=== PATIENT | female | born 1940 | race Caucasian/White ===

== ENCOUNTER 2017-06-22 12:56 | Inpatient (IN) | payer MEDICARE, OTHER, SELFPAY ==
[2017-06-22] VITALS (13 sets, daily range): BP systolic 111–202; BP diastolic 65–101; PULSE 86–106; RESP 11–24; TEMP 36.5–36.6; O2SAT 95–100; BMI 27.5; BMI 32.1
--- NOTE | 2017-06-22 13:19 | RAD_ITS ---
STUDY: X-RAY CHEST REASON FOR EXAM: Female, 77 years old. Dyspnea TECHNIQUE: Single AP portable view of the chest. COMPARISON: March 31, 2017 chest x-ray FINDINGS: Since prior study the right middle lobe pulmonary nodule has enlarged. It now measures 2.3 x 2.1 cm when it measured 1.6 x 1.2 cm on prior study, March 31, 2017 chest x-ray. There is a pattern of emphysematous change. There is no demonstrated pleural abnormality. There is borderline cardiomegaly. Normal mediastinum and soto. Normal visualized pulmonary arteries. Normal visualized aortic arch and descending thoracic aorta. There are diffuse degenerative changes of the visualized thoracic spine. Normal visualized ribs, clavicles, and shoulders. There is no demonstrated abnormality of the visualized soft tissue structures of the upper abdomen. RAD/Chest 1 View (Portable) IMPRESSION: Enlarging mass in the right middle lobe suspicious for cancer until proven otherwise. Chronic obstructive pulmonary disease N.B. : The above information has been verbally conveyed by Kaylyn Bauer MD to Dr Mckinney, Referring Physician, on 06/22/2017 14:05:38 (ET). Electronically Signed: Kaylyn Bauer MD at 13:47 EST Tel , Service support , N.B. : The above information has been verbally conveyed by Kaylyn Bauer MD to Dr Mckinney, Referring Physician, on 06/22/2017 14:05:38 (ET).
--- NOTE | 2017-06-22 13:19 | EKG12_ITS ---
Test Reason : SOB Blood Pressure : / mmHG Vent. Rate : 101 BPM Atrial Rate : 101 BPM P-R Int : 150 ms QRS Dur : 088 ms QT Int : 310 ms P-R-T Axes : 066 -61 072 degrees QTc Int : 401 ms Sinus tachycardia Left anterior fascicular block Nonspecific T wave abnormality Abnormal ECG Confirmed by MABLE MCGARRY, SUMAN ([id number]), videotape editor ROCK GARZA ([id number]) on 06/24/2017 10:41:41 AM Referred By: [email or web address] Confirmed By:SUMAN AKINS MD
[2017-06-22] MEDS: Ipratropium/Albuterol Sulfate 3 ML AMPUL.NEB INHALATION ×3 (13:29→22:30)
--- NOTE | 2017-06-22 13:46 | ED.VISSUMM ---
- ER Visit Summary Date of Service: 06/22/17 Chief Complaint: [] Worsening shortness of breath recent negative pulmonary workup History of Present Illness: The patient is a 77 F [] she has a history of CHF COPD, lung cancer, non-Hodgkin's lymphoma, she has had progressively worsening shortness of breath. She has had extensive recent evaluation by her software applications engineer including special breathing tests, special oxygen tests, CAT scans workup for cancer pulmonary embolisms etc. he also indicates she had a biopsy she believes of a right lung lesion that showed no cancer, she reports all of her pulmonary test were negative and she was told her shortness of breath is not related to her lung condition and that she should see her funeral director/embalmer. She indicates she had progressively more shortness of breath today where she cannot lay flat and she cannot walk across her small apartment without getting quite winded and she was instructed to come to the emergency department. She has no history of PE she has history of cardiac disease with stents, no fever chronic cough no weight gain no leg edema. She simply states she is constantly short of breath her cough is dry nonproductive Physical Examination: [] Pulse ox is 95 on room air she speaking full sentences her nose is clear her throat is clear her neck is supple her lungs are diminished heart tones are unremarkable the abdomen soft nontender upper lower extremities without signs clubbing or edema neurologically she is awake moving all 4 Test Results: [] Emergency Department Course and Treatment: [] And her complaints a competence evaluations pursued EKG shows a sinus rhythm nothing acute The patient's labs are generally unremarkable see those reports, the chest x-ray shows a suspicious lesion in the right middle lobe suspicious for cancer and enlarging, CTA was done and shows lesion right middle lobe consists concerning for cancer per radiology All the above to the patient given all of that I have asked the hospital see her further management admission Treatment Plan: [] Disposition: [] Admit stable Impression: [] Dyspnea, right middle lobe lung mass, history of COPD and CHF, history of lung cancer, non-Hodgkin's lymphoma This note was generated with [employer] dictation software. It may contain incorrect words, spelling, and punctuation that were not noted in review of the chart prior to signing ED Disposition - Plan for ED Patient: Chief Complaint: Shortness of Breath Referrals: Ashley Stephens MD [Primary Care Provider] -
[2017-06-22 13:48] LABS: Absolute Lymphocyte Count 2.56 X10^3/ul (0.83-4.51); Absolute Neutrophil Count 4.7 X10^3/uL (2.0-7.7); Basophil# 0.04 X10^3/uL; Basophil% 0.5 % (0-1); Eosinophil# 0.18 X10^3/uL; Eosinophils% 2.1 % (0-5); Hematocrit 40.5 % (37-47); Hemoglobin 13.4 g/dl (12.0-15.0); Lymphocyte # 2.56 X10^3/ul (4.0); Lymphocyte % 29.9 % (19-41); Mean Corp Hgb Conc 33.1 g/gl (32-36); Mean Corpuscular Hgb 30.7 pg (27.0-32.0); Mean Corpuscular Volume 92.9 fL (81-99); Mean Platelet Vol. 11.1 fl (6.2-12.0); Monocyte# 1.11 X10^3/uL; Neutrophil # 4.66 X10^3/uL (2.7-7.7); Neutrophil % 54.4 % (47-70); POSITIVE COUNT NO; POSITIVE DIFFERENTIAL NO; POSITIVE MORPHOLOGY NO; Platelet Count 252 K/mm3 (150-450); RBC Distribution Width CV 15.7 % (11.6-14.6); RBC Distribution Width SD 51.7 fl (35.1-43.9); Red Blood Count 4.36 M/mm3 (4.2-5.4); White Blood Count 8.6 K/mm3 (4.4-11.0)
--- NOTE | 2017-06-22 14:03 | CT_ITS ---
STUDY: CTA CHEST REASON FOR EXAM: Female, 77 years old. COPD, dyspnea RADIATION DOSAGE (If Supplied By Facility): CTDIvol = ( 12.77 ) mGy, DLP = ( 555.40 ) mGycm TECHNIQUE: The examination was performed with the intravenous administration of 100 ml of Isovue 370 contrast material. Post-processing of the angiographic images was performed, with multiplanar reformation and 3D reconstruction. Individualized dose optimization techniques were used for this CT. COMPARISON: CT chest February 28, 2017, October 18, 2016 chest x-ray, June 22, 2017 chest x-ray FINDINGS: Normal enhancement of the main pulmonary artery and right and left pulmonary arteries. Normal enhancement of the bilateral peripheral pulmonary arteries. There is no demonstrated pulmonary embolism. There is atherosclerotic calcification of the aortic arch with tortuosity. There is no demonstrated aortic dissection. There are coronary calcifications. There is mild cardiac enlargement. There is a stable focal low attenuating mass within the mediastinum suggesting a low attenuating lymph node stable since prior study or small focus of fluid. There is a small subcarinal lymph node measuring 7.7 mm similar to prior study. Normal hilar regions. Normal visualized trachea and bronchi. The lungs are well expanded. Within the right lung base is a stable focus of groundglass opacity or fibrotic change. Overall the lungs are hyperinflated and show central small emphysematous blebs. There is an overall hyperinflated appearance of both lungs. Within the right middle lobe there is a solid lobulated mass with peripheral spiculations and now an adjacent spiculated nodular component. There is interval greater pleural tagging. On today's study image #95 axial views this mass measures 2.4 x 1.6 cm with a peripheral nodular component measures 6.1 x 6.1 mm. At approximately the same level on the prior study this mass measured 1.6 x 1.5 cm with a peripheral nodular component measuring 4 x 4 mm. From craniocaudal this mass measures 2.0 x 1.4 cm on the coronal view image #106. On prior study at approximately the same level the mass measures 1.1 x 1.3 cm. Normal pleura. Normal chest wall structures. The bones are osteopenic. There is mild degenerative change in the thoracolumbar spine. There is hepatic steatosis. There is nonspecific focal calcification posterior to the lesser curvature of the stomach. There is a hiatal hernia. This measures 2.[address]/CTA Chest W/WO Contrast IMPRESSION: 2.0 x 2.4 x 1.6 cm enlarging mass in the right middle lobe highly suspicious for primary lung cancer. Findings seen on chest x-ray were called to the emergency room on a stat basis. Chronic obstructive pulmonary disease Stable focus of fibrotic change in the right lung base. Coronary artery calcification. Hepatic steatosis Hiatal hernia. Focus of calcification measuring 1.3 x 1.3 cm posterior to the greater curvature of the stomach stable since prior study which may represent prior granulomatous disease. Electronically Signed: Kaylyn Bauer MD at 15:40 EST Tel , Service support ,
[2017-06-22 14:06] LABS: Anion Gap 9 (5-15); BUN 10 mg/dL (7-18); BUN/Creat Ratio 14.9 RATIO (10-20); Calcium,Total 8.4 mg/dL (8.5-10.1); Chloride 108 mmol/L (98-107); Creatinine, Serum 0.67 mg/dL (0.55-1.02); EST Glomerular Filtration Rate 90 mL/min (>60); Est Glom Filt Rate - Afr Amer 109 mL/min (>60); Estimated Creatinine Clearance 46.77 ml/min; Glucose 102 mg/dL (70-110); Potassium 4.1 mmol/L (3.5-5.1); Sodium Level 141 mmol/L (136-145)
[2017-06-22 14:18] LABS: BNP,B-Type NATRIURETIC PEPTIDE 425.7 pg/mL (0-100)
--- NOTE | 2017-06-22 16:56 | PCM.HP.STD ---
Problem List (1) Acute exacerbation of CHF (congestive heart failure) Status: Acute Qualifiers: Congestive heart failure type: systolic Qualified Code(s): I50.23 - Acute on chronic systolic (congestive) heart failure (2) PVD (peripheral vascular disease) Status: Chronic (3) Hyperlipemia Status: Acute Qualifiers: Hyperlipidemia type: unspecified Qualified Code(s): E78.5 - Hyperlipidemia, unspecified (4) Non-Hodgkin lymphoma Status: Acute Qualifiers: Follicular lymphoma grade: unspecified grade Lymphoma site: unspecified region (5) COPD (chronic obstructive pulmonary disease) Status: Chronic Qualifiers: Emphysema type: unspecified History of Present Illness Date of Admission: 06/22/17 Chief Complaint: Dyspnea, cough ongoing for months The patient is a 77 year old F with medical history of non-Hodgkin's lymphoma,? COPD, history of lung nodules, follows up with oncology, pulmonology, and cardiology in [place]. She comes in with complaints of shortness of breath ongoing for months but worse over the last 3 days. No associated fever but occasionally has sputum production. Denies any chest pain or dizziness or palpitations. Vitals in the ED showed temperature of 90 7.7F, heart rate is 102, respiratory rate is 21, blood pressure is 111/65, she was saturating at 95% on room air. Admitting labs show WBC count of 8.6, Hgb 13.4, platelets of 252, sodium 141 potassium 4.1, chloride 108 bicarbonate 24 BUN was 10 creatinine was 0.67 BNP was 425.7 Chest x-ray shows an enlarging mass in the right middle lobes, suspicious for cancer. CTA of the chest showed a 2.0?2.4?1.6 cm enlarging mass in the right middle lobe suspicious for primary lung cancer Past Medical History Past Medical History (Chronic Problems): Chronic Problems (Last Reviewed 06/11/17 @ 16:23 by ANOOP Cervantes) Asthma (Chronic) Tobacco abuse (Chronic) Stage 1 mild COPD by GOLD classification (Chronic) Dysphagia (Chronic) PVD (peripheral vascular disease) (Chronic) Occlusion and stenosis of right carotid artery (Chronic) Cardiomyopathy (Chronic) History of non-Hodgkin's lymphoma (Chronic) Lung nodule seen on imaging study (Chronic) COPD (chronic obstructive pulmonary disease) (Chronic) Allergies alendronate sodium [From Fosamax] Allergy (Severe, Verified 06/22/17 13:01) Other generalized discomfort reflux choking / aspiration budesonide Allergy (Severe, Verified 06/22/17 13:01) Other asthma attack fluticasone [From Advair Diskus] Allergy (Severe, Verified 06/22/17 13:01) Other CAN'T BREATHE Penicillins [PCN] Allergy (Severe, Verified 06/22/17 13:01) Shortness of breath salmeterol [From Advair Diskus] Allergy (Severe, Verified 06/22/17 13:01) Other CAN'T BREATHE tiotropium [From Spiriva with HandiHaler] Allergy (Severe, Verified 06/22/17 13:01) Other CANT BREATHE umeclidinium [From Anoro Ellipta] Allergy (Severe, Verified 06/22/17 13:01) Other THROAT SWELLING vilanterol [From Anoro Ellipta] Allergy (Severe, Verified 06/22/17 13:01) Other THROAT SWELLING doxycycline Allergy (Verified 06/22/17 13:01) Shortness of breath Home Medications: Ambulatory Orders Medication Instructions Recorded Albuterol Inhaler [Ventolin Hfa] 1 - 2 puff INHALATION Q6H PRN PRN 09/20/14 Ipratropium/Albuterol Respimat 1 puff INHALATION 4X/DAY PRN 09/20/14 [Combivent Respimat Inhal Mikado] Cetirizine HCl [Zyrtec] 10 mg PO DAILY 08/19/16 Mv-Mn/FA/Vit K1/Lycop/Lut/Zeax 1 ea PO DAILY 08/19/16 [Ocuvite Eye + Multi Tablet] Calcium Carbonate [Calcium] 500 mg PO DAILY 10/03/16 Ergocalciferol [Vitamin D] 50,000 unit PO Q7D 10/03/16 Ipratropium/Albuterol Sulfate 3 ml INHALATION Q4H.RT 10/03/16 [Duoneb] albuterol sulfate 1.25 mg/3 mL 1.25 mg CONTINUOUS NEBULIZATION 05/12/17 solution for nebulization Q4H #90 ml MDD WHEEZING pantoprazole 20 mg tablet,delayed 20 mg PO BID tab 06/03/17 release montelukast 10 mg tablet 10 mg PO QHS 06/04/17 Surgical History: coronary bypass surgery, hysterectomy, - - vocal cord surgery, Psychiatric History: No pertinent psych hx EXTRACT OPERATOR History: No pertinent EXTRACT OPERATOR history Lives: Alone Smoking Status: Former smoker Tobacco Use: Non-smoker Alcohol: None Drugs: None - *Family History Maternal Family History: Family History (Last Reviewed 06/11/17 @ 16:23 by ANOOP Cervantes) Sister Cancer History Items: Heart Disease Paternal Family History: Family History (Last Reviewed 06/11/17 @ 16:23 by ANOOP Cervantes) Sister Cancer History Items: Stroke Offspring Family History: Family History (Last Reviewed 06/11/17 @ 16:23 by ANOOP Cervantes) Sister Cancer History Items: - - Thyroid cancer, ovarian cancer Review of Systems Constitutional: Reports: Anorexia, Weakness. Denies: Chills, Fever, Weight Change Eyes: Denies: Blurred vision, Cataracts, Conjunctivae Inflammation, Pain, Redness HEENT: Denies: Head Aches, Hearing Changes, Nasal bleeding, Sinus Congestion, Sinus Drainage, Sore Throat, Visual Changes Cardiovascular: Reports: Orthopnea, Paroxysmal Noc. Dyspnea. Denies: Chest Pain, Claudication, Edema, Heaviness, Light Headedness, Palpitations Respiratory: Reports: Shortness of Breath, Shortness of breath at rest, Shortness of breath upon exertion. Denies: Cough, Sputum production Gastrointestinal: Denies: Abdominal Pain, Hematemesis, Hematochezia, Nausea, Vomiting Genitourinary: Denies: Dysuria Musculoskeletal: Denies: Joint Pain, Joint stiffness, Joint swelling, Joint Tenderness Skin: Denies: Rash, Wounds Neurological: Denies: Difficulty swallowing, Focal weakness, Numbness, Tingling Psychiatric: Denies: Anxiety, Depression, Homicidal Ideations, Suicidal Ideations Hematologic/ Lymphatic: Denies: Easy Bruising, Easy Bleeding VTE Information - Inpt Only VTE Present on Admission: No VTE Pharm Prophylaxis ordered?: Yes Patient Problems: Active and Suspected Problems (Last Reviewed 06/11/17 @ 16:23 by ANOOP Cervantes) Acute exacerbation of CHF (congestive heart failure) (Acute) - Physical Exam General: Alert, Oriented x3, Cooperative, No apparent distress HEENT: Atraumatic, PERRLA, EOMI, Normocephalic Oral: Moist Mucosa Neck: Supple, No JVD Lungs: Normal air movement, Diminished Cardiovascular: Regular rate, Regular Rhythm, Normal S1, Normal S2, No murmurs Abdomen: Bowel Sounds Present, Soft, Non Tender, Non-Distended, No Hepato-splenomegaly Extremities: No edema Skin: No rashes, No breakdown Musculoskeletal: No Tenderness to Palpation of Joints or Extremities Lymphatic: No Cervical, Supraclavicular, or Inguinal Adenopathy Neurological: Cranial nerves II-XII grossly intact Psych/Mental Status: Normal Affect, Appropriate Vital Signs Temp Pulse Resp BP Pulse Ox 97.7 F L 95 20 H 130/67 H 98 06/22/17 12:57 06/22/17 14:44 06/22/17 14:44 06/22/17 14:44 06/22/17 14:44 Oxygen Delivery Method Room Air Weight: 82.01 kg Body Mass Index (BMI) 27.5 Laboratory Tests Past 24 Hrs 06/22/17 06/22/17 06/22/17 13:40 13:40 13:40 WBC 8.6 RBC 4.36 Hgb 13.4 Hct 40.5 MCV 92.9 MCH 30.7 MCHC 33.1 RDW 15.7 H RDW Differential 51.7 H Plt Count 252 MPV 11.1 Immature Gran % (Auto) 0.100 Neut % (Auto) 54.4 Lymph % (Auto) 29.9 Catron % (Auto) 13.0 H Eos % (Auto) 2.1 Baso % (Auto) 0.5 Absolute Neuts (auto) 4.7 Absolute Lymphs (auto) 2.56 Total Counted Not Reportable Sodium 141 Potassium 4.1 Chloride 108 H Carbon Dioxide 24.0 Anion Gap 9 BUN 10 Creatinine 0.67 Estim Creat Clear Calc 46.77 Est GFR (MDRD) Af Amer 109 Est GFR (MDRD) Non-Af 90 BUN/Creatinine Ratio 14.9 Glucose 102 Calcium 8.4 L Troponin I < 0.02 B-Natriuretic Peptide 425.7 H Assessment/Plan Active and Suspected Problems (Last Reviewed 06/11/17 @ 16:23 by Nichole Holt, ORTHOTIC/PROSTHETIC CLINICIAN-C) Acute exacerbation of CHF (congestive heart failure) (Acute) 77 year old F with medical history of non-Hodgkin's lymphoma,? COPD, history of lung nodules, follows up with oncology, pulmonology, and cardiology in [place]. She comes in with complaints of shortness of breath ongoing for months but worse over the last 3 days. 1. Dyspnea secondary to Acute systolic CHF exacerbation, newly diagnosed lung mass Plan: Admit to [facility] floor, monitor on telemetry, breathing treatments, will need home ambulatory pulse oximetry before discharge, pulmonology consult 2. Acute on chronic systolic CHF exacerbation, BNPep was 425.7, last 2D echo in the system was 50-55% in 2014, will repeat 2D-echo, IV Lasix, and I's and O's, fluid restriction to less than 1.5 L a day, daily weights 3. Newly diagnosed lung mass, patient is a primary lung cancer, status post lung biopsy September 2016 that was nondiagnostic, follows with pulmonology in the outpatient, will consult pulmonology 4. Non-Hodgkin's lymphoma, follows with oncology, will consult oncology to follow with us in the hospital 5. DVT PPx - Lovenox SC Code Visit Inpatient E&M: 35179 Init Hosp L3
--- NOTE | 2017-06-22 17:08 | HP.PCM_ITS ---
Problem List (1) Acute exacerbation of CHF (congestive heart failure) Status: Acute Qualifiers: Congestive heart failure type: systolic Qualified Code(s): I50.23 - Acute on chronic systolic (congestive) heart failure (2) PVD (peripheral vascular disease) Status: Chronic (3) Hyperlipemia Status: Acute Qualifiers: Hyperlipidemia type: unspecified Qualified Code(s): E78.5 - Hyperlipidemia , unspecified (4) Non-Hodgkin lymphoma Status: Acute Qualifiers: Follicular lymphoma grade: unspecified grade Lymphoma site: unspecified region (5) COPD (chronic obstructive pulmonary disease) Status: Chronic Qualifiers: Emphysema type: unspecified History of Present Illness Date of Admission: 06/22/17 Chief Complaint: Dyspnea, cough ongoing for months The patient is a 77 year old F with medical history of non-Hodgkin's lymphoma,? COPD, history of lung nodules, follows up with oncology, pulmonology, and cardiology in [place]. She comes in with complaints of shortness of breath ongoing for months but worse over the last 3 days. No associated fever but occasionally has sputum production. Denies any chest pain or dizziness or palpitations. Vitals in the ED showed temperature of 90 7.7F, heart rate is 102, respiratory rate is 21, blood pressure is 111/65, she was saturating at 95% on room air. Admitting labs show WBC count of 8.6, Hgb 13.4, platelets of 252, sodium 141 potassium 4.1, chloride 108 bicarbonate 24 BUN was 10 creatinine was 0.67 BNP was 425.7 Chest x-ray shows an enlarging mass in the right middle lobes, suspicious for cancer. CTA of the chest showed a 2.0?2.4?1.6 cm enlarging mass in the right middle lobe suspicious for primary lung cancer Past Medical History Past Medical History (Chronic Problems): Chronic Problems (Last Reviewed 06/11/17 @ 16:23 by ANOOP Cervantes) Asthma (Chronic) Tobacco abuse (Chronic) Stage 1 mild COPD by GOLD classification (Chronic) Dysphagia (Chronic) PVD (peripheral vascular disease) (Chronic) Occlusion and stenosis of right carotid artery (Chronic) Cardiomyopathy (Chronic) History of non-Hodgkin's lymphoma (Chronic) Lung nodule seen on imaging study (Chronic) COPD (chronic obstructive pulmonary disease) (Chronic) Allergies alendronate sodium [From Fosamax] Allergy (Severe, Verified 06/22/17 13:01) Other generalized discomfort reflux choking / aspiration budesonide Allergy (Severe, Verified 06/22/17 13:01) Other asthma attack fluticasone [From Advair Diskus] Allergy (Severe, Verified 06/22/17 13:01) Other CAN'T BREATHE Penicillins [PCN] Allergy (Severe, Verified 06/22/17 13:01) Shortness of breath salmeterol [From Advair Diskus] Allergy (Severe, Verified 06/22/17 13:01) Other CAN'T BREATHE tiotropium [From Spiriva with HandiHaler] Allergy (Severe, Verified 06/22/17 13: 01) Other CANT BREATHE umeclidinium [From Anoro Ellipta] Allergy (Severe, Verified 06/22/17 13:01) Other THROAT SWELLING vilanterol [From Anoro Ellipta] Allergy (Severe, Verified 06/22/17 13:01) Other THROAT SWELLING doxycycline Allergy (Verified 06/22/17 13:01) Shortness of breath Home Medications: Ambulatory Orders Medication Instructions Recorded Albuterol Inhaler [Ventolin Hfa] 1 - 2 puff INHALATION Q6H PRN PRN 09/20/14 Ipratropium/Albuterol Respimat 1 puff INHALATION 4X/DAY PRN 09/20/14 [Combivent Respimat Inhal [place]] Cetirizine HCl [Zyrtec] 10 mg PO DAILY 08/19/16 Mv-Mn/FA/Vit K1/Lycop/Lut/Zeax 1 ea PO DAILY 08/19/16 [Ocuvite Eye + Multi Tablet] Calcium Carbonate [Calcium] 500 mg PO DAILY 10/03/16 Ergocalciferol [Vitamin D] 50,000 unit PO Q7D 10/03/16 Ipratropium/Albuterol Sulfate 3 ml INHALATION Q4H.RT 10/03/16 [Duoneb] albuterol sulfate 1.25 mg/3 mL 1.25 mg CONTINUOUS NEBULIZATION 05/12/17 solution for nebulization Q4H #90 ml MDD WHEEZING pantoprazole 20 mg tablet,delayed 20 mg PO BID tab 06/03/17 release montelukast 10 mg tablet 10 mg PO QHS 06/04/17 Surgical History: coronary bypass surgery, hysterectomy, - - vocal cord surgery, Psychiatric History: No pertinent psych hx 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 Denies: Chills, Fever, Weight Change Eyes: Denies: Blurred vision, Cataracts, Conjunctivae Inflammation, Pain, Redness HEENT: Denies: Head Aches, Hearing Changes, Nasal bleeding, Sinus Congestion, Sinus Drainage, Sore Throat, Visual Changes Cardiovascular: Reports: Orthopnea, Paroxysmal Noc. Dyspnea. Denies: Chest Pain , Claudication, Edema, Heaviness, Light Headedness, Palpitations Respiratory: Reports: Shortness of Breath, Shortness of breath at rest, Shortness of breath upon exertion. Denies: Cough, Sputum production Gastrointestinal: Denies: Abdominal Pain, Hematemesis, Hematochezia, Nausea, Vomiting Genitourinary: Denies: Dysuria Musculoskeletal: Denies: Joint Pain, Joint stiffness, Joint swelling, Joint Tenderness Skin: Denies: Rash, Wounds Neurological: Denies: Difficulty swallowing, Focal weakness, Numbness, Tingling Psychiatric: Denies: Anxiety, Depression, Homicidal Ideations, Suicidal Ideations Hematologic/ Lymphatic: Denies: Easy Bruising, Easy Bleeding VTE Information - Inpt Only VTE Present on Admission: No VTE Pharm Prophylaxis ordered?: Yes Patient Problems: Active and Suspected Problems (Last Reviewed 06/11/17 @ 16:23 by ANOOP Cervantes) Acute exacerbation of CHF (congestive heart failure) (Acute) - Physical Exam General: Alert, Oriented x3, Cooperative, No apparent distress HEENT: Atraumatic, PERRLA, EOMI, Normocephalic Oral: Moist Mucosa Neck: Supple, No JVD Lungs: Normal air movement, Diminished Cardiovascular: Regular rate, Regular Rhythm, Normal S1, Normal S2, No murmurs Abdomen: Bowel Sounds Present, Soft, Non Tender, Non-Distended, No Hepato- splenomegaly Extremities: No edema Skin: No rashes, No breakdown Musculoskeletal: No Tenderness to Palpation of Joints or Extremities Lymphatic: No Cervical, Supraclavicular, or Inguinal Adenopathy Neurological: Cranial nerves II-XII grossly intact Psych/Mental Status: Normal Affect, Appropriate Vital Signs Temp Pulse Resp BP Pulse Ox 97.7 F L 95 20 H 130/67 H 98 06/22/17 12:57 06/22/17 14:44 06/22/17 14:44 06/22/17 14:44 06/22/17 14:44 Oxygen Delivery Method Room Air Weight: 82.01 kg Body Mass Index (BMI) 27.5 Laboratory Tests Past 24 Hrs 06/22/17 06/22/17 06/22/17 13:40 13:40 13:40 WBC 8.6 RBC 4.36 Hgb 13.4 Hct 40.5 MCV 92.9 MCH 30.7 MCHC 33.1 RDW 15.7 H RDW Differential 51.7 H Plt Count 252 MPV 11.1 Immature Gran % (Auto) 0.100 Neut % (Auto) 54.4 Lymph % (Auto) 29.9 [place] % (Auto) 13.0 H Eos % (Auto) 2.1 Baso % (Auto) 0.5 Absolute Neuts (auto) 4.7 Absolute Lymphs (auto) 2.56 Total Counted Not Reportable Sodium 141 Potassium 4.1 Chloride 108 H Carbon Dioxide 24.0 Anion Gap 9 BUN 10 Creatinine 0.67 Estim Creat Clear Calc 46.77 Est GFR (MDRD) Af Amer 109 Est GFR (MDRD) Non-Af 90 BUN/Creatinine Ratio 14.9 Glucose 102 Calcium 8.4 L Troponin I < 0.02 B-Natriuretic Peptide 425.7 H Assessment/Plan Active and Suspected Problems (Last Reviewed 06/11/17 @ 16:23 by Nichole Holt, MEDICAL SUPPORT SPECIALIST-C) Acute exacerbation of CHF (congestive heart failure) (Acute) 77 year old F with medical history of non-Hodgkin's lymphoma,? COPD, history of lung nodules, follows up with oncology, pulmonology, and cardiology in [place]. She comes in with complaints of shortness of breath ongoing for months but worse over the last 3 days. 1. Dyspnea secondary to Acute systolic CHF exacerbation, newly diagnosed lung mass Plan: Admit to [facility] floor, monitor on telemetry, breathing treatments, will need home ambulatory pulse oximetry before discharge, pulmonology consult 2. Acute on chronic systolic CHF exacerbation, BNPep was 425.7, last 2D echo in the system was 50-55% in 2014, will repeat 2D-echo, IV Lasix, and I's and O's , fluid restriction to less than 1.5 L a day, daily weights 3. Newly diagnosed lung mass, patient is a primary lung cancer, status post lung biopsy September 2016 that was nondiagnostic, follows with pulmonology in the outpatient, will consult pulmonology 4. Non-Hodgkin's lymphoma, follows with oncology, will consult oncology to follow with us in the hospital 5. DVT PPx - Lovenox SC Code Visit Inpatient E&M: 96206 Init Hosp L3
--- NOTE | 2017-06-22 18:18 | ECHOD_ITS ---
Reason For Study: dyspnea/SOB Procedure This was a 2D Doppler, Color Flow transthoracic echocardiogram. The study was technically difficult. T had difficulty lying still and lying in left lateral decubitus position. Exam performed portable in patient room. Left Ventricle Normal LV size. Moderate segmental systolic dysfunction (see wall motion). The estimated ejection fraction is 37 %. There is moderate global hypokinesis of the left ventricle. Infero-Basal: Normal. Posterior-Basal: Normal. Mid-inferoseptal : Normal. Rest of the warner hypokinetic. Right Ventricle Normal RV size. Normal systolic function. Atria Normal left atrium. Normal right atrium. Mitral Valve Normal mitral valve. Mild (1+) eccentric mitral valve insufficiency. Tricuspid Valve Normal tricuspid valve. Unable to estimate RV systolic pressure/pulmonary artery pressure due to technically difficult study. Aortic Valve Trisinus/trileaflet aortic valve. Pulmonic Valve Normal pulmonic valve. Great Vessels Normal aortic root. The pulmonary artery is normal size. Normal inferior vena cava. Pericardium/Pleural No pericardial effusion. MMode/2D Measurements & Calculations LVIDd: 4.7 cm IVSd: 1.0 cm Ao root diam: 3.0 cm LVIDs: 3.5 cm LVPWd: 1.0 cm LA dimension: 3.1 cm RVDd: 2.4 cm FS: 25.9 % LAV(MOD-bp): 41.7 ml LA A4 area: 12.7 cm2 RA A4 area: 10.4 cm2 LAV(MOD-bp) Indexed: 21.3 ml/m2 LAV(MOD-sp2): 54.2 ml LAV(MOD-sp4): 29.5 ml Doppler Measurements & Calculations MV E max eitan: 46.2 cm/sec Lat Peak E' Eitan: 5.5 cm/sec Med Peak E' Eitan: 4.4 cm/sec MV A max eitan: 90.8 cm/sec E/E' lat: 8.4 E/E' med: 10.5 MV E/A: 0.51 Ao V2 max: 120.0 cm/sec LV V1 max: 92.8 cm/sec PA V2 max: 86.1 cm/sec Ao max P.8 mmHg LV V1 max P.4 mmHg Interpretation Summary Normal LV size. Moderate segmental systolic dysfunction (see wall motion). The estimated ejection fraction is 37 %. Normal mitral valve. Mild (1+) eccentric mitral valve insufficiency. Ordering Physician: Britta Desai Referring Physician: Ashley Stephens Performed By: Lisa Lowery RDCS, RVT
[2017-06-22] MEDS: Montelukast 10 MG Tablet PO (21:19)
[2017-06-22] MEDS: 0.9% NaCl Peripheral Flush Adult/Peds IV (21:19)
[2017-06-22] MEDS: Pantoprazole Sodium 20 MG Tablet PO (21:19)
[2017-06-22] MEDS: Furosemide 40 MG/4 ML Vial IV (21:19)
[2017-06-23] VITALS (16 sets, daily range): BP systolic 96–131; BP diastolic 50–79; PULSE 89–101; RESP 18–20; TEMP 35.8–36.7; O2SAT 93–98
[2017-06-23] MEDS: Enoxaparin 40 MG/0.4 ML Syringe SC (05:46)
[2017-06-23] MEDS: Ondansetron 4 MG/2 ML Vial IV (06:11)
[2017-06-23] MEDS: 0.9% NaCl Peripheral Flush Adult/Peds IV ×3 (06:11→17:10)
[2017-06-23] MEDS: Ipratropium/Albuterol Sulfate 3 ML AMPUL.NEB INHALATION ×5 (06:46→22:31)
--- NOTE | 2017-06-23 06:53 | PCM.PROGNOTE ---
Patient Problems: Active and Suspected Problems (Last Updated 06/23/17 @ 09:36 by Sharri Sood, GERMÁN-C) Acute exacerbation of CHF (congestive heart failure) (Acute) Subjective: The patient is a 77 YO Female with a PMH of non-Hodgkin's Lymphoma, COPD, hx of lung nodules, PVD, HLD, nicotine dependence, asthma, dysphagia Carotid artery disease and CM? (EF in 2015 was 50-55% with mild global left ventricular systolic dysfunction) who presented to the ED at [facility] on 06/22/2017 with a complaint of shortness of breath that has been ongoing for months. She stated the shortness of breath had worsened over the preceding 3 days. Vital signs at presentation to the emergency department were temp 97.7, heart rate 102, respiratory rate 21, blood pressure 111/65 and she was 95% saturated on room air. Chest x-ray showed an enlarging mass in the right middle lobe suspicious for cancer and evidence of COPD. There were no pleural effusions and no infiltrates. Labs showed an elevated BNP at 425, troponin of less than 0.02. BUN was 10 and creatinine was 0.67. BC was normal. She was admitted to a monitored bed and started on furosemide 40 mg IV twice daily. She is on Lovenox for DVT prophylaxis and [id number] aerosol treatments. She tells me she feels much better today but is still somewhat short of breath when ambulating to the bathroom. She did not have oxygen on when I entered the room. She has been afebrile since admission. Vital signs are stable. She is 93-94% saturated on room air at rest. Fluid balance since admission is -1760. Recently she has an increase in chronic cough and it is more productive. The sputum is yellow and thick Denies fever, chills, nausea, sore throat. He does have some pain in the right rib area with coughing. She has not had hemoptysis. He has had loose stools recently and she denies any recent antibiotic usage. This by herself. - Physical Exam General: Alert, Oriented x3, Cooperative, No apparent distress, Well developed, Well nourished HEENT: Atraumatic, PERRLA, EOMI, Normocephalic Neck: Supple, Negative Carotid Bruits, JVD, Bilateral Lungs: Diminished, Wheezes - rare, - - No conversational dyspnea at rest and no accessory muscle use. She is able to speak in full sentences. Cardiovascular: Regular rate, Regular Rhythm, Normal S1, Normal S2, No murmurs, No rub noted, No Gallop, - - Heart sounds are distant, likely secondary to body habitus and COPD Abdomen: Bowel Sounds Present, Soft, Non Tender, Non-Distended, - - No guarding with palpation. Extremities: No clubbing, No cyanosis, No edema, No Calf Tenderness, Peripheral Pulses Normal Skin: No rashes, No breakdown Musculoskeletal: No Muscle Wasting Neurological: Cranial nerves II-XII grossly intact, Neuro grossly intact, Motor Exam 5/5 strength throughout Psych/Mental Status: Normal Affect, Appropriate Vital Signs Temp Pulse Resp BP Pulse Ox 98.1 F 97 20 H 96/50 L 96 06/23/17 03:26 06/23/17 05:59 06/23/17 03:26 06/23/17 03:26 06/23/17 03:26 Oxygen Flow Rate 2 Oxygen Delivery Method Room Air Weight: 180 lb 1.883 oz Body Mass Index (BMI) 32.1 Intake and Output for Last 24 Hours 06/21/17 06/22/17 06/23/17 23:59 23:59 23:59 Intake Total 700 / 700 Output Total 2100 / 2100 Balance -1400 / -1400 Assessment/Plan Active and Suspected Problems (Last Updated 06/23/17 @ 09:36 by Sharri Sood, DATABASE ENGINEER-C) Acute exacerbation of CHF (congestive heart failure) (Acute) Impressions 1. Congestive heart failure-suspect diastolic 2. enlarging right lung mass 3. History of non-Hodgkin's lymphoma 4. COPD 5. Peripheral vascular disease (see has had aortofemoral bypass by Dr. Bhavin Munoz) 6. Hyperlipidemia 7. Former smoker 8. Dysphagia 9. Carotid artery disease, 10. Mild global left ventricular systolic dysfunction in 2015 with a 50-55% ejection fraction. 11. Chronic cough Continue furosemide IV 40 mg every 12 hours. Hold Lovenox in the a.m. in preparation for lung biopsy Consult Dr. Varghese for CT-guided biopsy of right lung mass Consult Dr. Cottrell regarding enlarging lung mass Repeat lab in the a.m. Check a liver panel, magnesium and phosphorus now. Discussed with Dr. Allen and appreciate his input. Repeat echocardiogram since she has not had an echo since 2014 Continue aerosolized bronchodilators Code Visit Inpatient E&M: 91704 Subs Hosp L3
--- NOTE | 2017-06-23 07:00 | PN_ITS ---
Patient Problems: Active and Suspected Problems (Last Updated 06/23/17 @ 09:36 by Sharri Sood , GERMÁN-C) Acute exacerbation of CHF (congestive heart failure) (Acute) Subjective: The patient is a 77 YO Female with a PMH of non-Hodgkin's Lymphoma, COPD, hx of lung nodules, PVD, HLD, nicotine dependence, asthma, dysphagia Carotid artery disease and CM? (EF in 2015 was 50-55% with mild global left ventricular systolic dysfunction) who presented to the ED at [facility] on 06/22/2017 with a complaint of shortness of breath that has been ongoing for months. She stated the shortness of breath had worsened over the preceding 3 days. Vital signs at presentation to the emergency department were temp 97.7, heart rate 102, respiratory rate 21, blood pressure 111/65 and she was 95% saturated on room air. Chest x-ray showed an enlarging mass in the right middle lobe suspicious for cancer and evidence of COPD. There were no pleural effusions and no infiltrates. Labs showed an elevated BNP at 425, troponin of less than 0.02. BUN was 10 and creatinine was 0.67. BC was normal. She was admitted to a monitored bed and started on furosemide 40 mg IV twice daily. She is on Lovenox for DVT prophylaxis and tcaotv-[id number] aerosol treatments. She tells me she feels much better today but is still somewhat short of breath when ambulating to the bathroom. She did not have oxygen on when I entered the room. She has been afebrile since admission. Vital signs are stable. She is 93-94% saturated on room air at rest. Fluid balance since admission is -1760. Recently she has an increase in chronic cough and it is more productive. The sputum is yellow and thick Denies fever, chills, nausea, sore throat. He does have some pain in the right rib area with coughing. She has not had hemoptysis. He has had loose stools recently and she denies any recent antibiotic usage. This by herself. - Physical Exam General: Alert, Oriented x3, Cooperative, No apparent distress, Well developed, Well nourished HEENT: Atraumatic, PERRLA, EOMI, Normocephalic Neck: Supple, Negative Carotid Bruits, JVD, Bilateral Lungs: Diminished, Wheezes - rare, - - No conversational dyspnea at rest and no accessory muscle use. She is able to speak in full sentences. Cardiovascular: Regular rate, Regular Rhythm, Normal S1, Normal S2, No murmurs, No rub noted, No Gallop, - - Heart sounds are distant, likely secondary to body habitus and COPD Abdomen: Bowel Sounds Present, Soft, Non Tender, Non-Distended, - - No guarding with palpation. Extremities: No clubbing, No cyanosis, No edema, No Calf Tenderness, Peripheral Pulses Normal Skin: No rashes, No breakdown Musculoskeletal: No Muscle Wasting Neurological: Cranial nerves II-XII grossly intact, Neuro grossly intact, Motor Exam 5/5 strength throughout Psych/Mental Status: Normal Affect, Appropriate Vital Signs Temp Pulse Resp BP Pulse Ox 98.1 F 97 20 H 96/50 L 96 06/23/17 03:26 06/23/17 05:59 06/23/17 03:26 06/23/17 03:26 06/23/17 03:26 Oxygen Flow Rate 2 Oxygen Delivery Method Room Air Weight: 180 lb 1.883 oz Body Mass Index (BMI) 32.1 Intake and Output for Last 24 Hours 06/21/17 06/22/17 06/23/17 23:59 23:59 23:59 Intake Total 700 / 700 Output Total 2100 / 2100 Balance -1400 / -1400 Assessment/Plan Active and Suspected Problems (Last Updated 06/23/17 @ 09:36 by Sharri Sood , ROLLOUT MANAGER-C) Acute exacerbation of CHF (congestive heart failure) (Acute) Impressions 1. Congestive heart failure-suspect diastolic 2. enlarging right lung mass 3. History of non-Hodgkin's lymphoma 4. COPD 5. Peripheral vascular disease (see has had aortofemoral bypass by Dr. Bhavin Munoz) 6. Hyperlipidemia 7. Former smoker 8. Dysphagia 9. Carotid artery disease, 10. Mild global left ventricular systolic dysfunction in 2015 with a 50-55% ejection fraction. 11. Chronic cough Continue furosemide IV 40 mg every 12 hours. Hold Lovenox in the a.m. in preparation for lung biopsy Consult Dr. Varghese for CT-guided biopsy of right lung mass Consult Dr. Cottrell regarding enlarging lung mass Repeat lab in the a.m. Check a liver panel, magnesium and phosphorus now. Discussed with Dr. Allen and appreciate his input. Repeat echocardiogram since she has not had an echo since 2014 Continue aerosolized bronchodilators Code Visit Inpatient E&M: 35380 Subs Hosp L3
[2017-06-23] MEDS: Calcium (Elemental) 500 MG Tablet PO (07:44)
[2017-06-23] MEDS: Pantoprazole Sodium 20 MG Tablet PO ×2 (07:44→21:25)
[2017-06-23] MEDS: Loratadine 10 MG Tablet PO (07:44)
[2017-06-23] MEDS: Furosemide 40 MG/4 ML Vial IV ×2 (07:45→17:10)
--- NOTE | 2017-06-23 08:16 | PCM.CONS.GEN ---
Problem List (1) Abnormal chest CT Status: Acute (2) Asthma Status: Chronic Qualifiers: Asthma severity: mild Asthma persistence: intermittent Asthma complication type: uncomplicated Qualified Code(s): J45.20 - Mild intermittent asthma, uncomplicated (3) Tobacco abuse Status: Chronic Comment: in remission (4) Dysphagia Status: Chronic Qualifiers: Dysphagia type: unspecified Qualified Code(s): R13.10 - Dysphagia, unspecified (5) PVD (peripheral vascular disease) Status: Chronic (6) Occlusion and stenosis of right carotid artery Status: Chronic (7) Hyperlipemia Status: Acute Qualifiers: Hyperlipidemia type: unspecified Qualified Code(s): E78.5 - Hyperlipidemia, unspecified (8) Cardiomyopathy Status: Chronic (9) History of non-Hodgkin's lymphoma Status: Chronic (10) Lung nodule seen on imaging study Status: Chronic (11) COPD (chronic obstructive pulmonary disease) Status: Chronic Qualifiers: Emphysema type: unspecified Reason for Consult Date of Consultation: 06/23/17 Reason for Consultation: dyspnea, lung mass History of Present Illness: The patient is a 77 year old F with a past medical history as below, seen in the pulmonary clinic on 06/11/17 for dyspnea on exertion and placed on 20 mg of Lasix daily, presented to the ER on 06/22/17 with complaints of increased dyspnea on exertion with severe activity intolerance over the last 3 days. Patient reports she has been unable to perform her ADLs. She denies any increase in sputum production, however her sputum is very thick and typically yellow or white. Also complained of tightness in her hands and feet with some edema. Denied any chest pain, palpitations, nausea/vomiting/diarrhea. She denies any fever or chills. No hemoptysis. Initial lab work showed normal white count and hemoglobin, chemistry remarkable for chloride of 108 and elevated BNP of 425. Chest x-ray demonstrated an enlarging mass of the right middle lobe, COPD. CTA of the chest was then performed which showed a 2.0 x 2.4 x 1.6 cm enlarged lung mass to the right middle lobe suspicious for primary lung cancer, stable focus of fibrotic changes in the right lung base, hepatic steatosis, hiatal hernia, and focus of calcification measuring 1.3 x 1.3 cm posterior to the greater curvature the stomach stable since prior study, which may represent prior granulomatous disease. The patient has been following with as an outpatient with pulmonary for chronic complaints of shortness of breath. She also underwent cardiac evaluation including echocardiogram and diagnostic cardiac cath which was angiographically normal. She was then admitted September [address]-guided biopsy of her suspicious lung nodule which was nondiagnostic. She then developed a small apical and small right basilar pneumothorax from the procedure. The patient has been using DuoNeb aerosols and her as needed albuterol MDI. Reports using her albuterol inhaler approximately every 2 hours for the last several days, which helps briefly. She also complains of nocturia and typically has to use her inhaler to get back to bed. She denies any recent antibiotic or steroid use. She has been intolerant to other inhalers in the past, they have made her dizzy with vision changes. Mucinex makes her chest tight. She has not smoked in over a year. She has an extensive smoking history with [id number] history. He denies any recent weight loss, if anything she has gained weight. No recent swallowing difficulties. Past Medical History Past Medical History (Chronic Problems): Chronic Problems (Last Updated 06/23/17 @ 09:36 by Sharri Sood, GERMÁN-C) Asthma (Chronic) Tobacco abuse (Chronic) in remission Stage 1 mild COPD by GOLD classification (Chronic) Dysphagia (Chronic) PVD (peripheral vascular disease) (Chronic) Occlusion and stenosis of right carotid artery (Chronic) Cardiomyopathy (Chronic) History of non-Hodgkin's lymphoma (Chronic) Lung nodule seen on imaging study (Chronic) Lung nodule (Chronic) COPD (chronic obstructive pulmonary disease) (Chronic) Allergies alendronate sodium [From Fosamax] Allergy (Severe, Verified 06/22/17 13:01) Other generalized discomfort reflux choking / aspiration budesonide Allergy (Severe, Verified 06/22/17 13:01) Other asthma attack fluticasone [From Advair Diskus] Allergy (Severe, Verified 06/22/17 13:01) Other CAN'T BREATHE Penicillins [PCN] Allergy (Severe, Verified 06/22/17 13:01) Shortness of breath salmeterol [From Advair Diskus] Allergy (Severe, Verified 06/22/17 13:01) Other CAN'T BREATHE tiotropium [From Spiriva with HandiHaler] Allergy (Severe, Verified 06/22/17 13:01) Other CANT BREATHE umeclidinium [From Anoro Ellipta] Allergy (Severe, Verified 06/22/17 13:01) Other THROAT SWELLING vilanterol [From Anoro Ellipta] Allergy (Severe, Verified 06/22/17 13:01) Other THROAT SWELLING doxycycline Allergy (Verified 06/22/17 13:01) Shortness of breath Home Medications: Ambulatory Orders Medication Instructions Recorded Albuterol Inhaler [Ventolin Hfa] 1 - 2 puff INHALATION Q6H PRN PRN 09/20/14 Ipratropium/Albuterol Respimat 1 puff INHALATION 4X/DAY PRN 09/20/14 [Combivent Respimat Inhal [place]] Cetirizine HCl [Zyrtec] 10 mg PO DAILY 08/19/16 Mv-Mn/FA/Vit K1/Lycop/Lut/Zeax 1 ea PO DAILY 08/19/16 [Ocuvite Eye + Multi Tablet] Calcium Carbonate [Calcium] 500 mg PO DAILY 10/03/16 Ergocalciferol [Vitamin D] 50,000 unit PO Q7D 10/03/16 Ipratropium/Albuterol Sulfate 3 ml INHALATION Q4H.RT 10/03/16 [Duoneb] albuterol sulfate 1.25 mg/3 mL 1.25 mg CONTINUOUS NEBULIZATION 05/12/17 solution for nebulization Q4H #90 ml MDD WHEEZING pantoprazole 20 mg tablet,delayed 20 mg PO BID tab 06/03/17 release montelukast 10 mg tablet 10 mg PO QHS 06/04/17 Surgical History: coronary bypass surgery, hysterectomy, - - vocal cord surgery, Psychiatric History: No pertinent psych hx [employer] C[employer] History: No pertinent [employer] history Lives: Alone Smoking Status: Former smoker Tobacco Use: Non-smoker Alcohol: None Drugs: None - *Family History Maternal Family History: Family History (Last Reviewed 06/11/17 @ 16:23 by ANOOP Cervantes) Sister Cancer History Items: Heart Disease Paternal Family History: Family History (Last Reviewed 06/11/17 @ 16:23 by ANOOP Cervantes) Sister Cancer History Items: Stroke Offspring Family History: Family History (Last Reviewed 06/11/17 @ 16:23 by ANOOP Cervantes) Sister Cancer History Items: - - Thyroid cancer, ovarian cancer Review of Systems Constitutional: Reports: Weakness, Weight Change - gained unknown amount, Fatigue. Denies: Anorexia, Chills, Fever, Night Sweats, Malaise Eyes: Denies: Blurred vision, Double vision, Vision Change HEENT: Reports: Hard of Hearing, Nasal Congestion. Denies: Head Aches, Nasal bleeding, Post Nasal Drip, Sinus Congestion, Sinus Drainage, Sore Throat Cardiovascular: Reports: Chest Tightness - with wheezing or coughing, Edema, Orthopnea. Denies: Chest Pain, Light Headedness, Palpitations, Paroxysmal Noc. Dyspnea, Syncope Respiratory: Reports: Cough, Shortness of breath upon exertion, Sputum production - white to yellow, no increase from baseline, Wheezing. Denies: Hemoptysis Gastrointestinal: Denies: Abdominal Pain, Constipation, Diarrhea, Dyspepsia, Hematemesis, Hematochezia, Nausea, Melena, Vomiting Genitourinary: Reports: Frequency - with lasix, Nocturia. Denies: Dysuria, Hematuria, Retention Gynecological: Denies: Breast symptoms Musculoskeletal: Denies: Back Pain, Muscle pain, Neck Pain Skin: Denies: Rash, Wounds Neurological: Denies: Balance problems, Change in Speech, Confusion, Focal weakness, Numbness, Tingling, Tremor, Seizures Psychiatric: Reports: Depression. Denies: Anxiety, Suicidal Ideations Endocrine: Denies: Change in Body Habitus, Polydipsia, Polyuria Hematologic/ Lymphatic: Reports: Easy Bruising. Denies: Adenopathy, Anemia, Easy Bleeding, Hx of blood clot Patient Problems: Active and Suspected Problems (Last Updated 06/23/17 @ 09:36 by Sharri Sood NP-C) Acute exacerbation of CHF (congestive heart failure) (Acute) Subjective: Patient was seen and examined, she is ambulating in room in no acute distress. She is containing saturations on room air. She denies any significant dyspnea on exertion at this time, reports significant subjective improvement. Denies any chest pain, palpitations, nausea or vomiting. She does have a cough, mostly nonproductive but with occasional white to yellow sputum production. No she has coughing fits becomes short of breath with those. Objective: Clinical Impression(s) from Imaging Studies Chest X-Ray 06/22/17 13:19 IMPRESSION: Enlarging mass in the right middle lobe suspicious for cancer until proven otherwise. Chronic obstructive pulmonary disease N.B. : The above information has been verbally conveyed by Kaylyn Bauer MD to Dr Mckinney, Referring Physician, on 06/22/2017 14:05:38 (ET). Electronically Signed: Kaylyn Bauer MD at 13:47 EST Tel , Service support , N.B. : The above information has been verbally conveyed by Kaylyn Bauer MD to Dr Mckinney, Referring Physician, on 06/22/2017 14:05:38 (ET). Chest CTA 06/22/17 14:03 IMPRESSION: 2.0 x 2.4 x 1.6 cm enlarging mass in the right middle lobe highly suspicious for primary lung cancer. Findings seen on chest x-ray were called to the emergency room on a stat basis. Chronic obstructive pulmonary disease Stable focus of fibrotic change in the right lung base. Coronary artery calcification. Hepatic steatosis Hiatal hernia. Focus of calcification measuring 1.3 x 1.3 cm posterior to the greater curvature of the stomach stable since prior study which may represent prior granulomatous disease. Electronically Signed: Kaylyn Bauer MD at 15:40 EST Tel , Service support , - Physical Exam General: Alert, Oriented x3, Cooperative, No apparent distress, Well developed, Well nourished, - - No conversational dyspnea HEENT: Atraumatic, Normocephalic Oral: Moist Mucosa, No Gingival or Mucosal Lesions/ Ulcerations, - - Dentures Neck: Supple, No JVD, No Nodes, Trachea Midline Lungs: - - Diminished throughout, bibasilar rales posteriorly. Expiratory wheeze throughout. No accessory muscle use, symmetric expansion Cardiovascular: Regular rate, Regular Rhythm, Normal S1, Normal S2, No murmurs, No rub noted, No Gallop Abdomen: Bowel Sounds Present, Soft, Non Tender, Non-Distended, Obese Extremities: No clubbing, No cyanosis, No Calf Tenderness, Edema - LLE 2+, RLE trace, - - Left lower extremity larger than right lower extremity, no increased warmth or erythema Skin: No rashes, No breakdown Musculoskeletal: No Tenderness to Palpation of Joints or Extremities Lymphatic: No Cervical, Supraclavicular, or Inguinal Adenopathy Neurological: Cranial nerves II-XII grossly intact, Neuro grossly intact, Motor Exam 5/5 strength throughout Psych/Mental Status: Alert and oriented to time, place, person, mood and affect Vital Signs Temp Pulse Resp BP Pulse Ox 96.7 F L 100 18 123/68 H 93 06/23/17 07:41 06/23/17 07:41 06/23/17 07:41 06/23/17 07:41 06/23/17 07:41 Oxygen Flow Rate 2 Oxygen Delivery Method Room Air Weight: 180 lb 1.883 oz Body Mass Index (BMI) 32.1 Intake and Output for Last 24 Hours 06/21/17 06/22/17 06/23/17 23:59 23:59 23:59 Intake Total 700 / 700 Output Total 2100 / 2100 Balance -1400 / -1400 Assessment/Plan Active and Suspected Problems (Last Updated 06/23/17 @ 09:36 by Sharri Sood, CONFIGURATION MANAGEMENT MANAGER-C) Acute exacerbation of CHF (congestive heart failure) (Acute) RECOMMENDATIONS 1. Wean oxygen supplementation to keep saturations 88-92%. 2. Encourage incentive spirometer 3. Increase activity as tolerated 4. Continue aerosols as ordered 5. Plan to hold Lovenox dose tomorrow morning in anticipation of biopsy 6. Agree with echocardiogram 7. No indication for antibiotics or steroids at this time 8. Ambulatory pulse ox prior to discharge 9. Follow-up in the pulmonary clinic in 2 weeks from discharge IMPRESSIONS 1. Lung mass Repeat CTA of the chest on admission, showed right middle lobe lung mass that is highly suspicious for primary lung cancer. Increasing in size, previously had nondiagnostic lung biopsy in September 2016 and was recommended to have serial CT imaging. Patient denies any hemoptysis. She has been getting progressively short of breath and has a persistent cough. She denies any fevers. She does not wear any home oxygen. Discussed with Dr. Allen, plans for CT-guided lung biopsy in the next 1-2 days. Lovenox will need to be held on the day of procedure. 2. Dyspnea on exertion secondary to lung mass/COPD versus CHF exacerbation Patient did have an increase in lower extremity edema and was unable to complete any of her ADLs at home. She notes improvement with diuresis. She is currently maintaining her saturations on room air. No recent antibiotics or steroids. Currently on DuoNeb aerosols, uses Combivent when out of the house. Recent increase in albuterol as needed use, about every 2 hours. BNP on admission was elevated at 425. An echocardiogram has been ordered. Continue with IV diuresis for now. Her last echocardiogram 08/2016 showed normal LV size, mild to moderate global left ventricular systolic dysfunction, estimated EF of 45%, and structurally normal valves. She remains afebrile and hemodynamically stable. Patient will require an ambulatory pulse oximetry prior to discharge. She can follow-up in the pulmonary clinic in 2 weeks. 3. Non-Hodgkin's lymphoma Follows with Dr. Cottrell, he has been consulted. 4. History of asthma/hyperlipidemia/PVD/right carotid artery stenosis/dysphagia Complicates care, management, recovery, and prognosis. Thank you for the opportunity to participate in this patient's care, please do not hesitate contact us with any further questions or concerns. This note was generated with [employer]Touch[employer] dictation software. It may contain incorrect words, spelling, and punctuation that were not noted in checking the note before signing.
[2017-06-23 09:47] LABS: International Normalized Ratio 1.1; Prothrombin Time (Protime)PT. 13.3 SECONDS (11.7-14.9)
[2017-06-23 09:48] LABS: Partial Thromboplast Time 31.5 Seconds (24.1-36.2)
--- NOTE | 2017-06-23 10:26 | NURSING ---
Dr. Anderson states she will be speaking with Dr. Varghese regarding possible lung biopsy.
[2017-06-23 11:49] LABS: AST(SGOT) 19 U/L (15-37); Alanine Aminotransfer ALT/SGPT 21 U/L (13-56); Albumin, Serum 3.8 g/dL (3.2-5.0); Alkaline Phosphatase 61 U/L (45-117); Anion Gap 9 (5-15); BUN 11 mg/dL (7-18); BUN/Creat Ratio 13.3 RATIO (10-20); Calcium,Total 8.4 mg/dL (8.5-10.1); Chloride 102 mmol/L (98-107); Creatinine, Serum 0.83 mg/dL (0.55-1.02); EST Glomerular Filtration Rate 71 mL/min (>60); Est Glom Filt Rate - Afr Amer 86 mL/min (>60); Estimated Creatinine Clearance 46.21 ml/min; Globulin 3.4 g/dL (2.2-4.2); Glucose 134 mg/dL (70-110); Phosphorus 2.7 mg/dL (2.5-4.9); Potassium 4.2 mmol/L (3.5-5.1); Protein, Total 7.2 g/dL (6.4-8.2); Sodium Level 138 mmol/L (136-145)
--- NOTE | 2017-06-23 15:14 | ONC.CON.INP2 ---
(1) Lung nodule seen on imaging study Status: Acute Consult Referring Physician: Hospitalist service Consult Results: Right middle lobe lung mass Subjective Date of Service:: 06/23/17 Chief Complaint: Dyspnea History of Present Illness: Patient is a 77-year-old female admitted with increasing dyspnea with a working diagnosis of cardiac failure and improving with diuretics. Her past medical history is notable for non-Hodgkin's lymphoma in 2004 status post R CHOP and Rituxan maintenance. She is a cigarette smoker who quit in 2016 when a right mid lung nodule was seen on his CT. A biopsy in September 2016 was nondiagnostic and patient was followed up. A CT of the chest done at this admission shows that the right midlung zone nodule have increased in size. Power of Neurourologist: Yes Living Will: Yes Health History: Cancer History: [] Past Medical History: [] Past Surgical History: [] Family History: [] Social History: [] Allergies/Adverse Reactions: Allergy/AdvReac Type Severity Reaction Status Date / Time alendronate sodium Allergy Severe Other Verified 06/22/17 13:01 [From Fosamax] budesonide Allergy Severe Other Verified 06/22/17 13:01 fluticasone Allergy Severe Other Verified 06/22/17 13:01 [From Advair Diskus] Penicillins [PCN] Allergy Severe Shortness Verified 06/22/17 13:01 of breath salmeterol Allergy Severe Other Verified 06/22/17 13:01 [From Advair Diskus] tiotropium Allergy Severe Other Verified 06/22/17 13:01 [From Spiriva with HandiHaler] umeclidinium Allergy Severe Other Verified 06/22/17 13:01 [From Anoro Ellipta] vilanterol Allergy Severe Other Verified 06/22/17 13:01 [From Anoro Ellipta] doxycycline Allergy Shortness Verified 06/22/17 13:01 of breath Home Medications Medication Instructions Recorded Albuterol Inhaler [Ventolin Hfa] 1 - 2 puff INHALATION Q6H PRN PRN 09/20/14 Ipratropium/Albuterol Respimat 1 puff INHALATION 4X/DAY PRN 09/20/14 [Combivent Respimat Inhal [place]] Cetirizine HCl [Zyrtec] 10 mg PO DAILY 08/19/16 Mv-Mn/FA/Vit K1/Lycop/Lut/Zeax 1 ea PO DAILY 08/19/16 [Ocuvite Eye + Multi Tablet] Calcium Carbonate [Calcium] 500 mg PO DAILY 10/03/16 Ergocalciferol [Vitamin D] 50,000 unit PO Q7D 10/03/16 Ipratropium/Albuterol Sulfate 3 ml INHALATION Q4H.RT 10/03/16 [Duoneb] albuterol sulfate 1.25 mg/3 mL 1.25 mg CONTINUOUS NEBULIZATION 05/12/17 solution for nebulization Q4H #90 ml MDD WHEEZING pantoprazole 20 mg tablet,delayed 20 mg PO BID tab 06/03/17 release montelukast 10 mg tablet 10 mg PO QHS 06/04/17 Review of Systems Constitutional:: Reports: Fatigue. Denies: Fever, Sweats, Weight loss, Appetite change, Chills Cardiovascular:: Reports: Ankle swelling, Dyspnea on exertion, Orthopnea, Peripheral edema, Shortness of breath. Denies: Chest pain, Palpitations, PND Respiratory: Reports: Shortness of Breath, Shortness of breath at rest, Shortness of breath upon exertion, - - Breath is improving with current treatment with diuretics. Denies: Cough, Hemoptysis, Wheezing Gastrointestinal:: Denies: Abdominal pain, Nausea, Vomiting, Diarrhea, Constipation, Hematochezia Genitourinary: Denies: Dysuria, Hematuria, 15, Flank pain Musculoskeletal:: Denies: Back pain, Myalgia, Arthralgia Skin: Denies: Rash, Skin Changes, Wounds Neurological:: Denies: Headache, Dizziness, Visual changes, Tinnitus, Hearing loss Psychiatric: Denies: Anxiety, Depression, Homicidal Ideations, Suicidal Ideations Vital Signs Height 5 ft 3 in Weight: 81.7 kg Weight in Pounds 180.1 lbs Pulse Ox 96 Temperature 96.4 F Pulse Rate 96 Respiratory Rate 18 Blood Pressure 131/73 Blood Pressure Position Semi-Fowlers - Physical Exam General: Alert, Oriented x3, No apparent distress, - - Overweight ECOG 2 Hard of hearing HEENT: Atraumatic, PERRLA, EOMI, Normocephalic Oropharynx:: Dry mucosa Neck:: Supple, Trachea midline. Negative for: JVD, bilateral Cardiac:: Regular rate, Regular rhythm, Normal S1, Normal S2. Negative for: Murmur Lungs: Clear to auscultation, Diminished, Excusion symmetrical. Negative for: Rhonchi, Wheezes Abdomen:: Soft, Non-tender, Non-distended. Negative for: Hepatosplenomegaly Extremities:: Negative for: Cyanosis, Edema Neurological: Neuro grossly intact Skin:: Negative for: Lesions, Rash, Petechiae, Ecchymosis Psychiatric:: Appropriate affect, Euthymic Lymphatics:: Negative for: Cervical lymphadenopathy, Supraclavicular lymphadenopathy, Axillary lymphadenopathy Laboratory Data: Laboratory Tests 06/23/17 06/23/17 Range/Units 09:24 09:24 PT 13.3 (11.7-14.9) SECONDS INR 1.1 APTT 31.5 (24.1-36.2) Seconds Sodium 138 (136-145) mmol/L Potassium 4.2 (3.5-5.1) mmol/L Chloride 102 (98-107) mmol/L Carbon Dioxide 27.0 (21.0-32.0) mmol/L Anion Gap 9 (5-15) BUN 11 (7-18) mg/dL Creatinine 0.83 (0.55-1.02) mg/dL Estim Creat Clear Calc 46.21 ml/min Est GFR (MDRD) Af Amer 86 (>60) mL/min Est GFR (MDRD) Non-Af 71 (>60) mL/min BUN/Creatinine Ratio 13.3 (10-20) RATIO Glucose 134 H (70-110) mg/dL Calcium 8.4 L (8.5-10.1) mg/dL Phosphorus 2.7 (2.5-4.9) mg/dL Magnesium 2.0 (1.6-2.6) mg/dL Total Bilirubin 0.50 (0.20-1.00) mg/dL Direct Bilirubin 0.10 (0.00-0.30) mg/dL AST 19 (15-37) U/L ALT 21 (13-56) U/L Alkaline Phosphatase 61 (45-117) U/L Total Protein 7.2 (6.4-8.2) g/dL Albumin 3.8 (3.2-5.0) g/dL Globulin 3.4 (2.2-4.2) g/dL Diagnostic Data: Diagnostic Data Chest X-Ray 06/22/17 13:19 IMPRESSION: Enlarging mass in the right middle lobe suspicious for cancer until proven otherwise. Chronic obstructive pulmonary disease N.B. : The above information has been verbally conveyed by Kaylyn Bauer MD to Dr Mckinney, Referring Physician, on 06/22/2017 14:05:38 (ET). Electronically Signed: Kaylyn Bauer MD at 13:47 EST Tel , Service support , N.B. : The above information has been verbally conveyed by Kaylyn Bauer MD to Dr Mckinney, Referring Physician, on 06/22/2017 14:05:38 (ET). Chest CTA 06/22/17 14:03 IMPRESSION: 2.0 x 2.4 x 1.6 cm enlarging mass in the right middle lobe highly suspicious for primary lung cancer. Findings seen on chest x-ray were called to the emergency room on a stat basis. Chronic obstructive pulmonary disease Stable focus of fibrotic change in the right lung base. Coronary artery calcification. Hepatic steatosis Hiatal hernia. Focus of calcification measuring 1.3 x 1.3 cm posterior to the greater curvature of the stomach stable since prior study which may represent prior granulomatous disease. Electronically Signed: Kaylyn Bauer MD at 15:40 EST Tel , Service support , I personally reviewed patient's CT images of June 22 and concur with the reported findings Assessment and Plan 77-year-old female ex-smoker who quit in 2016 with an enlarging right mid lung mass concerning for a malignancy. Admitted with increasing dyspnea improving on treatment for cardiac failure with diuretics. Past medical history notable for non-Hodgkin's lymphoma status post chemotherapy and Rituxan maintenance 2003 through 2005 and in remission. Recommendation: CT-guided biopsy of the lung mass and follow-up with Dr. Cottrell 1 week outpatient Medications: Medications Added to Medication List This Visit Category Date Time Status Albuterol Aerosols [Ventolin Aerosols] Med 06/23/17 09:30 Active 2.5 mg INHALATION Q2H PRN PRN Primary Care Provider: Ashley Stephens Referring Provider:
--- NOTE | 2017-06-23 15:22 | CON.PCM_ITS ---
(1) Lung nodule seen on imaging study Status: Acute Consult Referring Physician: Hospitalist service Consult Results: Right middle lobe lung mass Subjective Date of Service:: 06/23/17 Chief Complaint: Dyspnea History of Present Illness: Patient is a 77-year-old female admitted with increasing dyspnea with a working diagnosis of cardiac failure and improving with diuretics. Her past medical history is notable for non-Hodgkin's lymphoma in 2004 status post R CHOP and Rituxan maintenance. She is a cigarette smoker who quit in 2016 when a right mid lung nodule was seen on his CT. A biopsy in September 2016 was nondiagnostic and patient was followed up. A CT of the chest done at this admission shows that the right midlung zone nodule have increased in size. Power of Advisor Consultant: Yes Living Will: Yes Health History: Cancer History: [] Past Medical History: [] Past Surgical History: [] Family History: [] Social History: [] Allergies/Adverse Reactions: Allergy/AdvReac Type Severity Reaction Status Date / Time alendronate sodium Allergy Severe Other Verified 06/22/17 13:01 [From Fosamax] budesonide Allergy Severe Other Verified 06/22/17 13:01 fluticasone Allergy Severe Other Verified 06/22/17 13:01 [From Advair Diskus] Penicillins [PCN] Allergy Severe Shortness Verified 06/22/17 13:01 of breath salmeterol Allergy Severe Other Verified 06/22/17 13:01 [From Advair Diskus] tiotropium Allergy Severe Other Verified 06/22/17 13:01 [From Spiriva with HandiHaler] umeclidinium Allergy Severe Other Verified 06/22/17 13:01 [From Anoro Ellipta] vilanterol Allergy Severe Other Verified 06/22/17 13:01 [From Anoro Ellipta] doxycycline Allergy Shortness Verified 06/22/17 13:01 of breath Home Medications Medication Instructions Recorded Albuterol Inhaler [Ventolin Hfa] 1 - 2 puff INHALATION Q6H PRN PRN 09/20/14 Ipratropium/Albuterol Respimat 1 puff INHALATION 4X/DAY PRN 09/20/14 [Combivent Respimat Inhal [place]] Cetirizine HCl [Zyrtec] 10 mg PO DAILY 08/19/16 Mv-Mn/FA/Vit K1/Lycop/Lut/Zeax 1 ea PO DAILY 08/19/16 [Ocuvite Eye + Multi Tablet] Calcium Carbonate [Calcium] 500 mg PO DAILY 10/03/16 Ergocalciferol [Vitamin D] 50,000 unit PO Q7D 10/03/16 Ipratropium/Albuterol Sulfate 3 ml INHALATION Q4H.RT 10/03/16 [Duoneb] albuterol sulfate 1.25 mg/3 mL 1.25 mg CONTINUOUS NEBULIZATION 05/12/17 solution for nebulization Q4H #90 ml MDD WHEEZING pantoprazole 20 mg tablet,delayed 20 mg PO BID tab 06/03/17 release montelukast 10 mg tablet 10 mg PO QHS 06/04/17 Review of Systems Constitutional:: Reports: Fatigue. Denies: Fever, Sweats, Weight loss, Appetite change, Chills Cardiovascular:: Reports: Ankle swelling, Dyspnea on exertion, Orthopnea, Peripheral edema, Shortness of breath. Denies: Chest pain, Palpitations, PND Respiratory: Reports: Shortness of Breath, Shortness of breath at rest, Shortness of breath upon exertion, - - Breath is improving with current treatment with diuretics. Denies: Cough, Hemoptysis, Wheezing Gastrointestinal:: Denies: Abdominal pain, Nausea, Vomiting, Diarrhea, Constipation, Hematochezia Genitourinary: Denies: Dysuria, Hematuria, 15, Flank pain Musculoskeletal:: Denies: Back pain, Myalgia, Arthralgia Skin: Denies: Rash, Skin Changes, Wounds Neurological:: Denies: Headache, Dizziness, Visual changes, Tinnitus, Hearing loss Psychiatric: Denies: Anxiety, Depression, Homicidal Ideations, Suicidal Ideations Vital Signs Height 5 ft 3 in Weight: 81.7 kg Weight in Pounds 180.1 lbs Pulse Ox 96 Temperature 96.4 F Pulse Rate 96 Respiratory Rate 18 Blood Pressure 131/73 Blood Pressure Position Semi-Fowlers - Physical Exam General: Alert, Oriented x3, No apparent distress, - - Overweight ECOG 2 Hard of hearing HEENT: Atraumatic, PERRLA, EOMI, Normocephalic Oropharynx:: Dry mucosa Neck:: Supple, Trachea midline. Negative for: JVD, bilateral Cardiac:: Regular rate, Regular rhythm, Normal S1, Normal S2. Negative for: Murmur Lungs: Clear to auscultation, Diminished, Excusion symmetrical. Negative for: Rhonchi, Wheezes Abdomen:: Soft, Non-tender, Non-distended. Negative for: Hepatosplenomegaly Extremities:: Negative for: Cyanosis, Edema Neurological: Neuro grossly intact Skin:: Negative for: Lesions, Rash, Petechiae, Ecchymosis Psychiatric:: Appropriate affect, Euthymic Lymphatics:: Negative for: Cervical lymphadenopathy, Supraclavicular lymphadenopathy, Axillary lymphadenopathy Laboratory Data: Laboratory Tests 3 06/23/17 06/23/17 Range/Units 09:24 09:24 PT 13.3 (11.7-14.9) SECONDS INR 1.1 APTT 31.5 (24.1-36.2) Seconds Sodium 138 (136-145) mmol/L Potassium 4.2 (3.5-5.1) mmol/L Chloride 102 (98-107) mmol/L Carbon Dioxide 27.0 (21.0-32.0) mmol/L Anion Gap 9 (5-15) BUN 11 (7-18) mg/dL Creatinine 0.83 (0.55-1.02) mg/dL Estim Creat Clear Calc 46.21 ml/min Est GFR (MDRD) Af Amer 86 (>60) mL/min Est GFR (MDRD) Non-Af 71 (>60) mL/min BUN/Creatinine Ratio 13.3 (10-20) RATIO Glucose 134 H (70-110) mg/dL Calcium 8.4 L (8.5-10.1) mg/dL Phosphorus 2.7 (2.5-4.9) mg/dL Magnesium 2.0 (1.6-2.6) mg/dL Total Bilirubin 0.50 (0.20-1.00) mg/dL Direct Bilirubin 0.10 (0.00-0.30) mg/dL AST 19 (15-37) U/L ALT 21 (13-56) U/L Alkaline Phosphatase 61 (45-117) U/L Total Protein 7.2 (6.4-8.2) g/dL Albumin 3.8 (3.2-5.0) g/dL Globulin 3.4 (2.2-4.2) g/dL Diagnostic Data: Diagnostic Data Chest X-Ray 06/22/17 13:19 IMPRESSION: Enlarging mass in the right middle lobe suspicious for cancer until proven otherwise. Chronic obstructive pulmonary disease N.B. : The above information has been verbally conveyed by Kaylyn Bauer MD to Dr Mckinney, Referring Physician, on 06/22/2017 14:05:38 (ET). Electronically Signed: Kaylyn Bauer MD at 13:47 EST Tel , Service support , N.B. : The above information has been verbally conveyed by Kaylyn Bauer MD to Dr Mckinney, Referring Physician, on 06/22/2017 14:05:38 (ET). Chest CTA 06/22/17 14:03 IMPRESSION: 2.0 x 2.4 x 1.6 cm enlarging mass in the right middle lobe highly suspicious for primary lung cancer. Findings seen on chest x-ray were called to the emergency room on a stat basis. Chronic obstructive pulmonary disease Stable focus of fibrotic change in the right lung base. Coronary artery calcification. Hepatic steatosis Hiatal hernia. Focus of calcification measuring 1.3 x 1.3 cm posterior to the greater curvature of the stomach stable since prior study which may represent prior granulomatous disease. Electronically Signed: Kaylyn Bauer MD at 15:40 EST Tel , Service support , I personally reviewed patient's CT images of June 22 and concur with the reported findings Assessment and Plan 77-year-old female ex-smoker who quit in 2017 with an enlarging right mid lung mass concerning for a malignancy. Admitted with increasing dyspnea improving on treatment for cardiac failure with diuretics. Past medical history notable for non-Hodgkin's lymphoma status post chemotherapy and Rituxan maintenance 2003 through 2005 and in remission. Recommendation: CT-guided biopsy of the lung mass and follow-up with Dr. Cottrell 1 week outpatient Medications: Medications Added to Medication List This Visit Category Date Time Status Albuterol Aerosols [Ventolin Aerosols] Med 06/23/17 09:30 Active 2.5 mg INHALATION Q2H PRN PRN Primary Care Provider: Ashley Stephens Referring Provider:
--- NOTE | 2017-06-23 16:32 | ONC.CON.INP2 ---
(1) Lung nodule seen on imaging study Status: Acute Consult Referring Physician: Hospitalist service Consult Results: Right middle lobe lung mass Subjective Date of Service:: 06/23/17 Chief Complaint: Dyspnea History of Present Illness: Patient is a 77-year-old female admitted with increasing dyspnea with a working diagnosis of cardiac failure and improving with diuretics. Her past medical history is notable for non-Hodgkin's lymphoma in 2004 status post R CHOP and Rituxan maintenance. She is a cigarette smoker who quit in 2016 when a right mid lung nodule was seen on his CT. A biopsy in September 2016 was nondiagnostic and patient was followed up. A CT of the chest done at this admission shows that the right midlung zone nodule have increased in size. Power of Agricultural Research Technologist: Yes Living Will: Yes Past Medical History: Chronic Problems (Last Updated 06/23/17 @ 09:36 by Sharri Sood NP-Raghu) Asthma (Chronic) Tobacco abuse (Chronic) in remission Stage 1 mild COPD by GOLD classification (Chronic) Dysphagia (Chronic) PVD (peripheral vascular disease) (Chronic) Occlusion and stenosis of right carotid artery (Chronic) Cardiomyopathy (Chronic) History of non-Hodgkin's lymphoma (Chronic) Lung nodule (Chronic) COPD (chronic obstructive pulmonary disease) (Chronic) Past Medical/Surgical History: Cancer History: [] Past Medical History: [] Past Surgical History: [] Family History: [] Social History: [] Lives: Alone Smoking Status: Former smoker Tobacco Use: Non-smoker Alcohol: None Drugs: None Maternal Family History: Family History (Last Reviewed 06/11/17 @ 16:23 by ANOOP Cervantes) Sister Cancer Family History: Heart Disease Paternal Family History: Family History (Last Reviewed 06/11/17 @ 16:23 by ANOOP Cervantes) Sister Cancer Family History: Stroke Offspring Family History: Family History (Last Reviewed 06/11/17 @ 16:23 by ANOOP Cervantes) Sister Cancer Family History: - - Thyroid cancer, ovarian cancer Allergies/Adverse Reactions: Allergy/AdvReac Type Severity Reaction Status Date / Time alendronate sodium Allergy Severe Other Verified 06/22/17 13:01 [From Fosamax] budesonide Allergy Severe Other Verified 06/22/17 13:01 fluticasone Allergy Severe Other Verified 06/22/17 13:01 [From Advair Diskus] Penicillins [PCN] Allergy Severe Shortness Verified 06/22/17 13:01 of breath salmeterol Allergy Severe Other Verified 06/22/17 13:01 [From Advair Diskus] tiotropium Allergy Severe Other Verified 06/22/17 13:01 [From Spiriva with HandiHaler] umeclidinium Allergy Severe Other Verified 06/22/17 13:01 [From Anoro Ellipta] vilanterol Allergy Severe Other Verified 06/22/17 13:01 [From Anoro Ellipta] doxycycline Allergy Shortness Verified 06/22/17 13:01 of breath Home Medications Medication Instructions Recorded Albuterol Inhaler [Ventolin Hfa] 1 - 2 puff INHALATION Q6H PRN PRN 09/20/14 Ipratropium/Albuterol Respimat 1 puff INHALATION 4X/DAY PRN 09/20/14 [Combivent Respimat Inhal [place]] Cetirizine HCl [Zyrtec] 10 mg PO DAILY 08/19/16 Mv-Mn/FA/Vit K1/Lycop/Lut/Zeax 1 ea PO DAILY 08/19/16 [Ocuvite Eye + Multi Tablet] Calcium Carbonate [Calcium] 500 mg PO DAILY 10/03/16 Ergocalciferol [Vitamin D] 50,000 unit PO Q7D 10/03/16 Ipratropium/Albuterol Sulfate 3 ml INHALATION Q4H.RT 10/03/16 [Duoneb] albuterol sulfate 1.25 mg/3 mL 1.25 mg CONTINUOUS NEBULIZATION 05/12/17 solution for nebulization Q4H #90 ml MDD WHEEZING pantoprazole 20 mg tablet,delayed 20 mg PO BID tab 06/03/17 release montelukast 10 mg tablet 10 mg PO QHS 06/04/17 Review of Systems Constitutional:: Reports: Fatigue. Denies: Fever, Sweats, Weight loss, Appetite change, Chills Cardiovascular:: Reports: Ankle swelling, Dyspnea on exertion, Orthopnea, Peripheral edema, Shortness of breath. Denies: Chest pain, Palpitations, PND Respiratory: Reports: Shortness of Breath, Shortness of breath at rest, Shortness of breath upon exertion, - - Breathing is improving with treatment with diuretics. Denies: Cough, Hemoptysis, Wheezing Gastrointestinal:: Denies: Abdominal pain, Nausea, Vomiting, Diarrhea, Constipation, Hematochezia Genitourinary: Denies: Dysuria, Hematuria, 15, Flank pain Musculoskeletal:: Denies: Back pain, Myalgia, Arthralgia Skin: Denies: Rash, Skin Changes, Wounds Neurological:: Denies: Headache, Dizziness, Visual changes, Tinnitus, Hearing loss Psychiatric: Denies: Anxiety, Depression, Homicidal Ideations, Suicidal Ideations Vital Signs Height 5 ft 3 in Weight: 79.832 kg Weight in Pounds 176.0 lbs Pulse Ox 93 Temperature 97.8 F Pulse Rate 102 Respiratory Rate 18 Blood Pressure [2nd BP] 110/77 Blood Pressure [BP] 127/77 Blood Pressure 136/76 Blood Pressure Position [2nd Semi-Fowlers BP] Blood Pressure Position [BP] Semi-Fowlers Blood Pressure Position Supine - Physical Exam General: Alert, Oriented x3, No apparent distress, - - Overweight ECOG 2 Hard of hearing HEENT: Atraumatic, PERRLA, EOMI, Normocephalic Oropharynx:: Dry mucosa Neck:: Supple, Trachea midline. Negative for: JVD, bilateral Cardiac:: Regular rate, Regular rhythm, Normal S1, Normal S2. Negative for: Murmur Lungs: Clear to auscultation, Diminished, Excusion symmetrical. Negative for: Rhonchi, Wheezes Abdomen:: Bowel sounds x 4, Soft, Non-tender, Non-distended. Negative for: Hepatosplenomegaly Extremities:: Negative for: Cyanosis, Edema Neurological: Neuro grossly intact Skin:: Negative for: Lesions, Rash, Petechiae, Ecchymosis Psychiatric:: Appropriate affect, Euthymic Lymphatics:: Negative for: Cervical lymphadenopathy, Supraclavicular lymphadenopathy, Axillary lymphadenopathy Laboratory Data: Reviewed in EMR Diagnostic Data: Diagnostic Data Chest CTA 06/22/17 14:03 IMPRESSION: 2.0 x 2.4 x 1.6 cm enlarging mass in the right middle lobe highly suspicious for primary lung cancer. Findings seen on chest x-ray were called to the emergency room on a stat basis. Chronic obstructive pulmonary disease Stable focus of fibrotic change in the right lung base. Coronary artery calcification. Hepatic steatosis Hiatal hernia. Focus of calcification measuring 1.3 x 1.3 cm posterior to the greater curvature of the stomach stable since prior study which may represent prior granulomatous disease. Electronically Signed: Kaylyn Bauer MD at 15:40 EST Tel , Service support , Assessment and Plan 77-year-old female ex-smoker who quit in 2017 with an enlarging right mid lung mass concerning for a malignancy. Admitted with increasing dyspnea improving on treatment for cardiac failure with diuretics. Past medical history notable for non-Hodgkin's lymphoma status post chemotherapy and Rituxan maintenance 2003 through 2005 and in remission. Recommendation: CT-guided biopsy of the lung mass and follow-up with Dr. Cottrell 1 week outpatient Medications: Primary Care Provider: Ashley Stephens Referring Provider:
[2017-06-23] MEDS: Montelukast 10 MG Tablet PO (21:25)
[2017-06-24] VITALS (17 sets, daily range): BP systolic 102–132; BP diastolic 61–74; PULSE 84–127; RESP 17–20; TEMP 35.9–36.8; O2SAT 91–98
--- NOTE | 2017-06-24 | IMM_PTH ---
PATIENT: JAIME GARY LOC: MS2 U#:[id number] AGE/SX: 77/F ROOM: [facility] [place] RE06/22/[address]: Dr. Ama Anderson DO : 1940 BED: 1 DIS: 06/27/2017 SPEC #: [id number] RECD: 06/25/17 12:45 STATUS: ELO REQ #: [id number] LISA: 06/24/17 00:[address]: Ama Anderson DEPT: IMMUNOHISTOCHEMISTRY RECD BY: Liya Aguilar ENTERED: 06/25/17 12:46 SP TYPE: IMMUNO OTHR DR: MD Dr. Ashley Camarillo MD Dr. Derek Brown, DO Dr. Daniel Newton, MD Dr. Gabriele Pedicelli, MD Dr. Joseph Prah, MD Tissues: Lung, NOS Procedures: NAPSIN A (add) CK14 (add) CK20 (add) CK5-6 (add) CK8 (add) MAMM (add) TTF1 (add) Vimentin (add) 34BE12 (add) GATA3 (add) CK7 (initial) PHYSICIAN & [place] [id number] SPECIMEN INFORMATION: Tissue Source: Right lung biopsy Clinical Info: Right mid lung mass Specimen Number: [id number] CPT code: 64458, 54139 x10 METHODOLOGY: Deparaffinized sections of prefer/formalin-fixed tissue or PAP/DQ stained slides are incubated with monoclonal/polyclonal antibodies/oligonucleotide probes. Localization is made via biotin free immunoperoxidase method. Appropriate controls are performed and reacted as expected. Results on target cell population are indicated in the following table: RESULTS: ANTIBODY / CLONE RESULT CK7 (OV-TL12/30) positive CK20 (KS20.8) negative TTF-1 (8G7G3/1) positive Napsin A (Rabbit Polyclonal) positive GATA3 (L50-823) negative Mammaglobin (31A5) negative 34BE12 (34BE12) positive CK8 (54rlsyE89) positive Vimentin (V9) negative CK5-6 (D5 & 1684) negative CK14 (LL002) negative These tests were developed and their performance characteristics determined by [facility]. They may not have been cleared or approved by the U.S. Food and Drug Administration. The FDA has determined that such clearance or approval is not necessary. INTERPRETATION: Right lung, CT-guided biopsy: Non-small cell carcinoma. AM:beto 06/27/17 Comment: A lung primary is favored. Squamoid features are not identified.
[2017-06-24] MEDS: Ipratropium/Albuterol Sulfate 3 ML AMPUL.NEB INHALATION ×6 (02:56→23:15)
[2017-06-24 06:28] LABS: Prothrombin Time (Protime)PT. 12.9 SECONDS (11.7-14.9)
[2017-06-24 06:29] LABS: Partial Thromboplast Time 27.7 Seconds (24.1-36.2)
[2017-06-24 06:41] LABS: Platelet Count 260 K/mm3 (150-450)
[2017-06-24 06:47] LABS: Anion Gap 8 (5-15); BUN 20 mg/dL (7-18); BUN/Creat Ratio 27.6 RATIO (10-20); Chloride 99 mmol/L (98-107); Creatinine, Serum 0.72 mg/dL (0.55-1.02); EST Glomerular Filtration Rate 83 mL/min (>60); Est Glom Filt Rate - Afr Amer 100 mL/min (>60); Estimated Creatinine Clearance 38.35 ml/min; Glucose 104 mg/dL (70-110); Magnesium 2.1 mg/dL (1.6-2.6); Sodium Level 135 mmol/L (136-145)
--- NOTE | 2017-06-24 08:18 | PN_ITS ---
Patient Problems: Active and Suspected Problems (Last Updated 06/23/17 @ 09:36 by Sharri Sood , TRAWL NET MAKER-C) Acute exacerbation of CHF (congestive heart failure) (Acute) Subjective: Patient seen and examined, no acute events overnight. Patient remains afebrile and hemodynamically stable. Her Lovenox was held this morning in anticipation of her CT-guided lung biopsy. Reports her breathing is better than it has been in months. She is tolerating lying flat in bed and resting. She does have some expiratory wheezing that is a little worse than yesterday. She has a coarse, mostly nonproductive cough. LEMA improved. Patient maintaining saturations on room air. - Physical Exam General: Alert, Oriented x3, Cooperative, No apparent distress, Well developed, Well nourished HEENT: Atraumatic, Normocephalic Oral: Moist Mucosa, No Gingival or Mucosal Lesions/ Ulcerations Neck: Supple, No Nodes, Trachea Midline Lungs: Diminished, - - exp wheezing t/o, slightly worse today. audible wheezing as well Cardiovascular: Regular rate, Regular Rhythm, Normal S1, Normal S2 Abdomen: Bowel Sounds Present, Soft, Non Tender, Obese Extremities: No cyanosis, No edema Skin: No rashes, No breakdown Musculoskeletal: No Tenderness to Palpation of Joints or Extremities Lymphatic: No Cervical, Supraclavicular, or Inguinal Adenopathy Neurological: Neuro grossly intact Psych/Mental Status: Alert and oriented to time, place, person, mood and affect Vital Signs Temp Pulse Resp BP Pulse Ox 96.7 F L 95 18 120/62 92 06/24/17 08:01 06/24/17 08:01 06/24/17 08:01 06/24/17 08:01 06/24/17 08:01 Oxygen Flow Rate 2 Oxygen Delivery Method Room Air Weight: 180 lb 15.992 oz Body Mass Index (BMI) 32.1 Intake and Output for Last 24 Hours 06/22/17 06/23/17 06/24/17 23:59 23:59 23:59 Intake Total 940 / 940 320 / 320 Output Total 2800 / 2800 350 / 350 Balance -1860 / -1860 -30 / -30 Laboratory Tests Past 24 Hrs 06/23/17 06/23/17 06/24/17 09:24 09:24 05:48 Plt Count PT 13.3 INR 1.1 APTT 31.5 Sodium 138 135 L Potassium 4.2 4.0 Chloride 102 99 Carbon Dioxide 27.0 28.0 Anion Gap 9 8 BUN 11 20 H Creatinine 0.83 0.72 Estim Creat Clear Calc 46.21 38.35 Est GFR (MDRD) Af Amer 86 100 Est GFR (MDRD) Non-Af 71 83 BUN/Creatinine Ratio 13.3 27.6 H Glucose 134 H 104 Calcium 8.4 L 9.0 Phosphorus 2.7 Magnesium 2.0 2.1 Total Bilirubin 0.50 Direct Bilirubin 0.10 AST 19 ALT 21 Alkaline Phosphatase 61 Total Protein 7.2 Albumin 3.8 Globulin 3.4 06/24/17 06/24/17 05:48 05:48 Plt Count 260 PT 12.9 INR 1.0 APTT 27.7 Sodium Potassium Chloride Carbon Dioxide Anion Gap BUN Creatinine Estim Creat Clear Calc Est GFR (MDRD) Af Amer Est GFR (MDRD) Non-Af BUN/Creatinine Ratio Glucose Calcium Phosphorus Magnesium Total Bilirubin Direct Bilirubin AST ALT Alkaline Phosphatase Total Protein Albumin Globulin Assessment/Plan Active and Suspected Problems (Last Updated 06/23/17 @ 09:36 by Sharri Sood , TRAWL NET MAKER-C) Acute exacerbation of CHF (congestive heart failure) (Acute) RECOMMENDATIONS 1. Wean oxygen supplementation to keep saturations 88-92%. 2. Encourage incentive spirometer 3. Increase activity as tolerated 4. Continue aerosols as ordered 5. Hold Lovenox this morning in anticipation of biopsy at 1000 6. No indication for antibiotics or steroids at this time 7. Ambulatory pulse ox prior to discharge 8. Follow-up in the pulmonary clinic in 2 weeks from discharge IMPRESSIONS 1. Lung mass, enlarging Repeat CTA of the chest 06/22 with right middle lobe lung mass that is highly suspicious for primary lung cancer. Increasing in size, previously had nondiagnostic lung biopsy in September 2016 and was recommended to have serial CT imaging. Patient denies any hemoptysis. She has been getting progressively short of breath and has a persistent cough. She denies any fevers. She does not wear any home oxygen. Discussed with Dr. Allen, plans for CT-guided lung biopsy today around 1000. Lovenox was held. 2. Acute hypoxic respiratory insufficiency likely secondary to CHF exacerbation Patient did have increased lower extremity edema and difficulty with ADLs secondary to LEMA. She notes improvement with diuresis. She is currently maintaining her saturations on room air. Home medications include DuoNeb aerosols, uses Combivent when out of the house. Recent increase in albuterol as needed use, about every 2 hours. BNP on admission was elevated at 425. An echocardiogram 06/23 showed moderate segmental systolic dysfunction and an estimated EF of 37%. Her last echocardiogram 08/2016 showed normal LV size, mild to moderate global left ventricular systolic dysfunction, estimated EF of 45%, and structurally normal valves. She remains afebrile and hemodynamically stable. Plan: Continue aerosols and increase activity as tolerated. Encourage incentive spirometer. No antibiotics or steroids. Likely ok to deescalate diuretics. Patient will require an ambulatory pulse oximetry prior to discharge. She can follow-up in the pulmonary clinic in 2 weeks. 3. Non-Hodgkin's lymphoma Follows with Dr. Cottrell, he has been consulted. Appreciate input. 4. Suspected sleep apnea Patient with excessive daytime sleepiness, snoring. Other risk factors, including hypertension, obesity, age. Patient would likely benefit from outpatient polysomnogram. This can be ordered at her follow-up visit in the pulmonary clinic. 5. History of asthma/hyperlipidemia/PVD/right carotid artery stenosis/dysphagia Complicates care, management, recovery, and prognosis. No signs of swallowing difficulties at this time. Management per hospitalist. This note was generated with Robert Applebaum MD dictation software. It may contain incorrect words, spelling, and punctuation that were not noted in checking the note before signing.
[2017-06-24] MEDS: guaiFENesin 10 ML UDC (200MG/10ML) PO (09:35)
--- NOTE | 2017-06-24 10:30 | CT_ITS ---
PROCEDURE: CT GUIDED CORE NEEDLE BIOPSY OF A right middle lobe LUNG LESION INDICATION: Female, 77 years old. History of Hodgkin's lymphoma. PHYSICIAN: CONSENT: Written informed consent was obtained having explained the risks, benefits and alternatives in detail with the patient who accepted the risks and agreed to proceed. Laboratory review and clinical assessment was performed. CONSCIOUS SEDATION PROTOCOL: The Drugs used were: 1 mg Versed, IV., and 25 mcg Fentanyl, IV. The sedation time was: 17 minutes. Conscious sedation was started at 10:50 AM and terminated at 11:07 AM. The conscious sedation protocol was independently monitored. RADIATION DOSAGE (If Supplied By Facility): CTDIvol = ( 17 ) mGy, DLP = ( 809.67 ) mGycm Individualized dose optimization techniques were used for this CT. TECHNIQUE: The patient was placed in the left lateral decubitus position. A noncontrast CT was performed to localize the lesion in the . The skin surface was prepped and draped in a sterile fashion. 1% lidocaine was used for local anesthesia. Using CT guidance, a 19-gauge coaxial biopsy device was advanced to the periphery of the lesion. A total of 4 core specimens were obtained. The specimens were placed in a formalin solution. A post procedure CT demonstrated a small pneumothorax. The patient is asymptomatic. The patient tolerated the procedure well without adverse event. A negative biopsy does not exclude malignancy. Further imaging or clinical followup based on patient condition and degree of clinical suspicion for malignancy. Suggest rebiopsy, if biopsy results do not match with clinical scenario. CT/Biopsy/Inj or Needle Placement IMPRESSION: 1. CT directed core needle biopsy of the right middle lobe lung nodule using CT image guidance with image documentation as described. Pathology results are pending. 2. Conscious Sedation protocol utilized with independent monitoring. Electronically Signed: Naresh Varghese MD at 11:32 EST Tel [phone], Service support ,
--- NOTE | 2017-06-24 11:05 | ASPIGT_PTH ---
PATIENT: JAIME GARY LOC: MS2 U#:[id number] AGE/SX: 77/F ROOM: [facility] [place] RE06/22/[address]: Dr. Ama Anderson DO : 1940 BED: 1 DIS: 06/27/2017 SPEC #: [id number] RECD: 06/24/17 13:17 STATUS: ELO RETigre #: [id number] LISA: 06/24/17 11:[address]: Ama Anderson DEPT: SURGICAL PATHOLOGY RECD BY: Abdulkadir Canas ENTERED: 06/24/17 13:23 SP TYPE: ASP RAD OTHR DR: MD Dr. Ashley Camarillo MD Dr. Derek Brown, DO Dr. Gabriele Pedicelli, MD Dr. Joseph Prah, MD Tissues: Right lung, NOS Procedures: FNA Specimen Adequacy Surgery Specimen Level IV Diff Quik Stain (control) Imprint (control) HEADER OPERATION: CT-guided right lung biopsy PRE-OP DIAGNOSIS: Right mid lung mass TISSUE SUBMITTED: 20g core, right lung biopsy MICROSCOPIC DIAGNOSIS Right mid lung mass, CT-guided needle core biopsy: Non-small cell carcinoma. AM:beto 06/25/17 COMMENT The specimen is evaluated at the time of right lung biopsy by Dr. Pope. Immediate Evaluation = Malignant cells present, favor non-small cell carcinoma. Immunohistochemistry ([id number]) supports the above diagnosis and favors a lung primary. Squamoid features are not identified. Clinical correlation is suggested. Case has been reviewed in consultation with Dr. Pope who concurs with the above diagnosis. IDC:SJ MICROSCOPIC DESCRIPTION Slides are reviewed. GROSS DESCRIPTION Received in fixative is one container labeled with the patient's name and designated right lung biopsy. The specimen consists of multiple irregular fragments of colin soft tissue that in aggregate measure 0.5 x <0.1 x <0.1 cm. The specimen is totally submitted in one cassette. One touch imprint is prepared at the time of core biopsy. A fragment is also saved in RPMI solution for flow cytometry study in case it is needed. / ADDY:beto 06/24/17 Tissue saved for flow cytometry study is submitted in cassette #2. / ADDY:beto 06/25/17 TC:0 CPT: 49024, 78967
--- NOTE | 2017-06-24 11:15 | RAD_ITS ---
STUDY: X-RAY CHEST REASON FOR EXAM: Female, 77 years old. Post right lung biopsy. TECHNIQUE: Single frontal inspiratory view of the chest. COMPARISON: Comparison is made with prior examination dated June 22, 2017. FINDINGS: On the immediate postright lung biopsy radiograph, there is a small right pneumothorax. The patient is asymptomatic. Stable appearance of the 2 cm x 1.9 cm nodule in the right middle lobe. RAD/Chest PA and Lateral IMPRESSION: Small right apical pneumothorax on the immediate postright lung biopsy. The patient is not symptomatic. Electronically Signed: Naresh Varghese MD at 12:51 EST Tel [phone], Service support ,
[2017-06-24] MEDS: Calcium (Elemental) 500 MG Tablet PO (11:59)
[2017-06-24] MEDS: Loratadine 10 MG Tablet PO (11:59)
[2017-06-24] MEDS: Pantoprazole Sodium 20 MG Tablet PO ×2 (11:59→21:41)
[2017-06-24] MEDS: Furosemide 40 MG/4 ML Vial IV ×2 (12:00→17:26)
[2017-06-24] MEDS: Albuterol 2.5 MG/3 ML VIAL.NEB. INHALATION (13:29)
--- NOTE | 2017-06-24 13:49 | CASEMGMT ---
See RN CM Assessment Link. DC Plan: Home on discharge. Will check for home oxygen needs. Lindy MALDONADO RN ACM
--- NOTE | 2017-06-24 13:55 | RAD_ITS ---
STUDY: X-RAY CHEST REASON FOR EXAM: Female, 77 years old. 2 hour following right lung biopsy. TECHNIQUE: Single AP expiratory portable view of the chest. COMPARISON: Comparison is made with prior examination done earlier today. FINDINGS: Small right apical pneumothorax. This has improved as compared to prior study. RAD/Chest PA and Lateral IMPRESSION: Slight decrease in size of the right apical pneumothorax. Electronically Signed: Naresh Varghese MD at 15:06 EST Tel [phone], Service support ,
--- NOTE | 2017-06-24 17:42 | PCM.PROGNOTE ---
Patient Problems: Active and Suspected Problems (Last Updated 06/23/17 @ 09:36 by Sharri Sood, PHARMACY INFORMATICIST-C) Acute exacerbation of CHF (congestive heart failure) (Acute) Subjective: Pt is S/P CT guided lung Bx of an enlarging mass in the RLL. She has a small apical pneumothorax on the post biopsy films. She denies CP. States she is better able to lie down almost flat without becoming severely SOB. Tele with NSR and ST with PVC's and couplets. She is lying on her side at 15? with no conversational dyspnea and no tachypnea - Physical Exam General: Alert, Oriented x3, Cooperative, No apparent distress Oral: Moist Mucosa Neck: Supple Lungs: Clear to auscultation, No wheeze, No rales, Diminished Cardiovascular: Regular rate, Regular Rhythm, Normal S1, Normal S2, No Gallop Abdomen: Bowel Sounds Present, Soft, Non Tender, Non-Distended Extremities: Edema - mild where the top of the sock is constricting Skin: No rashes, No breakdown Neurological: Cranial nerves II-XII grossly intact, Neuro grossly intact Psych/Mental Status: Normal Affect, Appropriate Vital Signs Temp Pulse Resp BP Pulse Ox 98.3 F 104 H 20 H 119/74 95 06/24/17 14:40 06/24/17 15:44 06/24/17 14:40 06/24/17 14:40 06/24/17 14:40 Oxygen Flow Rate 4 Oxygen Delivery Method Nasal Cannula Weight: 180 lb 15.992 oz Body Mass Index (BMI) 32.1 Intake and Output for Last 24 Hours 06/22/17 06/23/17 06/24/17 23:59 23:59 23:59 Intake Total 940 / 940 920 / 920 Output Total 2800 / 2800 1750 / 1750 Balance -1860 / -1860 -830 / -830 Laboratory Tests Past 24 Hrs 06/24/17 06/24/17 06/24/17 05:48 05:48 05:48 Plt Count 260 PT 12.9 INR 1.0 APTT 27.7 Sodium 135 L Potassium 4.0 Chloride 99 Carbon Dioxide 28.0 Anion Gap 8 BUN 20 H Creatinine 0.72 Estim Creat Clear Calc 38.35 Est GFR (MDRD) Af Amer 100 Est GFR (MDRD) Non-Af 83 BUN/Creatinine Ratio 27.6 H Glucose 104 Calcium 9.0 Magnesium 2.1 Assessment/Plan Active and Suspected Problems (Last Updated 06/23/17 @ 09:36 by Sharri Sood, GERMÁN-C) Acute exacerbation of CHF (congestive heart failure) (Acute) Impressions 1. Systolic Congestive heart failure - EF is 37% with wall motion abnormalities 2. enlarging right lung mass - CT guided biopsy on 06/24/17 3. History of non-Hodgkin's lymphoma 4. COPD - follows with Dr. Garcia 5. Peripheral vascular disease (see has had aortofemoral bypass by Dr. Bhavin Munoz) 6. Hyperlipidemia 7. Former smoker 8. Dysphagia 9. Carotid artery disease, 10. Mild global left ventricular systolic dysfunction in 2015 with a 50-55% ejection fraction....37% now 11. Chronic cough 12. Apical pneumothorax post CT-guided biopsy of right lung mass Repeat the CXR in the AM ambulatory pulse ox prior to DC Continue the Lasix BID pt is resistant to starting an ARB or Coreg because a telephone mechanic put her on 2 meds 3 years ago and the next day she could not get off the couch. Will revisit this in the AM Code Visit Inpatient E&M: 08249 Subs Hosp L3
[2017-06-24] MEDS: Montelukast 10 MG Tablet PO (21:41)
[2017-06-25] VITALS (18 sets, daily range): BP systolic 110–136; BP diastolic 59–77; PULSE 90–116; RESP 16–22; TEMP 36.1–36.7; O2SAT 93–98
[2017-06-25] MEDS: Ipratropium/Albuterol Sulfate 3 ML AMPUL.NEB INHALATION ×6 (02:25→23:28)
--- NOTE | 2017-06-25 05:55 | RAD_ITS ---
STUDY: X-RAY CHEST REASON FOR EXAM: Female, 77 years old. Pneumothorax follow-up. TECHNIQUE: Single AP portable view of the chest. COMPARISON: Jun 24 2017 2:01pm FINDINGS: Small right apical pneumothorax. This has improved as compared to prior study. There is a right middle lobe nodule measures 2.3 cm. There is no demonstrated pleural abnormality. Normal size heart. Normal mediastinum and soto. Normal visualized pulmonary arteries. Normal visualized aortic arch and descending thoracic aorta. Normal visualized thoracic spine. There is degenerative osteoarthritis of the bilateral shoulders. There is no demonstrated abnormality of the visualized soft tissue structures of the upper abdomen. RAD/Chest 1 View (Portable) IMPRESSION: Small right apical pneumothorax. This has improved as compared to prior study. Electronically Signed: Evan Encinas MD at 3:09 EST Tel , Service support ,
[2017-06-25] MEDS: Calcium (Elemental) 500 MG Tablet PO (07:31)
--- NOTE | 2017-06-25 08:17 | PN_ITS ---
Patient Problems: Active and Suspected Problems (Last Updated 06/23/17 @ 09:36 by Sharri Sood , SATURATION EQUIPMENT OPERATOR-C) Acute exacerbation of CHF (congestive heart failure) (Acute) Subjective: The patient was seen and examined. She is sitting up in chair in no acute distress. She did well overnight and her shortness of breath has improved. She still has dyspnea on exertion. Patient maintaining saturations on 2 L of oxygen. Her right-sided chest discomfort has resolved. She still has a coarse cough with occasional sputum production. Overall feels better and would like to go home. Objective: Repeat chest x-ray this morning shows improvement of small R apical pneumothorax. - Physical Exam General: Alert, Oriented x3, Cooperative, No apparent distress, Well developed, Well nourished, - - No conversational dyspnea HEENT: Atraumatic, Normocephalic Oral: Moist Mucosa, No Gingival or Mucosal Lesions/ Ulcerations Neck: Supple, No Nodes, Trachea Midline Lungs: No rales, Diminished, - - Expiratory wheeze improved Cardiovascular: Regular rate, Regular Rhythm, Normal S1, Normal S2, No murmurs Abdomen: Bowel Sounds Present, Soft, Non Tender Extremities: No edema Skin: No rashes, No breakdown, - - bandaid intact R post chest Musculoskeletal: No Tenderness to Palpation of Joints or Extremities Lymphatic: No Cervical, Supraclavicular, or Inguinal Adenopathy Neurological: Neuro grossly intact Psych/Mental Status: Alert and oriented to time, place, person, mood and affect Vital Signs Temp Pulse Resp BP Pulse Ox 97.4 F L 96 20 H 123/72 H 98 06/25/17 07:30 06/25/17 07:40 06/25/17 07:30 06/25/17 07:30 06/25/17 07:30 Oxygen Flow Rate 4 Oxygen Delivery Method Nasal Cannula Weight: 176 lb Body Mass Index (BMI) 32.1 Intake and Output for Last 24 Hours 06/23/17 06/24/17 06/25/17 23:59 23:59 23:59 Intake Total 940 / 940 920 / 920 480 / 480 Output Total 2800 / 2800 1750 / 1750 500 / 500 Balance -1860 / -1860 -830 / -830 -20 / -20 Assessment/Plan Active and Suspected Problems (Last Updated 06/23/17 @ 09:36 by Sharri Sood GERMÁN-C) Acute exacerbation of CHF (congestive heart failure) (Acute) RECOMMENDATIONS 1. Wean oxygen supplementation to keep saturations 88-92%. 2. Encourage incentive spirometer 3. Increase activity as tolerated 4. Continue aerosols as ordered 5. No indication for antibiotics or steroids at this time 6. Ambulatory pulse ox prior to discharge 7. Follow-up in the pulmonary clinic within 2 weeks of discharge 8. Okay to discharge from pulmonary standpoint IMPRESSIONS 1. Lung mass, enlarging Repeat CTA of the chest 06/22 with right middle lobe lung mass that is highly suspicious for primary lung cancer. Increasing in size, previously had nondiagnostic lung biopsy in September 2016 and was recommended to have serial CT imaging. Patient denies any hemoptysis. She has been getting progressively short of breath and has a persistent cough. She denies any fevers. She does not wear any home oxygen. Discussed with Dr. Allen, plans for CT-guided lung biopsy today around 1000. Lovenox was held. 2. Acute hypoxic respiratory insufficiency likely secondary to CHF exacerbation Patient did have increased lower extremity edema and difficulty with ADLs secondary to LEMA. She notes improvement with diuresis. She is currently maintaining her saturations on room air. Home medications include DuoNeb aerosols, uses Combivent when out of the house. Recent increase in albuterol as needed use, about every 2 hours. BNP on admission was elevated at 425. An echocardiogram 06/23 showed moderate segmental systolic dysfunction and an estimated EF of 37%. Her last echocardiogram 08/2016 showed normal LV size, mild to moderate global left ventricular systolic dysfunction, estimated EF of 45%, and structurally normal valves. Cumulative fluid balance -2710. Breathing improved from diuresis. She remains afebrile and hemodynamically stable. Ambulatory pulse ox indicates no need for supplemental oxygen with exertion. Plan: Continue aerosols and increase activity as tolerated. Encourage incentive spirometer. No antibiotics or steroids. No home oxygen requirement per walking oximetry. However, the patient does get short of breath.. She can follow-up in the pulmonary clinic in 2 weeks. 3. Non-Hodgkin's lymphoma Follows with Dr. Cottrell, he has been consulted. Appreciate input. 4. Suspected sleep apnea Patient with excessive daytime sleepiness, snoring. Other risk factors, including hypertension, obesity, age. Patient would likely benefit from outpatient polysomnogram. This can be ordered at her follow-up visit in the pulmonary clinic. 5. History of asthma/hyperlipidemia/PVD/right carotid artery stenosis/dysphagia Complicates care, management, recovery, and prognosis. No signs of swallowing difficulties at this time. Management per hospitalist. This note was generated with Simplifyation software. It may contain incorrect words, spelling, and punctuation that were not noted in checking the note before signing.
[2017-06-25] MEDS: Loratadine 10 MG Tablet PO (09:10)
[2017-06-25] MEDS: Pantoprazole Sodium 20 MG Tablet PO ×2 (09:10→20:57)
[2017-06-25] MEDS: Furosemide 40 MG/4 ML Vial IV ×2 (09:10→13:42)
--- NOTE | 2017-06-25 10:54 | PN_ITS ---
Patient Problems: Active and Suspected Problems (Last Updated 06/23/17 @ 09:36 by Sharri Sood , F[employer]ER [employer]-C) Acute exacerbation of CHF (congestive heart failure) (Acute) Subjective: Afebrile with stable vital signs there is a mild difference in the BP between the R and L arms. Blood pressure was checked simultaneously in both arms of the blood pressure on the left was 110/77 and the blood pressure in the right upper extremity was 127/77. She does have a history of peripheral vascular disease and had a stent placed in the left lower extremity by Dr. Munoz in the past. She is 93% on room air at rest and 93% on room air with ambulation. She did complain of shortness of breath with ambulation and she gets very tachypneic with just walking out of the BR. No CP. Also still getting SOB when lying down although it has improved. She denies any chest discomfort. Fluid balance since admission is -2710. Chest x-ray today shows the apical pneumothorax on the right is smaller Echocardiogram shows an ejection fraction of 37% with moderate segmental wall motion abnormalities of the LV. This is new since 2014 when the EF was normal and she had no wall motion abnormalities. She also had a cardiac cath in 2015 and was told she had no CAD. - Physical Exam General: Alert, Oriented x3, Cooperative, - - very tachypneic with conversational dyspnea when she walked ot the chair from the BR. Having dry cough. Wheezing after ambulation. Oral: Moist Mucosa Neck: Supple, Trachea Midline Lungs: No rhonchi, No rales, Diminished, Tachypneic, Wheezes, - - conversational dyspnea after ambulating a short distance Cardiovascular: Regular rate, Regular Rhythm, Normal S1, Normal S2, No murmurs, - - telemetry with NSR/ST and PVC's and couplets Abdomen: Bowel Sounds Present, Soft, Non Tender Extremities: Edema - very mild Skin: No rashes, No breakdown Neurological: Cranial nerves II-XII grossly intact, Neuro grossly intact Psych/Mental Status: Appropriate Vital Signs Temp Pulse Resp BP Pulse Ox 97.4 F L 96 20 H 127/77 H 93 06/25/17 07:30 06/25/17 07:40 06/25/17 07:30 06/25/17 10:10 06/25/17 08:55 Oxygen Flow Rate 4 Oxygen Delivery Method Nasal Cannula Weight: 176 lb Body Mass Index (BMI) 32.1 Intake and Output for Last 24 Hours 06/23/17 06/24/17 06/25/17 23:59 23:59 23:59 Intake Total 940 / 940 920 / 920 480 / 480 Output Total 2800 / 2800 1750 / 1750 500 / 500 Balance -1860 / -1860 -830 / -830 -20 / -20 Assessment/Plan Active and Suspected Problems (Last Updated 06/23/17 @ 09:36 by Sharri Sood , F[employer]-C) Acute exacerbation of CHF (congestive heart failure) (Acute) Impressions 1. Systolic Congestive heart failure 2. enlarging right lung mass - CT guided biopsy on 06/24/17 3. History of non-Hodgkin's lymphoma 4. COPD 5. Peripheral vascular disease (see has had aortofemoral bypass by Dr. Bhavin Munoz) 6. Hyperlipidemia 7. Former smoker 8. Dysphagia 9. Carotid artery disease, 10. Mild global left ventricular systolic dysfunction in 2014 with a 50-55% ejection fraction. 11. Chronic cough 12. Apical pneumothorax post CT-guided biopsy of right lung mass Increase the Furosemide to TID Consult Dr. Vizcaino. She apparently had a cath in August [address] Vizcaino....no results in the computer and at that time the EF was 40%. Since she had no significant CAD at that time she will likely be medical management only Start ASA daily, cozaar 25mg Q HS, Coreg 3.125 mg BID and a statin......LDL 115 at last check Recheck the lab in the AM SOB is likely multifactorial...CHF + pneumothorax + COPD + age and deconditioning Start DVT prophylaxis with Lovenox since we are now 24H after the lung bx. Orthostatics in the AM Code Visit Inpatient E&M: 85944 Subs Hosp L3
--- NOTE | 2017-06-25 11:23 | NURSING ---
Pt. calls out to request breathing treatment. RT notified at 3120.
[2017-06-25] MEDS: Carvedilol 3.125 MG TABLET PO ×2 (11:49→20:58)
[2017-06-25] MEDS: Enoxaparin 40 MG/0.4 ML Syringe SC (11:49)
[2017-06-25] MEDS: Aspirin 325 MG Tablet PO (11:49)
--- NOTE | 2017-06-25 13:15 | EKG12_ITS ---
Test Reason : RHYTHM Blood Pressure : / mmHG Vent. Rate : 103 BPM Atrial Rate : 103 BPM P-R Int : 146 ms QRS Dur : 088 ms QT Int : 334 ms P-R-T Axes : 074 -55 071 degrees QTc Int : 437 ms Sinus tachycardia Left anterior fascicular block Nonspecific T wave abnormality Abnormal ECG Confirmed by MABLE MCGARRY, SUMAN ([id number]), newspaper editor ROCK GARZA ([id number] on 07/07/2017 2:15:45 PM Referred By: KIRIT Confirmed By:SUMAN AKINS MD
[2017-06-25] MEDS: 0.9% NaCl Peripheral Flush Adult/Peds IV (13:43)
--- NOTE | 2017-06-25 13:54 | CON.PCM_ITS ---
Problem List (1) Acute exacerbation of CHF (congestive heart failure) Status: Acute Qualifiers: Congestive heart failure type: systolic Qualified Code(s): I50.23 - Acute on chronic systolic (congestive) heart failure (2) Asthma Status: Chronic Qualifiers: Asthma severity: mild Asthma persistence: intermittent Asthma complication type: uncomplicated Qualified Code(s): J45.20 - Mild intermittent asthma, uncomplicated (3) Abnormal chest CT Status: Acute (4) Stage 1 mild COPD by GOLD classification Status: Chronic (5) History of non-Hodgkin's lymphoma Status: Chronic Reason for Consult Date of Consultation: 06/25/17 Reason for Consultation: Shortness of breath, CHF, right lung nodule, COPD, history of non-Hodgkin's lymphoma History of Present Illness: The patient is a 77 year old F, patient of Dr. David's last seen in the office on 09/11/16. Patient has a long history of smoking, and recently quit in July 2016. Previous to that she had seen Dr. David for congestive heart failure and LV dysfunction with EF approximately 45%. She underwent a left heart catheterization with Dr. 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 In addition she has a history of non-Hodgkin' s lymphoma, diagnosed in 2003 and treated with CHOP therapy. Given the patient's worsening shortness of breath and LV dysfunction she underwent diagnostic coronary angiogram with Dr. David in 2013 which showed essentially normal coronary arteries and mild to moderate global LV dysfunction. In addition she has a known right lower lobe spherical mass which apparently was biopsied in September 2016 and was found to be nondiagnostic. 's over the last several weeks to months, the patient has had progressively worsening dyspnea on exertion, shortness of breath, lower extremity edema. She reports that she is not on any antihypertensive medications, no diuretics, and has had no change to her medications. She denies any chest pain or anginal symptoms. Interestingly in addition, the patient appears to have left subclavian stenosis with a differential blood pressure between the left and right of approximately 25 mmHg. The right arm is higher. Patient was felt to be in congestive heart failure was treated with IV diuretic therapy. A repeat echocardiogram demonstrated an EF around 37% although cytocide comparison from her previous echocardiogram identified her function to be about the same which is about 40%. She was treated with IV Lasix and her symptoms have improved markedly. She apparently has significant COPD/chronic bronchitis and is on a number of inhalers. She is unclear whether she is ever been on beta-james therapy, and whether she had a reaction to the beta- james. Recent CT scan was negative for pulmonary embolism but noted her right lower lobe spherical mass had been enlarging since her last test. She underwent elective CT-guided biopsy on 06/24/17 with results pending. Oncology has been consulted. [] Past Medical History Allergies/Adverse Reactions: Allergies alendronate sodium [From Fosamax] Allergy (Severe, Verified 06/22/17 13:01) Other generalized discomfort reflux choking / aspiration budesonide Allergy (Severe, Verified 06/22/17 13:01) Other asthma attack fluticasone [From Advair Diskus] Allergy (Severe, Verified 06/22/17 13:01) Other CAN'T BREATHE Penicillins [PCN] Allergy (Severe, Verified 06/22/17 13:01) Shortness of breath salmeterol [From Advair Diskus] Allergy (Severe, Verified 06/22/17 13:01) Other CAN'T BREATHE tiotropium [From Spiriva with HandiHaler] Allergy (Severe, Verified 06/22/17 13: 01) Other CANT BREATHE umeclidinium [From Anoro Ellipta] Allergy (Severe, Verified 06/22/17 13:01) Other THROAT SWELLING vilanterol [From Anoro Ellipta] Allergy (Severe, Verified 06/22/17 13:01) Other THROAT SWELLING doxycycline Allergy (Verified 06/22/17 13:01) Shortness of breath Home Medications: Ambulatory Orders Medication Instructions Recorded Albuterol Inhaler [Ventolin Hfa] 1 - 2 puff INHALATION Q6H PRN PRN 09/20/14 Ipratropium/Albuterol Respimat 1 puff INHALATION 4X/DAY PRN 09/20/14 [Combivent Respimat Inhal Kiester] Cetirizine HCl [Zyrtec] 10 mg PO DAILY 08/19/16 Mv-Mn/FA/Vit K1/Lycop/Lut/Zeax 1 ea PO DAILY 08/19/16 [Ocuvite Eye + Multi Tablet] Calcium Carbonate [Calcium] 500 mg PO DAILY 10/03/16 Ergocalciferol [Vitamin D] 50,000 unit PO Q7D 10/03/16 Ipratropium/Albuterol Sulfate 3 ml INHALATION Q4H.RT 10/03/16 [Duoneb] albuterol sulfate 1.25 mg/3 mL 1.25 mg CONTINUOUS NEBULIZATION 05/12/17 solution for nebulization Q4H #90 ml MDD WHEEZING pantoprazole 20 mg tablet,delayed 20 mg PO BID tab 06/03/17 release montelukast 10 mg tablet 10 mg PO QHS 06/04/17 Past Medical History (Chronic Problems): Chronic Problems (Last Updated 06/23/17 @ 09:36 by Sharri Sood NP-C) Asthma (Chronic) Tobacco abuse (Chronic) in remission Stage 1 mild COPD by GOLD classification (Chronic) Dysphagia (Chronic) PVD (peripheral vascular disease) (Chronic) Occlusion and stenosis of right carotid artery (Chronic) Cardiomyopathy (Chronic) History of non-Hodgkin's lymphoma (Chronic) Lung nodule (Chronic) COPD (chronic obstructive pulmonary disease) (Chronic) Surgical History: coronary bypass surgery, hysterectomy, - - vocal cord surgery, Psychiatric History: No pertinent psych hx 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 - *Family History Maternal Family History: Family History (Last Reviewed 06/11/17 @ 16:23 by ANOOP Cervantes) Sister Cancer History Items: Heart Disease Paternal Family History: Family History (Last Reviewed 06/11/17 @ 16:23 by ANOOP Cervantes) Sister Cancer History Items: Stroke Offspring Family History: Family History (Last Reviewed 06/11/17 @ 16:23 by ANOOP Cervantes) Sister Cancer History Items: - - Thyroid cancer, ovarian cancer Lives: Alone Smoking Status: Former smoker Tobacco Use: Non-smoker Alcohol: None Drugs: None Review of Systems - Review of Systems General: Denies: Fever, Night Sweats, Fatigue Cardiovascular: Reports: Shortness of Breath with Exertion. Denies: Chest Discomfort, Shortness of Breath, Orthopnea, PND, Peripheral Edema, Palpitations , Lightheadedness, Dizziness, Near Syncope, Syncope Respiratory: Denies: Cough, Sputum Production, Hemoptysis Gastrointestinal: Denies: Hematemesis, Hematochezia, Melena Genitourinary: Denies: Dysuria, Hematuria Skin: Denies: Rash Subjectve: Patient sitting up in the side of the bed. No acute distress. Objective: Vital Signs Temp Pulse Resp BP Pulse Ox 97.4 F L 116 H 18 127/77 H 93 06/25/17 07:30 06/25/17 11:26 06/25/17 11:26 06/25/17 10:10 06/25/17 11:26 Oxygen Flow Rate 4 Oxygen Delivery Method Room Air Weight: 175 lb 15.991 oz Body Mass Index (BMI) 32.1 Intake and Output for Last 24 Hours 06/23/17 06/24/17 06/25/17 23:59 23:59 23:59 Intake Total 940 / 940 920 / 920 814 / 814 Output Total 2800 / 2800 1750 / 1750 2049 / 2049 Balance -1860 / -1860 -830 / -830 -1236 / -1236 General: Awake, Alert, Oriented x 3 HEENT: PERRL, EOMI, Sclera Non Icteric Neck: Supple, Good ROM, No Lymph Node Enlargement Lungs: Clear to auscultation Cardiovascular: Regular Rhythm, Normal S1, Normal S2, No Murmurs, No Rubs, No Gallops Vascular: No Carotid Bruits, Normal Femoral Pulses, Normal Radial Pulses, Normal Dorsalis Pedal Pulse, Normal Posterior Tibial Pulses Abdomen: Bowel Sounds Present, Soft, Non Tender, No HSM, No Organomegaly Extremities: No Cyanosis, No Clubbing, No edema Neurological: No Focal Motor or Sensory Deficit Rhythm: EKG: EKG today demonstrates sinus tachycardia left anterior hemiblock, nonspecific ST and T-wave changes, no previous myocardial infarction noted. ECHO: Stress Test: Cardiac Cath: PCI: CT Surgery: Holter monitor: EPS: PPM: CXR: Chest CT Scan: Assessment/Plan 1. LV dysfunction: The patient has had known LV dysfunction for quite some time with an estimated ejection fraction between 40 and 45%. This may have occurred after her CHOP therapy several years ago. Her catheterization in 2014 was reviewed by myself and demonstrated no significant coronary disease and mild global LV dysfunction. It appears the patient has had dietary indiscretion eating fast food, salty foods, and has not been on any diuretic therapy for unknown reasons. She states that antihypertensive medications in the past have caused her to feel quite washed out and tired and beta-blockers may have been attempted and then discontinued given her COPD. Patient appears to be approaching her dry weight with IV diuretic therapy, recommend transitioning her to Lasix 40 mg p.o. daily to start with. In addition I would recommend low-dose Coreg therapy at 3.125 mg p.o. twice daily. The patient has no bronchospasm or reactive airway disease to this low-dose of beta-james, I would continue this going forward. I would hold off on adding SAUL inhibitors or arms at this time and recommend using the alpha blocking component of Coreg to assist with afterload reduction as hypertensive medications appear to cause the patient significant fatigue and tiredness. I do not recommend repeat catheterization, repeat stress testing or any further cardiovascular workup at this time. Her LV dysfunction is most likely a manifestation of his chemotherapy and possibly uncontrolled and unaddressed hypertension. Also recommend a 2000 cc fluid restriction. I Thoroughly explained to the patient and her family regarding the relationship between high salt diet, excessive fluid intake, and congestive heart failure. 2. Right lower lung mass: The patient is currently being worked up for a right lower lung mass with a recent biopsy on 06/24/17 with results pending. If the patient is found to have cancer, would highly recommend avoiding chemotherapy agents which may further reduce her LV function. 3. Tobacco use: The patient reports that she quit tobacco approximately 1 year ago. 4. All questions answered. Thank you very much for the opportunity to put dissipate in the cardiac care of your patient. Consultation time took place between 12:31 PM. Patient will follow-up with Dr. David going forward. Code Visit Inpatient E&M: 75154 Init Hosp L2
[2017-06-25] MEDS: Losartan Potassium 25 MG Tablet PO (20:58)
[2017-06-25] MEDS: Montelukast 10 MG Tablet PO (20:58)
[2017-06-26] VITALS (13 sets, daily range): BP systolic 90–127; BP diastolic 60–71; PULSE 85–101; RESP 16–20; TEMP 36.2–36.8; O2SAT 91–99
[2017-06-26] MEDS: Ipratropium/Albuterol Sulfate 3 ML AMPUL.NEB INHALATION ×6 (03:18→23:30)
[2017-06-26] MEDS: Enoxaparin 40 MG/0.4 ML Syringe SC (05:50)
[2017-06-26 06:14] LABS: Absolute Lymphocyte Count 1.98 X10^3/ul (0.83-4.51); Absolute Neutrophil Count 3.5 X10^3/uL (2.0-7.7); Basophil# 0.03 X10^3/uL; Basophil% 0.5 % (0-1); Eosinophil# 0.21 X10^3/uL; Eosinophils% 3.2 % (0-5); Hematocrit 41.3 % (37-47); Hemoglobin 13.9 g/dl (12.0-15.0); Lymphocyte # 1.98 X10^3/ul (4.0); Lymphocyte % 29.7 % (19-41); Mean Corp Hgb Conc 33.7 g/gl (32-36); Mean Corpuscular Hgb 30.7 pg (27.0-32.0); Mean Corpuscular Volume 91.2 fL (81-99); Mean Platelet Vol. 11.6 fl (6.2-12.0); Monocyte# 0.95 X10^3/uL; Monocyte% 14.3 % (0-10); Neutrophil # 3.48 X10^3/uL (2.7-7.7); Neutrophil % 52.1 % (47-70); Platelet Count 242 K/mm3 (150-450); RBC Distribution Width CV 14.9 % (11.6-14.6); RBC Distribution Width SD 48.7 fl (35.1-43.9); Red Blood Count 4.53 M/mm3 (4.2-5.4); White Blood Count 6.7 K/mm3 (4.4-11.0)
[2017-06-26 06:17] LABS: POSITIVE COUNT NO; POSITIVE DIFFERENTIAL NO; POSITIVE MORPHOLOGY NO
[2017-06-26 06:28] LABS: Anion Gap 10 (5-15); BUN 24 mg/dL (7-18); BUN/Creat Ratio 29.7 RATIO (10-20); Calcium,Total 9.2 mg/dL (8.5-10.1); Chloride 94 mmol/L (98-107); Cholesterol 162 mg/dL (200); Creatinine, Serum 0.81 mg/dL (0.55-1.02); EST Glomerular Filtration Rate 73 mL/min (>60); Est Glom Filt Rate - Afr Amer 88 mL/min (>60); Estimated Creatinine Clearance 47.35 ml/min; Glucose 99 mg/dL (70-110); High Density Lipoprotein 51 mg/dL; Potassium 3.7 mmol/L (3.5-5.1); Sodium Level 134 mmol/L (136-145); Triglycerides 108 mg/dL; Very Low Density Lipoprotein 22 mg/dL (5-40)
--- NOTE | 2017-06-26 06:49 | PCM.PN.CARD ---
Subjectve: The patient seen and evaluated and complains of mild shortness of breath and mild dizziness Objective: Vital Signs Temp Pulse Resp BP Pulse Ox 97.2 F L 85 20 H 116/71 98 06/26/17 04:20 06/26/17 05:54 06/26/17 04:20 06/26/17 05:54 06/26/17 04:20 Oxygen Flow Rate 2 Oxygen Delivery Method Nasal Cannula Weight: 170 lb 4.8 oz Body Mass Index (BMI) 32.1 Orthostatic Vital Signs Start: 06/26/17 05:54 Freq: q24h Status: Active Protocol: Activity Type Activity Date Activity User E-Sign Co-Sign Detail Recorded Client Recorded Date Recorded By Document 06/26/17 05:54 [facility] [id number] 06/26/17 06:01 [facility] 06/26/17 05:54 Orthostatic Vitals Standing -Blood Pressure (90/60-120/80) 114/63 -Extremity Use Right Arm -Pulse Rate (60-100) 101 H Sitting -Blood Pressure (90/60-120/80) 90/67 -Extremity Use Right Arm -Pulse Rate (60-100) 92 Lying -Blood Pressure (90/60-120/80) 116/71 -Extremity Use Right Arm -Pulse Rate (60-100) 85 Intake and Output for Last 24 Hours 06/24/17 06/25/17 06/26/17 23:59 23:59 23:59 Intake Total 920 / 920 1528 / 1528 300 / 300 Output Total 1750 / 1750 2650 / 2650 400 / 400 Balance -830 / -830 -1122 / -1122 -100 / -100 General: Awake, Alert, Oriented x 3 HEENT: PERRL, EOMI, Sclera Non Icteric Neck: Supple, Good ROM, No Lymph Node Enlargement Lungs: Clear to auscultation Cardiovascular: Regular Rhythm, Normal S1, Normal S2, No Murmurs, No Rubs, No Gallops Vascular: No Carotid Bruits, Normal Femoral Pulses, Normal Radial Pulses, Normal Dorsalis Pedal Pulse, Normal Posterior Tibial Pulses Abdomen: Bowel Sounds Present, Soft, Non Tender, No HSM, No Organomegaly Extremities: No Cyanosis, No Clubbing, No edema Neurological: No Focal Motor or Sensory Deficit 06/26/17 05:52: WBC 6.7, RBC 4.53, Hgb 13.9, Hct 41.3, MCV 91.2, MCH 30.7, MCHC 33.7, RDW 14.9 H, RDW Differential 48.7 H, Plt Count 242, MPV 11.6, Immature Gran % (Auto) 0.200, Neut % (Auto) 52.1, Lymph % (Auto) 29.7, [place] % (Auto) 14.3 H, Eos % (Auto) 3.2, Baso % (Auto) 0.5, Absolute Neuts (auto) 3.5, Total Counted Not Reportable 06/26/17 05:52: Sodium 134 L, Potassium 3.7, Chloride 94 L, Carbon Dioxide 30.0, Anion Gap 10, BUN 24 H, Creatinine 0.81, Est GFR (MDRD) Af Amer 88, Est GFR (MDRD) Non-Af 73, BUN/Creatinine Ratio 29.7 H, Glucose 99, Calcium 9.2, Magnesium 2.0, Triglycerides 108, Cholesterol 162, LDL Cholesterol 89, VLDL Cholesterol 22, HDL Cholesterol 51 Rhythm: EKG: Normal sinus rhythm with no acute changes left anterior fascicular block present. Assessment/Plan 1. LV dysfunction: The patient has had known LV dysfunction for quite some time with an estimated ejection fraction between 40 and 45%. This may have occurred after her CHOP therapy several years ago. Her catheterization in 2014 was reviewed by myself and demonstrated no significant coronary disease and mild global LV dysfunction. It appears the patient has had dietary indiscretion eating fast food, salty foods, and has not been on any diuretic therapy. She states that antihypertensive medications in the past have caused her to feel quite washed out and tired and beta-blockers may have been attempted and then discontinued given her COPD. Patient appears to be approaching her dry weight with IV diuretic therapy, recommend transitioning her to Lasix 40 mg p.o. daily to start with. In addition I would recommend low-dose Coreg therapy at 3.125 mg p.o. twice daily. The patient has no bronchospasm or reactive airway disease to this low-dose of beta-james, I would continue this going forward. I would hold off on adding SAUL inhibitors or arms at this time and recommend using the alpha blocking component of Coreg to assist with afterload reduction as hypertensive medications appear to cause the patient significant fatigue and tiredness. We should titrate the above to her blood pressure as well as her symptoms at this particular time. Repeat cardiac catheterization is not warranted at this time. 2. Right lower lung mass: The patient is currently being worked up for a right lower lung mass with a recent biopsy on 06/24/17 with results pending. If the patient is found to have cancer, would highly recommend avoiding chemotherapy agents which may further reduce her LV function. 3. Tobacco use: The patient reports that she quit tobacco approximately 1 year ago.
--- NOTE | 2017-06-26 06:53 | PN.CARD_ITS ---
Subjectve: The patient seen and evaluated and complains of mild shortness of breath and mild dizziness Objective: Vital Signs Temp Pulse Resp BP Pulse Ox 97.2 F L 85 20 H 116/71 98 06/26/17 04:20 06/26/17 05:54 06/26/17 04:20 06/26/17 05:54 06/26/17 04:20 Oxygen Flow Rate 2 Oxygen Delivery Method Nasal Cannula Weight: 170 lb 4.8 oz Body Mass Index (BMI) 32.1 Orthostatic Vital Signs Start: 06/26/17 05:54 Freq: q24h Status: Active Protocol: Activity Type Activity Date Activity User E-Sign Co-Sign Detail Recorded Client Recorded Date Recorded By Document 06/26/17 05:54 [facility] [id number] 06/26/17 06:01 [facility] 06/26/17 05:54 Orthostatic Vitals Standing -Blood Pressure (90/60-120/80) 114/63 -Extremity Use Right Arm -Pulse Rate (60-100) 101 H Sitting -Blood Pressure (90/60-120/80) 90/67 -Extremity Use Right Arm -Pulse Rate (60-100) 92 Lying -Blood Pressure (90/60-120/80) 116/71 -Extremity Use Right Arm -Pulse Rate (60-100) 85 Intake and Output for Last 24 Hours 06/24/17 06/25/17 06/26/17 23:59 23:59 23:59 Intake Total 920 / 920 1528 / 1528 300 / 300 Output Total 1750 / 1750 2650 / 2650 400 / 400 Balance -830 / -830 -1122 / -1122 -100 / -100 General: Awake, Alert, Oriented x 3 HEENT: PERRL, EOMI, Sclera Non Icteric Neck: Supple, Good ROM, No Lymph Node Enlargement Lungs: Clear to auscultation Cardiovascular: Regular Rhythm, Normal S1, Normal S2, No Murmurs, No Rubs, No Gallops Vascular: No Carotid Bruits, Normal Femoral Pulses, Normal Radial Pulses, Normal Dorsalis Pedal Pulse, Normal Posterior Tibial Pulses Abdomen: Bowel Sounds Present, Soft, Non Tender, No HSM, No Organomegaly Extremities: No Cyanosis, No Clubbing, No edema Neurological: No Focal Motor or Sensory Deficit 06/26/17 05:52: WBC 6.7, RBC 4.53, Hgb 13.9, Hct 41.3, MCV 91.2, MCH 30.7, MCHC 33.7, RDW 14.9 H, RDW Differential 48.7 H, Plt Count 242, MPV 11.6, Immature Gran % (Auto) 0.200, Neut % (Auto) 52.1, Lymph % (Auto) 29.7, [place] % (Auto) 14.3 H, Eos % (Auto) 3.2, Baso % (Auto) 0.5, Absolute Neuts (auto) 3.5, Total Counted Not Reportable 06/26/17 05:52: Sodium 134 L, Potassium 3.7, Chloride 94 L, Carbon Dioxide 30.0 , Anion Gap 10, BUN 24 H, Creatinine 0.81, Est GFR (MDRD) Af Amer 88, Est GFR ( MDRD) Non-Af 73, BUN/Creatinine Ratio 29.7 H, Glucose 99, Calcium 9.2, Magnesium 2.0, Triglycerides 108, Cholesterol 162, LDL Cholesterol 89, VLDL Cholesterol 22, HDL Cholesterol 51 Rhythm: EKG: Normal sinus rhythm with no acute changes left anterior fascicular block present. Assessment/Plan 1. LV dysfunction: The patient has had known LV dysfunction for quite some time with an estimated ejection fraction between 40 and 45%. This may have occurred after her CHOP therapy several years ago. Her catheterization in 2014 was reviewed by myself and demonstrated no significant coronary disease and mild global LV dysfunction. It appears the patient has had dietary indiscretion eating fast food, salty foods, and has not been on any diuretic therapy. She states that antihypertensive medications in the past have caused her to feel quite washed out and tired and beta-blockers may have been attempted and then discontinued given her COPD. Patient appears to be approaching her dry weight with IV diuretic therapy, recommend transitioning her to Lasix 40 mg p.o. daily to start with. In addition I would recommend low-dose Coreg therapy at 3.125 mg p.o. twice daily. The patient has no bronchospasm or reactive airway disease to this low-dose of beta-james, I would continue this going forward. I would hold off on adding SAUL inhibitors or arms at this time and recommend using the alpha blocking component of Coreg to assist with afterload reduction as hypertensive medications appear to cause the patient significant fatigue and tiredness. We should titrate the above to her blood pressure as well as her symptoms at this particular time. Repeat cardiac catheterization is not warranted at this time. 2. Right lower lung mass: The patient is currently being worked up for a right lower lung mass with a recent biopsy on 06/24/17 with results pending. If the patient is found to have cancer, would highly recommend avoiding chemotherapy agents which may further reduce her LV function. 3. Tobacco use: The patient reports that she quit tobacco approximately 1 year ago.
--- NOTE | 2017-06-26 09:40 | PN_ITS ---
Patient Problems: Active and Suspected Problems (Last Updated 06/23/17 @ 09:36 by Sharri Sood , GERMÁN-C) Acute exacerbation of CHF (congestive heart failure) (Acute) Subjective: The patient was seen and examined at the bedside this morning. Events from the last 24 hours have been reviewed. The patient is currently afebrile, hemodynamically stable and maintaining appropriate oxygen saturations on 2 L/ min via nasal cannula. No overnight issues were reported. The patient is still endorsing the presence of exertional dyspnea. Objective: The patient's most recent lab work, culture data and imaging studies have all been personally reviewed. Repeat surface echocardiogram completed June 23 revealed moderate segmental systolic dysfunction with an ejection fraction of 37 %. CTA chest obtained at the time of her hospital admission revealed an enlarging mass within the right middle lobe, which have progressed since previous chest imaging was completed. - Physical Exam General: Alert, Cooperative, No apparent distress HEENT: Atraumatic, PERRLA, Normocephalic Oral: Moist Mucosa, No Gingival or Mucosal Lesions/ Ulcerations Neck: Supple, No Nodes, Trachea Midline Lungs: No rhonchi, No wheeze, No rales, Diminished Cardiovascular: Regular rate, Regular Rhythm, Normal S1, Normal S2, No murmurs Abdomen: Bowel Sounds Present, Soft, Non Tender, Obese Extremities: No clubbing, No cyanosis, No edema Skin: No rashes, No breakdown Musculoskeletal: No Tenderness to Palpation of Joints or Extremities, No Muscle Wasting Lymphatic: No Cervical, Supraclavicular, or Inguinal Adenopathy Neurological: Neuro grossly intact Psych/Mental Status: Normal Affect, Appropriate Vital Signs Temp Pulse Resp BP Pulse Ox 97.2 F L 98 16 116/71 91 06/26/17 04:20 06/26/17 07:11 06/26/17 07:11 06/26/17 05:54 06/26/17 07:11 Oxygen Flow Rate 2 Oxygen Delivery Method Nasal Cannula Weight: 170 lb 4.8 oz Body Mass Index (BMI) 32.1 Orthostatic Vital Signs Start: 06/26/17 05:54 Freq: q24h Status: Active Protocol: Activity Type Activity Date Activity User E-Sign Co-Sign Detail Recorded Client Recorded Date Recorded By Document 06/26/17 05:54 [facility] [id number] 06/26/17 06:01 F 06/26/17 05:54 Orthostatic Vitals Standing -Blood Pressure (90/60-120/80) 114/63 -Extremity Use Right Arm -Pulse Rate (60-100) 101 H Sitting -Blood Pressure (90/60-120/80) 90/67 -Extremity Use Right Arm -Pulse Rate (60-100) 92 Lying -Blood Pressure (90/60-120/80) 116/71 -Extremity Use Right Arm -Pulse Rate (60-100) 85 Intake and Output for Last 24 Hours 06/24/17 06/25/17 06/26/17 23:59 23:59 23:59 Intake Total 920 / 920 1528 / 1528 300 / 300 Output Total 1750 / 1750 2650 / 2650 400 / 400 Balance -830 / -830 -1122 / -1122 -100 / -100 Laboratory Tests Past 24 Hrs 06/26/17 06/26/17 05:52 05:52 WBC 6.7 RBC 4.53 Hgb 13.9 Hct 41.3 MCV 91.2 MCH 30.7 MCHC 33.7 RDW 14.9 H RDW Differential 48.7 H Plt Count 242 MPV 11.6 Immature Gran % (Auto) 0.200 Neut % (Auto) 52.1 Lymph % (Auto) 29.7 Collier % (Auto) 14.3 H Eos % (Auto) 3.2 Baso % (Auto) 0.5 Absolute Neuts (auto) 3.5 Absolute Lymphs (auto) 1.98 Total Counted Not Reportable Sodium 134 L Potassium 3.7 Chloride 94 L Carbon Dioxide 30.0 Anion Gap 10 BUN 24 H Creatinine 0.81 Estim Creat Clear Calc 47.35 Est GFR (MDRD) Af Amer 88 Est GFR (MDRD) Non-Af 73 BUN/Creatinine Ratio 29.7 H Glucose 99 Calcium 9.2 Magnesium 2.0 Triglycerides 108 Cholesterol 162 LDL Cholesterol 89 VLDL Cholesterol 22 HDL Cholesterol 51 Clinical Impression(s) from Imaging Studies Chest X-Ray 06/22/17 13:19 IMPRESSION: Enlarging mass in the right middle lobe suspicious for cancer until proven otherwise. Chronic obstructive pulmonary disease N.B. : The above information has been verbally conveyed by Kaylyn Bauer MD to Dr Mckinney, Referring Physician, on 06/22/2017 14:05:38 (ET). Electronically Signed: Kaylyn Bauer MD at 13:47 EST Tel , Service support , N.B. : The above information has been verbally conveyed by Kaylyn Bauer MD to Dr Mckinney, Referring Physician, on 06/22/2017 14:05:38 (ET). Chest CTA 06/22/17 14:03 IMPRESSION: 2.0 x 2.4 x 1.6 cm enlarging mass in the right middle lobe highly suspicious for primary lung cancer. Findings seen on chest x-ray were called to the emergency room on a stat basis. Chronic obstructive pulmonary disease Stable focus of fibrotic change in the right lung base. Coronary artery calcification. Hepatic steatosis Hiatal hernia. Focus of calcification measuring 1.3 x 1.3 cm posterior to the greater curvature of the stomach stable since prior study which may represent prior granulomatous disease. Electronically Signed: Kalyyn Bauer MD at 15:40 EST Tel , Service support , Biopsy CT 06/24/17 10:30 IMPRESSION: 1. CT directed core needle biopsy of the right middle lobe lung nodule using CT image guidance with image documentation as described. Pathology results are pending. 2. Conscious Sedation protocol utilized with independent monitoring. Electronically Signed: Naresh Varghese MD at 11:32 EST Tel [phone], Service support , Chest X-Ray 06/24/17 11:15 IMPRESSION: Small right apical pneumothorax on the immediate postright lung biopsy. The patient is not symptomatic. Electronically Signed: Naresh Varghese MD at 12:51 EST Tel [phone], Service support , Chest X-Ray 06/24/17 13:55 IMPRESSION: Slight decrease in size of the right apical pneumothorax. Electronically Signed: Naresh Varghese MD at 15:06 EST Tel [phone], Service support , Chest X-Ray 06/25/17 05:55 IMPRESSION: Small right apical pneumothorax. This has improved as compared to prior study. Electronically Signed: Evan Encinas MD at 3:09 EST Tel , Service support , Assessment/Plan Active and Suspected Problems (Last Updated 06/23/17 @ 09:36 by Sharri Sood , GERM[facility]N-C) Acute exacerbation of CHF (congestive heart failure) (Acute) RECOMMENDATIONS: 1. Continue aerosol treatments. 2. Wean supplemental oxygen to maintain saturations at or above 90% 3. Perform walking oximetry study today 4. Encourage incentive spirometer use and mobilize patient as tolerated. 5. Please ensure that the patient has follow up scheduled in the pulmonary medicine clinic within 2 weeks of her discharge from the hospital. IMPRESSIONS: 1. Acute hypoxic respiratory insufficiency Suspect likely related to underlying heart failure exacerbation, combined with underlying COPD and recent iatrogenic pneumothorax. The patient is symptomatically improved following volume optimization. Continue current medical management. Encourage incentive spirometer use and mobilize patient as tolerated. 2. Iatrogenic pneumothorax following CT-guided lung biopsy Continue conservative management. There is only a minimal amount of residual apical pneumothorax noted on her last plain film chest x-ray. 3. Enlarging right lung lesion The patient previously underwent a CT-guided lung biopsy in September, which was unfortunately nondiagnostic. There has been interval increase in the size of the lesion in question. Therefore, the patient was referred and underwent repeat CT-guided lung biopsy on June 24. Please ensure that the patient has a follow-up appointment scheduled with our nurse practitioner within 2 weeks to review the results of her lung biopsy. 4. History of non-Hodgkin's lymphoma/hyperlipidemia/obesity Complicates care, management, recovery and prognosis. This note was generated with [employer] software. It may contain incorrect words, spelling, and punctuation that were not noted in checking the note before signing. Code Visit Inpatient E&M: 46490 Subs Hosp L2
[2017-06-26] MEDS: Aspirin 81 MG TAB.CHEW PO (11:13)
[2017-06-26] MEDS: Carvedilol 3.125 MG TABLET PO ×2 (11:13→21:56)
[2017-06-26] MEDS: Pantoprazole Sodium 20 MG Tablet PO ×2 (11:14→21:56)
[2017-06-26] MEDS: Loratadine 10 MG Tablet PO (11:14)
[2017-06-26] MEDS: Calcium (Elemental) 500 MG Tablet PO (11:14)
[2017-06-26] MEDS: guaiFENesin 10 ML UDC (200MG/10ML) PO ×2 (14:30→18:25)
[2017-06-26] MEDS: Albuterol 2.5 MG/3 ML VIAL.NEB. INHALATION (16:28)
[2017-06-26] MEDS: Montelukast 10 MG Tablet PO (21:56)
[2017-06-26] MEDS: ALPRAZolam 0.25 MG Tablet 0.125 MG PO (21:56)
[2017-06-26] MEDS: guaiFENesin Dm 10 ML UDC PO (22:00)
[2017-06-27] VITALS (14 sets, daily range): BP systolic 114–152; BP diastolic 49–87; PULSE 78–93; RESP 18–20; TEMP 36.3–36.9; O2SAT 89–98
[2017-06-27] MEDS: Ipratropium/Albuterol Sulfate 3 ML AMPUL.NEB INHALATION ×5 (03:32→19:05)
[2017-06-27] MEDS: ALPRAZolam 0.25 MG Tablet 0.125 MG PO ×2 (06:14→15:07)
[2017-06-27] MEDS: Enoxaparin 40 MG/0.4 ML Syringe SC (06:15)
[2017-06-27] MEDS: Loratadine 10 MG Tablet PO (08:27)
[2017-06-27] MEDS: Furosemide 40 MG Tablet PO (08:27)
[2017-06-27] MEDS: Aspirin 81 MG TAB.CHEW PO (08:27)
[2017-06-27] MEDS: Calcium (Elemental) 500 MG Tablet PO (08:27)
[2017-06-27] MEDS: Carvedilol 3.125 MG TABLET PO (08:28)
[2017-06-27] MEDS: Pantoprazole Sodium 20 MG Tablet PO (08:28)
--- NOTE | 2017-06-27 10:01 | PCM.PROGNOTE ---
Patient Problems: Active and Suspected Problems (Last Updated 06/23/17 @ 09:36 by Sharri Sood, GERM[facility]N-C) Acute exacerbation of CHF (congestive heart failure) (Acute) Subjective: The patient was seen and examined at the bedside this morning. Events from the last 24 hours have been reviewed. The patient is currently afebrile, hemodynamically stable and maintaining appropriate oxygen saturations on 2 L/min via nasal cannula. The patient does still endorse exertional shortness of breath. However, she was seen ambulating in the hallways earlier. Objective: The patient's most recent lab work, culture data and imaging studies have all been personally reviewed. Repeat surface echocardiogram completed June 23 revealed moderate segmental systolic dysfunction with an ejection fraction of 37%. CTA chest obtained at the time of her hospital admission revealed an enlarging mass within the right middle lobe, which have progressed since previous chest imaging was completed. - Physical Exam General: Alert, Cooperative, No apparent distress HEENT: Atraumatic, PERRLA, Normocephalic Oral: Moist Mucosa, No Gingival or Mucosal Lesions/ Ulcerations Neck: Supple, No Nodes, Trachea Midline Lungs: No rhonchi, No wheeze, No rales, Diminished Cardiovascular: Regular rate, Regular Rhythm, Normal S1, Normal S2, No murmurs Abdomen: Bowel Sounds Present, Soft, Non Tender, Obese Extremities: No clubbing, No cyanosis, No edema Skin: No rashes, No breakdown Musculoskeletal: No Tenderness to Palpation of Joints or Extremities, No Muscle Wasting Lymphatic: No Cervical, Supraclavicular, or Inguinal Adenopathy Neurological: Neuro grossly intact Psych/Mental Status: Alert and oriented to time, place, person, mood and affect Vital Signs Temp Pulse Resp BP Pulse Ox 97.5 F L 79 20 H 118/49 L 89 06/27/17 08:12 06/27/17 08:12 06/27/17 08:12 06/27/17 08:12 06/27/17 08:25 Oxygen Flow Rate 2 Oxygen Delivery Method Nasal Cannula Weight: 173 lb 8.061 oz Body Mass Index (BMI) 32.1 Orthostatic Vital Signs Start: 06/26/17 05:54 Freq: q24h Status: Active Protocol: Activity Type Activity Date Activity User E-Sign Co-Sign Detail Recorded Client Recorded Date Recorded By Document 02/02/18 06:20 AB [id number] 06/27/17 06:23 AB 06/27/17 06:20 Orthostatic Vitals Standing -Blood Pressure (90/60-120/80) 128/66 H -Extremity Use Right Arm -Pulse Rate (60-100) 84 Sitting -Blood Pressure (90/60-120/80) 120/68 -Extremity Use Right Arm -Pulse Rate (60-100) 80 Lying -Blood Pressure (90/60-120/80) 130/72 H -Extremity Use Right Arm -Pulse Rate (60-100) 80 Intake and Output for Last 24 Hours 06/25/17 06/26/17 06/27/17 23:59 23:59 23:59 Intake Total 1528 / 1528 300 / 300 290 / 290 Output Total 2650 / 2650 400 / 400 Balance -1122 / -1122 -100 / -100 290 / 290 Clinical Impression(s) from Imaging Studies Chest X-Ray 06/22/17 13:19 IMPRESSION: Enlarging mass in the right middle lobe suspicious for cancer until proven otherwise. Chronic obstructive pulmonary disease N.B. : The above information has been verbally conveyed by Kaylyn Bauer MD to Dr Mckinney, Referring Physician, on 06/22/2017 14:05:38 (ET). Electronically Signed: Kaylyn Bauer MD at 13:47 EST Tel , Service support , N.B. : The above information has been verbally conveyed by Kaylyn Bauer MD to Dr Mckinney, Referring Physician, on 06/22/2017 14:05:38 (ET). Chest CTA 06/22/17 14:03 IMPRESSION: 2.0 x 2.4 x 1.6 cm enlarging mass in the right middle lobe highly suspicious for primary lung cancer. Findings seen on chest x-ray were called to the emergency room on a stat basis. Chronic obstructive pulmonary disease Stable focus of fibrotic change in the right lung base. Coronary artery calcification. Hepatic steatosis Hiatal hernia. Focus of calcification measuring 1.3 x 1.3 cm posterior to the greater curvature of the stomach stable since prior study which may represent prior granulomatous disease. Electronically Signed: Kaylyn Bauer MD at 15:40 EST Tel , Service support , Biopsy CT 06/24/17 10:30 IMPRESSION: 1. CT directed core needle biopsy of the right middle lobe lung nodule using CT image guidance with image documentation as described. Pathology results are pending. 2. Conscious Sedation protocol utilized with independent monitoring. Electronically Signed: Naresh Varghese MD at 11:32 EST Tel [phone], Service support , Chest X-Ray 06/24/17 11:15 IMPRESSION: Small right apical pneumothorax on the immediate postright lung biopsy. The patient is not symptomatic. Electronically Signed: Naresh Varghese MD at 12:51 EST Tel [phone], Service support , Chest X-Ray 06/24/17 13:55 IMPRESSION: Slight decrease in size of the right apical pneumothorax. Electronically Signed: Naresh Varghese MD at 15:06 EST Tel [phone], Service support , Chest X-Ray 06/25/17 05:55 IMPRESSION: Small right apical pneumothorax. This has improved as compared to prior study. Electronically Signed: Evan Encinas MD at 3:09 EST Tel , Service support , Assessment/Plan Active and Suspected Problems (Last Updated 06/23/17 @ 09:36 by ANOOP Mccoy) Acute exacerbation of CHF (congestive heart failure) (Acute) RECOMMENDATIONS: 1. Continue aerosol treatments. 2. Wean supplemental oxygen to maintain saturations at or above 90% 3. Perform walking oximetry study today 4. Encourage incentive spirometer use and mobilize patient as tolerated. 5. Please ensure that the patient has follow up scheduled in the pulmonary medicine clinic within 2 weeks of her discharge from the hospital. 6. Stable for discharge from my perspective. Will sign off. IMPRESSIONS: 1. Acute hypoxic respiratory insufficiency Suspect likely related to underlying heart failure exacerbation, combined with underlying COPD and recent iatrogenic pneumothorax. The patient is symptomatically improved following volume optimization. Continue current medical management. Encourage incentive spirometer use and mobilize patient as tolerated. 2. Iatrogenic pneumothorax following CT-guided lung biopsy Continue conservative management. There is only a minimal amount of residual apical pneumothorax noted on her last plain film chest x-ray. 3. Enlarging right lung lesion The patient previously underwent a CT-guided lung biopsy in September, which was unfortunately nondiagnostic. There has been interval increase in the size of the lesion in question. Therefore, the patient was referred and underwent repeat CT-guided lung biopsy on June 24. Please ensure that the patient has a follow-up appointment scheduled with our nurse practitioner within 2 weeks to review the results of her lung biopsy. 4. History of non-Hodgkin's lymphoma/hyperlipidemia/obesity Complicates care, management, recovery and prognosis. This note was generated with [employer] dictation software. It may contain incorrect words, spelling, and punctuation that were not noted in checking the note before signing. Code Visit Inpatient E&M: 12977 Subs Hosp L2
[2017-06-27] MEDS: guaiFENesin Dm 10 ML UDC PO (12:45)
--- NOTE | 2017-06-27 13:03 | NURSING ---
Sitting on edge of bed eating lunch. Robitussin DM given. No distress. Oxygen maintained at 2L NC.
[2017-06-27] MEDS: 0.9% NaCl Peripheral Flush Adult/Peds IV (15:14)
--- NOTE | 2017-06-27 18:09 | PCM.DC ---
- Discharge Diagnoses Current Active Problems: Current Active and Chronic Problems (Last Updated 06/23/17 @ 09:36 by ANOOP Mccoy) Acute exacerbation of CHF (congestive heart failure) (Acute) You will use the following diet at home:: Cardiac - low salt and no more than 1500 cc daily, Fluid restricted (specify 2000 mls, 1500 mls) - 1500 or 1.5 liter Your food should be the consistency of: Regular Your liquids should be the consistency of: Regular/Thin Discharge Activity: - - Avoid exposure to any strong smells such as bleach, cleaning products, strong colognes or perfumes, paint fumes and smoke of any kind. Avoid sudden exposure to cold air because this can cause bronchospasm. You may want to cover your mouth when you go outside in the winter. Avoid exposure to anyone who is sick with a cough or sore throat. Call your doctor if you observe: Fever of 101 or Higher, Inability to urinate, Shortness of breath, Dizziness, Fainting spells, Swelling in the ankles, Chest pain, Uncontrolled pain Additional Instructions: I have given you a prescription for an anxiety reliever called Xanax (see also called alprazolam). You can take one half tablet every 6 hours as needed for anxiety. You can discuss with Dr. Stephens at your next visit whether or not she wants you to continue this medication at your next visit. Dr. Cottrell will have the results of the lung biopsy and discuss them with you at your appt this coming week. Dr. Garcia or Nichole will see you in the office in 2 weeks. Allergies/Adverse Reactions: Allergies alendronate sodium [From Fosamax] Allergy (Severe, Verified 06/22/17 13:01) Other generalized discomfort reflux choking / aspiration budesonide Allergy (Severe, Verified 06/22/17 13:01) Other asthma attack fluticasone [From Advair Diskus] Allergy (Severe, Verified 06/22/17 13:01) Other CAN'T BREATHE Penicillins [PCN] Allergy (Severe, Verified 06/22/17 13:01) Shortness of breath salmeterol [From Advair Diskus] Allergy (Severe, Verified 06/22/17 13:01) Other CAN'T BREATHE tiotropium [From Spiriva with HandiHaler] Allergy (Severe, Verified 06/22/17 13:01) Other CANT BREATHE umeclidinium [From Anoro Ellipta] Allergy (Severe, Verified 06/22/17 13:01) Other THROAT SWELLING vilanterol [From Anoro Ellipta] Allergy (Severe, Verified 06/22/17 13:01) Other THROAT SWELLING doxycycline Allergy (Verified 06/22/17 13:01) Shortness of breath Medications to take at Discharge Albuterol Inhaler [Ventolin Hfa] 1 - 2 puff INHALATION Q6H PRN PRN 09/20/14 Ipratropium/Albuterol Respimat [Combivent Respimat Inhal [place]] 1 puff INHALATION 4X/DAY PRN 09/20/14 Cetirizine HCl [Zyrtec] 10 mg PO DAILY 08/19/16 Mv-Mn/FA/Vit K1/Lycop/Lut/Zeax [Ocuvite Eye + Multi Tablet] 1 ea PO DAILY 08/19/16 Calcium Carbonate [Calcium] 500 mg PO DAILY 10/03/16 Ergocalciferol [Vitamin D] 50,000 unit PO Q7D 10/03/16 Ipratropium/Albuterol Sulfate [Duoneb] 3 ml INHALATION Q4H.RT 10/03/16 albuterol sulfate 1.25 mg/3 mL solution for nebulization 1.25 mg CONTINUOUS NEBULIZATION Q4H #90 ml MDD WHEEZING 05/12/17 pantoprazole 20 mg tablet,delayed release 20 mg PO BID tab 06/03/17 montelukast 10 mg tablet 10 mg PO QHS 06/04/17 ALPRAZolam [Xanax] 0.125 mg PO TID #10 tab 06/27/17 Aspirin [Aspirin, Baby] 81 mg PO DAILY@0800 tab.chew 06/27/17 Carvedilol [Coreg (Beta Florencio)] 3.125 mg PO BID #60 tab 06/27/17 Furosemide [Lasix] 40 mg PO DAILY #30 tab 06/27/17 The following prescriptions were given: Furosemide [Lasix] 40 mg PO DAILY #30 tab Carvedilol [Coreg (Beta Florencio)] 3.125 mg PO BID #60 tab ALPRAZolam [Xanax] 0.125 mg PO TID #10 tab Primary Care Physician: Ashley Stephens MD [Primary Care Provider] - Please follow up with your Primary Care Physician in: 10 days Please Follow Up With: Torin Cottrell MD When: next week. Call the office Friday to get an appt. Please Follow Up With: Edy Garcia MD When: 2 weeks Proposed Discharge Date: 06/27/17
--- NOTE | 2017-06-27 18:26 | PCM.DC.SUM ---
Discharge Date and Diagnosis Date of Admission: 06/22/17 Date of Discharge: 06/27/17 - Primary Discharge Diagnosis Active and Suspected Problems (Last Updated 06/23/17 @ 09:36 by ANOOP Mccoy) Acute exacerbation of CHF (congestive heart failure) (Acute) - systolic Acute exacerbation COPD S/P CT guided R lung bx with post procedure pneumothorax in the apex - did not require intervention - Secondary Discharge Diagnosis Chronic Problems (Last Updated 06/23/17 @ 09:36 by JESSE MccoyC) Former cigarette smoker (Chronic) Mass of right lung (Chronic) H/O total hysterectomy (Chronic) Asthma (Chronic) Stage 1 mild COPD by GOLD classification (Chronic) Dysphagia (Chronic) PVD (peripheral vascular disease) (Chronic) Occlusion and stenosis of right carotid artery (Chronic) Hyperlipemia (Chronic) Cardiomyopathy (Chronic) History of non-Hodgkin's lymphoma (Chronic) COPD (chronic obstructive pulmonary disease) (Chronic) Suspected L subclavian stenosis Hospital Course and Treatment Imaging Results: Clinical Impression(s) from Imaging Studies Chest X-Ray 06/22/17 13:19 IMPRESSION: Enlarging mass in the right middle lobe suspicious for cancer until proven otherwise. Chronic obstructive pulmonary disease N.B. : The above information has been verbally conveyed by Kaylyn Buaer MD to Dr Mckinney, Referring Physician, on 06/22/2017 14:05:38 (ET). Electronically Signed: Kaylyn Bauer MD at 13:47 EST Tel , Service support , N.B. : The above information has been verbally conveyed by Kaylyn Bauer MD to Dr Mckinney, Referring Physician, on 06/22/2017 14:05:38 (ET). Chest CTA 06/22/17 14:03 IMPRESSION: 2.0 x 2.4 x 1.6 cm enlarging mass in the right middle lobe highly suspicious for primary lung cancer. Findings seen on chest x-ray were called to the emergency room on a stat basis. Chronic obstructive pulmonary disease Stable focus of fibrotic change in the right lung base. Coronary artery calcification. Hepatic steatosis Hiatal hernia. Focus of calcification measuring 1.3 x 1.3 cm posterior to the greater curvature of the stomach stable since prior study which may represent prior granulomatous disease. Electronically Signed: Kaylyn Bauer MD at 15:40 EST Tel , Service support , Biopsy CT 06/24/17 10:30 IMPRESSION: 1. CT directed core needle biopsy of the right middle lobe lung nodule using CT image guidance with image documentation as described. Pathology results are pending. 2. Conscious Sedation protocol utilized with independent monitoring. Electronically Signed: Naresh Varghese MD at 11:32 EST Tel [phone], Service support , Chest X-Ray 06/24/17 11:15 IMPRESSION: Small right apical pneumothorax on the immediate postright lung biopsy. The patient is not symptomatic. Electronically Signed: Naresh Varghese MD at 12:51 EST Tel [phone], Service support , Chest X-Ray 06/24/17 13:55 IMPRESSION: Slight decrease in size of the right apical pneumothorax. Electronically Signed: Naresh Varghese MD at 15:06 EST Tel [phone], Service support , Chest X-Ray 06/25/17 05:55 IMPRESSION: Small right apical pneumothorax. This has improved as compared to prior study. Electronically Signed: Evan Encinas MD at 3:09 EST Tel , Service support , Dr. Eric Allen-pulmonary medicine Dr. Matt Vizcaino-[facility] Dr. Santiago-oncology Operations: None Procedures: - - CT guided bx of R lung mass Summary of Care Provided: The patient is a 77 YO Female with a PMH of non-Hodgkin's Lymphoma, COPD, hx of lung nodules, PVD, HLD, nicotine dependence, asthma, dysphagia Carotid artery disease and CM? (EF in 2015 was 50-55% with mild global left ventricular systolic dysfunction) who presented to the ED at [facility] on 06/22/2017 with a complaint of shortness of breath that has been ongoing for months. She stated the shortness of breath had worsened over the preceding 3 days. Vital signs at presentation to the emergency department were temp 97.7, heart rate 102, respiratory rate 21, blood pressure 111/65 and she was 95% saturated on room air. Chest x-ray showed an enlarging mass in the right middle lobe suspicious for cancer and evidence of COPD. There were no pleural effusions and no infiltrates. Labs showed an elevated BNP at 425, troponin of less than 0.02. BUN was 10 and creatinine was 0.67. BC was normal. She was admitted to a monitored bed and started on furosemide 40 mg IV twice daily. She diuresed well and her breathing improved. She was better able to lie flat following diuresis and on 06/24/[address]-guided biopsy of the enlarging mass in the right lower lobe. Postprocedure she had a small apical pneumothorax. She did not require a chest tube and the pneumothorax was decreasing in size at the time of discharge. 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 she was discharged from the hospital on06/27 in stable condition. She was started on a small dose of Klonopin every 12 hours prior to discharge for dyspnea with exertion associated with severe anxiety. Prior to discharge she was ambulating in the halls on room air with no complaints of shortness of breath. She will follow up with Dr. Cottrell in the office this week to discuss the results of the lung biopsy. Neither Dr. Allen nor I discussed the results of the biopsy with her. She was discharged from the hospital with a prescription for furosemide 40 mg daily, carvedilol 3.125 mg twice daily and Xanax 0.125 mg p.o. 3 times daily for anxiety. I suspect she should continue on this medication going forward. She will discuss this with her primary care physician Dr. Stephens who she will follow-up within 10 days. She will follow-up with Dr. Edy Garcia in 2 weeks. At the time of discharge her lungs were diminished with rare expiratory wheeze and she had no dyspnea on exertion. This note was generated with [employer]col[employer]ation software. It may contain incorrect words, spelling, and punctuation that were not noted in checking the note before signing. Discharge Activity: - - Avoid exposure to any strong smells such as bleach, cleaning products, strong colognes or perfumes, paint fumes and smoke of any kind. Avoid sudden exposure to cold air because this can cause bronchospasm. You may want to cover your mouth when you go outside in the winter. Avoid exposure to anyone who is sick with a cough or sore throat. Call your doctor if you observe: Fever of 101 or Higher, Inability to urinate, Shortness of breath, Dizziness, Fainting spells, Swelling in the ankles, Chest pain, Uncontrolled pain Home Medications: Medications to take at Discharge Albuterol Inhaler [Ventolin Hfa] 1 - 2 puff INHALATION Q6H PRN PRN 09/20/14 Ipratropium/Albuterol Respimat [Combivent Respimat Inhal [place]] 1 puff INHALATION 4X/DAY PRN 09/20/14 Cetirizine HCl [Zyrtec] 10 mg PO DAILY 08/19/16 Mv-Mn/FA/Vit K1/Lycop/Lut/Zeax [Ocuvite Eye + Multi Tablet] 1 ea PO DAILY 08/19/16 Calcium Carbonate [Calcium] 500 mg PO DAILY 10/03/16 Ergocalciferol [Vitamin D] 50,000 unit PO Q7D 10/03/16 Ipratropium/Albuterol Sulfate [Duoneb] 3 ml INHALATION Q4H.RT 10/03/16 albuterol sulfate 1.25 mg/3 mL solution for nebulization 1.25 mg CONTINUOUS NEBULIZATION Q4H #90 ml MDD WHEEZING 05/12/17 pantoprazole 20 mg tablet,delayed release 20 mg PO BID tab 06/03/17 montelukast 10 mg tablet 10 mg PO QHS 06/04/17 ALPRAZolam [Xanax] 0.125 mg PO TID #10 tab 06/27/17 Aspirin [Aspirin, Baby] 81 mg PO DAILY@0800 tab.chew 06/27/17 Carvedilol [Coreg (Beta Florencio)] 3.125 mg PO BID #60 tab 06/27/17 Furosemide [Lasix] 40 mg PO DAILY #30 tab 06/27/17 Following Prescrptions Were Given to Patient: Furosemide [Lasix] 40 mg PO DAILY #30 tab Carvedilol [Coreg (Beta Florencio)] 3.125 mg PO BID #60 tab ALPRAZolam [Xanax] 0.125 mg PO TID #10 tab Primary Care Physician: Ashley Stephens MD [Primary Care Provider] - Please follow up with your Primary Care Physician in: 10 days Please Follow Up With: Torin Cottrell MD When: next week. Call the office Friday to get an appt. Please Follow Up With: Edy Garcia MD When: 2 weeks Disposition: Home Minutes spent on discharge:: 35 Meaningful Use Info Meaningful Use Diagnoses (Choose all that apply): None applicable Code Visit Inpatient E&M: 04661 Disch Hosp
--- NOTE | 2017-06-27 18:30 | DS.PCM_ITS ---
Discharge Date and Diagnosis Date of Admission: 06/22/17 Date of Discharge: 06/27/17 - Primary Discharge Diagnosis Active and Suspected Problems (Last Updated 06/23/17 @ 09:36 by ANOOP Mccoy) Acute exacerbation of CHF (congestive heart failure) (Acute) - systolic Acute exacerbation COPD S/P CT guided R lung bx with post procedure pneumothorax in the apex - did not require intervention - Secondary Discharge Diagnosis Chronic Problems (Last Updated 06/23/17 @ 09:36 by JESSE MccoyC) Former cigarette smoker (Chronic) Mass of right lung (Chronic) H/O total hysterectomy (Chronic) Asthma (Chronic) Stage 1 mild COPD by GOLD classification (Chronic) Dysphagia (Chronic) PVD (peripheral vascular disease) (Chronic) Occlusion and stenosis of right carotid artery (Chronic) Hyperlipemia (Chronic) Cardiomyopathy (Chronic) History of non-Hodgkin's lymphoma (Chronic) COPD (chronic obstructive pulmonary disease) (Chronic) Suspected L subclavian stenosis Hospital Course and Treatment Imaging Results: Clinical Impression(s) from Imaging Studies Chest X-Ray 06/22/17 13:19 IMPRESSION: Enlarging mass in the right middle lobe suspicious for cancer until proven otherwise. Chronic obstructive pulmonary disease N.B. : The above information has been verbally conveyed by Kaylyn Bauer MD to Dr Mckinney, Referring Physician, on 06/22/2017 14:05:38 (ET). Electronically Signed: Kaylyn Bauer MD at 13:47 EST Tel , Service support , N.B. : The above information has been verbally conveyed by Kaylyn Bauer MD to Dr Mckinney, Referring Physician, on 06/22/2017 14:05:38 (ET). Chest CTA 06/22/17 14:03 IMPRESSION: 2.0 x 2.4 x 1.6 cm enlarging mass in the right middle lobe highly suspicious for primary lung cancer. Findings seen on chest x-ray were called to the emergency room on a stat basis. Chronic obstructive pulmonary disease Stable focus of fibrotic change in the right lung base. Coronary artery calcification. Hepatic steatosis Hiatal hernia. Focus of calcification measuring 1.3 x 1.3 cm posterior to the greater curvature of the stomach stable since prior study which may represent prior granulomatous disease. Electronically Signed: Kaylyn Bauer MD at 15:40 EST Tel , Service support , Biopsy CT 06/24/17 10:30 IMPRESSION: 1. CT directed core needle biopsy of the right middle lobe lung nodule using CT image guidance with image documentation as described. Pathology results are pending. 2. Conscious Sedation protocol utilized with independent monitoring. Electronically Signed: Naresh Varghese MD at 11:32 EST Tel [phone], Service support , Chest X-Ray 06/24/17 11:15 IMPRESSION: Small right apical pneumothorax on the immediate postright lung biopsy. The patient is not symptomatic. Electronically Signed: Naresh Varghese MD at 12:51 EST Tel [phone], Service support , Chest X-Ray 06/24/17 13:55 IMPRESSION: Slight decrease in size of the right apical pneumothorax. Electronically Signed: Naresh Varghese MD at 15:06 EST Tel [phone], Service support , Chest X-Ray 06/25/17 05:55 IMPRESSION: Small right apical pneumothorax. This has improved as compared to prior study. Electronically Signed: Evan Encinas MD at 3:09 EST Tel , Service support , Dr. Eric Allen-pulmonary medicine Dr. Matt Vizcaino-[facility] Dr. Santiago-oncology Operations: None Procedures: - - CT guided bx of R lung mass Summary of Care Provided: The patient is a 77 YO Female with a PMH of non-Hodgkin's Lymphoma, COPD, hx of lung nodules, PVD, HLD, nicotine dependence, asthma, dysphagia Carotid artery disease and CM? (EF in 2015 was 50-55% with mild global left ventricular systolic dysfunction) who presented to the ED at [facility] on 06/22/2017 with a complaint of shortness of breath that has been ongoing for months. She stated the shortness of breath had worsened over the preceding 3 days. Vital signs at presentation to the emergency department were temp 97.7, heart rate 102, respiratory rate 21, blood pressure 111/65 and she was 95% saturated on room air. Chest x-ray showed an enlarging mass in the right middle lobe suspicious for cancer and evidence of COPD. There were no pleural effusions and no infiltrates. Labs showed an elevated BNP at 425, troponin of less than 0.02. BUN was 10 and creatinine was 0.67. BC was normal. She was admitted to a monitored bed and started on furosemide 40 mg IV twice daily. She diuresed well and her breathing improved. She was better able to lie flat following diuresis and on 06/24/[address]-guided biopsy of the enlarging mass in the right lower lobe. Postprocedure she had a small apical pneumothorax. She did not require a chest tube and the pneumothorax was decreasing in size at the time of discharge. 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 she was discharged from the hospital on06/27 in stable condition. She was started on a small dose of Klonopin every 12 hours prior to discharge for dyspnea with exertion associated with severe anxiety. Prior to discharge she was ambulating in the halls on room air with no complaints of shortness of breath. She will follow up with Dr. Cottrell in the office this week to discuss the results of the lung biopsy. Neither Dr. Allen nor I discussed the results of the biopsy with her. She was discharged from the hospital with a prescription for furosemide 40 mg daily, carvedilol 3.125 mg twice daily and Xanax 0.125 mg p.o. 3 times daily for anxiety. I suspect she should continue on this medication going forward. She will discuss this with her primary care physician Dr. Stephens who she will follow-up within 10 days. She will follow-up with Dr. Edy Garcia in 2 weeks. At the time of discharge her lungs were diminished with rare expiratory wheeze and she had no dyspnea on exertion. This note was generated with [employer] software. It may contain incorrect words, spelling, and punctuation that were not noted in checking the note before signing. Discharge Activity: - - Avoid exposure to any strong smells such as bleach, cleaning products, strong colognes or perfumes, paint fumes and smoke of any kind. Avoid sudden exposure to cold air because this can cause bronchospasm. You may want to cover your mouth when you go outside in the winter. Avoid exposure to anyone who is sick with a cough or sore throat. Call your doctor if you observe: Fever of 101 or Higher, Inability to urinate, Shortness of breath, Dizziness, Fainting spells, Swelling in the ankles, Chest pain, Uncontrolled pain Home Medications: Medications to take at Discharge Albuterol Inhaler [Ventolin Hfa] 1 - 2 puff INHALATION Q6H PRN PRN 09/20/14 Ipratropium/Albuterol Respimat [Combivent Respimat Inhal [place]] 1 puff INHALATION 4X/DAY PRN 09/20/14 Cetirizine HCl [Zyrtec] 10 mg PO DAILY 08/19/16 Mv-Mn/FA/Vit K1/Lycop/Lut/Zeax [Ocuvite Eye + Multi Tablet] 1 ea PO DAILY Calcium Carbonate [Calcium] 500 mg PO DAILY 10/03/16 Ergocalciferol [Vitamin D] 50,000 unit PO Q7D 10/03/16 Ipratropium/Albuterol Sulfate [Duoneb] 3 ml INHALATION Q4H.RT 10/03/16 albuterol sulfate 1.25 mg/3 mL solution for nebulization 1.25 mg CONTINUOUS NEBULIZATION Q4H #90 ml MDD WHEEZING 05/12/17 pantoprazole 20 mg tablet,delayed release 20 mg PO BID tab 06/03/17 montelukast 10 mg tablet 10 mg PO QHS 06/04/17 ALPRAZolam [Xanax] 0.125 mg PO TID #10 tab 06/27/17 Aspirin [Aspirin, Baby] 81 mg PO DAILY@0800 tab.chew 06/27/17 Carvedilol [Coreg (Beta Florencio)] 3.125 mg PO BID #60 tab 06/27/17 Furosemide [Lasix] 40 mg PO DAILY #30 tab 06/27/17 Following Prescrptions Were Given to Patient: Furosemide [Lasix] 40 mg PO DAILY #30 tab Carvedilol [Coreg (Beta Florencio)] 3.125 mg PO BID #60 tab ALPRAZolam [Xanax] 0.125 mg PO TID #10 tab Primary Care Physician: Ashley Stephens MD [Primary Care Provider] - Please follow up with your Primary Care Physician in: 10 days Please Follow Up With: Torin Cottrell MD When: next week. Call the office Friday to get an appt. Please Follow Up With: Edy Garcia MD When: 2 weeks Disposition: Home Minutes spent on discharge:: 35 Meaningful Use Info Meaningful Use Diagnoses (Choose all that apply): None applicable Code Visit Inpatient E&M: 97387 Disch Hosp
== END 2017-06-27 19:55 | disposition home or self-care (01) | DRG 292 ==
LOC: ED 17:09 → MS2 17:39
PROVIDERS: Nurse Practitioner Family; Admitting Provider Internal Medicine; Emergency Provider Emergency Medicine; Family Provider Internal Medicine; PCP Internal Medicine; Visit Provider Internal Medicine
DX: I11.0 Hypertensive heart disease with heart failure (principal); J44.1 Chronic obstructive pulmonary disease with (acute) exacerbation; C85.90 Non-Hodgkin lymphoma, unspecified, unspecified site; R06.89 Other abnormalities of breathing; I42.9 Cardiomyopathy, unspecified; I73.9 Peripheral vascular disease, unspecified; C34.2 Malignant neoplasm of middle lobe, bronchus or lung; J95.811 Postprocedural pneumothorax; I50.23 Acute on chronic systolic (congestive) heart failure; E78.5 Hyperlipidemia, unspecified; Z87.891 Personal history of nicotine dependence; R09.02 Hypoxemia
CPT/HCPCS: 36415; 71045; 71046; 71275; 77012; 80048; 80061; 80076; 83735; 83880; 84100; 84484; 85025; 85049; 85610; 85730; 88172; 88305; 88307; 88341; 88342; 93005; 93306; 94640; 99156; 99157; 99283; J7040; J7050; Q9967; A4216; J1940; J2405

== ENCOUNTER → 2017-07-03 12:49 | Outpatient (CLI) | payer MEDICARE, OTHER, SELFPAY ==
[2017-06-25 10:10] VITALS: BP 110/77; BP 127/77
[2017-06-27 06:20] VITALS: BP 120/68; BP 128/66; BP 130/72
[2017-07-02 10:14] VITALS: BP 144/84; BMI 31.1
[2017-07-03 13:41] LABS: Allen Test POS; Base Excess 7 mmol/L (-2 to +2); Bicarbonate 30.7 mmol/L (22-26); Blood Gas Specimen Type ART; O2 Delivery Device Room Air; PO2 71 mmHG (75-100); SITE R Radial; SO2 95 % (95-99); Time Given 1335; Total Carbon Dioxide 32 mmol/L; pCO2 41.8 mmHg (35-45); pH 7.47 (7.35-7.45)
--- NOTE | 2017-07-04 10:39 | PFTCOMP ---
COMPLETE PULMONARY FUNCTION TEST INTERPRETATION Brief HPI: Patient is a 77 year old female, currently under the care of myself, who presents to [facility] for complete pulmonary function tests secondary to diagnosis of COPD. Respiratory therapist reports good effort and reproducible results. Interpretation: Forced expiration spirometry shows a moderately-severe large airways obstructive ventilatory defect with an FEV1 of 63 % predicted. There is a significant bronchodilator response in both FVC and FEV1 by ATS criteria. Spirograms are of good quality and plateau slowly, indicating slowly emptying areas of the lungs. The respiratory flow volume loop shows decreased expiratory flow rates at all lung volumes consistent with airway obstruction. Lung volumes by body plethysmography show an elevated total lung capacity at 5.76 L, 127 % predicted. FRC and RV are elevated out of proportion. Lung volume measurements are consistent with hyperinflation and air-trapping. Diffusion capacity by carbon monoxide is decreased at 45 % predicted. The airway resistance is elevated. Compared to previous pulmonary function tests from to 2017, there has been a significant change in FVC, FEV1 and DLCO. Impression: Partially reversible moderately severe large airways obstructive ventilatory defect with a symmetric reduction diffusing capacity resulting in air trapping with hyperinflation. There has been worsening compared to previous testing.
== END ==
PROVIDERS: Family Provider Internal Medicine; PCP Internal Medicine; Visit Provider Internal Medicine Critical Care Medicine
DX: J44.9 Chronic obstructive pulmonary disease, unspecified (principal); R91.1 Solitary pulmonary nodule; J93.83 Other pneumothorax
CPT/HCPCS: 36600; 82803; 94060; 94726; 94729

== ENCOUNTER → 2017-07-07 08:05 | Outpatient (CLI) | payer MEDICARE, OTHER, SELFPAY ==
[2017-06-25 10:10] VITALS: BP 110/77; BP 127/77
[2017-06-27 06:20] VITALS: BP 120/68; BP 128/66; BP 130/72
[2017-07-02 10:14] VITALS: BP 144/84; BMI 31.1
--- NOTE | 2017-07-07 07:00 | PET_ITS ---
EXAMINATION: FDG PET CT INDICATIONS: A 77-year-old female with reported history of carcinoma of the lung presenting for initial staging examination and prior history of lymphoma. COMPARISON EXAMINATION: CT of the chest report dated 06/22/17. INDEX LESION SIZE SUV INTERPRETATION Right lower anterolateral hemithorax, right middle lobe 25.3 mm (frame 158) 7.1 Fulfills quantitative criteria for viable neoplasm TECHNIQUE: Following the intravenous administration of 16.65 mCi of F-18 deoxyglucose via the right hand, multiplanar image acquisitions of the neck, chest, abdomen and pelvis to level of mid thigh, obtained at one hour post radiopharmaceutical administration contemporaneously interpreted with the current CT of the neck, chest, abdomen and pelvis to level of mid thigh, dated 07/07/[address] of the chest report dated 06/22/17 reveal: SERUM GLUCOSE LEVEL: 97 mg/dl. HEIGHT: 63 inches. WEIGHT: 175 lbs. FINDINGS: 1. Focal increased glucose concentration is observed in the right lower anterolateral hemithorax pulmonary parenchyma, lateral segment of the right middle lobe generating a calculated maximum standard uptake value of 7.1. The maximal axial diameter of the corresponding parenchymal density on review of CT of the thorax dated 07/07/17 is 25.3 mm (AP). 2. Normal physiologic distribution of the radiopharmaceutical is apparent in the hepatic (3.6) and splenic parenchyma, both renal units, bladder and visualized intestinal tract. There is uniform distribution of the radiopharmaceutical concentration compared on the cerebellar hemispheres and cerebral cortex. Symmetric glucose concentration is observed in the distribution of the submandibular glands. Prominent glucose concentration is observed in the descending thoracic, as well as abdominal aorta. Pertinent CT findings are as follows. CHEST: Emphysematous changes are noted in the bilateral upper lung zones. Atherosclerotic calcification is defined in the thoracic aorta without evidence of dilatation, aneurysm formation. Coronary arterial calcification is observed. Right-left subcentimeter axillary soft tissue densities are non-glucose avid. Atelectatic change is defined in the left lower anterolateral lung zone. Apparent small hiatal hernia is defined. ABDOMEN AND PELVIS: There is calcification of the pancreatic head without evidence of quantitatively significant increased glucose metabolism. Atherosclerotic calcification is defined in the abdominal aorta without evidence of dilatation, aneurysm formation. Pelvic arterial calcification is observed. Right-left inguinal soft tissue densities are ametabolic. The gallbladder is surgically absent. Calcification is defined in the left kidney. The uterus is not clearly visualized. SKELETAL: Degenerative changes defined in the cervical, thoracic and lumbar spine demonstrate no evidence for glucose hypermetabolism. PET/PET/CT Tumor Base -Thigh Init IMPRESSION: 1. ABNORMAL EXAMINATION INDICATIVE OF MALIGNANT VIABLE NEOPLASM. 2. Increased glucose concentration noted in the right lower anterolateral lung zone, right middle lobe fulfills quantitative criteria for viable neoplasm. (Dumont et al, Annals of Internal Medicine, 138:724, 2003). 3. Facilitated glucose concentration observed in the descending thoracic, as well as abdominal aorta is commensurate with activated leukocytes associated with atherosclerotic plaque formation. (Jody et al, Clinical Nuclear Medicine 29:93, 2004). 4. No other definitive quantitatively significant hypermetabolic abnormalities are defined. There is no typical scintigraphic evidence of distant metastatic disease. Electronic Signature Efren Zepeda D.O. Electronically Signed: Erfen Zepeda DO at 22:52 EST Tel , Service support ,
== END ==
PROVIDERS: Family Provider Internal Medicine; PCP Internal Medicine; Visit Provider Internal Medicine Medical Oncology
DX: C34.2 Malignant neoplasm of middle lobe, bronchus or lung (principal)
CPT/HCPCS: 78815; 99211; A9552; A4216; G0463

== ENCOUNTER → 2017-08-15 11:00 | Outpatient (CLI) | payer MEDICARE, OTHER, SELFPAY ==
[2017-07-15 14:36] VITALS: BMI 31.1
[2017-08-15 11:23] LABS: Anion Gap 6 (5-15); BUN 18 mg/dL (7-18); BUN/Creat Ratio 24.7 RATIO (10-20); Calcium,Total 8.5 mg/dL (8.5-10.1); Chloride 101 mmol/L (98-107); Creatinine, Serum 0.73 mg/dL (0.55-1.02); EST Glomerular Filtration Rate 82 mL/min (>60); Est Glom Filt Rate - Afr Amer 99 mL/min (>60); Glucose 87 mg/dL (74-106); Potassium 4.2 mmol/L (3.5-5.1); Sodium Level 137 mmol/L (136-145)
== END ==
PROVIDERS: Family Provider Internal Medicine; PCP Internal Medicine; Visit Provider Internal Medicine Cardiovascular Disease
DX: I50.23 Acute on chronic systolic (congestive) heart failure (principal); I42.8 Other cardiomyopathies; R42 Dizziness and giddiness
CPT/HCPCS: 36415; 80048

== ENCOUNTER → 2017-09-01 10:07 | Outpatient (CLI) | payer MEDICARE, OTHER, SELFPAY ==
[2017-07-15 14:36] VITALS: BMI 31.1
--- NOTE | 2017-09-01 10:11 | RAD_ITS ---
STUDY: X-RAY CHEST REASON FOR EXAM: Female, 77 years old. Right chest pain with cough. History of lung cancer. TECHNIQUE: PA and lateral views of the chest. COMPARISON: Portable AP upright chest x-ray June 25, 2017. FINDINGS: Stable right lung mass. There is a linear band extending anteriorly from the lesion to the anterior pleural surface, which could reflect focal atelectasis. Local tumor extension is not excluded. There is no demonstrated pleural abnormality. Normal size heart. Normal mediastinum and soto. Normal visualized pulmonary arteries. There is stable mild atherosclerotic calcification of the aortic arch and descending thoracic aorta. There is demineralization of the osseous structures. There are stable degenerative changes of the visualized thoracic spine. Normal visualized ribs, clavicles, and shoulders. There is no demonstrated abnormality of the visualized soft tissue structures of the upper abdomen. RAD/Chest PA and Lateral IMPRESSION: Biapical pneumothorax has resolved since June 25, 2017. The right lung mass is unchanged. No new infiltrate or CHF. Electronically Signed: Dwight Flannery MD at 17:03 EDT , Service support ,
== END ==
LOC: RAD.FUTURE 10:08 → RAD 10:11
PROVIDERS: Family Provider Internal Medicine; PCP Internal Medicine; Visit Provider Student in an Organized Health Care Education/Training Program
DX: C34.91 Malignant neoplasm of unspecified part of right bronchus or lung (principal)
CPT/HCPCS: 71046

== ENCOUNTER → 2017-10-30 13:13 | Outpatient (CLI) | payer MEDICARE, OTHER, SELFPAY ==
[2017-07-15 14:36] VITALS: BMI 31.1
--- NOTE | 2017-10-30 13:13 | DT_ITS ---
This patient was seen during an EMR downtime October 27, 2017 - November 03, 2017. This patient may have a combination of paper and electronic documentation or all paper documentation. All documentation is viewable within the e-chart portion of [facility] for each patient visit.
--- NOTE | 2017-10-30 13:18 | ECHOD_ITS ---
Reason For Study: SOB Procedure This was a 2D Doppler, Color Flow transthoracic echocardiogram. Exam performed in department. Left Ventricle Normal LV size. Left ventricular systolic function is normal. The estimated ejection fraction is 55 %. Transmitral and pulmonary venous doppler flow suggestive of impaired relaxation of left ventricle. Transmitral diastolic flow velocities suggest mild (stage 1) diastolic dysfunction (reversed pattern). No regional wall motion abnormalities noted. Right Ventricle Normal RV size. Normal systolic function. Atria Normal left atrium. Normal right atrium. Mitral Valve Normal mitral valve. Tricuspid Valve Normal tricuspid valve. Aortic Valve Normal aortic valve. Pulmonic Valve Normal pulmonic valve. Great Vessels Normal aortic root. The pulmonary artery is normal size. Normal inferior vena cava. Pericardium/Pleural No pericardial effusion. MMode/2D Measurements & Calculations LVIDd: 4.5 cm IVSd: 0.73 cm Ao root diam: 3.1 cm LVIDs: 3.4 cm LVPWd: 1.1 cm LA dimension: 3.0 cm RVDd: 3.1 cm FS: 25.3 % LAV(MOD-bp): 37.4 ml LA A4 area: 13.8 cm2 RA A4 area: 11.0 cm2 LAV(MOD-bp) Indexed: 20.6 ml/m2 LAV(MOD-sp2): 39.8 ml LAV(MOD-sp4): 34.8 ml Doppler Measurements & Calculations MV E max eitan: 76.1 cm/sec Lat Peak E' Eitan: 6.5 cm/sec Med Peak E' Eitan: 6.0 cm/sec MV A max eitan: 89.6 cm/sec E/E' lat: 11.8 E/E' med: 12.7 MV E/A: 0.85 Ao V2 max: 126.6 cm/sec LV V1 max: 95.7 cm/sec PA V2 max: 73.1 cm/sec Ao max P.4 mmHg LV V1 max P.7 mmHg Interpretation Summary Normal LV size. Left ventricular systolic function is normal. The estimated ejection fraction is 55 %. Transmitral and pulmonary venous doppler flow suggestive of impaired relaxation of left ventricle Transmitral diastolic flow velocities suggest mild (stage 1) diastolic dysfunction (reversed pattern). Global longitidal score of 15 Ordering Physician: Michael David Referring Physician: Ashley Stephens Performed By: Karen West, YEU
== END ==
PROVIDERS: Family Provider Internal Medicine; PCP Internal Medicine; Visit Provider Internal Medicine Cardiovascular Disease
DX: R06.00 Dyspnea, unspecified (principal)
CPT/HCPCS: 93306

== ENCOUNTER → 2017-11-03 12:33 | Outpatient (CLI) | payer MEDICARE, OTHER, SELFPAY ==
[2017-07-15 14:36] VITALS: BMI 31.1
--- NOTE | 2017-11-03 12:33 | DT_ITS ---
This patient was seen during an EMR downtime October 27, 2017 - November 03, 2017. This patient may have a combination of paper and electronic documentation or all paper documentation. All documentation is viewable within the e-chart portion of [facility] for each patient visit.
--- NOTE | 2017-11-03 12:35 | CT_ITS ---
STUDY: CT CHEST WITH CONTRAST REASON FOR EXAM: Female, 77 years old. Lung cancer. Post radiation follow-up. RADIATION DOSAGE (If Supplied By Facility): CTDIvol = ( 11.08 ) mGy, DLP = ( 437.81 ) mGycm TECHNIQUE: Transaxial imaging was performed following intravenous administration of 100 ml of Isovue 300 contrast material. PICC line Individualized dose optimization techniques were used for this CT. COMPARISON: Chest, September 01, 2017. PET CT, July 07, 2017. CT of the chest, February 28, 2017. FINDINGS: The lungs are hyperexpanded. Again seen is a spiculated mass in the right middle lobe which now measures 1.6 x 1 x 1.3 cm in size. This formerly measured 1.9 x 1.6 x 1.9 cm in size. This formerly measured 1 There is evidence of spiculation extending outward to the anterolateral pleural surface. No other mass or infiltrate is noted. There is no demonstrated pleural abnormality. Normal heart and pericardium. There are calcifications of the coronary arteries. Normal mediastinum. Normal hilar regions. Normal enhanced pulmonary arteries. There is mild atherosclerotic tortuosity of the thoracic aorta without aneurysm or dissection. Minimal degenerative changes of the thoracic spine. There is no demonstrated abnormality of the visualized upper abdomen. CT/Chest WITH Contrast IMPRESSION: Interval decrease in size of the right middle lobe nodule when compared to the prior PET/CT scan. There is no evidence of metastatic disease or local extension. No other abnormality is noted. Electronically Signed: Juan Antonio Mariscal DO at 14:31 EDT Tel [phone], Service support ,
[2017-11-03 13:01] LABS: CREATININE FINGERSTICK 0.6 mg/dL (0.55-1.02); EGFR FINGERSTICK > 60.0000 mL/min (>60)
== END ==
PROVIDERS: Family Provider Internal Medicine; PCP Internal Medicine; Visit Provider Internal Medicine Medical Oncology
DX: C34.91 Malignant neoplasm of unspecified part of right bronchus or lung (principal)
CPT/HCPCS: 71260; Q9967

== ENCOUNTER → 2018-01-30 12:10 | Outpatient (CLI) | payer MEDICARE, OTHER, SELFPAY ==
[2017-07-15 14:36] VITALS: BMI 31.1
[2018-01-30 13:13] LABS: Absolute Lymphocyte Count 2.67 X10^3/ul (0.83-4.51); Absolute Neutrophil Count 3.1 X10^3/uL (2.0-7.7); Basophil# 0.02 X10^3/uL; Basophil% 0.3 % (0-1); Eosinophil# 0.07 X10^3/uL; Eosinophils% 1.1 % (0-5); Hematocrit 42.8 % (37-47); Hemoglobin 13.6 g/dl (12.0-15.0); Lymphocyte # 2.67 X10^3/ul (4.0); Lymphocyte % 40.5 % (19-41); Mean Corp Hgb Conc 31.8 g/gl (32-36); Mean Corpuscular Hgb 30.2 pg (27.0-32.0); Mean Corpuscular Volume 95.1 fL (81-99); Mean Platelet Vol. 11.1 fl (6.2-12.0); Monocyte# 0.74 X10^3/uL; Monocyte% 11.2 % (0-10); Neutrophil # 3.09 X10^3/uL (2.7-7.7); Neutrophil % 46.7 % (47-70); Platelet Count 286 K/mm3 (150-450); RBC Distribution Width SD 55.7 fl (35.1-43.9); White Blood Count 6.6 K/mm3 (4.4-11.0)
[2018-01-30 13:14] LABS: Differential Indicated SCAN CRITERIA MET; POSITIVE COUNT NO; POSITIVE DIFFERENTIAL NO; POSITIVE MORPHOLOGY YES
[2018-01-30 13:22] LABS: Anion Gap 6 (5-15); BUN 9 mg/dL (7-18); BUN/Creat Ratio 14.3 RATIO (10-20); Calcium,Total 8.6 mg/dL (8.5-10.1); Chloride 103 mmol/L (98-107); Creatinine, Serum 0.63 mg/dL (0.55-1.02); EST Glomerular Filtration Rate 97 mL/min (>60); Est Glom Filt Rate - Afr Amer 117 mL/min (>60); Glucose 84 mg/dL (74-106); Potassium 4.4 mmol/L (3.5-5.1); Sodium Level 137 mmol/L (136-145)
[2018-01-30 13:30] LABS: BNP,B-Type NATRIURETIC PEPTIDE 19.6 pg/mL (0-100)
[2018-01-30 13:39] LABS: Reactive Lymphocyte 1+
== END ==
PROVIDERS: Family Provider Internal Medicine; PCP Internal Medicine; Visit Provider Physician Assistant Medical
DX: R06.00 Dyspnea, unspecified (principal); I42.8 Other cardiomyopathies; C34.90 Malignant neoplasm of unspecified part of unspecified bronchus or lung
CPT/HCPCS: 36415; 80048; 83880; 85025

== ENCOUNTER → 2018-02-06 10:14 | Outpatient (CLI) | payer MEDICARE, OTHER, SELFPAY ==
[2017-07-15 14:36] VITALS: BMI 31.1
--- NOTE | 2018-02-06 10:31 | RAD_ITS ---
STUDY: X-RAY CHEST REASON FOR EXAM: Female, 77 years old. Shortness of breath, dyspnea. TECHNIQUE: PA and lateral chest COMPARISON: 09/01/2017 chest x-ray. CT chest 11/03/2017. FINDINGS: And indistinct oval opacity is present in the right lower lung in the position of a previously identified pulmonary nodule, much less conspicuous on today's imaging, measuring approximately 8 mm, whereas on prior x-ray this opacity measured about 1.6 cm. There is evidence of COPD, with mild centrilobular emphysema, lucency at the apices. Lungs are otherwise clear. Normal cardiomediastinal silhouette, soto and pleural margins. No acute osseous or upper abdominal process. RAD/Chest PA and Lateral IMPRESSION: A right lower lung pulmonary nodule seen on prior imaging of August and October 2017 has diminished in size and conspicuity. COPD/emphysema. Electronically Signed: Efren Gómez, at 12:32 EDT Tel , Service support ,
[2018-02-10 12:56] LABS: Immunoglobulin E 49 IU/mL (0-100)
== END ==
PROVIDERS: Family Provider Internal Medicine; PCP Internal Medicine; Visit Provider Nurse Practitioner Acute Care
DX: R06.00 Dyspnea, unspecified (principal)
CPT/HCPCS: 36415; 71046; 82785

== ENCOUNTER → 2018-02-24 12:32 | Outpatient (CLI) | payer MEDICARE, OTHER, SELFPAY ==
[2017-07-15 14:36] VITALS: BMI 31.1
--- NOTE | 2018-02-24 12:36 | CT_ITS ---
STUDY: CT CHEST/THORAX WITHOUT CONTRAST REASON FOR EXAM: Female, 77 years old. 3 month checkup, lung cancer. RADIATION DOSAGE (If Supplied By Facility): CTDIvol = ( 11.34 ) mGy, DLP = ( 399.67 ) mGycm TECHNIQUE: Transaxial imaging was performed without the administration of intravenous contrast material. Multiplanar coronal and sagittal images were reformatted. Individualized dose optimization techniques were used for this CT. COMPARISON: CT chest with IV contrast November 03, 2017; PA and lateral chest x-ray February 06, 2018. FINDINGS: Irregular shaped, spiculated 1.45 x 1.95 x 0.75 cm right middle lobe mass consistent with malignancy is unchanged. Linear subsegmental atelectasis or scarring in the anterolateral right middle lobe peripheral to the mass as well as curvilinear scarring or atelectasis in the inferior lingula of left upper lobe are also unchanged. There is stable, vaguely defined, rounded 1.35 cm groundglass density in the posterolateral periphery of the right lung base. There is no demonstrated pleural abnormality. Normal heart and pericardium. There are calcifications of the coronary arteries. Obliquely oriented lentiform low density in the precarinal soft tissues may be a pericardial reflection. No mediastinal adenopathy. Normal hilar regions. Normal unenhanced pulmonary arteries. There is atherosclerotic calcification of the aortic arch, proximal brachiocephalic arteries, and descending thoracic aorta. There are stable multi-level degenerative changes of the thoracic spine. Mild depression of the central T3-T6 as well as inferior T10 vertebral endplates unchanged. There is a stable small hiatal hernia. Stable coarsely calcified 2.0 x 1.3 x 1.6 cm structure interposed between the stomach and left lobe of the liver just above the body of the pancreas, possibly calcified lymph node CT/Chest without Contrast IMPRESSION: Stable unenhanced CT Chest examination since November 03, 2017. Electronically Signed: Dwight Flannery MD at 16:55 EDT , Service support ,
== END ==
PROVIDERS: Family Provider Internal Medicine; PCP Internal Medicine; Referring Provider Student in an Organized Health Care Education/Training Program; Visit Provider Student in an Organized Health Care Education/Training Program
DX: C34.90 Malignant neoplasm of unspecified part of unspecified bronchus or lung (principal)
CPT/HCPCS: 71250

== ENCOUNTER → 2018-03-03 12:37 | Outpatient (CLI) | payer MEDICARE, OTHER, SELFPAY ==
[2017-07-15 14:36] VITALS: BMI 31.1
--- NOTE | 2018-03-04 14:21 | PFT ---
INTRODUCTION: The patient is a 77-year-old female that presents for pulmonary function testing secondary to a diagnosis of lung cancer. Respiratory therapy reports good patient effort. Bronchodilators were used during testing. INTERPRETATION: Forced expiration spirometry demonstrates the presence of a severe large airways obstructive ventilatory defect. There was a significant response to aerosolized bronchodilators noted. Spirograms and flow volume loop are both consistent with underlying obstructive lung disease. Body plethysmography was performed and reveals an elevated TLC and RV, indicative of underlying hyperinflation and air-trapping. Diffusing capacity by single breath CO is moderately reduced at 52% of predicted. IMPRESSION: These pulmonary function studies demonstrate the presence of a partially reversible severe large airways obstructive ventilatory defect, with associated hyperinflation, air trapping and reduction in diffusing capacity.
--- NOTE | 2018-03-04 14:24 | PFT_ITS ---
INTRODUCTION: The patient is a 77-year-old female that presents for pulmonary function testing secondary to a diagnosis of lung cancer. Respiratory therapy reports good patient effort. Bronchodilators were used during testing. INTERPRETATION: Forced expiration spirometry demonstrates the presence of a severe large airways obstructive ventilatory defect. There was a significant response to aerosolized bronchodilators noted. Spirograms and flow volume loop are both consistent with underlying obstructive lung disease. Body plethysmography was performed and reveals an elevated TLC and RV, indicative of underlying hyperinflation and air- trapping. Diffusing capacity by single breath CO is moderately reduced at 52% of predicted. IMPRESSION: These pulmonary function studies demonstrate the presence of a partially reversible severe large airways obstructive ventilatory defect, with associated hyperinflation, air trapping and reduction in diffusing capacity.
== END ==
PROVIDERS: Family Provider Internal Medicine; PCP Internal Medicine; Referring Provider Internal Medicine Critical Care Medicine; Visit Provider Internal Medicine Critical Care Medicine
DX: C34.91 Malignant neoplasm of unspecified part of right bronchus or lung (principal); J44.9 Chronic obstructive pulmonary disease, unspecified; J93.9 Pneumothorax, unspecified
CPT/HCPCS: 94060; 94726; 94729

== ENCOUNTER → 2018-03-05 12:13 | Outpatient (CLI) | payer MEDICARE, OTHER, SELFPAY ==
[2017-07-15 14:36] VITALS: BMI 31.1
[2018-03-05 12:30] VITALS: PULSE 101; PULSE 103; PULSE 104; PULSE 106; PULSE 98; O2SAT 93; O2SAT 94; O2SAT 95; O2SAT 96
--- NOTE | 2018-03-06 10:56 | PCM.PSN.6M ---
PSN 6 Minute Walk Test - 6 Minute Walk Test 6 Minute Walk Test: 6 Minute Walk Test PSN:6-Minute Walk Test Start: 03/05/18 12:39 Freq: Status: Active Protocol: RESP.6MINW Document 03/05/18 12:30 HG (Rec: 03/05/18 12:41 HG [id number]) 6 Minute Walk Test Date Performed 03/05/18 Time Performed 12:30 Height 5 ft 3 in Weight: 180 lb Weight in Pounds 180.[address]: Edy Garcia Assistive device used: None Pre-test Oxygen Delivery Method Room Air Pulse Ox (%) 95 Pulse Rate (60-100 beats/min) 103 H Dyspnea Wanda Scale (0-10) 1 Exertion Wanda Scale (6-20) 8 1st minute Oxygen Delivery Method Room Air Pulse Ox (%) 95 Pulse Rate (60-100 beats/min) 98 2nd minute Oxygen Delivery Method Room Air Pulse Ox (%) 93 Pulse Rate (60-100 beats/min) 101 H 3rd minute Oxygen Delivery Method Room Air Pulse Ox (%) 94 Pulse Rate (60-100 beats/min) 104 H Number of Rests Taken 1 Reported Symptoms Increased Work of Breathing 4th minute Oxygen Delivery Method Room Air Pulse Ox (%) 96 Pulse Rate (60-100 beats/min) 106 H 5th minute Oxygen Delivery Method Room Air Pulse Ox (%) 94 Pulse Rate (60-100 beats/min) 103 H Number of Rests Taken 1 Reported Symptoms Increased Work of Breathing 6th minute Oxygen Delivery Method Room Air Pulse Ox (%) 93 Pulse Rate (60-100 beats/min) 104 H Post-test Oxygen Delivery Method Room Air Pulse Ox (%) 95 Pulse Rate (60-100 beats/min) 101 H Dyspnea Wanda Scale (0-10) 4 Exertion Wanda Scale (6-20) 14 Full Laps Walked 14 Partial Lap, Number of Tiles Walked 0 Total Distance Walked (ft) 826 - Interpretation Interpretation: The patient ambulated 826 feet over the course of 6 minutes beginning on room air without assistive devices or breaks. Pretesting oxygen saturation was noted to be 95% on room air. With ambulation, the maris oxygen saturation was 93%. There was no significant exertional oxygen desaturation. - Recommendations Recommendations: There is no indication for the use of supplemental oxygen at this time.
== END ==
PROVIDERS: Family Provider Internal Medicine; PCP Internal Medicine; Referring Provider Internal Medicine Critical Care Medicine; Visit Provider Internal Medicine Critical Care Medicine
DX: C34.90 Malignant neoplasm of unspecified part of unspecified bronchus or lung (principal)
CPT/HCPCS: 94618

== ENCOUNTER 2018-04-04 15:24 | Observation (INO) | payer MEDICARE, OTHER, SELFPAY ==
[2017-07-15 14:36] VITALS: BMI 31.1
[2018-04-04] VITALS (7 sets, daily range): BP systolic 140–144; BP diastolic 63–88; PULSE 74–86; RESP 18–22; TEMP 36.4–36.6; O2SAT 96–97; BMI 32.2
--- NOTE | 2018-04-04 15:38 | EKG12_ITS ---
Test Reason : CHEST PAIN Blood Pressure : / mmHG Vent. Rate : 066 BPM Atrial Rate : 066 BPM P-R Int : 170 ms QRS Dur : 080 ms QT Int : 430 ms P-R-T Axes : 066 -44 042 degrees QTc Int : 450 ms Normal sinus rhythm Left axis deviation Abnormal ECG When compared with ECG of 25-JUN-2017 13:15, Vent. rate has decreased BY 37 BPM T wave inversion no longer evident in Anterior leads Confirmed by WALI MCGARRY, JOSE ([id number]), editor index ROCK GARZA ([id number]) on 04/08/2018 11:32:51 AM Referred By: KENNETH Confirmed By:JOSE KEYES MD
--- NOTE | 2018-04-04 15:43 | PCM.HP.STD ---
Problem List (1) Chest pain Status: Acute Qualifiers: Chest pain type: unspecified Qualified Code(s): R07.9 - Chest pain, unspecified (2) Systolic CHF Status: Chronic Qualifiers: Heart failure chronicity: chronic Qualified Code(s): I50.22 - Chronic systolic (congestive) heart failure (3) Asthma-COPD overlap syndrome Status: Chronic (4) Primary lung cancer Status: Chronic Qualifiers: Laterality: right Qualified Code(s): C34.91 - Malignant neoplasm of unspecified part of right bronchus or lung (5) Radiation pneumonitis Status: Chronic (6) Non-small cell cancer of right lung Status: Chronic (7) Non-ischemic cardiomyopathy Status: Chronic (8) PVD (peripheral vascular disease) Status: Chronic (9) Hyperlipemia Status: Chronic Qualifiers: Hyperlipidemia type: unspecified Qualified Code(s): E78.5 - Hyperlipidemia, unspecified (10) History of non-Hodgkin's lymphoma Status: Chronic History of Present Illness Date of Admission: 04/04/18 Chief Complaint: Chest pain The patient is a 77 y/o F w/ PMHx: Chronic Systolic CHF (EF 37%-->recent 05/2017 55%)/Nonischemic Cardiomyopathy, HTN, HLD, Chronic COPD/Asthma, History of Non-Hodgkins Lymphoma treated with chemotherapy only, Former Tobacco use quitin 07/2016, Non-small Cell Lung CA RML completing her radiation treatments, CAD s/p cardiac catheterization 2014 s/p PCI severe and completely occluded left common iliac w/ repeat 09/12/2016 Cardiac catheterization w/ normal appearing coronaries at that time w/ decision for continued medical management at that time who presents to the [facility] on 04/04/18 as direct admission from [facility] ED w/ history of onset prior to presentation to their facility mid-lower sternal/upper epigastric region chest discomfort difficult to describe (not pressure, not tightness, not stabbing, not throbbing) with radiation up to the mid-center of her throat midline and also into her upper back between her shoulders with only 1 episode with no associated nausea, emesis or diaphoresis initially rated 8/10 prompting immediate evaluation. In the ED at OSH ED work-up included VS: T 36.6, BP 150/90, HR 80, RR 18. 99% on2L NC, CBC: WBC 6.10, Hgb 13.5, Plts 269 without shift, BMP: K 4.2, BUN/Cr 12/0.86, pro-BNP: 225 (considered normal, normal range 0-450), Trop: 0.020 (considered normal, normal range 0-0.040), EKG: SR without acute ischemia, CXR: unremarkable. In the OSH ED patient administered only 324 mg ASA x 1 orally w/ prior to departure complete resolution of her chest discomfort (010). Upon review of recent visits noted w/ pulmonary 03/16/18 Pulmonary visit w/ ongoing dyspnea complaint treated w/ prednisone taper at that time for mild exacerbation. Past Medical History Past Medical History (Chronic Problems): Chronic Problems (Last Reviewed 03/16/18 @ 13:04 by Nichole Holt NP-Raghu) Systolic CHF (Chronic) Asthma-COPD overlap syndrome (Chronic) Primary lung cancer (Chronic) Radiation pneumonitis (Chronic) Non-small cell cancer of right lung (Chronic) Non-ischemic cardiomyopathy (Chronic) Acute on chronic systolic (congestive) heart failure (Chronic) Stage 1 mild COPD by GOLD classification (Chronic) Dysphagia (Chronic) PVD (peripheral vascular disease) (Chronic) Occlusion and stenosis of right carotid artery (Chronic) Hyperlipemia (Chronic) History of non-Hodgkin's lymphoma (Chronic) Hypogammaglobulinemia (Chronic) COPD (chronic obstructive pulmonary disease) (Chronic) Medical History: Medical History (Last Reviewed 03/16/18 @ 13:04 by Nichole Holt NP-C) Primary lung cancer (Chronic) C34.90 Non-small cell cancer of right lung (Chronic) C34.91 Non-ischemic cardiomyopathy (Chronic) I42.8 Acute on chronic systolic (congestive) heart failure (Chronic) I50.23 Stage 1 mild COPD by GOLD classification (Chronic) J44.9 Dysphagia (Chronic) R13.10 PVD (peripheral vascular disease) (Chronic) I73.9 Occlusion and stenosis of right carotid artery (Chronic) I65.21 Hyperlipemia (Chronic) E78.5 History of non-Hodgkin's lymphoma (Chronic) Z85.72 Hypogammaglobulinemia (Chronic) D80.1 COPD (chronic obstructive pulmonary disease) (Chronic) J44.9 Iatrogenic pneumothorax (Resolved) J95.811 Right sided pneumothorax (Resolved) CHF (congestive heart failure) I50.9 History of hysterectomy Z98.890, Z90.710 Hypotension (Resolved) I95.9 Oral thrush (Resolved) B37.0 Pharyngitis (Resolved) J02.9 Pneumothorax (Resolved) J93.9 Asthma (Inactive) J45.909 Lung nodule seen on imaging study (Inactive) R91.1 Allergies alendronate sodium [From Fosamax] Allergy (Severe, Verified 03/16/18 12:36) Other generalized discomfort reflux choking / aspiration budesonide Allergy (Severe, Verified 03/16/18 12:36) Other asthma attack fluticasone [From Advair Diskus] Allergy (Severe, Verified 03/16/18 12:36) Other CAN'T BREATHE Penicillins [PCN] Allergy (Severe, Verified 03/16/18 12:36) Shortness of breath salmeterol [From Advair Diskus] Allergy (Severe, Verified 03/16/18 12:36) Other CAN'T BREATHE tiotropium [From Spiriva with HandiHaler] Allergy (Severe, Verified 03/16/18 12:36) Other CANT BREATHE umeclidinium [From Anoro Ellipta] Allergy (Severe, Verified 03/16/18 12:36) Other THROAT SWELLING vilanterol [From Anoro Ellipta] Allergy (Severe, Verified 03/16/18 12:36) Other THROAT SWELLING doxycycline Allergy (Verified 03/16/18 12:36) Shortness of breath dexamethasone Adverse Reaction (Verified 03/16/18 12:36) Other Home Medications: Ambulatory Orders Medication Instructions Recorded Albuterol Inhaler [Ventolin Hfa] 1 - 2 puff INHALATION Q6H PRN PRN 09/20/14 Ipratropium/Albuterol Respimat 1 puff INHALATION 4X/DAY PRN 09/20/14 [Combivent Respimat Inhal [place]] Mv-Min/FA/Vit K/Lycop/Lut/Zeax 1 ea PO DAILY 08/19/16 [Ocuvite Eye Plus Multi Tablet] Calcium Carbonate [Calcium] 500 mg PO DAILY 10/03/16 Ergocalciferol [Vitamin D] 50,000 unit PO Q7D 10/03/16 albuterol sulfate 1.25 mg/3 mL 1.25 mg CONTINUOUS NEBULIZATION 05/12/17 solution for nebulization Q4H #90 ml MDD WHEEZING pantoprazole 20 mg tablet,delayed 40 mg PO BID tab 06/03/17 release montelukast 10 mg tablet 10 mg PO QHS 06/04/17 Disability Placard #1 ea 03/16/18 ipratropium-albuterol 0.5 mg-3 3 ml INHALATION Q6H ml 03/16/18 mg(2.5 mg base)/3 mL nebulization soln Aspirin [Aspirin, Baby] 81 mg PO DAILY@0800 04/04/18 Carvedilol [Coreg (Beta Florencio)] 3.125 mg PO BID 04/04/18 Furosemide [Lasix] 20 mg PO DAILY 04/04/18 Prednisone 5 mg PO QDAY 04/04/18 Surgical History: Surgical History (Last Reviewed 03/16/18 @ 13:04 by ANOOP Cervantes) H/O right breast biopsy Z98.890 neck mass biopsy History of lung biopsy Z98.890 Jun 2017 [facility] Surgical History: coronary bypass surgery, hysterectomy, - - Vocal cord surgery, R lung Bx x 2, Hysterectomy, CABG, Neck mass Bx, R breast Bx. 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 Tobacco Use: Non-smoker Alcohol: None Drugs: None - *Family History Maternal Family History: Family History (Last Reviewed 03/16/18 @ 13:04 by ANOOP Cervantes) Sister No problems noted. Daughter Thyroid cancer Cancer Kidney malignancy Brother COLON CANCER Daughter Cancer, Onset Age: 40 Son Cancer Other Colon cancer History Items: Heart Disease Paternal Family History: Family History (Last Reviewed 03/16/18 @ 13:04 by ANOOP Cervantes) Sister No problems noted. Daughter Thyroid cancer Cancer Kidney malignancy Brother COLON CANCER Daughter Cancer, Onset Age: 40 Son Cancer Other Colon cancer History Items: Stroke Offspring Family History: Family History (Last Reviewed 03/16/18 @ 13:04 by ANOOP Cervantes) Sister No problems noted. Daughter Thyroid cancer Cancer Kidney malignancy Brother COLON CANCER Daughter Cancer, Onset Age: 40 Son Cancer Other Colon cancer History Items: - - Thyroid cancer, ovarian cancer Review of Systems Constitutional: Reports: Weakness, Fatigue. Denies: Chills, Fever, Weight Change HEENT: Denies: Head Aches, Sinus Congestion, Sinus Drainage Cardiovascular: Reports: Chest Pain. Denies: Palpitations Respiratory: Reports: Shortness of Breath, Shortness of breath at rest, Shortness of breath upon exertion. Denies: Cough, Sputum production Gastrointestinal: Denies: Abdominal Pain, Nausea, Vomiting Genitourinary: Denies: Dysuria Musculoskeletal: Denies: Joint Pain, Joint Tenderness Skin: Denies: Rash, Wounds Neurological: Denies: Numbness, Tingling, Focal weakness Psychiatric: Reports: Depression. Denies: Anxiety, Homicidal Ideations, Suicidal Ideations Hematologic/ Lymphatic: Reports: Anemia. Denies: Easy Bruising, Easy Bleeding VTE Information - Inpt Only VTE Present on Admission: No VTE Mechan Device Prophylaxis: SCD's VTE Pharm Prophylaxis ordered?: Yes Patient Problems: Active and Suspected Problems (Last Reviewed 03/16/18 @ 13:04 by Nichole Holt NP-C) Chest pain (Acute) Subjective: Seated upright in the bed, NAD, no recurrent chest discomfort. Objective: Physical Examination: General: awake, alert, oriented x 3 and cooperative, seated upright in the PCU bed in no apparent distress. Skin: normal color, turgor, no icterus, cyanosis. HEENT: AT/NC, EOMI, PERRLA, MMM, no carotid bruits or JVD noted. Lungs: Diminished BS BL, > bases, moderate effort, no rales, ronchi or wheezing. Heart: Regular rate and rhythm; no gallop, rub audible. Abdomen: soft, obese, NTTP including epigastric region, ND, normal BS, no HSM. Extremities: no cyanosis, clubbing, or edema. Neurological: patient awake, alert, oriented x 3; cognitive function intact; pupils equally reactive to light and accomodation; cranial nerves II-XII grossly normal, moving all 4 extremities, no focal deficits, strength moderately globally decreased. Psychiatric: affect appears normal, no acute evidence of depressive or anxiety feelings but notes she had been depressed prior w/ worsened dyspnea, but recently improved on daily low dose prednisone. - Physical Exam Weight: 182 lb Body Mass Index (BMI) 32.2 Assessment/Plan All Active Problems (Last Reviewed 03/16/18 @ 13:04 by Nichole Holt NP-C) Chest pain (Acute) S/P radiotherapy (Acute) Dyspnea (Acute) Iatrogenic pneumothorax (Resolved) Right sided pneumothorax (Resolved) Hypotension (Resolved) Oral thrush (Resolved) Pharyngitis (Resolved) Pneumothorax (Resolved) The patient is a 77 y/o F w/ PMHx: Chronic Systolic CHF (EF 37%-->recent 05/2017 55%)/Nonischemic Cardiomyopathy, HTN, HLD, Chronic COPD/Asthma, History of Non-Hodgkins Lymphoma treated with chemotherapy only, Former Tobacco use quitin 07/2016, Non-small Cell Lung CA RML completing her radiation treatments, CAD s/p cardiac catheterization 2014 s/p PCI severe and completely occluded left common iliac w/ repeat 09/12/2016 Cardiac catheterization w/ normal appearing coronaries at that time w/ decision for continued medical management at that time who presents to the [facility] on 04/04/18 as direct admission from [facility] ED w/ history of onset prior to presentation to their facility mid-lower sternal/upper epigastric region chest discomfort with radiation up to the mid-center of her throat midline and also into her upper back between her shoulders with only 1 episode with no associated nausea, emesis or diaphoresis initially rated 8/10 prompting immediate evaluation. (1) Chest Pain: ED at OSH ED work-up included VS: T 36.6, BP 150/90, HR 80, RR 18. 99% on2L NC, CBC: WBC 6.10, Hgb 13.5, Plts 269 without shift, BMP: K 4.2, BUN/Cr 12/0.86, pro-BNP: 225 (considered normal, normal range 0-450), Trop: 0.020 (considered normal, normal range 0-0.040), EKG: SR without acute ischemia, CXR: unremarkable. Patient w/ recent 09/12/2016 Cardiac catheterization w/ normal appearing coronaries at that time w/ decision for continued medical management at that time, continue asa, coreg, not on statin. Will admit to PCU, place on a monitored bed to assure no acute myocardial infarction with serial cardiac enzymes and EKGs. Given atypical will obtain lipase level additionally. Continue PPI. ASA, NG, morphine. FLP in AM. Mag pending. Discussed status at length and patient notes interested in palliative/hospice given her ongoing dyspnea chronically; however, she has been improved w/ recent low dose PCP directed steroid daily regimen. Will defer aggressive interventions per discussion with patient with family present including stress testing. (2) Chronic Systolic CHF, Nonischemic Cardiomyopathy: We will continue home regimen aspirin, Lasix, Coreg, not on statin or ACEI. 11/05/17 ECHO w/ normal LV systolic function, EF 55%, transmitral and pulmonary venous Doppler flow suggestive of impaired relaxation of left ventricle, mild stage I diastolic dysfunction. (3) Non-small Cell Lung CA RML: Patient completed her radiation treatments 07/2017, following w/ [facility] CA Team, 11/03/17 CT Chest w/ interval decrease in size of the right middle lobe nodule when compared to prior PET/CT scan with no evidence of metastatic disease or local extension. (4) Chronic COPD: PFT 03/03/18 w/ partially reversible severe large airway obstructive ventilatory defect w/ associated hyperinflation, air trapping and reduction diffusing capacity w/ FVC 94% of predicted, FEV1 60% of predicted, FEV1/FVC 47% of predicted, TLC 127% of predicted, RV 200% of predicted and DLCO 52% predicted. Walking oximetry 03/05/18 w/ no desaturations or O2 needs at that time. ATC duonebs, PRN albuterol, HOB, IS parameters, home singulair. (5) CAD: s/p cardiac catheterization 2014 s/p PCI severe and completely occluded left common iliac w/ repeat 09/12/2016 Cardiac catheterization w/ normal appearing coronaries at that time w/ decision for continued medical management at that time, continue asa, coreg, not on statin, FLP in AM. (6) Hypertension: Continue home regimen including Coreg, Lasix, PRN hydralazine. (7) Hyperlipidemia: Not on regimen, FLP in AM. (8) Former Tobacco use: Patient noted to have quit in 07/2016, encouraged continued cessation. (9) History of Non-Hodgkins Lymphoma: Remission, patient treated with chemotherapy only. (10) GERD: PPI. (11) DVT Prophylaxis: SCDs, lovenox. (12) CODE status: Discussed CODE status at length including difference between FULL code, DNR-CCA and DNR-CC status. Following discussions about the differences in these status, requested DNR-CCA, no intubation status. Daughter is HCPOA and patient has living will she notes. She notes interest in Hospice/Palliative care information given notably history, recent Lung CA w/ severe ongoing dyspnea, recently improved w/ daily steroid regimen per PCP. Advanced Care Planning Face to Face Time: 17 minutes. Code Visit OBSV E&M: 84847 Initial observation care L3 Procedures: 13553 Advncd Care Plan 30 Min
[2018-04-04] MEDS: Ipratropium/Albuterol Sulfate 3 ML AMPUL.NEB INHALATION (16:36)
[2018-04-04 17:16] LABS: Lipase 62 U/L (73-393); Magnesium 2.2 mg/dL (1.6-2.6)
[2018-04-04] MEDS: Albuterol 2.5 MG/3 ML VIAL.NEB. INHALATION (20:34)
[2018-04-04] MEDS: Montelukast 10 MG Tablet PO (22:01)
[2018-04-04] MEDS: Carvedilol 3.125 MG TABLET PO (22:01)
[2018-04-04] MEDS: Pantoprazole Sodium 20 MG Tablet PO (22:05)
[2018-04-05] VITALS (7 sets, daily range): BP systolic 130–139; BP diastolic 66–67; PULSE 70–100; RESP 18–22; TEMP 36.4–36.5; O2SAT 94–96
[2018-04-05 03:15] LABS: Hematocrit 38.2 % (37-47); Hemoglobin 12.4 g/dl (12.0-15.0); Mean Corp Hgb Conc 32.5 g/gl (32-36); Mean Corpuscular Hgb 31.2 pg (27.0-32.0); Mean Platelet Vol. 10.3 fl (6.2-12.0); Platelet Count 246 K/mm3 (150-450); RBC Distribution Width CV 15.6 % (11.6-14.6); RBC Distribution Width SD 54.8 fl (35.1-43.9); Red Blood Count 3.98 M/mm3 (4.2-5.4)
[2018-04-05 03:26] LABS: Scan Indicated on CBC? Y/N NO
[2018-04-05 03:29] LABS: ALB/GLOB Ratio 1.1 RATIO (0.9-2.4); AST(SGOT) 12 U/L (15-37); Alanine Aminotransfer ALT/SGPT 19 U/L (13-56); Albumin, Serum 3.1 g/dL (3.2-5.0); Alkaline Phosphatase 47 U/L (45-117); Anion Gap 10 (5-15); BUN 13 mg/dL (7-18); BUN/Creat Ratio 22.2 RATIO (10-20); Calcium,Total 7.9 mg/dL (8.5-10.1); Chloride 105 mmol/L (98-107); Cholesterol 155 mg/dL (200); Creatinine, Serum 0.58 mg/dL (0.55-1.02); EST Glomerular Filtration Rate 106 mL/min (>60); Est Glom Filt Rate - Afr Amer 128 mL/min (>60); Estimated Creatinine Clearance 38.35 ml/min; Globulin 2.7 g/dL (2.2-4.2); Glucose 79 mg/dL (74-106); High Density Lipoprotein 54 mg/dL; Potassium 3.8 mmol/L (3.5-5.1); Protein, Total 5.8 g/dL (6.4-8.2); Sodium Level 141 mmol/L (136-145); Triglycerides 115 mg/dL; Very Low Density Lipoprotein 23 mg/dL (5-40)
[2018-04-05] MEDS: Albuterol 2.5 MG/3 ML VIAL.NEB. INHALATION (05:02)
--- NOTE | 2018-04-05 05:55 | EKG12_ITS ---
Test Reason : MORNING EKG Blood Pressure : / mmHG Vent. Rate : 083 BPM Atrial Rate : 083 BPM P-R Int : 184 ms QRS Dur : 082 ms QT Int : 398 ms P-R-T Axes : 063 -61 048 degrees QTc Int : 467 ms Normal sinus rhythm with sinus arrhythmia Left anterior fascicular block Cannot rule out Inferior infarct (masked by fascicular block?) , age undetermined Abnormal ECG When compared with ECG of 04-APR-2018 16:27, MANUAL COMPARISON REQUIRED, DATA IS UNCONFIRMED Confirmed by WALI MCGARRY, JOSE ([id number]), photo editor ROCK GARZA ([id number]) on 04/08/2018 11:33:16 AM Referred By: KENNETH Confirmed By:JOSE KEYES MD
[2018-04-05] MEDS: Ipratropium/Albuterol Sulfate 3 ML AMPUL.NEB INHALATION (07:18)
[2018-04-05] MEDS: Carvedilol 3.125 MG TABLET PO (09:00)
[2018-04-05] MEDS: Aspirin 81 MG TAB.CHEW PO (09:00)
[2018-04-05] MEDS: Pantoprazole Sodium 40 MG Tablet PO (09:00)
[2018-04-05] MEDS: Furosemide 20 MG Tablet PO (09:00)
[2018-04-05] MEDS: predniSONE 5 MG Tablet PO (09:00)
[2018-04-05] MEDS: Enoxaparin 40 MG/0.4 ML Syringe SC (09:01)
--- NOTE | 2018-04-05 10:43 | DCINST_ITS ---
- Discharge Diagnoses Current Active Problems: Current Active and Chronic Problems (Last Reviewed 03/16/18 @ 13:04 by ANOOP Cervantes) Chest pain (Acute) Systolic CHF (Chronic) You will use the following diet at home:: No restrictions Discharge Activity: Return to Normal Activity Allergies/Adverse Reactions: Allergies alendronate sodium [From Fosamax] Allergy (Severe, Verified 03/16/18 12:36) Other generalized discomfort reflux choking / aspiration budesonide Allergy (Severe, Verified 03/16/18 12:36) Other asthma attack fluticasone [From Advair Diskus] Allergy (Severe, Verified 03/16/18 12:36) Other CAN'T BREATHE Penicillins [PCN] Allergy (Severe, Verified 03/16/18 12:36) Shortness of breath salmeterol [From Advair Diskus] Allergy (Severe, Verified 03/16/18 12:36) Other CAN'T BREATHE tiotropium [From Spiriva with HandiHaler] Allergy (Severe, Verified 03/16/18 12:36) Other CANT BREATHE umeclidinium [From Anoro Ellipta] Allergy (Severe, Verified 03/16/18 12:36) Other THROAT SWELLING vilanterol [From Anoro Ellipta] Allergy (Severe, Verified 03/16/18 12:36) Other THROAT SWELLING doxycycline Allergy (Verified 03/16/18 12:36) Shortness of breath dexamethasone Adverse Reaction (Verified 03/16/18 12:36) Other Medications to take at Discharge Albuterol Inhaler [Ventolin Hfa] 1 - 2 puff INHALATION Q6H PRN PRN 09/20/14 Ipratropium/Albuterol Respimat [Combivent Respimat Inhal [place]] 1 puff INHA LATION 4X/DAY PRN 09/20/14 Mv-Min/FA/Vit K/Lycop/Lut/Zeax [Ocuvite Eye Plus Multi Tablet] 1 ea PO DAILY 08/19/16 Calcium Carbonate [Calcium] 500 mg PO DAILY 10/03/16 Ergocalciferol [Vitamin D] 50,000 unit PO Q7D 10/03/16 albuterol sulfate 1.25 mg/3 mL solution for nebulization 1.25 mg CONTINUOUS NEBULIZATION Q4H #90 ml MDD WHEEZING 05/12/17 pantoprazole 20 mg tablet,delayed release 40 mg PO BID tab 06/03/17 montelukast 10 mg tablet 10 mg PO QHS 06/04/17 Disability Placard #1 ea 03/16/18 ipratropium-albuterol 0.5 mg-3 mg(2.5 mg base)/3 mL nebulization soln 3 ml INHALATION Q6H ml 03/16/18 Aspirin [Aspirin, Baby] 81 mg PO DAILY@0800 04/04/18 Carvedilol [Coreg (Beta Florencio)] 3.125 mg PO BID 04/04/18 Furosemide [Lasix] 20 mg PO DAILY 04/04/18 Prednisone 5 mg PO QDAY 04/04/18 Primary Care Physician: Ashley Stephens MD [Primary Care Provider] - Please follow up with your Primary Care Physician in: 1 Week Test Results: Test results from this visit will be discussed in further detail at your follow- up appointment, if applicable. Please Follow Up With: Kan Kaiser DO - Palliative Care When: As scheduled Proposed Discharge Date: 04/05/18
--- NOTE | 2018-04-05 10:48 | DS.PCM_ITS ---
<Linda Stallworth - Last Filed: 04/05/18 10:54> Discharge Date and Diagnosis Date of Admission: 04/04/18 Date of Discharge: 04/05/18 - Primary Discharge Diagnosis Active and Suspected Problems (Last Reviewed 03/16/18 @ 13:04 by Nichole Holt NP-Raghu) 1. Chest pain, resolved. Patient declined further cardiac workup. 2. Palliative referral - Secondary Discharge Diagnosis Chronic Problems (Last Reviewed 03/16/18 @ 13:04 by Nichole Holt NP-C) Systolic CHF (Chronic) Asthma-COPD overlap syndrome (Chronic) Primary lung cancer (Chronic) Radiation pneumonitis (Chronic) Non-small cell cancer of right lung (Chronic) Non-ischemic cardiomyopathy (Chronic) Acute on chronic systolic (congestive) heart failure (Chronic) Stage 1 mild COPD by GOLD classification (Chronic) Dysphagia (Chronic) PVD (peripheral vascular disease) (Chronic) Occlusion and stenosis of right carotid artery (Chronic) Hyperlipemia (Chronic) History of non-Hodgkin's lymphoma (Chronic) Hypogammaglobulinemia (Chronic) COPD (chronic obstructive pulmonary disease) (Chronic) Hospital Course and Treatment Dr. Kaiser- Palliative/Hospice Operations: None Procedures: None Summary of Care Provided: The patient is a 77 year old F admitted 04/04/2018 due to chest pain. She has a past medical history of chronic systolic CHF, nonischemic cardiomyopathy, hypertension, hyperlipidemia, chronic COPD, asthma, history of non-Hodgkin's lymphoma, former tobacco use, non-small cell lung cancer, CAD status post PCI. EKG without ST-T changes. Chest x-ray unremarkable. Troponin negative. Recent cath August 2016 with normal coronary arteries. Patient declined further cardiac workup and wished for palliative referral. Palliative medicine assessed patient in the hospital and will continue to follow on an outpatient basis. Patient will resume prior medication regimen including aspirin, carvedilol, Lasix. She was recently placed on low-dose prednisone 5 mg daily for chronic dyspnea by PCP. Patient notes significant improvement in her breathing on this regimen. Recommend continuing this going forward. Patient will be discharged home with palliative services. She will resume routine follow-up with primary care physician, Dr. Cottrell, Dr. Garcia, Dr. Dvaid as scheduled. Patient seen exam prior to discharge. Awake, alert, oriented. No acute distress. Lungs clear, diminished. Heart rate regular in rate and rhythm. Abdomen soft, nontender, nondistended. Extremities without clubbing or edema. Neuro grossly intact. Normal affect. Vital signs stable. Patient seen exam prior to discharge. Physical assessment as noted above. Patient is stable for discharge home with palliative services. This patient was seen by ANOOP Palafox under the supervision of Dr. Alejandra. - Physical Exam Vital Signs Temp Pulse Resp BP Pulse Ox 97.6 F L 100 18 139/66 H 94 04/05/18 09:00 04/05/18 09:00 04/05/18 09:00 04/05/18 09:00 04/05/18 09:00 Oxygen Delivery Method Room Air Weight: 182 lb Body Mass Index (BMI) 32.2 Intake and Output for Last 24 Hours 04/03/18 04/04/18 04/05/18 23:59 23:59 23:59 Intake Total 480 / 480 Balance 480 / 480 Laboratory Tests Past 24 Hrs 04/04/18 04/04/18 04/04/18 16:50 21:15 23:30 WBC RBC Hgb Hct MCV MCH MCHC RDW RDW Differential Plt Count MPV Sodium Potassium Chloride Carbon Dioxide Anion Gap BUN Creatinine Estim Creat Clear Calc Est GFR (MDRD) Af Amer Est GFR (MDRD) Non-Af BUN/Creatinine Ratio Glucose Calcium Magnesium 2.2 Total Bilirubin AST ALT Alkaline Phosphatase Troponin I < 0.015 < 0.015 < 0.015 Total Protein Albumin Globulin Albumin/Globulin Ratio Triglycerides Cholesterol LDL Cholesterol VLDL Cholesterol HDL Cholesterol Lipase 62 L 04/05/18 04/05/18 04/05/18 02:55 02:55 02:55 WBC 6.0 RBC 3.98 L Hgb 12.4 Hct 38.2 MCV 96.0 MCH 31.2 MCHC 32.5 RDW 15.6 H RDW Differential 54.8 H Plt Count 246 MPV 10.3 Sodium 141 Potassium 3.8 Chloride 105 Carbon Dioxide 26.0 Anion Gap 10 BUN 13 Creatinine 0.58 Estim Creat Clear Calc 38.35 Est GFR (MDRD) Af Amer 128 Est GFR (MDRD) Non-Af 106 BUN/Creatinine Ratio 22.2 H Glucose 79 Calcium 7.9 L Magnesium Total Bilirubin 0.40 AST 12 L ALT 19 Alkaline Phosphatase 47 Troponin I < 0.015 Total Protein 5.8 L Albumin 3.1 L Globulin 2.7 Albumin/Globulin Ratio 1.1 Triglycerides 115 Cholesterol 155 LDL Cholesterol 78 VLDL Cholesterol 23 HDL Cholesterol 54 Lipase Discharge Diet: No Restrictions Discharge Activity: Return to Normal Activity Home Medications: Medications to take at Discharge Albuterol Inhaler [Ventolin Hfa] 1 - 2 puff INHALATION Q6H PRN PRN 09/20/14 Ipratropium/Albuterol Respimat [Combivent Respimat Inhal [place]] 1 puff INHALATION 4X/DAY PRN 09/20/14 Mv-Min/FA/Vit K/Lycop/Lut/Zeax [Ocuvite Eye Plus Multi Tablet] 1 ea PO DAILY 08/19/16 Calcium Carbonate [Calcium] 500 mg PO DAILY 10/03/16 Ergocalciferol [Vitamin D] 50,000 unit PO Q7D 10/03/16 albuterol sulfate 1.25 mg/3 mL solution for nebulization 1.25 mg CONTINUOUS NEBULIZATION Q4H #90 ml MDD WHEEZING 05/12/17 pantoprazole 20 mg tablet,delayed release 40 mg PO BID tab 06/03/17 montelukast 10 mg tablet 10 mg PO QHS 06/04/17 Disability Placard #1 ea 03/16/18 ipratropium-albuterol 0.5 mg-3 mg(2.5 mg base)/3 mL nebulization soln 3 ml INHALATION Q6H ml 03/16/18 Aspirin [Aspirin, Baby] 81 mg PO DAILY@0800 04/04/18 Carvedilol [Coreg (Beta Florencio)] 3.125 mg PO BID 04/04/18 Furosemide [Lasix] 20 mg PO DAILY 04/04/18 Prednisone 5 mg PO QDAY 04/04/18 Primary Care Physician: Ashley Stephens MD [Primary Care Provider] - Please follow up with your Primary Care Physician in: 1 Week Please Follow Up With: Kan Kaiser DO - Palliative Care When: As scheduled Disposition: Home with palliative services Minutes spent on discharge:: 35 Patient Condition:: Stable Medical Necessity - Tobacco Use Smoking Status: Former smoker Tobacco Use: Non-smoker Meaningful Use Info Meaningful Use Diagnoses (Choose all that apply): None applicable <Kan Alejandra - Last Filed: 04/05/18 11:56> Discharge Date and Diagnosis - Secondary Discharge Diagnosis Chronic Problems (Last Reviewed 03/16/18 @ 13:04 by ANOOP Cervantes) Systolic CHF (Chronic) Asthma-COPD overlap syndrome (Chronic) Primary lung cancer (Chronic) Radiation pneumonitis (Chronic) Non-small cell cancer of right lung (Chronic) Non-ischemic cardiomyopathy (Chronic) Acute on chronic systolic (congestive) heart failure (Chronic) Stage 1 mild COPD by GOLD classification (Chronic) Dysphagia (Chronic) PVD (peripheral vascular disease) (Chronic) Occlusion and stenosis of right carotid artery (Chronic) Hyperlipemia (Chronic) History of non-Hodgkin's lymphoma (Chronic) Hypogammaglobulinemia (Chronic) COPD (chronic obstructive pulmonary disease) (Chronic) Hospital Course and Treatment Summary of Care Provided: This patient was seen in conjunction with ANOOP Palafox . I have independently interviewed and examined the patient and reviewed pertinent historical, laboratory, and other data. Please refer to ANOOP Palafox note for details of this patient's presentation, findings, and recommendations. I have reviewed ANOOP Palafox note and concur with documented findings. In brief, patient is a 77-year-old lady with multiple comorbidities including chronic systolic heart failure, Hodgkin's lymphoma non-small cell lung CA who presented with chest pain. Patient was placed on a monitored bed [place] was ruled out with serial cardiac enzymes. Patient subsequently requested for no further aggressive treatment and nuclear stress test was therefore not performed patient discharged home with consultation placed to palliative care. Hospital course: As elicited above by Linda Stallworth [employer]NE[employer] OPERATOR - Physical Exam Vital Signs Temp Pulse Resp BP Pulse Ox 97.6 F L 93 18 139/66 H 94 04/05/18 09:00 04/05/18 10:59 04/05/18 09:00 04/05/18 09:00 04/05/18 09:00 Oxygen Delivery Method Room Air Weight: 82.554 kg Body Mass Index (BMI) 32.2 Intake and Output for Last 24 Hours 04/03/18 04/04/18 04/05/18 23:59 23:59 23:59 Intake Total 480 / 480 Balance 480 / 480 Laboratory Tests Past 24 Hrs 04/04/18 04/04/18 04/04/18 16:50 21:15 23:30 WBC RBC Hgb Hct MCV MCH MCHC RDW RDW Differential Plt Count MPV Sodium Potassium Chloride Carbon Dioxide Anion Gap BUN Creatinine Estim Creat Clear Calc Est GFR (MDRD) Af Amer Est GFR (MDRD) Non-Af BUN/Creatinine Ratio Glucose Calcium Magnesium 2.2 Total Bilirubin AST ALT Alkaline Phosphatase Troponin I < 0.015 < 0.015 < 0.015 Total Protein Albumin Globulin Albumin/Globulin Ratio Triglycerides Cholesterol LDL Cholesterol VLDL Cholesterol HDL Cholesterol Lipase 62 L 04/05/18 04/05/18 04/05/18 02:55 02:55 02:55 WBC 6.0 RBC 3.98 L Hgb 12.4 Hct 38.2 MCV 96.0 MCH 31.2 MCHC 32.5 RDW 15.6 H RDW Differential 54.8 H Plt Count 246 MPV 10.3 Sodium 141 Potassium 3.8 Chloride 105 Carbon Dioxide 26.0 Anion Gap 10 BUN 13 Creatinine 0.58 Estim Creat Clear Calc 38.35 Est GFR (MDRD) Af Amer 128 Est GFR (MDRD) Non-Af 106 BUN/Creatinine Ratio 22.2 H Glucose 79 Calcium 7.9 L Magnesium Total Bilirubin 0.40 AST 12 L ALT 19 Alkaline Phosphatase 47 Troponin I < 0.015 Total Protein 5.8 L Albumin 3.1 L Globulin 2.7 Albumin/Globulin Ratio 1.1 Triglycerides 115 Cholesterol 155 LDL Cholesterol 78 VLDL Cholesterol 23 HDL Cholesterol 54 Lipase Code Visit OBSV E&M: [id number] Observation care discharge
== END 2018-04-05 10:42 | disposition home or self-care (01) ==
PROVIDERS: Family Medicine; Admitting Provider Student in an Organized Health Care Education/Training Program; Family Provider Internal Medicine; PCP Internal Medicine; Visit Provider Internal Medicine
DX: R07.89 Other chest pain (principal); I11.0 Hypertensive heart disease with heart failure; I50.22 Chronic systolic (congestive) heart failure; J44.9 Chronic obstructive pulmonary disease, unspecified; C34.91 Malignant neoplasm of unspecified part of right bronchus or lung; Z79.899 Other long term (current) drug therapy; Z79.82 Long term (current) use of aspirin; I42.9 Cardiomyopathy, unspecified; E78.5 Hyperlipidemia, unspecified; Z85.72 Personal history of non-Hodgkin lymphomas; Z87.891 Personal history of nicotine dependence; I25.10 Atherosclerotic heart disease of native coronary artery without angina pectoris; K21.9 Gastro-esophageal reflux disease without esophagitis
CPT/HCPCS: 36415; 80053; 80061; 83690; 83735; 84484; 85027; 93005; 94640; 96372; 97802; 99218; 99406; G0378; G0379

== ENCOUNTER → 2018-05-28 12:52 | Outpatient (CLI) | payer MEDICARE, OTHER, SELFPAY ==
[2017-07-15 14:36] VITALS: BMI 31.1
[2018-04-04 15:28] VITALS: BMI 32.2
--- NOTE | 2018-05-28 12:57 | CT_ITS ---
STUDY: CT CHEST WITHOUT CONTRAST REASON FOR EXAM: Female, 78 years old. Lung cancer RADIATION DOSAGE (If Supplied By Facility): CTDIvol = ( 11.63 ) mGy, DLP = ( 417.91 ) mGycm TECHNIQUE: Transaxial imaging was performed without the administration of intravenous contrast material. Individualized dose optimization techniques were used for this CT. COMPARISON: 02/24/2018 FINDINGS: Irregular shaped, spiculated 1.45 x 1.95 x 0.75 cm right middle lobe mass consistent with malignancy is unchanged. Linear subsegmental atelectasis or scarring in the anterolateral right middle lobe peripheral to the mass as well as curvilinear scarring or atelectasis in the inferior lingula of left upper lobe are also unchanged. There is stable, vaguely defined, rounded 1.35 cm groundglass density in the posterolateral periphery of the right lung base. There is no demonstrated pleural abnormality. Normal heart and pericardium. There are calcifications of the coronary arteries. Obliquely oriented lentiform low density in the precarinal soft tissues may be a pericardial reflection. No mediastinal adenopathy. Normal hilar regions. Normal unenhanced pulmonary arteries. There is atherosclerotic calcification of the aortic arch, proximal brachiocephalic arteries, and descending thoracic aorta. There are stable multi-level degenerative changes of the thoracic spine. Mild depression of the central T3-T6 as well as inferior T10 vertebral endplates unchanged. There is a stable small hiatal hernia. Stable coarsely calcified 2.0 x 1.3 x 1.6 cm structure interposed between the stomach and left lobe of the liver just above the body of the pancreas, possibly calcified lymph node CT/Chest without Contrast IMPRESSION: Stable unenhanced CT Chest examination since 02/24/2018 Electronically Signed: Dwight Rodas MD at 14:58 EST , Service support ,
== END ==
PROVIDERS: Family Provider Internal Medicine; PCP Internal Medicine; Referring Provider Internal Medicine Medical Oncology; Visit Provider Internal Medicine Medical Oncology
DX: C34.91 Malignant neoplasm of unspecified part of right bronchus or lung (principal)
CPT/HCPCS: 71250

== ENCOUNTER → 2018-08-26 13:35 | Outpatient (CLI) | payer MEDICARE, OTHER, SELFPAY ==
[2017-07-15 14:36] VITALS: BMI 31.1
[2018-08-13 09:00] VITALS: BMI 33.6
--- NOTE | 2018-08-26 13:37 | ECHODONC_ITS ---
Reason For Study: DYSPNIA Procedure This was a 2D Doppler, Color Flow transthoracic echocardiogram. Myocardial strain analysis was performed in this exam to aid in the assessment of cardiac function. Exam performed in department. Left Ventricle Normal LV size. The estimated ejection fraction is 27 %. Stage 1 diastolic dysfunction. Moderately severe segmental systolic dysfunction (see wall motion). The global longitudinal strain is severely abnormal. The global longitudinal strain = -10.6% (abnormal). [place] : Akinetic. Mid-anteroseptal : Hypokinetic. Mid-Anterior : Hypokinetic. Anterio-Basal: Normal. Lateral-Basal: Normal. Posterior- Basal: Normal. Infero-Basal: Normal. Right Ventricle Normal RV size. Normal systolic function. Atria Normal left atrium. Normal right atrium. Mitral Valve Bileaflet diffuse mitral valve thickening. Mild (1+) eccentric mitral valve insufficiency. Tricuspid Valve Normal tricuspid valve. Mild (1+) tricuspid valve insufficiency. Pulmonary artery systolic pressure is 24 mmHg. Aortic Valve Trisinus/trileaflet aortic valve. Pulmonic Valve Normal pulmonic valve. Great Vessels Normal aortic root. The pulmonary artery is normal size. Normal inferior vena cava. Pericardium/Pleural No pericardial effusion. MMode/2D Measurements & Calculations LVIDd: 4.4 cm IVSd: 1.1 cm Ao root diam: 3.2 cm LVIDs: 3.3 cm LVPWd: 1.1 cm RVDd: 2.7 cm FS: 24.7 % LAV(MOD-bp): 36.3 ml LA A4 area: 14.5 cm2 LA dimension(2D): 3.1 cm LAV(MOD-bp) Indexed: 19.2 ml/m2 LAV(MOD-sp2): 30.2 ml LAV(MOD-sp4): 38.4 ml RA A4 area: 8.7 cm2 Time Measurements MV dec time: 0.21 sec Doppler Measurements & Calculations MV E max osmin: 76.4 cm/sec Ao V2 max: 118.0 cm/sec LV V1 max: 91.5 cm/sec MV A max osmin: 102.8 cm/sec Ao max P.6 mmHg LV V1 max P.4 mmHg MV E/A: 0.74 PA V2 max: 66.3 cm/sec TR max osmin: 217.5 cm/sec TR max P.9 mmHg Interpretation Summary Normal LV size. The estimated ejection fraction is 27 %. Stage 1 diastolic dysfunction. Moderately severe segmental systolic dysfunction (see wall motion). The global longitudinal strain = -10.6% (abnormal). The global longitudinal strain has worsened. Ordering Physician: Michael David Referring Physician: ROEL YOUNGER Performed By: Susannah Choi, YUE, RVT
== END ==
PROVIDERS: Family Provider Internal Medicine; PCP Internal Medicine; Referring Provider Internal Medicine Cardiovascular Disease; Visit Provider Internal Medicine Cardiovascular Disease
DX: I42.8 Other cardiomyopathies (principal)
CPT/HCPCS: 0399T; 93306

== ENCOUNTER → 2018-08-28 10:23 | Outpatient (CLI) | payer MEDICARE, OTHER, SELFPAY ==
[2017-07-15 14:36] VITALS: BMI 31.1
[2018-08-13 09:00] VITALS: BMI 33.6
[2018-08-28 11:09] LABS: Absolute Lymphocyte Count 1.74 X10^3/ul (0.83-4.51); Basophil# 0.02 X10^3/uL; Basophil% 0.2 % (0-1); Eosinophil# 0.01 X10^3/uL; Eosinophils% 0.1 % (0-5); Hematocrit 40.9 % (37-47); Hemoglobin 13.1 g/dl (12.0-15.0); Lymphocyte # 1.74 X10^3/ul (4.0); Lymphocyte % 20.9 % (19-41); Mean Corpuscular Hgb 30.8 pg (27.0-32.0); Mean Corpuscular Volume 96.2 fL (81-99); Mean Platelet Vol. 11.1 fl (6.2-12.0); Monocyte# 0.58 X10^3/uL; Neutrophil # 5.95 X10^3/uL (2.7-7.7); Neutrophil % 71.4 % (47-70); Platelet Count 243 K/mm3 (150-450); RBC Distribution Width CV 16.2 % (11.6-14.6); RBC Distribution Width SD 57.1 fl (35.1-43.9); Red Blood Count 4.25 M/mm3 (4.2-5.4); White Blood Count 8.3 K/mm3 (4.4-11.0)
[2018-08-28 11:13] LABS: POSITIVE COUNT NO; POSITIVE DIFFERENTIAL NO; POSITIVE MORPHOLOGY NO
[2018-08-28 11:30] LABS: Anion Gap 5 (5-15); BUN 12 mg/dL (7-18); Calcium,Total 8.3 mg/dL (8.5-10.1); Chloride 105 mmol/L (98-107); Creatinine, Serum 0.67 mg/dL (0.55-1.02); EST Glomerular Filtration Rate 91 mL/min (>60); Est Glom Filt Rate - Afr Amer 110 mL/min (>60); Glucose 102 mg/dL (74-106); Potassium 4.1 mmol/L (3.5-5.1); Sodium Level 137 mmol/L (136-145)
== END ==
PROVIDERS: Family Provider Internal Medicine; PCP Internal Medicine; Referring Provider Internal Medicine Cardiovascular Disease; Visit Provider Internal Medicine Cardiovascular Disease
DX: I42.8 Other cardiomyopathies (principal); R06.00 Dyspnea, unspecified; R07.9 Chest pain, unspecified
CPT/HCPCS: 36415; 80048; 85025

== ENCOUNTER 2018-09-08 06:25 | Day surgery (SDC) | payer MEDICARE, OTHER, SELFPAY ==
[2017-07-15 14:36] VITALS: BMI 31.1
[2018-08-13 09:00] VITALS: BMI 33.6
[2018-09-07 07:19] VITALS: BMI 33.6
--- NOTE | 2018-09-08 08:09 | CL.D_ITS ---
Patient Name: JAIME GARY Study Date: 09/08/2018 Performing: Michael David MD Ht: 62.99 inches 160 cm : 1940 Wt: 189.6 lbs 86 kg Age: 78 Gender: female BSA: 1.89 PROCEDURE(S) PERFORMED EB48-SVA/COR/LV CLINICAL PROFILE AND INDICATIONS Indications: Cardiomyopathy Heart Failure: None Stress/Imaging Stress/Image Study Performed: No CAD Presentations: Symptom unlikely to be ischemic. CONCLUSIONS Normal coronary arteries Apical hypertrophic cardiomyopathy RECOMMENDATIONS Resume full activity Medical therapy DESCRIPTION OF PROCEDURE The patient arrived to the procedure lab. The risks and benefits of the procedure as well as a full d escription of our services here and current unavailability of surgical backup were fully explained to the patient and/or their significant other prior to the catheterization. The Timeout was completed, verifying the correct patient and procedure. The patient's procedural site was prepped and draped in the usual fashion. Local anesthetic was given subcutaneously to right radial region with Lidocaine 2% . Using a modified Seldinger technique, arterial access was obtained via the right radial artery, a 6 Fr sheath was inserted. Left Coronary Artery selective angiography was performed in multiple views u sing a 5 Fr. 4.0 [place] catheter. Right Coronary Artery selective angiography was then performed in mu ltiple views using a 5 Fr. 4.0 [place] catheter. Left Ventriculography was performed in GALLARDO projection using a 5 Fr. [place] catheter. LV to AO pullback pressures were then recorded.The arterial sheath was pulled and a TR Band was applied for hemostasis w/ 14ml air CORONARY ANGIOGRAPHY DOMINANCE: Left Dominant LEFT HEART ASSESSMENT Left Ventricular Ejection Fraction: by LV Gram 35 % Cardiomyopathy: Hypertrophic LEFT MAIN: No significant disease noted COMPLICATIONS No Complications PROCEDURE MEDICATIONS Versed 1 mg IV Fentanyl 50 mcg IV Oxygen: 2 L/min via nasal cannula SUMMARY OF HEMODYNAMIC DATA Time AIR REST ECG 07:02:58 AO 93/57 (70) SA 07:37:24 LV 115/11, 12 07:43:48 LV 113/9, 12 07:43:56 LV 114/11, 15 07:45:25 LVp 111/11, 15 07:45:31 AOp 109/61 (81) 07:45:36 Signed By Michael David MD On 09/08/2018 08:08:19 Michael David MD
== END 2018-09-08 10:55 | disposition home or self-care (01) ==
LOC: CLSP 06:26
PROVIDERS: Family Provider Internal Medicine; PCP Internal Medicine; Referring Provider Internal Medicine Cardiovascular Disease; Visit Provider Internal Medicine Cardiovascular Disease
DX: I42.2 Other hypertrophic cardiomyopathy (principal); I50.23 Acute on chronic systolic (congestive) heart failure; C34.91 Malignant neoplasm of unspecified part of right bronchus or lung; I65.21 Occlusion and stenosis of right carotid artery; I73.9 Peripheral vascular disease, unspecified; J44.9 Chronic obstructive pulmonary disease, unspecified; E78.5 Hyperlipidemia, unspecified; D80.1 Nonfamilial hypogammaglobulinemia; Z85.72 Personal history of non-Hodgkin lymphomas; Z79.899 Other long term (current) drug therapy; Z87.891 Personal history of nicotine dependence
CPT/HCPCS: 93458; 99152; 99153; J7040; C1769; C1894; Q9967

== ENCOUNTER → 2018-09-28 | Outpatient (CLI) | payer MEDICARE, OTHER, SELFPAY ==
[2017-07-15 14:36] VITALS: BMI 31.1
[2018-06-01 14:00] VITALS: BMI 31.1
[2018-09-07 07:19] VITALS: BMI 33.6
--- NOTE | 2018-09-28 12:33 | CT_ITS ---
STUDY: CT CHEST WITHOUT CONTRAST REASON FOR EXAM: Female, 78 years old. Lung Cancer follow-up RADIATION DOSAGE (If Supplied By Facility): CTDIvol = ( 12.96 ) mGy, DLP = ( 424.21 ) mGycm TECHNIQUE: Transaxial imaging was performed without the administration of intravenous contrast material. Individualized dose optimization techniques were used for this CT. COMPARISON: CT chest 05/28/2018 and 02/24/2018. FINDINGS: There are scattered, small calcifications in the bilateral breast tissue. There is a stable right middle lobe irregular nodular opacity measuring approximately 2.2 x 1.3 cm, unchanged when measured in a similar manner. There is stable mild adjacent scarring or subsegmental atelectasis and mild linear scarring in the lingula. Mild centrilobular emphysema. There is a posterior right lower lobe groundglass nodule measuring 1.3 x 0.9 cm, also unchanged, on series 2 image 81. There is no new or enlarging pulmonary nodule. No focal pulmonary consolidation. There is no demonstrated pleural abnormality. Normal heart and pericardium. There is mild aortic and moderate coronary artery calcifications. Normal mediastinum. Normal hilar regions. Normal unenhanced pulmonary arteries. Normal aorta arch and descending thoracic aorta. There is multilevel degenerative disc disease. The bones are osteopenic. There is a small hiatal hernia. There are coarse calcifications in the gastrohepatic ligament, unchanged. CT/Chest without Contrast IMPRESSION: Stable, irregular right middle lobe nodule and right lower lobe groundglass nodule. No new or enlarging pulmonary nodule. Electronically Signed: Radha Kahn, at 17:03 EDT Tel , Service support ,
== END | disposition home or self-care (01) ==
LOC: CT 12:31
PROVIDERS: Family Provider Internal Medicine; PCP Internal Medicine; Referring Provider Student in an Organized Health Care Education/Training Program; Visit Provider Student in an Organized Health Care Education/Training Program
DX: C34.91 Malignant neoplasm of unspecified part of right bronchus or lung (principal)
CPT/HCPCS: 71250

== ENCOUNTER → 2018-11-12 | Outpatient (CLI) | payer MEDICARE, OTHER, SELFPAY ==
[2017-07-15 14:36] VITALS: BMI 31.1
[2018-09-07 07:19] VITALS: BMI 33.6
[2018-11-12 10:33] LABS: Anion Gap 8 (5-15); BUN 10 mg/dL (7-18); BUN/Creat Ratio 16.9 RATIO (10-20); Calcium,Total 8.5 mg/dL (8.5-10.1); Chloride 103 mmol/L (98-107); Creatinine, Serum 0.59 mg/dL (0.55-1.02); EST Glomerular Filtration Rate 104 mL/min (>60); Est Glom Filt Rate - Afr Amer 126 mL/min (>60); Glucose 94 mg/dL (74-106); Potassium 4.2 mmol/L (3.5-5.1); Sodium Level 140 mmol/L (136-145)
== END | disposition home or self-care (01) ==
PROVIDERS: Family Provider Internal Medicine; PCP Internal Medicine; Referring Provider Internal Medicine Cardiovascular Disease; Visit Provider Internal Medicine Cardiovascular Disease
DX: I50.23 Acute on chronic systolic (congestive) heart failure (principal); R60.9 Edema, unspecified
CPT/HCPCS: 36415; 80048

== ENCOUNTER → 2018-11-24 | Outpatient (CLI) | payer MEDICARE, OTHER, SELFPAY ==
[2017-07-15 14:36] VITALS: BMI 31.1
[2018-06-22 12:46] VITALS: BMI 32.4
[2018-09-07 07:19] VITALS: BMI 33.6
--- NOTE | 2018-11-24 13:00 | PFT ---
INTRODUCTION: The patient is a 78-year-old female that presents for pulmonary function studies secondary to a diagnosis of COPD. Respiratory therapy reports good patient effort. Bronchodilators were used during testing. INTERPRETATION: Forced expiration spirometry demonstrates the presence of a severe large airways obstructive ventilatory defect. There was a significant response to aerosolized bronchodilators noted. Spirograms are of fair quality and do not plateau indicating slow emptying of the lungs. Body plus tomography was performed and reveals an elevated TLC and RV, indicative of underlying hyperinflation and air trapping. Diffusing capacity by single breath CO is reduced at 44% of predicted. When compared to previous pulmonary function studies from February 2018, there has been a 13% reduction in DLCO. IMPRESSION: Partially reversible severe large airways obstructive ventilatory defect with associated hyperinflation, air trapping and symmetric reduction in diffusing capacity.
== END | disposition home or self-care (01) ==
LOC: PSN 10:23
PROVIDERS: Family Provider Internal Medicine; PCP Internal Medicine; Referring Provider Internal Medicine Critical Care Medicine; Visit Provider Internal Medicine Critical Care Medicine
DX: J44.9 Chronic obstructive pulmonary disease, unspecified (principal)
CPT/HCPCS: 94060; 94726; 94729

== ENCOUNTER → 2018-11-25 | Outpatient (CLI) | payer MEDICARE, OTHER, SELFPAY ==
[2017-07-15 14:36] VITALS: BMI 31.1
[2018-06-22 12:46] VITALS: BMI 32.4
[2018-09-07 07:19] VITALS: BMI 33.6
[2018-11-25 11:07] VITALS: PULSE 100; PULSE 103; PULSE 106; PULSE 87; PULSE 88; PULSE 94; PULSE 96; PULSE 98; O2SAT 93; O2SAT 95; O2SAT 97; O2SAT 98
--- NOTE | 2018-11-25 12:53 | PCM.PSN.6M ---
PSN 6 Minute Walk Test - 6 Minute Walk Test 6 Minute Walk Test: 6 Minute Walk Test PSN:6-Minute Walk Test Start: 11/25/18 11:06 Freq: Status: Active Protocol: [id number].6MINW Document 11/25/18 11:07 [facility] (Rec: 11/25/18 11:12 [facility] [id number]) 6 Minute Walk Test Date Performed 11/25/18 Time Performed 10:55 Height 5 ft 3 in Weight: 193 lb Weight in Pounds 193.[address]: Edy Garcia Assistive device used: None Pre-test Oxygen Delivery Method Room Air Pulse Ox (%) 98 Pulse Rate (60-100 beats/min) 87 Dyspnea Wanda Scale (0-10) 2 1st minute Oxygen Delivery Method Room Air Pulse Ox (%) 98 Pulse Rate (60-100 beats/min) 94 Dyspnea Wanda Scale (0-10) 3 Reported Symptoms Increased Work of Breathing 2nd minute Oxygen Delivery Method Room Air Pulse Ox (%) 97 Pulse Rate (60-100 beats/min) 96 Dyspnea Wanda Scale (0-10) 3 Reported Symptoms Increased Work of Breathing 3rd minute Oxygen Delivery Method Room Air Pulse Ox (%) 97 Pulse Rate (60-100 beats/min) 100 Dyspnea Wanda Scale (0-10) 4 Number of Rests Taken 1 Reported Symptoms Increased Work of Breathing 4th minute Oxygen Delivery Method Room Air Pulse Ox (%) 95 Pulse Rate (60-100 beats/min) 106 H Dyspnea Wanda Scale (0-10) 4 Reported Symptoms Increased Work of Breathing 5th minute Oxygen Delivery Method Room Air Pulse Ox (%) 98 Pulse Rate (60-100 beats/min) 98 Dyspnea Wanda Scale (0-10) 4 Reported Symptoms Increased Work of Breathing 6th minute Oxygen Delivery Method Room Air Pulse Ox (%) 93 Pulse Rate (60-100 beats/min) 103 H Dyspnea Wanda Scale (0-10) 5 Number of Rests Taken 1 Reported Symptoms Increased Work of Breathing Post-test Oxygen Delivery Method Room Air Pulse Ox (%) 98 Pulse Rate (60-100 beats/min) 88 Dyspnea Wanda Scale (0-10) 2 Full Laps Walked 13 Partial Lap, Number of Tiles Walked 32 Total Distance Walked (ft) 799 - Interpretation Interpretation: The patient ambulated 799 feet over the course of 6 minutes beginning on room air without assistive devices or breaks. Pretesting oxygen saturation was noted to be 98% on room air. With ambulation, the maris oxygen saturation was 93%. This represents a significant exertional oxygen desaturation. - Recommendations Recommendations: There is no indication for the use of supplemental oxygen at this time. However, close interval follow-up was recommended, given the degree of oxygen desaturation noted during this study.
== END | disposition home or self-care (01) ==
LOC: PSN 10:35
PROVIDERS: Family Provider Internal Medicine; PCP Internal Medicine; Referring Provider Internal Medicine Critical Care Medicine; Visit Provider Internal Medicine Critical Care Medicine
DX: J44.9 Chronic obstructive pulmonary disease, unspecified (principal)
CPT/HCPCS: 94618

== ENCOUNTER → 2019-03-29 12:19 | Outpatient (CLI) | payer MEDICARE, OTHER, SELFPAY ==
[2017-07-15 14:36] VITALS: BMI 31.1
[2018-09-07 07:19] VITALS: BMI 33.6
[2018-12-07 13:33] VITALS: BMI 34.4
--- NOTE | 2019-03-29 12:22 | CT_ITS ---
STUDY: CT CHEST WITHOUT CONTRAST REASON FOR EXAM: Female, 78 years old. Patient has a history of lung cancer and non-Hodgkin's lymphoma. Chemotherapy and radiation therapy. Worsening right rib pain. RADIATION DOSAGE (If Supplied By Facility): CTDIvol = ( 12.83 ) mGy, DLP = ( 435.41 ) mGycm TECHNIQUE: Transaxial imaging was performed without the administration of intravenous contrast material. Multiplanar coronal and sagittal images were reformatted. Individualized dose optimization techniques were used for this CT. COMPARISON: Comparison is made with prior examination dated September 28, 2018. FINDINGS: The irregular spiculated nodular density in the right middle lobe presently measures 2.1 cm x 0.9 cm. This has decreased slightly in size as compared to prior study. Stable surrounding scarring. There now is evidence of focal scarring and possible tiny nodular density in the anterior aspect of the right lower lobe adjacent to the right minor fissure. The nodule measures 0.9 cm. Stable thickening of the left major fissure. The previously seen faint nodular density in the posterolateral aspect of the right lower lobe is less evident at this time. There is no demonstrated pleural abnormality. There are calcifications of the coronary arteries. There are multiple small lymph nodes within the mediastinum, which are normal in size and morphology most compatible with reactive lymph hyperplasia. Normal hilar regions. Normal unenhanced pulmonary arteries. There is atherosclerotic calcification of the aortic arch with tortuosity and elongation of the aortic arch and descending thoracic aorta. There is demineralization of the thoracic spine. Stable mild loss of height of mid dorsal vertebra. Small anal hernia. CT/Chest without Contrast IMPRESSION: Interval decrease in size of the nodular density in the right middle lobe with surrounding area of scarring. New focal area of groundglass appearance of possible scarring with a 9.1 mm nodule is seen in the anterior lateral aspect right lower lobe. Electronically Signed: Naresh Varghese, at 13:07 EST , Service support ,
== END ==
PROVIDERS: Family Provider Internal Medicine; PCP Internal Medicine; Referring Provider Student in an Organized Health Care Education/Training Program; Visit Provider Student in an Organized Health Care Education/Training Program
DX: S22.41XA Multiple fractures of ribs, right side, initial encounter for closed fracture (principal); Z85.118 Personal history of other malignant neoplasm of bronchus and lung; R91.1 Solitary pulmonary nodule; X58.XXXA Exposure to other specified factors, initial encounter; Y93.9 Activity, unspecified; Y92.9 Unspecified place or not applicable; Z92.21 Personal history of antineoplastic chemotherapy; Z92.3 Personal history of irradiation; Z87.891 Personal history of nicotine dependence
CPT/HCPCS: 71250; 99283

== ENCOUNTER 2019-03-29 12:50 | Emergency (ER) | payer MEDICARE, OTHER, SELFPAY ==
[2017-07-15 14:36] VITALS: BMI 31.1
[2018-12-07 13:33] VITALS: BMI 34.4
[2019-03-29 12:51] VITALS: BP 139/87; PULSE 86; RESP 17; TEMP 37; O2SAT 97; BMI 34.2
--- NOTE | 2019-03-29 13:13 | ED.VIS.GEN ---
History of Present Illness Chief Complaint: Chest Other Informant: Patient Onset: Days Context: Gradual Onset Timing: Continuous Current Severity: Moderate Maximum Severity: Moderate Narrative: The patient presents to the emergency department with right lateral rib pain. The patient is a history of lung cancer. She is undergone chemo and radiation. She is currently off treatment. She states that she has had rib fracture before and this feels similar. For the past 2 weeks, she had pain across her right ribs is worse when she moves or coughs. She denies any fevers. She denies any dyspnea. She is otherwise been in her normal state of health. She is been trying Tylenol with little improvement. Prior similar symptoms: No Recent Illness/Hospitalization: No Past Medical History - Allergies and Home Meds Allergies/Adverse Reactions: Allergies alendronate sodium [From Fosamax] Allergy (Severe, Verified 03/29/19 12:51) Other generalized discomfort reflux choking / aspiration budesonide Allergy (Severe, Verified 03/29/19 12:51) Other asthma attack fluticasone [From Advair Diskus] Allergy (Severe, Verified 03/29/19 12:51) Other CAN'T BREATHE Penicillins [PCN] Allergy (Severe, Verified 03/29/19 12:51) Shortness of breath salmeterol [From Advair Diskus] Allergy (Severe, Verified 03/29/19 12:51) Other CAN'T BREATHE tiotropium [From Spiriva with HandiHaler] Allergy (Severe, Verified 03/29/19 12:51) Other CANT BREATHE umeclidinium [From Anoro Ellipta] Allergy (Severe, Verified 03/29/19 12:51) Other THROAT SWELLING vilanterol [From Anoro Ellipta] Allergy (Severe, Verified 03/29/19 12:51) Other THROAT SWELLING doxycycline Allergy (Verified 03/29/19 12:51) Shortness of breath dexamethasone Adverse Reaction (Verified 03/29/19 12:51) Other Primary Care Physician: Ashley Stephens MD [Primary Care Provider] - Prior records reviewed: Yes Past Medical History: - Surgical History: coronary bypass surgery, hysterectomy, - - Vocal cord surgery, R lung Bx x 2, Hysterectomy, CABG, Neck mass Bx, R breast Bx. Smoking Status: Former smoker - Family History Maternal Family History: Family History (Last Reviewed 12/07/18 @ 13:32 by Fabienne Anand) Sister No problems noted. Daughter Thyroid cancer Cancer Kidney malignancy Brother COLON CANCER Daughter Cancer, Onset Age: 40 Son Cancer Other Colon cancer Family History: Reports: Heart Disease Paternal Family History: Family History (Last Reviewed 12/07/18 @ 13:32 by Fabienne Anand) Sister No problems noted. Daughter Thyroid cancer Cancer Kidney malignancy Brother COLON CANCER Daughter Cancer, Onset Age: 40 Son Cancer Other Colon cancer Family History: Reports: Stroke Offspring Family History: Family History (Last Reviewed 12/07/18 @ 13:32 by Fabienne Anand) Sister No problems noted. Daughter Thyroid cancer Cancer Kidney malignancy Brother COLON CANCER Daughter Cancer, Onset Age: 40 Son Cancer Other Colon cancer Family History: Reports: - - Thyroid cancer, ovarian cancer Review of Systems General: Denies: Chills, Fever, Sweats Eyes: Denies: Visual changes - bilaterally, Diplopia ENT: Denies: Rhinorrhea, Sore throat Cardiovascular: Reports: Chest pain. Denies: Palpitations Respiratory: Denies: Dyspnea, Cough, Dyspnea on exertion Gastrointestinal: Denies: Abdominal pain, Nausea, Vomiting, Diarrhea, Melena, Hematochezia Genitourinary: Denies: Dysuria, Hematuria, Frequency Musculoskeletal: Denies: Back pain, Extremity Pain Skin: Denies: Rash, Wounds Neurological: Denies: Headache, Weakness, Numbness Physical Exam Vital Signs/Narrative: Vital Signs Temp Pulse Resp BP Pulse Ox 03/29/19 12:51 98.6 F 86 17 139/87 H 97 Inital Vital Signs reviewed: Yes General: Well nourished, Well developed, No Acute Distress Head: Normocephalic, Atraumatic Eyes: Perrl, EOMI ENT: Moist mucous membranes, No rhinorrhea Neck: Supple, Nontender Cardiovascular: Regular rate, Regular rhythm, No murmurs Respiratory: No distress, CTA bilaterally, Chest tenderness - Tender over the right lower lateral ribs. No vesicular rash. No step-off. Lungs are clear. Abdomen: Soft, Nontender, Nondistended, Normal bowel sounds Back: Nontender, Normal Inspection Extremities: Nontender, No edema Skin: Normal color, No rash Neurological: Alert, Oriented x3, Cranial nerves II-XII grossly intact, Normal Strength, Normal Sensation Psychological: Normal affect, Normal Mood Diagnostic/Tx/Re-eval - Medical Decision Making The patient had outpatient CT done today. This did demonstrate improvement of the size of her mass. She does have a new nodule in the lower lung base with scarring. It does appear as if she has healing fractures of the fifth and sixth rib. There is no significant displacement, pulmonary contusion, pneumothorax. She has no skin change. Based on the patient's symptoms, she was given oral analgesics with improvement. At this point, I do feel that she is safe for outpatient therapy. She was counseled on concerning symptoms and reasons to return. She will be discharged home. Impression 1. Right rib fracture ED Disposition - Plan for ED Patient: Instructions: FRACTURE, Rib Prescriptions: Hydrocodone Bitart/Apap 5-325 [[place] 5MG-325MG] 1 tab PO Q6H PRN PRN 3 Days #10 tab PRN Reason: Pain Prescription Printed Referrals: Ashley Stephens MD [Primary Care Provider] -
[2019-03-29] MEDS: HYDROcodone Bitartrate/Apap 5/325 Tablet PO (13:15)
== END 2019-03-29 14:23 | disposition home or self-care (01) ==
LOC: ED 13:06
PROVIDERS: Emergency Provider Emergency Medicine; Family Provider Internal Medicine; PCP Internal Medicine
DX: S22.41XA Multiple fractures of ribs, right side, initial encounter for closed fracture (principal); R91.1 Solitary pulmonary nodule; X58.XXXA Exposure to other specified factors, initial encounter; Y93.9 Activity, unspecified; Y92.9 Unspecified place or not applicable; Z85.118 Personal history of other malignant neoplasm of bronchus and lung; Z92.21 Personal history of antineoplastic chemotherapy; Z92.3 Personal history of irradiation; Z87.891 Personal history of nicotine dependence
CPT/HCPCS: 99283

== ENCOUNTER → 2019-04-05 14:44 | Outpatient (CLI) | payer MEDICARE, OTHER, SELFPAY ==
[2017-07-15 14:36] VITALS: BMI 31.1
[2019-03-29 12:51] VITALS: BMI 34.2
--- NOTE | 2019-04-05 15:35 | RAD_ITS ---
STUDY: X-RAY - THORACIC SPINE REASON FOR EXAM: Female, 78 years old. Chronic back pain. TECHNIQUE: 3 view(s) of the thoracic spine were obtained. COMPARISON: None. FINDINGS: Normal kyphosis of the thoracic spine. There is no substantial scoliosis. There is demineralization of the thoracic spine with endplate spondylosis. Normal disc space heights. Possible minimal compression fracture of the proximal T8 and T10. The soft tissue structures are unremarkable. RAD/Thoracic Spine 2 Views IMPRESSION: Osteopenia/degenerative disease as described above. Minimal compression fracture of approximately T8 and T10 vertebral bodies. Otherwise normal x-ray examination of the thoracic spine. Electronically Signed: Tangela Meier MD at 2:28 EST , Service support ,
--- NOTE | 2019-04-05 15:35 | RAD_ITS ---
STUDY: X-RAY - CERVICAL SPINE REASON FOR EXAM: Female, 78 years old. Chronic pain. TECHNIQUE: 2 view(s) of the cervical spine were obtained. COMPARISON: None FINDINGS: There are degenerative changes of the anterior atlantoaxial articulation. Normal odontoid process. There is straightening of the normal cervical lordosis. There is mild, multi-level endplate spondylosis. There is multi-level degenerative disc disease with multilevel disc space narrowing. There is multilevel bilateral apophyseal hypertrophy. The soft tissue structures are unremarkable. There is no demonstrated fracture of the cervical spine. RAD/Cerv Spine 2 or 3 Views IMPRESSION: Straightening of the physiological cervical lordosis which may be due to underlying muscle spasm or degenerative arthritis. No acute fracture or subluxation. Electronically Signed: Tangela Meier MD at 2:31 EST , Service support ,
--- NOTE | 2019-04-05 15:35 | RAD_ITS ---
STUDY: X-RAY - LUMBAR SPINE REASON FOR EXAM: Female, 78 years old. Chronic back pain. TECHNIQUE: 3 view(s) of the lumbar spine were obtained. COMPARISON: None FINDINGS: Normal lumbar lordosis. There is no substantial scoliosis. There is a normal alignment of the vertebrae. There is diffuse demineralization with multi-level endplate spondylosis. There is multi-level degenerative disc disease with multi-level disc space narrowing. Possible minimal decrease in vertebral body height at T10, otherwise no acute fracture through the lumbar spine. There is atherosclerotic calcification of the abdominal aorta without a demonstrated aneurysm. RAD/Lumbar Spine 2 or 3 Views IMPRESSION: Spondylosis/degenerative disease with no acute fracture or spondylolisthesis of the lumbar spine. Underlying osteopenia. Electronically Signed: Tangela Meier MD at 2:31 EST , Service support ,
[2019-04-05 15:59] LABS: Amphetamine Urine VISTA NEGATIVE (<1000 ng/mL); Barbiturate Urine VISTA NEGATIVE (< 200 ng/mL); Benzodiazepine Urine VISTA NEGATIVE (< 200 ng/mL); Cocaine Urine VISTA NEGATIVE (< 300 ng/mL); Ecstacy Urine VISTA NEGATIVE (< 500 ng/mL); Methadone Urine VISTA NEGATIVE (< 300 ng/mL); PCP Urine VISTA NEGATIVE (< 25 ng/mL); THC Urine VISTA NEGATIVE (< 50 ng/mL); Vista UDS pH Range 6
== END ==
PROVIDERS: Family Provider Internal Medicine; PCP Internal Medicine; Referring Provider Anesthesiology Pain Medicine; Visit Provider Anesthesiology Pain Medicine
DX: M54.9 Dorsalgia, unspecified (principal); F11.20 Opioid dependence, uncomplicated
CPT/HCPCS: 72040; 72070; 72100; 80307

== ENCOUNTER → 2019-05-12 13:44 | Outpatient (CLI) | payer MEDICARE, OTHER, SELFPAY ==
[2017-07-15 14:36] VITALS: BMI 31.1
--- NOTE | 2019-05-12 13:49 | RAD_ITS ---
HISTORY: BACK PAIN COMPARISON: None FINDINGS: # of images incl. paperwork: 3 XR Spine Lumbar 3 Views: Bone mineral density is diminished. Atherosclerotic plaque within the abdominal aorta is severe. Left common iliac artery stent is present. A second stent extends from the left common iliac into the left external iliac artery. Lumbar vertebral bodies are normal in height. There is loss of disc height at the L5-S1 level with cortical sclerosis and enthesophytes. Some enthesophytes are present at other levels. There is some wedging 2 lower thoracic vertebral bodies with bowing endplates suggestive of old chronic insufficiency fractures.. No acute lumbar spine fracture or subluxation. Facet arthropathy is present at many levels RAD/Lumbar Spine 2 or 3 Views IMPRESSION: No acute lumbar spine fracture or subluxation. Osteopenia. Degenerative disc disease. Severe calcific atherosclerotic disease at 0222 Reported and signed by: Faisal Yeager MD Electronically Signed: Faisal Yeager MD at 2:21 EST Tel , Service support ,
== END ==
PROVIDERS: Family Provider Internal Medicine; PCP Internal Medicine; Referring Provider Anesthesiology Pain Medicine; Visit Provider Anesthesiology Pain Medicine
DX: M54.9 Dorsalgia, unspecified (principal)
CPT/HCPCS: 72100

== ENCOUNTER → 2019-07-02 12:35 | Outpatient (CLI) | payer MEDICARE, OTHER, SELFPAY ==
[2017-07-15 14:36] VITALS: BMI 31.1
[2019-06-14 11:26] VITALS: BMI 34.2
--- NOTE | 2019-07-02 12:38 | CT_ITS ---
STUDY: CT CHEST WITHOUT CONTRAST REASON FOR EXAM: Female, 79 years old. LUNG CANCER TREATMENT CHECK RADIATION DOSAGE (If Supplied By Facility): CTDIvol = ( 14.17 ) mGy, DLP = ( 495.80 ) mGycm TECHNIQUE: Transaxial imaging was performed without the administration of intravenous contrast material. Multiplanar coronal and sagittal images were reformatted. Individualized dose optimization techniques were used for this CT. COMPARISON: 03/29/2019 FINDINGS: 2.1 x 0.9 cm nodule of the right middle lobe is stable when compared side by side. Mild reticulation and groundglass opacity in the anterior right lower lobe with mild adjacent fissural retraction has decreased in size since the prior study. Focal groundglass opacity in the posterolateral right lower lobe on image 78 measures 10 mm, new. There is no demonstrated pleural abnormality. Normal heart and pericardium. There are calcifications of the coronary arteries. Normal mediastinum. Normal hilar regions. Normal unenhanced pulmonary arteries. There is atherosclerotic calcification of the aortic arch with tortuosity and elongation of the aortic arch and descending thoracic aorta. There are multi-level degenerative changes of the thoracic spine. T8 and T12 compression deformities with vertebral augmentation cement new since prior study. Coarse calcification of the upper abdomen may represent postinflammatory lymph nodes. No interval change. There is a small hiatal hernia. CT/Chest without Contrast IMPRESSION: 1. Since 03/29/2019, stable right middle lobe nodule. 2. Decreased right lower lobe groundglass opacity, likely sequela of radiation therapy. No discrete solid nodule. 3. 10 mm groundglass opacity nodule in the lateral right lower lobe is stable, most typically related to inflammation/pneumonitis. Electronically Signed: Kj Vidal MD ([place]) at 11:12 EST , Service support ,
== END ==
PROVIDERS: Family Provider Internal Medicine; PCP Internal Medicine; Referring Provider Student in an Organized Health Care Education/Training Program; Visit Provider Student in an Organized Health Care Education/Training Program
DX: Z85.118 Personal history of other malignant neoplasm of bronchus and lung (principal)
CPT/HCPCS: 71250

== ENCOUNTER → 2019-08-05 13:20 | Outpatient (CLI) | payer MEDICARE, OTHER, SELFPAY ==
[2017-07-15 14:36] VITALS: BMI 31.1
[2019-06-14 11:26] VITALS: BMI 34.2
[2019-08-05 14:40] LABS: Amphetamine Urine VISTA NEGATIVE (<1000 ng/mL); Barbiturate Urine VISTA NEGATIVE (< 200 ng/mL); Benzodiazepine Urine VISTA NEGATIVE (< 200 ng/mL); Cocaine Urine VISTA NEGATIVE (< 300 ng/mL); Ecstacy Urine VISTA NEGATIVE (< 500 ng/mL); Methadone Urine VISTA NEGATIVE (< 300 ng/mL); PCP Urine VISTA NEGATIVE (< 25 ng/mL); THC Urine VISTA NEGATIVE (< 50 ng/mL); Vista UDS pH Range 6
== END ==
PROVIDERS: PCP Internal Medicine; Referring Provider Anesthesiology Pain Medicine; Visit Provider Anesthesiology Pain Medicine
DX: F11.20 Opioid dependence, uncomplicated (principal)
CPT/HCPCS: 80307

== ENCOUNTER → 2019-08-12 14:08 | Outpatient (CLI) | payer MEDICARE, OTHER, SELFPAY ==
[2017-07-15 14:36] VITALS: BMI 31.1
[2019-08-12 13:35] VITALS: BMI 33.1
[2019-08-12 14:40] LABS: BNP,B-Type NATRIURETIC PEPTIDE 57.7 pg/mL (0-100)
== END ==
PROVIDERS: PCP Internal Medicine; Referring Provider Internal Medicine Cardiovascular Disease; Visit Provider Internal Medicine Cardiovascular Disease
DX: R06.00 Dyspnea, unspecified (principal)
CPT/HCPCS: 36415; 83880

== ENCOUNTER → 2019-08-23 10:29 | Outpatient (CLI) | payer MEDICARE, OTHER, SELFPAY ==
[2017-07-15 14:36] VITALS: BMI 31.1
[2019-08-12 13:35] VITALS: BMI 33.1
--- NOTE | 2019-08-23 10:31 | ECHOCS_ITS ---
Reason For Study: SOB Procedure This was a 2D Doppler, Color Flow transthoracic echocardiogram. The study was technically difficult. Exam performed in department. Left Ventricle Normal LV size. The estimated ejection fraction is 45 %. There is mild to moderate global hypokinesis of the left ventricle. Right Ventricle Normal RV size. Normal systolic function. Atria Normal left atrium. Normal right atrium. Mitral Valve Normal mitral valve. Tricuspid Valve Normal tricuspid valve. Aortic Valve The aortic valve is not well visualized. Pulmonic Valve The pulmonic valve is not well visualized. Great Vessels Normal aortic root. The pulmonary is not well visualized. Normal inferior vena cava. Pericardium/Pleural No pericardial effusion. Medication 22 gauge I.V. with prn adaptor inserted into right arm. Diluted definity 3ml given slow IV push to enhance endocardial definition. MMode/2D Measurements & Calculations LVIDd: 4.1 cm IVSd: 0.97 cm Ao root diam: 3.1 cm LVIDs: 3.6 cm LVPWd: 0.95 cm RVDd: 2.8 cm FS: 14.0 % LAV(MOD-bp): 41.4 ml LA A4 area: 17.2 cm2 LA dimension(2D): 2.7 cm LAV(MOD-bp) Indexed: 22.0 ml/m2 LAV(MOD-sp2): 30.6 ml LAV(MOD-sp4): 47.8 ml RA A4 area: 10.9 cm2 Doppler Measurements & Calculations MV E max eitan: 55.4 cm/sec Lat Peak E' Eitan: 5.7 cm/sec Med Peak E' Eitan: 5.4 cm/sec MV A max eitan: 91.3 cm/sec E/E' lat: 9.7 E/E' med: 10.3 MV E/A: 0.61 Ao V2 max: 117.5 cm/sec LV V1 max: 91.5 cm/sec PA V2 max: 68.6 cm/sec Ao max P.5 mmHg LV V1 max P.4 mmHg Interpretation Summary Normal LV size. The estimated ejection fraction is 45 %. Compared to the previous the LV is improved. GLS could not be performed due to poor image quality Contrast injection was performed. Ordering Physician: Michael David Referring Physician: Ashley Stephens Performed By: Karen West RDCS
== END ==
PROVIDERS: PCP Internal Medicine; Referring Provider Internal Medicine Cardiovascular Disease; Visit Provider Internal Medicine Cardiovascular Disease
DX: I34.0 Nonrheumatic mitral (valve) insufficiency (principal)
CPT/HCPCS: 93306; Q9957; A4216; C8929

== ENCOUNTER → 2020-01-03 12:36 | Outpatient (CLI) | payer MEDICARE, OTHER, SELFPAY ==
[2017-07-15 14:36] VITALS: BMI 31.1
[2019-09-17 09:22] VITALS: BMI 33.1
[2019-12-20 13:08] VITALS: BMI 33.1
--- NOTE | 2020-01-03 12:37 | CT_ITS ---
STUDY: CT CHEST WITH CONTRAST REASON FOR EXAM: Female, 79 years old. MONITORING LUNG CA RADIATION DOSAGE (If Supplied By Facility): CTDIvol = ( 10.55 ) mGy, DLP = ( 388.57 ) mGycm TECHNIQUE: Transaxial imaging was performed following intravenous administration of IV 100mL Isovue-300. Multiplanar coronal and sagittal images were reformatted. Individualized dose optimization techniques were used for this CT. COMPARISON: Comparison is made with prior study dated 07/02/2019. FINDINGS: Mild degree of emphysematous changes. Stable irregular nodule in the right middle lobe. Stable mild degree of reticulation and groundglass opacity in the anterior aspect of the right lower lobe with a thickening of the major fissure. Stable linear scarring in the lingular segment of the left upper lobe. There are calcifications of the coronary arteries. Normal mediastinum. Normal hilar regions. Normal enhanced pulmonary arteries. There is atherosclerotic calcification of the aortic arch with tortuosity and elongation of the aortic arch and descending thoracic aorta. There is demineralization of the thoracic spine. Stable compression deformities of the T8 and T12 vertebral bodies. There is no demonstrated abnormality of the visualized upper abdomen. CT/Chest WITH Contrast IMPRESSION: Stable examination. Electronically Signed: Naresh Varghese, at 13:19 EDT , Service support ,
[2020-01-03 12:51] LABS: CREATININE FINGERSTICK 0.7 mg/dL (0.55-1.02); EGFR FINGERSTICK > 60.0000 mL/min (>60)
== END ==
PROVIDERS: PCP Internal Medicine; Referring Provider Internal Medicine Medical Oncology; Visit Provider Internal Medicine Medical Oncology
DX: C34.91 Malignant neoplasm of unspecified part of right bronchus or lung (principal); Z85.118 Personal history of other malignant neoplasm of bronchus and lung
CPT/HCPCS: 71260; Q9967

== ENCOUNTER → 2020-03-30 13:40 | Outpatient (CLI) | payer MEDICARE, OTHER, SELFPAY ==
[2017-07-15 14:36] VITALS: BMI 31.1
[2020-03-30 12:47] VITALS: BMI 31.7
[2020-03-30 13:57] LABS: Absolute Lymphocyte Count 2.09 X10^3/uL (0.83-4.51); Absolute Neutrophil Count 5.1 X10^3/uL (2.0-7.7); Basophil# 0.03 X10^3/uL; Basophil% 0.4 % (0-1); Eosinophil# 0.01 X10^3/uL; Eosinophils% 0.1 % (0-5); Hematocrit 42.4 % (37-47); Hemoglobin 13.5 g/dL (12.0-15.0); Lymphocyte # 2.09 X10^3/ul (4.0); Lymphocyte % 26.6 % (19-41); Mean Corp Hgb Conc 31.8 g/dL (32-36); Mean Corpuscular Hgb 29.4 pg (27.0-32.0); Mean Corpuscular Volume 92.4 fL (81-99); Mean Platelet Vol. 9.9 fl (6.2-12.0); Monocyte% 7.6 % (0-10); NRBC Flagged by Analyzer 0 % (0-5); Neutrophil # 5.08 X10^3/uL (2.7-7.7); Neutrophil % 64.5 % (47-70); Platelet Count 291 K/mm3 (150-450); RBC Distribution Width CV 16.2 % (11.6-14.6); RBC Distribution Width SD 55.2 fl (35.1-43.9); Red Blood Count 4.59 M/mm3 (4.2-5.4); White Blood Count 7.9 K/mm3 (4.4-11.0)
[2020-03-30 14:14] LABS: Anion Gap 4 (5-15); BUN 16 mg/dL (7-18); BUN/Creat Ratio 16.5 RATIO (10-20); Calcium,Total 8.9 mg/dL (8.5-10.1); Chloride 105 mmol/L (98-107); Creatinine, Serum 0.97 mg/dL (0.55-1.02); EST Glomerular Filtration Rate 59 mL/min (>60); Est Glom Filt Rate - Afr Amer 71 mL/min (>60); Glucose 105 mg/dL (74-106); Potassium 4.6 mmol/L (3.5-5.1); Sodium Level 136 mmol/L (136-145)
[2020-03-30 21:54] LABS: Xtra Tube EP Lab EXTRA TUBE
== END ==
PROVIDERS: PCP Internal Medicine; Referring Provider Internal Medicine Critical Care Medicine; Visit Provider Internal Medicine Critical Care Medicine
DX: R53.83 Other fatigue (principal); Z85.118 Personal history of other malignant neoplasm of bronchus and lung
CPT/HCPCS: 36415; 80048; 85025

== ENCOUNTER → 2020-05-24 12:45 | Outpatient (CLI) | payer MEDICARE, OTHER, SELFPAY ==
[2017-07-15 14:36] VITALS: BMI 31.1
[2020-03-30 12:47] VITALS: BMI 31.7
--- NOTE | 2020-05-25 10:26 | PFT ---
INTRODUCTION: The patient is a 80-year-old female that presents for pulmonary function studies secondary to a diagnosis of pneumonitis. Respiratory therapy reports good patient effort. Bronchodilators were used during testing. INTERPRETATION: Forced expiration spirometry demonstrates the presence of a severe large airways obstructive ventilatory defect. There was a significant response to aerosolized bronchodilators noted. Spirograms are of fair quality and do not plateau indicating slow emptying of the lungs. Body plethysmography was performed and reveals an elevated RV to 123% of predicted, indicative of underlying air trapping. Diffusing capacity by single breath CO is reduced at 41% of predicted. When compared to prior pulmonary function studies dated November 2018, there has been a 17% reduction in FEV1 along with a 31% reduction in total lung capacity. 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 There has been worsening in the patient's pulmonary function studies since November 2018, as noted above.
== END ==
PROVIDERS: PCP Internal Medicine; Referring Provider Internal Medicine Critical Care Medicine; Visit Provider Internal Medicine Critical Care Medicine
DX: J70.0 Acute pulmonary manifestations due to radiation (principal)
CPT/HCPCS: 94060; 94726; 94729

== ENCOUNTER → 2020-07-05 12:37 | Outpatient (CLI) | payer MEDICARE, OTHER, SELFPAY ==
[2017-07-15 14:36] VITALS: BMI 31.1
[2020-01-10 11:51] VITALS: BMI 33.5
[2020-06-23 13:17] VITALS: BMI 34.2
--- NOTE | 2020-07-05 12:38 | CT_ITS ---
STUDY: CT CHEST WITH CONTRAST REASON FOR EXAM: Female, 80 years old. FOLLOW UP NON SMALL CELL LUNG CA -- RADIATION TX RADIATION DOSAGE (If Supplied By Facility): CTDIvol = ( 10.93 ) mGy, DLP = ( 412.08 ) mGycm TECHNIQUE: Transaxial imaging was performed following intravenous administration of IV 100mL Isovue-370. Multiplanar coronal and sagittal images were reformatted. Individualized dose optimization techniques were used for this CT. COMPARISON: Comparison is made with prior study dated 01/03/2020. FINDINGS: Hyperinflation. Mild degree of emphysematous changes. Since prior study, there has been slight increase in size of the irregular nodule in the right middle lobe as seen on axial image #73 and coronal image #111. It presently measures 1.5 cm x 1.2 cm. Previously, it measured 1.3 cm x 0.8 cm. Stable scarring in the lingular segment of the left upper lobe as well as the right middle lobe. There is no demonstrated pleural abnormality. Normal heart and pericardium. Normal mediastinum. Normal hilar regions. Normal enhanced pulmonary arteries. There is atherosclerotic calcification of the aortic arch . There is demineralization of the thoracic spine. Stable compression deformity of the T8 and T12 vertebral body. Small hiatal hernia. CT/Chest WITH Contrast IMPRESSION: Mild increase in size of the previously seen irregular nodular density in the right middle lobe as described. The remainder of the examination is unchanged. Electronically Signed: Naresh Varghese MD at 13:37 EST , Service support ,
[2020-07-05 12:55] LABS: CREATININE FINGERSTICK 1.1 mg/dL (0.55-1.02)
== END ==
PROVIDERS: PCP Internal Medicine; Referring Provider Internal Medicine Medical Oncology; Visit Provider Internal Medicine Medical Oncology
DX: C34.91 Malignant neoplasm of unspecified part of right bronchus or lung (principal)
CPT/HCPCS: 71260; Q9967

== ENCOUNTER 2020-11-04 08:22 | Emergency (ER) | payer MEDICARE, OTHER, SELFPAY ==
[2017-07-15 14:36] VITALS: BMI 31.1
[2020-07-10 13:48] VITALS: BMI 34.5
[2020-11-04 08:24] VITALS: BP 141/75; PULSE 99; RESP 16; TEMP 36.1; O2SAT 96; BMI 35.2
[2020-11-04 09:07] LABS: Bacteria 0 SEEN /hpf (None Seen); Mucous, Urine 0 SEEN /hpf (<or=2+); Squamous Epithelial Cells - UA 0 SEEN /hpf (5-10)
[2020-11-04 09:09] LABS: Color, Urine Yellow (Yellow); Glucose, Dipstick Normal (Normal); Ketone-Dipstick Negative (Negative); Leukocyte Esterase-Dipstick 500 /ul (Negative); Nitrite-Dipstick Negative (Negative); Occult Blood-Urine 250 /ul (Negative); Protein-Dipstick 100 mg/dl (Negative); Urine Bilirubin Dipstick Negative (Negative); Urine Clarity Sl. Cloudy (Clear); Urine Urobilinogen Normal (Normal); Urine pH 6.5 (5.0 - 8.0)
--- NOTE | 2020-11-04 09:13 | EDS_ITS ---
HPI History of Present Illness Chief Complaint: Complaint Informant: patient Narrative Narrative: Patient is a 80-year-old female who presents to the emergency department for generally not feeling well over the past 3 days. She developed nausea and vomiting as well. She states that she passed a couple clots in her urine. She is having difficulty going until this morning. She denies any burning with urination. She was having some suprapubic pressure. She states that she has also been coughing. She thought this was initially related to seasonal allergies but has been much worse. She does have chronic lung issues and states she has shortness of breath at baseline. This does not feel worse than normal. She is currently in remission for lung cancer. They are to follow-up on this in a month. She does have COPD and quit smoking 5 years ago. She denies any chest pain. She did have a fever at the onset but this is since resolved. She has been having some chills. She denies any flank pain associated with this. No change in moving bowels. [facility] Medical History (Updated 11/04/20 @ 10:[address] Torin Cochran, ) Acute on chronic systolic (congestive) heart failure Asthma Santos's esophagus Congestive heart failure (CHF) Congestive heart failure (CHF) Dysphagia Dyspnea History of non-Hodgkin's lymphoma Hyperlipemia Hypogammaglobulinemia Hypotension Iatrogenic pneumothorax Lung nodule seen on imaging study Non-ischemic cardiomyopathy Non-small cell cancer of right lung Occlusion and stenosis of right carotid artery Oral thrush Pharyngitis Pneumothorax PVD (peripheral vascular disease) Radiation pneumonitis Right sided pneumothorax Stage 1 mild COPD by GOLD classification Home Medications albuterol sulfate 1 - 2 puff INHALATION Q6H PRN PRN 09/20/14 [History Last Taken 09/08/18] uh-fx-MF-vit J-zavuo-rmis-zeax 1 ea PO DAILY 08/19/16 [History Last Taken 04/04/18] calcium carbonate 500 mg PO DAILY 10/03/16 [History Last Taken 04/04/18] ergocalciferol (vitamin D2) 50,000 unit PO Q7D 10/03/16 [History Last Taken 04/03/18] aspirin 81 mg PO DAILY@0800 04/04/18 [History Last Taken 09/08/18] prednisone 5 mg PO QDAY 04/04/18 [History Last Taken 04/04/18] fexofenadine 180 mg PO DAILY 12/02/18 [History Last Taken Unknown] losartan 25 mg tablet 25 mg PO DAILY #90 tab 04/23/19 [Rx Last Taken Unknown] pantoprazole 20 mg tablet,delayed release 20 mg PO DAILY 08/12/19 [History Last Taken Unknown] furosemide 20 mg tablet 40 mg PO DAILY #180 tab 08/30/19 [Rx Last Taken Unknown] budesonide 1 mg/2 mL suspension for nebulization 0.5 mg INHALATION BID #60 ml 09/17/19 [Rx Last Taken Unknown] albuterol sulfate 1.25 mg/3 mL solution for nebulization 1.25 mg CONTINUOUS NEBULIZATION Q4H #90 ml MDD WHEEZING 03/13/20 [Rx Last Taken Unknown] ipratropium 20 mcg-albuterol 100 mcg/actuation mist for inhalation 1 puff INHALATION 4X/DAY PRN #4 g 03/20/20 [Rx Last Taken Unknown] montelukast 10 mg tablet 10 mg PO QHS #90 tab 04/24/20 [Rx Last Taken Unknown] carvedilol 3.125 mg tablet 3.125 mg PO BID #180 tab 09/19/20 [Rx Last Taken Unknown] cefdinir 300 mg PO Q12H 10 Days #20 cap 11/04/20 [Rx Last Taken Unknown] Allergy/AdvReac Type Severity Reaction Status Date / Time alendronate sodium Allergy Severe Other Verified 11/04/20 08:24 [From Fosamax] budesonide Allergy Severe Other Verified 11/04/20 08:24 fluticasone Allergy Severe Other Verified 11/04/20 08:24 [From Advair Diskus] Penicillins [PCN] Allergy Severe Shortness Verified 11/04/20 08:24 of breath salmeterol Allergy Severe Other Verified 11/04/20 08:24 [From Advair Diskus] tiotropium Allergy Severe Other Verified 11/04/20 08:24 [From Spiriva with HandiHaler] umeclidinium Allergy Severe Other Verified 11/04/20 08:24 [From Anoro Ellipta] vilanterol Allergy Severe Other Verified 11/04/20 08:24 [From Anoro Ellipta] doxycycline Allergy Shortness Verified 11/04/20 08:24 of breath carvedilol [From Coreg] AdvReac Severe SOB Verified 11/04/20 08:24 dexamethasone AdvReac Other Verified 11/04/20 08:24 Family History Sister No problems noted. Daughter Thyroid cancer Cancer Kidney malignancy Brother COLON CANCER Daughter Cancer, Onset Age: 40 ovarian Son Cancer skin Other Colon cancer Surgical History H/O right breast biopsy History of angioplasty of peripheral vessel (2014) History of hysterectomy History of left heart catheterization (09/08/18) History of lung biopsy neck mass biopsy Social History Smoking Status: Former smoker how long ago did patient quit smokin years ago second hand exposure: No alcohol intake: never substance use type: does not use caffeine: Yes Type: coffee Number of servings: 1 ROS ROS ED Constitutional Constitutional ED: Reports chills Eyes Eyes: Denies change in vision ENT ENT ED: Denies epistaxis or rhinorrhea Cardiovascular Cardiovascular: Denies chest pain or palpitations Respiratory/Chest Respiratory/Chest: Reports cough and dyspnea Gastrointestinal Gastrointestinal: Reports nausea and vomiting; Denies abdominal pain or diarrhea Genitourinary Genitourinary ED: Reports hematuria; Denies dysuria or urinary frequency Musculoskeletal Musculoskeletal: Denies back pain or neck pain Integumentary Denies rash Neurologic Neurologic: Denies dizziness, headache(s) or weakness EXAM Physical Exam Const Vital Signs: 11/04/20 08:24 11/04/20 10:20 11/04/20 11:04 Temperature 96.9 F L Temperature Source Temporal Pulse Rate 99 85 91 Respiratory Rate 16 16 22 H Blood Pressure 141/75 H 141/85 H Blood Pressure Mean 97 103 Pulse Ox 96 98 93 Oxygen Delivery Method Room Air Room Air Positive well nourished and well developed General Appearance ED: well developed and NAD HEENT Reports normocephalic and head/scalp atraumatic Eyes PERRL and EOMs intact bilaterally Neck supple Resp normal respiratory effort and clear to auscultation bilaterally Auscultation: Negative for rales, rhonchi or wheezes Cardio regular rate, regular rhythm and no murmurs GI normal to inspection, nondistended, normoactive bowel sounds and non-tender Palpation: soft; Negative for guarding or rebound tenderness present Back/Spine no CVA tenderness Extremity normal to inspection General Extremety ED: Negative for tenderness Neuro CN's II-XII intact bilaterally and no sensory deficits noted Sensorium / Orientation: alert Motor Exam: strength 5/5 throughout Psych mental status grossly normal Skin no rashes or lesions noted MDM MDM MDM Narrative Medical decision making narrative: Patient presents to the emergency department for hematuria and difficulty urinating. She also has a cough and shortness of breath. She has been nauseous and vomiting and feeling generally poor. She is had some chills. Upon arrival to the emergency department she is borderline tachycardic but otherwise normal vital signs. She is in no acute distress. She was able to give a urine sample. Will check basic lab work and chest x-ray as well as the urinalysis. Patient's urine does show signs of infection. This will be sent for culture. Because she has had this cough going on I did obtain a chest x-ray. This was significant for developing right lower lobe pneumonia. She otherwise has no signs of sepsis. She has been satting well throughout ED stay. She is in no distress. Will place her on Omnicef to cover both the UTI and the pneumonia. She understands she needs a repeat x-ray to make sure that this resolves. Return precautions are reviewed with her including any significant shortness of breath, chest pain, fever or inability keep down antibiotics. She is agreeable with this plan. Discharged home in stable condition. All questions were answered. Lab Data Labs: Laboratory Results - last 24 hr 11/04/20 11/04/20 11/04/20 09:00 09:30 09:30 WBC 11.2 H RBC 4.35 Hgb 12.9 Hct 40.5 MCV 93.1 MCH 29.7 MCHC 31.9 L RDW Std Deviation 54.8 H RDW Coeff of Mauricio 15.9 H Plt Count 269 MPV 10.3 Immature Gran % (Auto) 0.400 Neut % (Auto) 75.8 H Lymph % (Auto) 13.8 L Scurry % (Auto) 9.3 Eos % (Auto) 0.3 Baso % (Auto) 0.4 Absolute Neuts (auto) 8.5 H Absolute Lymphs (auto) 1.55 Nucleated RBC % 0 Sodium 140 Potassium 4.0 Chloride 106 Carbon Dioxide 30.0 Anion Gap 4 L BUN 15 Creatinine 0.64 Estim Creat Clear Calc 36.50 Est GFR (MDRD) Af Amer 115 Est GFR (MDRD) Non-Af 95 BUN/Creatinine Ratio 23.6 H Glucose 101 Calcium 8.7 Total Bilirubin 0.40 AST 12 L ALT 15 Alkaline Phosphatase 66 Total Protein 6.6 Albumin 3.4 Globulin 3.2 Albumin/Globulin Ratio 1.1 Urine Color Yellow Urine Clarity Sl. Cloudy Urine pH 6.5 Ur Specific [place] 1.010 Urine Protein 100 H Urine Glucose (UA) Normal Urine Ketones Negative Urine Occult Blood 250 H Urine Nitrite Negative Urine Bilirubin Negative Urine Urobilinogen Normal Ur Leukocyte Esterase 500 H Urine RBC 0-5 SEEN Urine WBC 25-50 SEEN Ur Squamous Epith Cells 0 SEEN Urine Bacteria 0 SEEN Urine Mucus 0 SEEN Radiography Diagnostic Testing: Radiology Impression Chest X-Ray 11/04/20 09:20 IMPRESSION: Right basilar opacity which may represent developing pneumonia. at 0958 Reported and signed by: Harvey Hubbard MD Electronically Signed: Harvey Hubbard MD at 9:57 EDT Tel , Service support , Single view portable x-ray interpreted by myself. There are evidence of infiltrates in the right lower lobe. Otherwise normal cardiac silhouette, normal mediastinum. Agree with radiologist interpretation. Discharge Plan Triage Chief Complaint: Complaint ED Provider: Torin Cochran Dx/Rx/DC Orders Clinical Impression: Community acquired pneumonia, Cystitis Instructions: ED Pneumonia (Adult), ED Bladder Infection, Female (Adult) Prescriptions: New cefdinir 300 mg capsule 300 mg PO Q12H 10 Days Qty: 20 RF: 0 No Action pantoprazole 20 mg tablet,delayed release (DR/EC) 20 mg PO DAILY RF: 0 budesonide 1 mg/2 mL suspension for nebulization 0.5 mg INHALATION BID Qty: 60 RF: 3 albuterol sulfate 1 INHALER inhaler 1 - 2 puff INHALATION Q6H PRN PRN (Reason: Wheezing) RF: 0 ho-pm-MD-vit M-bgxgc-qvsh-zeax 1 EACH tablet 1 ea PO DAILY RF: 0 fexofenadine 180 MG tablet 180 mg PO DAILY RF: 0 ergocalciferol (vitamin D2) 50,000 UNIT capsule 50,000 unit PO Q7D RF: 0 calcium carbonate 500 MG tablet 500 mg PO DAILY RF: 0 prednisone 10 MG tablet 5 mg PO QDAY RF: 0 aspirin 81 MG tablet,chewable 81 mg PO DAILY@0800 RF: 0 losartan 25 mg tablet 25 mg PO DAILY Qty: 90 RF: 3 furosemide 20 mg tablet 40 mg PO DAILY Qty: 180 RF: 3 albuterol sulfate 1.25 mg/3 mL solution for nebulization 1.25 mg Continuous Nebulization Q4H MDD WHEEZING Qty: 90 RF: 3 ipratropium-albuterol 20-100 mcg/actuation mist 1 puff INHALATION 4X/DAY PRN (Reason: J44.9 COPD) Qty: 4 RF: 0 montelukast 10 mg tablet 10 mg PO QHS Qty: 90 RF: 3 carvedilol [Coreg] 3.125 mg tablet 3.125 mg PO BID Qty: 180 RF: 3 Primary Care Provider: Ashley Stephens Referrals: Ashley Stephens MD [Primary Care Provider] - 3-5 Days Activity Restrictions/Additional Instructions: You will need follow-up chest x-ray to make sure that the right lower lobe infiltrate (pneumonia) resolves. Disposition Disposition: Home, self care Discharge Date/Time: 11/04/20 11:05
[2020-11-04 09:16] LABS: Red Blood Cells-Urine 0-5 SEEN /hpf (0-5)
[2020-11-04 09:17] LABS: White Blood Cells 25-50 SEEN /hpf (0-5)
--- NOTE | 2020-11-04 09:20 | RAD_ITS ---
EXAM: XR CHEST, 1 VIEW : 1940 CLINICAL INDICATION: Cough TECHNIQUE: Frontal view of the chest. This report was created using [employer] report generation technology. COMPARISON: None. FINDINGS: LUNGS AND PLEURAL SPACES: There is asymmetric opacity at the right base possibly representing developing right lower lobe pneumonia. No pneumothorax. No effusion. HEART: Unremarkable. Cardiac silhouette not enlarged. MEDIASTINUM: Central airways and mediastinal contour are unremarkable. BONES/JOINTS: Unremarkable. SOFT TISSUES: Unremarkable. RAD/Chest 1 View (Portable) IMPRESSION: Right basilar opacity which may represent developing pneumonia. at 0958 Reported and signed by: Harvey Hubbard MD Electronically Signed: Harvey Hubbard MD at 9:57 EDT Tel , Service support ,
[2020-11-04 09:33] LABS: Absolute Lymphocyte Count 1.55 X10^3/uL (0.83-4.51); Absolute Neutrophil Count 8.5 X10^3/uL (2.0-7.7); Basophil# 0.04 X10^3/uL; Basophil% 0.4 % (0-1); Eosinophil# 0.03 X10^3/uL; Eosinophils% 0.3 % (0-5); Hematocrit 40.5 % (37-47); Hemoglobin 12.9 g/dL (12.0-15.0); Lymphocyte # 1.55 X10^3/ul (0.83-4.51); Lymphocyte % 13.8 % (19-41); Mean Corp Hgb Conc 31.9 g/dL (32-36); Mean Corpuscular Hgb 29.7 pg (27.0-32.0); Mean Corpuscular Volume 93.1 fL (81-99); Mean Platelet Vol. 10.3 fl (6.2-12.0); Monocyte# 1.04 X10^3/uL; Monocyte% 9.3 % (0-10); NRBC Flagged by Analyzer 0 % (0-5); Neutrophil # 8.51 X10^3/uL (2.7-7.7); Neutrophil % 75.8 % (47-70); Platelet Count 269 K/mm3 (150-450); RBC Distribution Width CV 15.9 % (11.6-14.6); RBC Distribution Width SD 54.8 fl (35.1-43.9); Red Blood Count 4.35 M/mm3 (4.2-5.4); White Blood Count 11.2 K/mm3 (4.4-11.0)
[2020-11-04 10:01] LABS: ALB/GLOB Ratio 1.1 RATIO (0.9-2.4); AST(SGOT) 12 U/L (15-37); Alanine Aminotransfer ALT/SGPT 15 U/L (13-56); Albumin, Serum 3.4 g/dL (3.2-5.0); Alkaline Phosphatase 66 U/L (45-117); Anion Gap 4 (5-15); BUN 15 mg/dL (7-18); BUN/Creat Ratio 23.6 RATIO (10-20); Calcium,Total 8.7 mg/dL (8.5-10.1); Chloride 106 mmol/L (98-107); Creatinine, Serum 0.64 mg/dL (0.55-1.02); EST Glomerular Filtration Rate 95 mL/min (>60); Est Glom Filt Rate - Afr Amer 115 mL/min (>60); Globulin 3.2 g/dL (2.2-4.2); Glucose 101 mg/dL (74-106); Protein, Total 6.6 g/dL (6.4-8.2); Sodium Level 140 mmol/L (136-145)
[2020-11-04 10:20] VITALS: BP 141/85; PULSE 85; RESP 16; O2SAT 98
[2020-11-04 11:04] VITALS: PULSE 91; RESP 22; O2SAT 93
== END 2020-11-04 11:05 | disposition home or self-care (01) ==
PROVIDERS: Emergency Provider Emergency Medicine; PCP Internal Medicine
DX: J18.9 Pneumonia, unspecified organism (principal); N30.90 Cystitis, unspecified without hematuria; I50.23 Acute on chronic systolic (congestive) heart failure; J44.0 Chronic obstructive pulmonary disease with (acute) lower respiratory infection; Z87.891 Personal history of nicotine dependence; Z85.72 Personal history of non-Hodgkin lymphomas; Z79.899 Other long term (current) drug therapy; Z79.82 Long term (current) use of aspirin; Z79.51 Long term (current) use of inhaled steroids
CPT/HCPCS: 71045; 80053; 81001; 85025; 87077; 87086; 87088; 87186; 99283

== ENCOUNTER 2020-11-18 07:52 | Emergency (ER) | payer MEDICARE, OTHER, SELFPAY ==
[2017-07-15 14:36] VITALS: BMI 31.1
[2020-11-16 15:26] VITALS: BMI 34.7
[2020-11-18 07:53] VITALS: BP 143/82; PULSE 85; RESP 20; O2SAT 97
[2020-11-18 07:54] VITALS: BP 123/63; PULSE 90; RESP 16; TEMP 36.7; O2SAT 95; BMI 35.0
--- NOTE | 2020-11-18 08:07 | EKG12_ITS ---
Test Reason : SOB Blood Pressure : / mmHG Vent. Rate : 085 BPM Atrial Rate : 096 BPM P-R Int : 172 ms QRS Dur : 084 ms QT Int : 390 ms P-R-T Axes : 057 -63 041 degrees QTc Int : 464 ms Sinus rhythm with marked sinus arrhythmia Left anterior fascicular block Cannot rule out Inferior infarct (masked by fascicular block?), age undetermined Abnormal ECG Confirmed by WALI MCGARRY, JOSE ([id number]), editorial assistant CHAYA MCDERMOTT ([id number]) on 11/21/2020 8:44:45 AM Referred By: CL Confirmed By:JOSE KEYES MD
--- NOTE | 2020-11-18 08:07 | RAD_ITS ---
History: dyspnea EXAMINATION/TECHNIQUE: XR Chest 1 View: Portable COMPARISON: November 04, 2020, CT chest July 05, 2020 FINDINGS: LINES/DEVICES: None. LUNGS: Persistent right middle lobe density consistent with postinflammatory scarring No pneumothorax. MEDIASTINUM AND CARDIOVASCULAR STRUCTURES: Cardiac silhouette not enlarged. Central airways and mediastinal contour are unremarkable. BONES AND SOFT TISSUES: Unremarkable. RAD/Chest 1 View (Portable) IMPRESSION: Persistent right middle lobe lung density consistent with postinflammatory scarring. at 0915 Reported and signed by: David Koo MD Electronically Signed: David Koo MD at 9:14 EDT Tel , Service support ,
[2020-11-18 08:25] VITALS: O2SAT 95
--- NOTE | 2020-11-18 08:28 | EDS_ITS ---
HPI History of Present Illness Chief Complaint: Shortness of Breath Informant: patient Narrative Narrative: 80-year-old female presents with shortness of breath and difficulty urinating. Patient was seen approximately 2 weeks ago with similar complaints. At that time was diagnosed with community-acquired pneumonia as well as urinary tract infection. Treated successfully with antibiotic therapy with a negative follow-up chest x-ray. States that over the past few days she has had increased shortness of breath. States that she does have a cough which is persistent. Patient does have COPD as well as an occult history of lung cancer requiring radiation 2 years ago. States that she does have difficulty urinating and feels like she has to urinate frequently. Denies any fever, chills, chest pain, nausea, vomiting, diaphoresis. PFSH PFS Medical History Asthma Santos's esophagus Chronic HFrEF (heart failure with reduced ejection fraction) Dysphagia Dyspnea History of non-Hodgkin's lymphoma Hyperlipemia Hypogammaglobulinemia Hypotension Iatrogenic pneumothorax Lung nodule seen on imaging study Non-ischemic cardiomyopathy Non-small cell cancer of right lung Occlusion and stenosis of right carotid artery Oral thrush Pharyngitis Pneumothorax PVD (peripheral vascular disease) Radiation pneumonitis Right sided pneumothorax Stage 1 mild COPD by GOLD classification Home Medications albuterol sulfate 1 - 2 puff INHALATION Q6H PRN PRN 09/20/14 [History Last Taken 09/08/18] ergocalciferol (vitamin D2) 50,000 unit PO Q7D 10/03/16 [History Last Taken 04/03/18] aspirin 81 mg PO DAILY@0800 04/04/18 [History Last Taken 09/08/18] prednisone 5 mg PO QDAY 04/04/18 [History Last Taken 04/04/18] fexofenadine 180 mg PO DAILY 12/02/18 [History Last Taken Unknown] pantoprazole 20 mg tablet,delayed release 20 mg PO DAILY 08/12/19 [History Last Taken Unknown] furosemide 20 mg tablet 40 mg PO DAILY #180 tab 08/30/19 [Rx Last Taken Unknown] budesonide 1 mg/2 mL suspension for nebulization 0.5 mg INHALATION BID #60 ml 09/17/19 [Rx Last Taken Unknown] ipratropium 20 mcg-albuterol 100 mcg/actuation mist for inhalation 1 puff INHALATION 4X/DAY PRN #4 g 03/20/20 [Rx Last Taken Unknown] montelukast 10 mg tablet 10 mg PO QHS #90 tab 04/24/20 [Rx Last Taken Unknown] carvedilol 3.125 mg tablet 3.125 mg PO BID #180 tab 09/19/20 [Rx Last Taken Unknown] benzonatate 100 mg capsule 100 mg PO TID cap 11/16/20 [History Last Taken Unknown] losartan 25 mg tablet 12.5 mg PO DAILY tab 11/16/20 [History Last Taken Unknown] prednisone 40 mg PO DAILY #10 tab 11/18/20 [Rx Last Taken Unknown] sulfamethoxazole-trimethoprim [Bactrim DS] 1 tab PO Q12H #14 tab 11/18/20 [Rx Last Taken Unknown] Allergy/AdvReac Type Severity Reaction Status Date / Time alendronate sodium Allergy Severe Other Verified 11/18/20 07:58 [From Fosamax] budesonide Allergy Severe Other Verified 11/18/20 07:58 fluticasone Allergy Severe Other Verified 11/18/20 07:58 [From Advair Diskus] Penicillins [PCN] Allergy Severe Shortness Verified 11/18/20 07:58 of breath salmeterol Allergy Severe Other Verified 11/18/20 07:58 [From Advair Diskus] tiotropium Allergy Severe Other Verified 11/18/20 07:58 [From Spiriva with HandiHaler] umeclidinium Allergy Severe Other Verified 11/18/20 07:58 [From Anoro Ellipta] vilanterol Allergy Severe Other Verified 11/18/20 07:58 [From Anoro Ellipta] doxycycline Allergy Shortness Verified 11/18/20 07:58 of breath carvedilol [From Coreg] AdvReac Severe SOB Verified 11/18/20 07:58 dexamethasone AdvReac Other Verified 11/18/20 07:58 Family History Sister No problems noted. Daughter Thyroid cancer Cancer Kidney malignancy Brother COLON CANCER Daughter Cancer, Onset Age: 40 ovarian Son Cancer skin Other Colon cancer Surgical History H/O right breast biopsy History of angioplasty of peripheral vessel (2014) History of hysterectomy History of left heart catheterization (09/08/18) History of lung biopsy neck mass biopsy Social History Smoking Status: Former smoker how long ago did patient quit smokin years ago second hand exposure: No alcohol intake: never substance use type: does not use caffeine: Yes Type: coffee Number of servings: 1 ROS ROS ED Constitutional Constitutional ED: Denies chills, fever(s) or sweats Eyes Eyes: Denies blurry vision, change in vision or diplopia ENT ENT ED: Denies rhinorrhea or sore throat Cardiovascular Cardiovascular: Denies chest pain, orthopnea, palpitations or racing heartbeat Respiratory/Chest Respiratory/Chest: Reports cough and dyspnea; Denies dyspnea on exertion, orthopnea or sputum Gastrointestinal Gastrointestinal: Denies abdominal pain, constipation, diarrhea, melena, nausea or vomiting Genitourinary Genitourinary ED: Reports dysuria and urinary frequency; Denies hematuria Musculoskeletal Musculoskeletal: Denies arthralgias, myalgias or neck pain Integumentary Denies rash Neurologic Neurologic: Denies headache(s), paresthesias or weakness Psychiatric Psychiatric: Denies anxiety or depression Hematologic/Lymphatic Hematologic/Lymphatic: Denies easy bleeding or easy bruising Allergic/Immunologic Allergic/Immunologic ED: Denies mouth swelling or tongue swelling EXAM Physical Exam Const Vital Signs: 11/18/20 07:53 11/18/20 07:54 11/18/20 08:25 Temperature 98.0 F Temperature Source Temporal Pulse Rate 85 90 Respiratory Rate 20 H 16 Respiratory Effort Short of Breath Labored Accessory Muscle Use Respiratory Depth Normal Respiratory Pattern Normal Blood Pressure 143/82 H 123/63 H Blood Pressure Mean 102 83 Pulse Ox 97 95 Oxygen Delivery Method Room Air Room Air Room Air Positive well nourished and well developed General Appearance ED: well developed HEENT Reports TM's clear and moist mucous membranes normocephalic and atraumatic Tympanic Membrane ED: Yes TM's clear Eyes PERRL and EOMs intact bilaterally Neck no lymphadenopathy, supple and no JVD Chest Wall inspection of chest normal Resp normal respiratory effort Resp Narrative: Decreased breath sounds bilaterally. No evidence of wheezing or rhonchi. Cardio regular rate, S1 normal heart sound, S2 normal heart sound and no murmurs Peripheral Pulses: pulses 2+ throughout GI soft to palpation, non-tender and non-distended Back/Spine no CVA tenderness and no thoracic nor lumbar tenderness Extremity normal to inspection General Extremety ED: Negative for edema or tenderness General Extremity: Negative for edema Neuro oriented x3, CN's II-XII intact bilaterally and no sensory deficits noted Sensorium / Orientation: alert Motor Exam: strength 5/5 throughout Psych mental status grossly normal Skin no rashes or lesions noted MDM MDM MDM Narrative Medical decision making narrative: Patient appears well and nontoxic. Vital signs within normal limits. No respiratory distress. No hypoxemia. BNP negative. No leukocytosis. EKG nonischemic. Urine does show evidence of continued urinary tract infection. Patient will be started on Bactrim. She does take prednisone daily 5 mg. Will be advised to stop this and start 40 mg for the next 5 days. Asked to follow-up with her primary care for the provider. Discharged home in stable condition. Lab Data Attestation: I reviewed the patient's lab results. Labs: Laboratory Results - last 24 hr 11/18/20 11/18/20 11/18/20 08:24 08:24 08:24 WBC 10.5 RBC 4.35 Hgb 12.9 Hct 39.9 MCV 91.7 MCH 29.7 MCHC 32.3 RDW Std Deviation 53.4 H RDW Coeff of Mauricio 15.9 H Plt Count 260 MPV 10.9 Immature Gran % (Auto) 0.500 Neut % (Auto) 72.1 H Lymph % (Auto) 16.5 L Atkinson % (Auto) 10.0 Eos % (Auto) 0.5 Baso % (Auto) 0.4 Absolute Neuts (auto) 7.6 Absolute Lymphs (auto) 1.73 Nucleated RBC % 0 Sodium 139 Potassium 4.0 Chloride 103 Carbon Dioxide 29.0 Anion Gap 7 BUN 14 Creatinine 0.65 Estim Creat Clear Calc 36.50 Est GFR (MDRD) Af Amer 112 Est GFR (MDRD) Non-Af 93 BUN/Creatinine Ratio 21.5 H Glucose 108 H Calcium 8.5 Troponin I High Sens 6.9 B-Natriuretic Peptide 68.2 Urine Color Urine Clarity Urine pH Ur Specific Stanfield Urine Protein Urine Glucose (UA) Urine Ketones Urine Occult Blood Urine Nitrite Urine Bilirubin Urine Urobilinogen Ur Leukocyte Esterase Urine RBC Urine WBC Ur Squamous Epith Cells Urine Bacteria Urine Mucus 11/18/20 09:40 WBC RBC Hgb Hct MCV MCH MCHC RDW Std Deviation RDW Coeff of Mauricio Plt Count MPV Immature Gran % (Auto) Neut % (Auto) Lymph % (Auto) Atkinson % (Auto) Eos % (Auto) Baso % (Auto) Absolute Neuts (auto) Absolute Lymphs (auto) Nucleated RBC % Sodium Potassium Chloride Carbon Dioxide Anion Gap BUN Creatinine Estim Creat Clear Calc Est GFR (MDRD) Af Amer Est GFR (MDRD) Non-Af BUN/Creatinine Ratio Glucose Calcium Troponin I High Sens B-Natriuretic Peptide Urine Color Yellow Urine Clarity Cloudy Urine pH 7.0 Ur Specific Stanfield 1.010 Urine Protein 30 H Urine Glucose (UA) Normal Urine Ketones Negative Urine Occult Blood 150 H Urine Nitrite Negative Urine Bilirubin Negative Urine Urobilinogen Normal Ur Leukocyte Esterase 500 H Urine RBC 5-10 SEEN Urine WBC 50-100 SEEN Ur Squamous Epith Cells 0-5 SEEN Urine Bacteria 1+ Urine Mucus 0 SEEN Radiography Chest X-Ray - ED: 1 View, Read by ED Physician, Read by Radiologist and Chronic Changes Diagnostic Testing: Radiology Impression Chest X-Ray 11/18/20 08:07 IMPRESSION: Persistent right middle lobe lung density consistent with postinflammatory scarring. at 0915 Reported and signed by: David Koo MD Electronically Signed: David Koo MD at 9:14 EDT Tel , Service support , Rhythm Strip Rhythm Strip: Sinus Rhythm Rate: 85 Ectopy: None EKG Initial EKG: Interpretation: Sinus Rhythm Comments: Normal sinus rhythm at 85 bpm. Sinus arrhythmia. Left anterior fascicular block. No evidence of acute ischemia. AZ interval 172 ms. QTC of 464 ms. Discharge Plan Triage Chief Complaint: Shortness of Breath ED Provider: Matt Rivera Dx/Rx/DC Orders Clinical Impression: Dyspnea, Cystitis Instructions: Chronic Lung Disease ..., ED CYSTITIS Female Adult Prescriptions: New sulfamethoxazole-trimethoprim [Bactrim DS] 800-160 mg tablet 1 tab PO Q12H Qty: 14 RF: 0 prednisone 20 mg tablet 40 mg PO DAILY Qty: 10 RF: 0 No Action pantoprazole 20 mg tablet,delayed release (DR/EC) 20 mg PO DAILY RF: 0 budesonide 1 mg/2 mL suspension for nebulization 0.5 mg INHALATION BID Qty: 60 RF: 3 benzonatate 100 mg capsule 100 mg PO TID RF: 0 losartan 25 mg tablet 12.5 mg PO DAILY RF: 0 albuterol sulfate 1 INHALER inhaler 1 - 2 puff INHALATION Q6H PRN PRN (Reason: Wheezing) RF: 0 fexofenadine 180 MG tablet 180 mg PO DAILY RF: 0 ergocalciferol (vitamin D2) 50,000 UNIT capsule 50,000 unit PO Q7D RF: 0 prednisone 10 MG tablet 5 mg PO QDAY RF: 0 aspirin 81 MG tablet,chewable 81 mg PO DAILY@0800 RF: 0 furosemide 20 mg tablet 40 mg PO DAILY Qty: 180 RF: 3 ipratropium-albuterol 20-100 mcg/actuation mist 1 puff INHALATION 4X/DAY PRN (Reason: J44.9 COPD) Qty: 4 RF: 0 montelukast 10 mg tablet 10 mg PO QHS Qty: 90 RF: 3 carvedilol [Coreg] 3.125 mg tablet 3.125 mg PO BID Qty: 180 RF: 3 Primary Care Provider: Ashley Stephens Referrals: Ashley Stephens MD [Primary Care Provider] - 2 Days Disposition Disposition: Home, Self Care
[2020-11-18 08:33] LABS: Absolute Lymphocyte Count 1.73 X10^3/uL (0.83-4.51); Absolute Neutrophil Count 7.6 X10^3/uL (2.0-7.7); Basophil# 0.04 X10^3/uL; Basophil% 0.4 % (0-1); Eosinophil# 0.05 X10^3/uL; Eosinophils% 0.5 % (0-5); Hematocrit 39.9 % (37-47); Hemoglobin 12.9 g/dL (12.0-15.0); Lymphocyte # 1.73 X10^3/ul (0.83-4.51); Lymphocyte % 16.5 % (19-41); Mean Corp Hgb Conc 32.3 g/dL (32-36); Mean Corpuscular Hgb 29.7 pg (27.0-32.0); Mean Corpuscular Volume 91.7 fL (81-99); Mean Platelet Vol. 10.9 fl (6.2-12.0); Monocyte# 1.05 X10^3/uL; NRBC Flagged by Analyzer 0 % (0-5); Neutrophil # 7.58 X10^3/uL (2.7-7.7); Neutrophil % 72.1 % (47-70); Platelet Count 260 K/mm3 (150-450); RBC Distribution Width CV 15.9 % (11.6-14.6); RBC Distribution Width SD 53.4 fl (35.1-43.9); Red Blood Count 4.35 M/mm3 (4.2-5.4); White Blood Count 10.5 K/mm3 (4.4-11.0)
[2020-11-18 08:51] LABS: Anion Gap 7 (5-15); BUN 14 mg/dL (7-18); BUN/Creat Ratio 21.5 RATIO (10-20); Calcium,Total 8.5 mg/dL (8.5-10.1); Chloride 103 mmol/L (98-107); Creatinine, Serum 0.65 mg/dL (0.55-1.02); EST Glomerular Filtration Rate 93 mL/min (>60); Est Glom Filt Rate - Afr Amer 112 mL/min (>60); Glucose 108 mg/dL (74-106); Sodium Level 139 mmol/L (136-145); Troponin-I HS 6.9 pg/mL (3.0-53.7)
[2020-11-18 09:04] LABS: BNP,B-Type NATRIURETIC PEPTIDE 68.2 pg/mL (0-100)
[2020-11-18 09:45] LABS: Mucous, Urine 0 SEEN /hpf (<or=2+)
[2020-11-18 09:47] LABS: Color, Urine Yellow (Yellow); Glucose, Dipstick Normal (Normal); Ketone-Dipstick Negative (Negative); Leukocyte Esterase-Dipstick 500 /ul (Negative); Nitrite-Dipstick Negative (Negative); Occult Blood-Urine 150 /ul (Negative); Protein-Dipstick 30 mg/dl (Negative); Urine Bilirubin Dipstick Negative (Negative); Urine Clarity Cloudy (Clear); Urine Urobilinogen Normal (Normal)
[2020-11-18 09:54] LABS: Bacteria 1+ /hpf (None Seen); Red Blood Cells-Urine 5-10 SEEN /hpf (0-5); Squamous Epithelial Cells - UA 0-5 SEEN /hpf (5-10); White Blood Cells 50-100 SEEN /hpf (0-5)
[2020-11-18 11:30] VITALS: BP 148/74; PULSE 71; RESP 16; O2SAT 97
--- NOTE | 2020-11-18 11:30 | ED.RN ---
THIS NURSE REVIEWED D/C INSTRUCTIONS WITH PT. PT VERBALIZED UNDERSTANDING OF INSTRUCTIONS. IV D/C. IV CATHETER INTACT. PT TOLERATED WELL. PT DENIES FURTHER NEEDS OR QUESTIONS AT [facility]
== END 2020-11-18 11:31 | disposition home or self-care (01) ==
PROVIDERS: Emergency Provider Emergency Medicine; PCP Internal Medicine
DX: N30.90 Cystitis, unspecified without hematuria (principal); R06.00 Dyspnea, unspecified; I44.4 Left anterior fascicular block; I11.0 Hypertensive heart disease with heart failure; I50.22 Chronic systolic (congestive) heart failure; I25.5 Ischemic cardiomyopathy; E78.5 Hyperlipidemia, unspecified; I65.21 Occlusion and stenosis of right carotid artery; I73.9 Peripheral vascular disease, unspecified; J44.9 Chronic obstructive pulmonary disease, unspecified; Z92.3 Personal history of irradiation; Z87.01 Personal history of pneumonia (recurrent); Z85.72 Personal history of non-Hodgkin lymphomas; Z85.118 Personal history of other malignant neoplasm of bronchus and lung; Z87.440 Personal history of urinary (tract) infections; Z79.82 Long term (current) use of aspirin; Z79.899 Other long term (current) drug therapy; Z87.891 Personal history of nicotine dependence
CPT/HCPCS: 71045; 80048; 81001; 83880; 84484; 85025; 87086; 87088; 87186; 93005; 99284; A4216

== ENCOUNTER → 2020-12-05 | Outpatient (CLI) | payer MEDICARE, OTHER, SELFPAY ==
[2017-07-15 14:36] VITALS: BMI 31.1
[2020-11-18 07:54] VITALS: BMI 35.0
[2020-12-05 12:32] LABS: BNP,B-Type NATRIURETIC PEPTIDE 452.3 pg/mL (0-100)
== END | disposition home or self-care (01) ==
LOC: LABSPEC 12:01
PROVIDERS: PCP Internal Medicine; Referring Provider Nurse Practitioner Primary Care; Visit Provider Nurse Practitioner Primary Care
DX: R06.00 Dyspnea, unspecified (principal); M79.89 Other specified soft tissue disorders
CPT/HCPCS: 83880

== ENCOUNTER → 2020-12-26 07:54 | Outpatient (CLI) | payer MEDICARE, OTHER, SELFPAY ==
[2017-07-15 14:36] VITALS: BMI 31.1
[2020-12-19 05:43] VITALS: BMI 34.7
[2020-12-26 08:15] VITALS: PULSE 100; PULSE 102; PULSE 103; PULSE 87; PULSE 89; PULSE 94; PULSE 99; O2SAT 90; O2SAT 92; O2SAT 94; O2SAT 95; O2SAT 96
--- NOTE | 2020-12-26 08:20 | CPS ---
Patient stated that she currently does not wear any oxygen at home. She came in with a walker however wished to not use it during the test as she cannot use it in her apartment as its to small. Patient did have to use the walker to sit a few times during the test as she had to take multiple breaks.
--- NOTE | 2020-12-26 14:44 | PCM.PSN.6M ---
PSN 6 Minute Walk Test 6 Minute Walk Test 6 Minute Walk Test: 6 Minute Walk Test PSN:6-Minute Walk Test Start: 12/26/20 08:16 Freq: Status: Active Protocol: [id number].6MINW Document 12/26/20 08:15 HJ (Rec: 12/26/20 08:23 HJ [id number]) 6 Minute Walk Test Date Performed 12/26/20 Time Performed 08:15 Height 5 ft 3 in Weight: 88.451 kg Weight in Pounds 195.[address]: Edy Garcia FIO2 (% Oxygen) 21 Assistive device used: None Pre-test Oxygen Delivery Method Room Air Pulse Ox (%) 95 Pulse Rate (60-100 beats/min) 87 Dyspnea Wanda Scale (0-10) 0 Exertion Wanda Scale (6-20) 6 1st minute Oxygen Delivery Method Room Air Pulse Ox (%) 94 Pulse Rate (60-100 beats/min) 100 2nd minute Oxygen Delivery Method Room Air Pulse Ox (%) 92 Pulse Rate (60-100 beats/min) 99 Number of Rests Taken 1 3rd minute Oxygen Delivery Method Room Air Pulse Ox (%) 90 Pulse Rate (60-100 beats/min) 102 H Number of Rests Taken 1 4th minute Oxygen Delivery Method Room Air Pulse Ox (%) 94 Pulse Rate (60-100 beats/min) 89 Number of Rests Taken 1 5th minute Oxygen Delivery Method Room Air Pulse Ox (%) 92 Pulse Rate (60-100 beats/min) 94 Number of Rests Taken 1 6th minute Oxygen Delivery Method Room Air Pulse Ox (%) 90 Pulse Rate (60-100 beats/min) 103 H Post-test Oxygen Delivery Method Room Air Pulse Ox (%) 96 Pulse Rate (60-100 beats/min) 94 Dyspnea Wanda Scale (0-10) 5 Exertion Wanda Scale (6-20) 16 Full Laps Walked 10 Partial Lap, Number of Tiles Walked 0 Total Distance Walked (ft) 590 12/26/20 08:20 Cardiopulmonary Services by Erin Calderon Patient stated that she currently does not wear any oxygen at home. She came in with a walker however wished to not use it during the test as she cannot use it in her apartment as its to small. Patient did have to use the walker to sit a few times during the test as she had to take multiple breaks. Initialized on 12/26/20 08:20 - END OF NOTE Interpretation Interpretation: The patient was able to ambulate only 590 feet over the course of 6 minutes on room air with no assistive devices, but 4 breaks. The patient did experience significant desaturation from a baseline of 95% to as low as 90%. Some reflexive tachycardia as high as 103 bpm were noted. These findings are consistent with a respiratory limitation exercise tolerance. Recommendations Recommendations: No supplemental oxygen is indicated at this time, but patient will need to be followed closely given level of desaturation.
== END ==
PROVIDERS: PCP Internal Medicine; Referring Provider Internal Medicine Critical Care Medicine; Visit Provider Internal Medicine Critical Care Medicine
DX: J70.0 Acute pulmonary manifestations due to radiation (principal)
CPT/HCPCS: 94618

== ENCOUNTER → 2020-12-28 12:28 | Outpatient (CLI) | payer MEDICARE, OTHER, SELFPAY ==
[2017-07-15 14:36] VITALS: BMI 31.1
[2020-07-10 13:48] VITALS: BMI 34.5
[2020-12-19 05:43] VITALS: BMI 34.7
--- NOTE | 2020-12-28 12:31 | CT_ITS ---
STUDY: CT CHEST WITH CONTRAST REASON FOR EXAM: Female, 80 years old. LUNG CANCER-SURVIELLANCE RADIATION DOSAGE (If Supplied By Facility): CTDIvol = ( 15.96 ) mGy, DLP = ( 443.76 ) mGycm TECHNIQUE: Transaxial imaging was performed following intravenous administration of IV 100mL [id number]-300. Multiplanar coronal and sagittal images were reformatted. Individualized dose optimization techniques were used for this CT. COMPARISON: 07/05/2020 FINDINGS: Fibrotic scarring in the bilateral mid to lower lungs. Lobular nodule of the right middle lobe on image 71 of series 4 measures 1.2 x 1.5 cm, stable since the prior study. Small focal groundglass opacity in the right lateral lower lobe measuring 12 mm is stable. The nodule is visually stable when comparing image 71 of series 4 of the current study with image 73 of series 4 of the prior study. There is no demonstrated pleural abnormality. Normal heart and pericardium. There are calcifications of the coronary arteries. Normal mediastinum. Normal hilar regions. Normal enhanced pulmonary arteries. There is atherosclerotic calcification of the aortic arch with tortuosity and elongation of the aortic arch and descending thoracic aorta. No destructive bony process. Stable incompletely healed right rib fractures. Compression fractures of T8 and T12 are stable. Small hiatal hernia. Adrenal glands are not focally enlarged. CT/Chest WITH Contrast IMPRESSION: 1. Since 07/05/2020, stable exam. Stable right middle lobe lobular nodule. 2. Additional stable chronic changes, as above. Electronically Signed: Kj Vidal MD ([place]) at 17:34 EDT , Service support ,
== END ==
PROVIDERS: PCP Internal Medicine; Referring Provider Internal Medicine Medical Oncology; Visit Provider Internal Medicine Medical Oncology
DX: C34.91 Malignant neoplasm of unspecified part of right bronchus or lung (principal)
CPT/HCPCS: 71260; Q9967

== ENCOUNTER → 2021-03-12 10:20 | Outpatient (CLI) | payer MEDICARE, OTHER, SELFPAY ==
[2017-07-15 14:36] VITALS: BMI 31.1
[2020-12-19 05:43] VITALS: BMI 34.7
--- NOTE | 2021-03-13 08:30 | PFT ---
INTRODUCTION: The patient is an 80-year-old female that presents for pulmonary function studies secondary to a diagnosis of COPD. Respiratory therapy reported good patient effort. Bronchodilators were used during testing. INTERPRETATION: Forced expiration spirometry demonstrates the presence of a severe large airways obstructive ventilatory defect. There was a significant response to aerosolized bronchodilators. Spirograms are of fair quality but do not plateau indicating slow emptying of the lungs. Body plethysmography was performed and revealed a decreased TLC to 3.4 L, 76% of predicted, indicative of a mild restrictive ventilatory impairment. Diffusing capacity by single breath CO is severely reduced at 38% of predicted. When compared to prior pulmonary function studies in April 2020, there has been a 13% reduction in total lung capacity. IMPRESSION: Partially reversible severe mixed ventilatory defect with symmetric reduction in diffusing capacity.
== END ==
PROVIDERS: PCP Internal Medicine; Referring Provider Internal Medicine Critical Care Medicine; Visit Provider Internal Medicine Critical Care Medicine
DX: J44.9 Chronic obstructive pulmonary disease, unspecified (principal)
CPT/HCPCS: 94060; 94726; 94729

== ENCOUNTER → 2021-04-12 15:39 | Outpatient (CLI) | payer MEDICARE, OTHER, SELFPAY ==
[2017-07-15 14:36] VITALS: BMI 31.1
[2021-04-12 16:34] LABS: Basophil# 0.04 X10^3/uL; Basophil% 0.4 % (0-1); Eosinophil# 0.01 X10^3/uL; Eosinophils% 0.1 % (0-5); Hematocrit 39.5 % (37-47); Hemoglobin 12.4 g/dL (12.0-15.0); Lymphocyte % 35.3 % (19-41); Mean Corp Hgb Conc 31.4 g/dL (32-36); Mean Corpuscular Hgb 29.6 pg (27.0-32.0); Mean Corpuscular Volume 94.3 fL (81-99); Mean Platelet Vol. 11.6 fl (6.2-12.0); Monocyte# 0.78 X10^3/uL; Monocyte% 8.6 % (0-10); NRBC Flagged by Analyzer 0 % (0-5); Neutrophil # 4.98 X10^3/uL (2.7-7.7); Platelet Count 273 K/mm3 (150-450); RBC Distribution Width CV 15.9 % (11.6-14.6); RBC Distribution Width SD 55.3 fl (35.1-43.9); Red Blood Count 4.19 M/mm3 (4.2-5.4); White Blood Count 9.1 K/mm3 (4.4-11.0)
[2021-04-12 17:00] LABS: Anion Gap 3 (5-15); BUN 17 mg/dL (7-18); BUN/Creat Ratio 19.2 RATIO (10-20); Chloride 102 mmol/L (98-107); Creatinine, Serum 0.88 mg/dL (0.55-1.02); EST Glomerular Filtration Rate 65 mL/min (>60); Est Glom Filt Rate - Afr Amer 79 mL/min (>60); Glucose 110 mg/dL (74-106); Potassium 3.8 mmol/L (3.5-5.1); Sodium Level 140 mmol/L (136-145)
[2021-04-12 17:06] LABS: BNP,B-Type NATRIURETIC PEPTIDE 88.1 pg/mL (0-100)
== END ==
PROVIDERS: PCP Internal Medicine; Visit Provider Physician Assistant Medical
DX: I50.22 Chronic systolic (congestive) heart failure (principal); R06.09 Other forms of dyspnea; I42.8 Other cardiomyopathies
CPT/HCPCS: 36415; 80048; 83880; 85025

== ENCOUNTER → 2021-04-17 12:26 | Outpatient (CLI) | payer MEDICARE, OTHER, SELFPAY ==
[2017-07-15 14:36] VITALS: BMI 31.1
--- NOTE | 2021-04-17 12:28 | ECHODONC_ITS ---
Reason For Study: LEMA Procedure This was a 2D Doppler, Color Flow transthoracic echocardiogram. Myocardial strain analysis was performed in this exam to aid in the assessment of cardiac function. The study was technically difficult. Due to body habitus and ARRHYTHMIA. Exam performed in department. Left Ventricle Normal LV size. The estimated ejection fraction is 47 %. There is mild global hypokinesis of the left ventricle. Right Ventricle Normal RV size. Normal systolic function. Atria Normal left atrium. Normal right atrium. Mitral Valve Normal mitral valve. Tricuspid Valve Normal tricuspid valve. Aortic Valve Normal aortic valve. Trisinus/trileaflet aortic valve. Pulmonic Valve Normal pulmonic valve. Great Vessels Normal aortic root. The pulmonary artery is normal size. Normal inferior vena cava. Pericardium/Pleural No pericardial effusion. MMode/2D Measurements & Calculations LVIDd: 5.1 cm IVSd: 1.1 cm Ao root diam: 3.3 cm LVIDs: 4.5 cm LVPWd: 1.1 cm RVDd: 3.1 cm FS: 11.8 % LAV(MOD-bp): 42.7 ml LA A4 area: 15.1 cm2 LA dimension(2D): 3.2 cm LAV(MOD-bp) Indexed: 21.9 ml/m2 LAV(MOD-sp2): 47.7 ml LAV(MOD-sp4): 34.6 ml Time Measurements MV dec time: 0.23 sec Doppler Measurements & Calculations MV E max eitan: 57.5 cm/sec Lat Peak E' Eitan: 4.5 cm/sec Med Peak E' Eitan: 4.5 cm/sec MV A max eitan: 98.2 cm/sec E/E' lat: 12.7 E/E' med: 12.9 MV E/A: 0.58 Ao V2 max: 126.3 cm/sec LV V1 max: 83.3 cm/sec PA V2 max: 68.9 cm/sec Ao max P.4 mmHg LV V1 max P.8 mmHg ECHO/ONC Echo Complete Interpretation Summary Normal LV size. The estimated ejection fraction is 47 %. The global longitudinal strain is moderately abnormal. The global longitudinal strain = -10% (abnormal). Compared to previous study, the left ventricular systolic function is the same.. Ordering Physician: Anastacia Victor Referring Physician: Ashley Stephens Performed By: Lisa Lowery, YUE, RVT
== END ==
PROVIDERS: PCP Internal Medicine; Referring Provider Physician Assistant Medical; Visit Provider Physician Assistant Medical
DX: R06.09 Other forms of dyspnea (principal)
CPT/HCPCS: 93306; 93356

== ENCOUNTER → 2021-04-27 11:25 | Outpatient (CLI) | payer MEDICARE, OTHER, SELFPAY ==
[2017-07-15 14:36] VITALS: BMI 31.1
== END ==
PROVIDERS: PCP Internal Medicine; Referring Provider Physician Assistant Medical; Visit Provider Physician Assistant Medical
DX: I42.8 Other cardiomyopathies (principal); R06.09 Other forms of dyspnea; I50.22 Chronic systolic (congestive) heart failure
CPT/HCPCS: 93225; 93226

== ENCOUNTER 2021-05-17 07:09 | Emergency (ER) | payer MEDICARE, OTHER, SELFPAY ==
[2017-07-15 14:36] VITALS: BMI 31.1
[2021-05-17 07:10] VITALS: BP 148/99; PULSE 94; RESP 20; TEMP 36.8; O2SAT 93; BMI 36.0
--- NOTE | 2021-05-17 07:25 | CT_ITS ---
STUDY: CT CHEST WITHOUT CONTRAST REASON FOR EXAM: Female, 81 years old. Back pain, compression fxs, h/o non-Hodgkin''s lymphoma and non-small cell lung cancer. RADIATION DOSAGE (If Supplied By Facility): CTDIvol = ( 14.28 ) mGy, DLP = ( 510.17 ) mGycm TECHNIQUE: Transaxial imaging was performed without the administration of intravenous contrast material. Multiplanar coronal and sagittal images were reformatted. Individualized dose optimization techniques were used for this CT. COMPARISON: Comparison is made with prior examination dated 12/28/2020. FINDINGS: Stable fibrotic scarring in the mid and lower lungs bilaterally. There is a 1.2 cm x 0.9 cm lobulated nodule in the right middle lobe as seen on axial image #73. This has decreased slightly in size as compared to prior study. Stable focal area of groundglass appearance measuring 1.2 cm in the lateral posterior aspect of the right lobe as seen on axial image #74. Stable thickening of the left major fissure. There is no demonstrated pleural abnormality. There are calcifications of the coronary arteries. There are multiple small lymph nodes within the mediastinum, which are normal in size and morphology most compatible with reactive lymph hyperplasia. Normal hilar regions. Normal unenhanced pulmonary arteries. There is atherosclerotic calcification of the aortic arch with tortuosity and elongation of the aortic arch and descending thoracic aorta. Stable compression fractures of the T8 and T12 vertebrae. New compression fracture of the T2 vertebrae. Healed right rib fractures. There is no demonstrated abnormality of the visualized upper abdomen. CT/Chest without Contrast IMPRESSION: Slight decrease in size of the nodular density in the right middle lobe. New compression fracture of the T2 vertebrae. Electronically Signed: Naresh Varghese MD at 8:42 EST , Service support ,
--- NOTE | 2021-05-17 07:27 | EDS_ITS ---
HPI History of Present Illness Chief Complaint: Upper Extremity Injury Detail of Chief Complaint: Upper back pain Informant: patient Onset/Context/Timing Onset: Days Current Severity: Mild Maximum Severity: Moderate Narrative Narrative: Patient presents secondary to continued upper back pain. She states she injured her back last week. She was seen at [facility] yesterday where x-rays confirmed some compression fractures, unable to determine if acute or chronic. She was discharged on Percocet. Patient states she took a dose approximately 3 hours prior to arrival. Pain is improved at this time but not resolved. She states she continues to have severe pain with any movement. [facility] Medical History Asthma Santos's esophagus Chronic HFrEF (heart failure with reduced ejection fraction) Dysphagia Dyspnea History of non-Hodgkin's lymphoma Hyperlipemia Hypogammaglobulinemia Hypotension Iatrogenic pneumothorax Lung nodule seen on imaging study Non-ischemic cardiomyopathy Non-small cell cancer of right lung Occlusion and stenosis of right carotid artery Oral thrush Pharyngitis Pneumothorax PVD (peripheral vascular disease) Radiation pneumonitis Right sided pneumothorax Stage 1 mild COPD by GOLD classification Home Medications albuterol sulfate 1 - 2 puff INHALATION Q6H PRN PRN 09/20/14 [History Last Taken 09/08/18] ergocalciferol (vitamin D2) 50,000 unit PO Q7D 10/03/16 [History Last Taken 04/03/18] aspirin 81 mg PO DAILY@0800 04/04/18 [History Last Taken 09/08/18] fexofenadine 180 mg PO DAILY 12/02/18 [History Last Taken Unknown] pantoprazole 20 mg tablet,delayed release 20 mg PO DAILY 08/12/19 [History Last Taken Unknown] budesonide 1 mg/2 mL suspension for nebulization 0.5 mg INHALATION BID #60 ml 09/17/19 [Rx Last Taken Unknown] ipratropium 20 mcg-albuterol 100 mcg/actuation mist for inhalation 1 puff INHALATION 4X/DAY PRN #4 g 03/20/20 [Rx Last Taken Unknown] carvedilol 3.125 mg tablet 3.125 mg PO BID #180 tab 09/19/20 [Rx Last Taken Unknown] benzonatate 100 mg capsule 100 mg PO TID cap 11/16/20 [History Last Taken Unknown] furosemide 20 mg tablet 40 mg PO DAILY #180 tab 11/28/20 [Rx Last Taken Unknown] prednisone 10 mg tablet 10 mg PO QDAY #90 tab 12/19/20 [Rx Last Taken Unknown] losartan 25 mg tablet 12.5 mg PO DAILY #45 tab 01/01/21 [Rx Last Taken Unknown] montelukast 10 mg tablet 10 mg PO QHS #90 tab 05/02/21 [Rx Last Taken Unknown] oxycodone-acetaminophen 5 - 325 tab PO 05/17/21 [History Last Taken Unknown] Allergy/AdvReac Type Severity Reaction Status Date / Time alendronate sodium Allergy Severe Other Verified 05/17/21 07:49 [From Fosamax] budesonide Allergy Severe Other Verified 05/17/21 07:49 fluticasone Allergy Severe Other Verified 05/17/21 07:49 [From Advair Diskus] Penicillins [PCN] Allergy Severe Shortness Verified 05/17/21 07:49 of breath salmeterol Allergy Severe Other Verified 05/17/21 07:49 [From Advair Diskus] tiotropium Allergy Severe Other Verified 05/17/21 07:49 [From Spiriva with HandiHaler] umeclidinium Allergy Severe Other Verified 05/17/21 07:49 [From Anoro Ellipta] vilanterol Allergy Severe Other Verified 05/17/21 07:49 [From Anoro Ellipta] doxycycline Allergy Shortness Verified 05/17/21 07:49 of breath carvedilol [From Coreg] AdvReac Severe SOB Verified 05/17/21 07:49 dexamethasone AdvReac Other Verified 05/17/21 07:49 Family History Sister No problems noted. Daughter Thyroid cancer Cancer Kidney malignancy Brother COLON CANCER Daughter Cancer, Onset Age: 40 ovarian Son Cancer skin Other Colon cancer Surgical History H/O right breast biopsy History of angioplasty of peripheral vessel (2014) History of hysterectomy History of left heart catheterization (09/08/18) History of lung biopsy neck mass biopsy Social History Smoking Status: Former smoker how long ago did patient quit smokin years ago second hand exposure: No alcohol intake: never substance use type: does not use caffeine: Yes Type: coffee Number of servings: 1 ROS ROS ED Constitutional Constitutional ED: Denies chills or fever(s) Eyes Eyes: Denies blurry vision ENT ENT ED: Denies rhinorrhea or sore throat Cardiovascular Cardiovascular: Denies chest pain Respiratory/Chest Respiratory/Chest: Denies dyspnea Gastrointestinal Gastrointestinal: Denies abdominal pain, diarrhea or vomiting Musculoskeletal Musculoskeletal: Reports back pain Integumentary Denies rash Neurologic Neurologic: Denies paresthesias or weakness Psychiatric Psychiatric: Denies depression Hematologic/Lymphatic Hematologic/Lymphatic: Denies easy bruising Allergic/Immunologic Allergic/Immunologic ED: Denies urticaria EXAM Physical Exam Const Vital Signs: 05/17/21 07:10 Temperature 98.2 F Temperature Source Oral Pulse Rate 94 Respiratory Rate 20 H Blood Pressure 148/99 H Blood Pressure Mean 115 Pulse Ox 93 Oxygen Delivery Method Nasal Cannula Oxygen Flow Rate (L/min) 2 Positive well nourished and well developed General Appearance ED: well developed HEENT normocephalic and atraumatic Neck supple Chest Wall inspection of chest normal and palpation of chest normal Resp normal respiratory effort and clear to auscultation bilaterally Cardio regular rate and regular rhythm GI non-tender Palpation: soft Back/Spine Back/Spine Narrative: Reproducible tenderness in the upper thoracic paraspinal muscles bilaterally. No overlying skin change. Extremity Extremity Narrative: Good strength in the upper extremities bilaterally. Strong distal pulses. Neuro oriented x3 Neuro Narrative: No focal neurologic deficits. Sensorium / Orientation: alert Skin Lesions: no lesions Rashes: no rashes MDM MDM MDM Narrative Medical decision making narrative: Patient had taken oxycodone shortly prior to arrival. Lidoderm patch was placed on her upper back. Imaging reports from [place] yesterday were reviewed. CT scan of the chest obtained today. Radiography Diagnostic Testing: Radiology Impression Chest CT 05/17/21 07:25 IMPRESSION: Slight decrease in size of the nodular density in the right middle lobe. New compression fracture of the T2 vertebrae. Electronically Signed: Naresh Varghese MD at 8:42 EST , Service support , Treatment and Re-Evaluation Comments:: CT scan does reveal a new compression fracture of T2. This is the area where the patient is painful. Test results discussed with patient and daughter at bedside. They would like her placed in a higher level of care as she has been unable to care for herself in her independent living situation. Social work has gotten patient accepted to TCU. Patient will continue her pain regimen there along with PT and OT therapy. Discharge Plan Triage Chief Complaint: Upper Extremity Injury ED Provider: Pta Dunne Dx/Rx/DC Orders Clinical Impression: Compression fracture of T2 vertebra Instructions: ED Fracture, Vertebral Compression Prescriptions: No Action pantoprazole 20 mg tablet,delayed release (DR/EC) 20 mg PO DAILY RF: 0 budesonide 1 mg/2 mL suspension for nebulization 0.5 mg INHALATION BID Qty: 60 RF: 3 benzonatate 100 mg capsule 100 mg PO TID RF: 0 prednisone 10 mg tablet 10 mg PO QDAY Qty: 90 RF: 2 albuterol sulfate 1 INHALER inhaler 1 - 2 puff INHALATION Q6H PRN PRN (Reason: Wheezing) RF: 0 fexofenadine 180 MG tablet 180 mg PO DAILY RF: 0 ergocalciferol (vitamin D2) 50,000 UNIT capsule 50,000 unit PO Q7D RF: 0 aspirin 81 MG tablet,chewable 81 mg PO DAILY@0800 RF: 0 oxycodone-acetaminophen 5-325 mg tablet 5 - 325 tab PO RF: 0 ipratropium-albuterol 20-100 mcg/actuation mist 1 puff INHALATION 4X/DAY PRN (Reason: J44.9 COPD) Qty: 4 RF: 0 carvedilol [Coreg] 3.125 mg tablet 3.125 mg PO BID Qty: 180 RF: 3 furosemide 20 mg tablet 40 mg PO DAILY Qty: 180 RF: 3 losartan 25 mg tablet 12.5 mg PO DAILY Qty: 45 RF: 3 montelukast 10 mg tablet 10 mg PO QHS Qty: 90 RF: 3 Primary Care Provider: Ashley Stephens Referrals: Ashley Stephens MD [Primary Care Provider] - 1-2 Weeks Disposition Disposition: Transfer to Another Type HCF
[2021-05-17] MEDS: Lidocaine 5% Patch 1 PATCH TOPICAL (07:47)
[2021-05-17 07:48] VITALS: O2SAT 95
[2021-05-17] MEDS: oxyCODONE 5 MG Tablet PO (10:23)
[2021-05-17 11:13] VITALS: O2SAT 97
[2021-05-17 11:59] VITALS: BP 162/98; PULSE 86; O2SAT 97
--- NOTE | 2021-05-17 12:00 | CM.ED ---
Addendum entered by Merly Deshpande 05/17/21 12:29: Late Entry: JENNIFER spoke to Tatianna who stated patient was accepted to TCU. JENNIFER also left voice mail message for TCU JENNIFER Greene. Merly MANCIA Addendum entered by Merly Deshpande 05/17/21 12:08: JENNIFER confirmed with patient's daughter that patient has Medicare A and B (as per face sheet). MD was updated how to complete discharge paperwork. JENNIFER had MARIBELL Germain call report. SW and patient were updated that patient was accepted. Patient resides in Independent Living in [facility]. Had [facility] in the past. Has a medic alert in the home and buzzer in the bathroom if she falls to notify the nursing staff of her fall. Daughter asked about care in the and stated she had called [facility] for assistance but they had no staff available. JENNIFER advised there is no 24/7 care available in the home unless it is private pay. JENNIFER requested that hospice patient care secretary fax discharge orders to the TCU. No further SW needs at this time. Family provided with TCU brochure and Jennifer called the unit to clarify visitors and visiting hours on TCU for family Plan: TCU Merly MANCIA Original Note: JENNIFER Note Referral Source: MD Referral Reason: Discharge planning JENNIFER was advised by the MD that patient's daughter is requesting SNF for patient to assist her in regards to compression fractures . JENNIEFR called Tatianna in TCU and Tatianna was advised of patient's interest in TCU. Tatianna requested COVID and also the discharge notes that state continue medication and PT/OT. JENNIFER requested COVID screen. Screen negative. Patient and daughter are requesting TCU for patient. JENNIFER advised Tatianna that patient is negative.
== END 2021-05-17 12:07 | disposition other institution (70) ==
PROVIDERS: Emergency Provider Emergency Medicine; PCP Internal Medicine
DX: S22.029A Unspecified fracture of second thoracic vertebra, initial encounter for closed fracture (principal); X58.XXXA Exposure to other specified factors, initial encounter; Y93.9 Activity, unspecified; Y92.9 Unspecified place or not applicable; E78.5 Hyperlipidemia, unspecified; I73.9 Peripheral vascular disease, unspecified; I50.22 Chronic systolic (congestive) heart failure; I42.8 Other cardiomyopathies; J44.9 Chronic obstructive pulmonary disease, unspecified; Z87.19 Personal history of other diseases of the digestive system; Z85.72 Personal history of non-Hodgkin lymphomas; Z85.118 Personal history of other malignant neoplasm of bronchus and lung; Z79.82 Long term (current) use of aspirin; Z79.899 Other long term (current) drug therapy; Z87.891 Personal history of nicotine dependence
CPT/HCPCS: 71250; 87426; 99283

== ENCOUNTER 2021-05-17 12:14 | Inpatient (IN) | payer MEDICARE, OTHER, SELFPAY ==
[2017-07-15 14:36] VITALS: BMI 31.1
[2021-05-17 12:26] VITALS: BP 110/83; PULSE 97; RESP 16; TEMP 36.3; O2SAT 97; BMI 36.0
[2021-05-17] MEDS: Ipratropium/Albuterol Sulfate 3 ML AMPUL.NEB INHALATION (14:00)
[2021-05-17] MEDS: Benzonatate 100 MG Capsule PO ×2 (14:29→20:25)
--- NOTE | 2021-05-17 16:56 | HP.PCM_ITS ---
HPI - General General Date of Admission: 05/17/21 HPI Narrative 05/17/2021 JAIME GARY, is a 81 Female who presents to [facility] Emergency Department with upper back pain. Injured back last week, [facility] X-ray confirmed compression fracture thoracic spine. Discharged home on Percocet. Percocet helpful, but severe pain with movement. Lidoderm patch applied to upper back. CT chest showed new T2 compression fracture. 05/17/2021 Admit to TCU with debility, here for rehabilitation, strengthening, prior to discharge home alone. [facility] Medical History Asthma Santos's esophagus Chronic HFrEF (heart failure with reduced ejection fraction) Dysphagia Dyspnea History of non-Hodgkin's lymphoma Hyperlipemia Hypogammaglobulinemia Hypotension Iatrogenic pneumothorax Lung nodule seen on imaging study Non-ischemic cardiomyopathy Non-small cell cancer of right lung Occlusion and stenosis of right carotid artery Oral thrush Pharyngitis Pneumothorax PVD (peripheral vascular disease) Radiation pneumonitis Right sided pneumothorax Stage 1 mild COPD by GOLD classification Home Medications albuterol sulfate 1 - 2 puff INHALATION Q6H PRN PRN 09/20/14 [History Last Taken 09/08/18] ergocalciferol (vitamin D2) 50,000 unit PO Q7D 10/03/16 [History Last Taken 04/03/18] aspirin 81 mg PO DAILY@0800 04/04/18 [History Last Taken 09/08/18] fexofenadine 180 mg PO DAILY 12/02/18 [History Last Taken Unknown] pantoprazole 20 mg tablet,delayed release 20 mg PO DAILY 08/12/19 [History Last Taken Unknown] ipratropium 20 mcg-albuterol 100 mcg/actuation mist for inhalation 1 puff INHALATION 4X/DAY PRN #4 g 03/20/20 [Rx Last Taken Unknown] benzonatate 100 mg capsule 100 mg PO TID cap 11/16/20 [History Last Taken Unk nown] furosemide 20 mg tablet 40 mg PO DAILY #180 tab 11/28/20 [Rx Last Taken Unknown] montelukast 10 mg tablet 10 mg PO QHS #90 tab 05/02/21 [Rx Last Taken Unknown] budesonide 0.5 mg INHALATION BID 05/17/21 [History Last Taken Unknown] carvedilol [Coreg] 3.125 mg PO BID 05/17/21 [History Last Taken Unknown] losartan 12.5 mg PO DAILY 05/17/21 [History Last Taken Unknown] oxycodone-acetaminophen 5 - 325 tab PO Q6H PRN PRN 05/17/21 [History Last Taken Unknown] prednisone 10 mg PO QDAY 05/17/21 [History Last Taken Unknown] Allergy/AdvReac Type Severity Reaction Status Date / Time alendronate sodium Allergy Severe Other Verified 05/17/21 07:49 [From Fosamax] budesonide Allergy Severe Other Verified 05/17/21 07:49 fluticasone Allergy Severe Other Verified 05/17/21 07:49 [From Advair Diskus] Penicillins [PCN] Allergy Severe Shortness Verified 05/17/21 07:49 of breath salmeterol Allergy Severe Other Verified 05/17/21 07:49 [From Advair Diskus] tiotropium Allergy Severe Other Verified 05/17/21 07:49 [From Spiriva with HandiHaler] umeclidinium Allergy Severe Other Verified 05/17/21 07:49 [From Anoro Ellipta] vilanterol Allergy Severe Other Verified 05/17/21 07:49 [From Anoro Ellipta] doxycycline Allergy Shortness Verified 05/17/21 07:49 of breath carvedilol [From Coreg] AdvReac Severe SOB Verified 05/17/21 07:49 dexamethasone AdvReac Other Verified 05/17/21 07:49 Family History Sister No problems noted. Daughter Thyroid cancer Cancer Kidney malignancy Brother COLON CANCER Daughter Cancer, Onset Age: 40 ovarian Son Cancer skin Other Colon cancer Surgical History H/O right breast biopsy History of angioplasty of peripheral vessel (2014) History of hysterectomy History of left heart catheterization (09/08/18) History of lung biopsy neck mass biopsy Social History (Updated 05/17/21 @ 16:[address] Jono Ayoub MD) household members: none Smoking Status: Former smoker how long ago did patient quit smokin years ago second hand exposure: No alcohol intake: never substance use type: does not use caffeine: Yes Type: coffee Number of servings: 1 ROS Constitutional Constitutional: Denies chills, fever(s) or weight gain ENT HEENT: Denies headache(s), nasal congestion or nasal discharge Cardiovascular Cardiovascular: Denies chest pain or palpitations Respiratory/Chest Respiratory/Chest: Denies cough, excessive phlegm production or shortness of breath with exertion Gastrointestinal Gastrointestinal: Denies abdominal pain, nausea or vomiting Genitourinary Genitourinary: Denies dysuria Musculoskeletal Musculoskeletal: Denies joint pain or joint swelling Integumentary Integumentary: Denies rash or wounds Neurologic Neurologic: Denies focal weakness, numbness or tingling Psychiatric Psychiatric: Denies anxiety, auditory hallucinations, depression, homicidal ideation or suicidal ideation Vital Signs Vital Signs Vital Signs: 05/17/21 12:26 05/17/21 14:04 Temperature 97.3 F L Temperature Source Temporal Pulse Rate 97 Pulse Rhythm Irregular Pulse Strength Normal (2+) Respiratory Rate 16 Respiratory Effort Normal Non-Labored Respiratory Depth Normal Respiratory Pattern Normal Blood Pressure 110/83 H Blood Pressure Mean 92 Blood Pressure Source Monitor Blood Pressure Position Semi-Fowlers Blood Pressure Location Left Arm Pulse Ox 97 Oxygen Delivery Method Nasal Cannula Nasal Cannula Oxygen Flow Rate (L/min) 2 2 Weight Weight: 92.306 kg Body Mass Index (BMI) 36.0 Physical Exam Const alert and oriented x3 General Appearance: cooperative HEENT normocephalic Eyes PERRL and EOMs intact bilaterally Neck supple, no JVD and no carotid bruits Resp normal respiratory effort, normal air movement and clear to auscultation bilaterally Cardio regular rate and regular rhythm GI normal to inspection, nondistended, normoactive bowel sounds, non-tender and non-distended Extremity normal capillary refill General Extremity: Negative for edema Skin no rashes or lesions noted General Skin Exam: no breakdown Psych affect normal Appearance: appropriate Assessment & Plan Assessment/Plan (1) Debility: (2) Compression fracture of T2 vertebra: (3) Asthma: (4) Vitamin D deficiency: (5) Allergic rhinitis: (6) Gastroesophageal reflux disease: (7) Chronic systolic congestive heart failure: (8) Hypertension: PLAN: 81 year old female with below past medical history of intractable thoracic back pain secondary to acute T2 compression fracture, admitted to TCU with debility, here for rehabilitation, strengthening, prior to discharge home alone. * Debility - PT/OT. * Pain - Tylenol 1000mg q6h prn pain (1-3), Tramadol 50mg q6h prn pain (4-5), Oxycodone 5mg q4h prn pain (6-10). * Bowel - Miralax 17gm daily, Senna/colace 2 tablets bid, Dulcolax 10mg daily. * Adult immunization - Administer prevnar 13, pneumovax 23, fluzone, covid19 vaccine as appropriate. * DVT prophylaxis - Lovenox 30mg sc daily. * Asthma - Duoneb 3ml 4x/day, Albuterol 1-2 puff Q6h prn, Singulair 10mg daily, prednisone 10mg daily. * CV prophylaxis - Aspirin 81mg daily. * Chronic cough - Tessalon perles 100mg tid. * Chronic systolic congestive heart failure - Coreg 3.125mg bid. Losartan 12.5mg daily, Lasix 40mg daily. * Vitamin D deficiency - D2 50,000 units per week. * Allergic rhinitis - Loratadine 10mg daily. * GERD - Pantoprazole 20mg bid. * Acute T2 compression fracture - Consult Dr. Ledezma to consider kyphoplasty.
[2021-05-17] MEDS: Carvedilol 3.125 MG TABLET PO (17:02)
[2021-05-17] MEDS: Pantoprazole Sodium 20 MG Tablet PO (17:28)
[2021-05-17] MEDS: Senna/Docusate Sodium 1 Tablet 2 TABLET PO (17:30)
[2021-05-17] MEDS: Albuterol Sulfate 8 gm Inhaler (60 puffs) INHALATION (18:34)
[2021-05-17] MEDS: oxyCODONE 5 MG Tablet PO (19:00)
[2021-05-17] MEDS: Acetaminophen 500 MG Tablet 1000 MG PO (20:24)
[2021-05-17] MEDS: traMADol 50 MG Tablet PO (20:25)
[2021-05-17] MEDS: Montelukast 10 MG Tablet PO (20:25)
[2021-05-18] MEDS: oxyCODONE 5 MG Tablet PO ×2 (03:02→19:55)
[2021-05-18] MEDS: Acetaminophen 500 MG Tablet 1000 MG PO (03:02)
[2021-05-18 06:14] VITALS: BP 130/72; PULSE 91
[2021-05-18] MEDS: Enoxaparin 30 MG/0.3 ML Syringe SC (06:23)
[2021-05-18] MEDS: Polyethylene Glycol 3350 17 GM PACKET PO (06:25)
[2021-05-18] MEDS: Senna/Docusate Sodium 1 Tablet 2 TABLET PO ×2 (06:25→17:37)
[2021-05-18] MEDS: Benzonatate 100 MG Capsule PO ×3 (06:25→20:03)
[2021-05-18] MEDS: Pantoprazole Sodium 20 MG Tablet PO ×2 (06:26→17:37)
[2021-05-18] MEDS: traMADol 50 MG Tablet PO (06:26)
[2021-05-18] MEDS: Carvedilol 3.125 MG TABLET PO ×2 (06:27→17:37)
[2021-05-18] MEDS: Losartan Potassium 25 MG Tablet 12.5 MG PO (06:27)
[2021-05-18] MEDS: Loratadine 10 MG Tablet PO (06:27)
[2021-05-18] MEDS: Furosemide 40 MG Tablet PO ×2 (06:27→15:25)
[2021-05-18 07:57] LABS: Absolute Lymphocyte Count 3.03 X10^3/uL (0.83-4.51); Basophil# 0.05 X10^3/uL; Basophil% 0.6 % (0-1); Eosinophil# 0.05 X10^3/uL; Eosinophils% 0.6 % (0-5); Hematocrit 39.4 % (37-47); Hemoglobin 12.6 g/dL (12.0-15.0); Lymphocyte # 3.03 X10^3/ul (0.83-4.51); Lymphocyte % 36.6 % (19-41); Mean Corpuscular Hgb 30.7 pg (27.0-32.0); Mean Corpuscular Volume 96.1 fL (81-99); Mean Platelet Vol. 10.5 fl (6.2-12.0); Monocyte# 1.09 X10^3/uL; Monocyte% 13.2 % (0-10); NRBC Flagged by Analyzer 0 % (0-5); Neutrophil # 4.02 X10^3/uL (2.7-7.7); Neutrophil % 48.5 % (47-70); Platelet Count 311 K/mm3 (150-450); RBC Distribution Width CV 16.3 % (11.6-14.6); White Blood Count 8.3 K/mm3 (4.4-11.0)
[2021-05-18] MEDS: Aspirin 81 MG TAB.CHEW PO (07:59)
[2021-05-18] MEDS: predniSONE 10 MG Tablet PO (07:59)
[2021-05-18 08:11] LABS: Anion Gap 4 (5-15); BUN 19 mg/dL (7-18); BUN/Creat Ratio 27.8 RATIO (10-20); Calcium,Total 9.1 mg/dL (8.5-10.1); Chloride 102 mmol/L (98-107); Creatinine, Serum 0.68 mg/dL (0.55-1.02); EST Glomerular Filtration Rate 87 mL/min (>60); Est Glom Filt Rate - Afr Amer 106 mL/min (>60); Estimated Creatinine Clearance 35.88 ml/min; Glucose 106 mg/dL (74-106); Potassium 4.7 mmol/L (3.5-5.1); Sodium Level 140 mmol/L (136-145)
[2021-05-18 09:02] VITALS: O2SAT 96
[2021-05-18] MEDS: Tuberculin,Purif.prot.deriv. 50 TU/ML Vial 0.1 ML ID (13:04)
--- NOTE | 2021-05-18 15:17 | NURSING ---
after pt walked back from bathroom, son came to NS to state pt cant breath spo2 @ 94% on 2L, bumped to 4L, ordered breathing treatment, Dr Ayoub ordered 1X 40mg Lasix, will continue to monitor
[2021-05-18 16:00] VITALS: BP 109/70; PULSE 90; RESP 20; TEMP 36.2; O2SAT 92
[2021-05-18] MEDS: Montelukast 10 MG Tablet PO (20:04)
[2021-05-18 20:30] VITALS: PULSE 51; RESP 22; O2SAT 100
[2021-05-19] MEDS: Acetaminophen 500 MG Tablet 1000 MG PO (02:54)
[2021-05-19] MEDS: oxyCODONE 5 MG Tablet PO (02:54)
[2021-05-19 05:23] VITALS: BP 100/70; PULSE 94
[2021-05-19] MEDS: Senna/Docusate Sodium 1 Tablet 2 TABLET PO ×2 (05:25→17:27)
[2021-05-19] MEDS: Pantoprazole Sodium 20 MG Tablet PO ×2 (05:25→17:26)
[2021-05-19] MEDS: Benzonatate 100 MG Capsule PO ×3 (05:25→19:41)
[2021-05-19] MEDS: Carvedilol 3.125 MG TABLET PO ×2 (05:26→17:26)
[2021-05-19] MEDS: Losartan Potassium 25 MG Tablet 12.5 MG PO (05:26)
[2021-05-19] MEDS: Loratadine 10 MG Tablet PO (05:26)
[2021-05-19] MEDS: Furosemide 40 MG Tablet PO (05:26)
[2021-05-19] MEDS: Polyethylene Glycol 3350 17 GM PACKET PO (05:27)
[2021-05-19] MEDS: Enoxaparin 30 MG/0.3 ML Syringe SC (05:28)
[2021-05-19 06:50] VITALS: PULSE 96; RESP 17; O2SAT 95
[2021-05-19] MEDS: Ipratropium/Albuterol Sulfate 3 ML AMPUL.NEB INHALATION ×4 (06:50→22:22)
[2021-05-19] MEDS: Aspirin 81 MG TAB.CHEW PO (08:04)
[2021-05-19] MEDS: predniSONE 10 MG Tablet PO (08:05)
[2021-05-19] MEDS: traMADol 50 MG Tablet PO ×2 (08:07→19:40)
[2021-05-19 11:55] VITALS: PULSE 102; RESP 19
[2021-05-19 15:33] VITALS: BP 112/71; PULSE 105; RESP 16; TEMP 35.7; O2SAT 98
[2021-05-19 17:31] VITALS: PULSE 100; RESP 22
[2021-05-19] MEDS: Montelukast 10 MG Tablet PO (19:41)
[2021-05-19 22:22] VITALS: PULSE 94; RESP 18
[2021-05-20] MEDS: Ipratropium/Albuterol Sulfate 3 ML AMPUL.NEB INHALATION ×3 (02:28→19:45)
[2021-05-20 02:29] VITALS: PULSE 92; RESP 18
[2021-05-20] MEDS: Enoxaparin 30 MG/0.3 ML Syringe SC (06:04)
[2021-05-20] MEDS: Benzonatate 100 MG Capsule PO ×3 (06:05→20:54)
[2021-05-20] MEDS: Senna/Docusate Sodium 1 Tablet 2 TABLET PO ×2 (06:05→17:20)
[2021-05-20] MEDS: Polyethylene Glycol 3350 17 GM PACKET PO (06:05)
[2021-05-20] MEDS: Loratadine 10 MG Tablet PO (06:05)
[2021-05-20] MEDS: Losartan Potassium 25 MG Tablet 12.5 MG PO (06:05)
[2021-05-20] MEDS: Carvedilol 3.125 MG TABLET PO ×2 (06:05→17:20)
[2021-05-20] MEDS: Pantoprazole Sodium 20 MG Tablet PO ×2 (06:05→17:20)
[2021-05-20] MEDS: Furosemide 40 MG Tablet PO (06:05)
[2021-05-20] MEDS: Acetaminophen 500 MG Tablet 1000 MG PO ×2 (06:09→20:57)
[2021-05-20 06:43] VITALS: PULSE 94; RESP 16; O2SAT 98
[2021-05-20] MEDS: predniSONE 10 MG Tablet PO (08:20)
[2021-05-20] MEDS: Aspirin 81 MG TAB.CHEW PO (08:20)
[2021-05-20] MEDS: oxyCODONE 5 MG Tablet PO ×2 (08:23→17:21)
[2021-05-20 10:40] VITALS: PULSE 97; RESP 16
[2021-05-20 12:42] VITALS: BP 135/72; PULSE 95; RESP 18; TEMP 36.6; O2SAT 96
[2021-05-20 19:45] VITALS: PULSE 107; RESP 18; O2SAT 98
[2021-05-20] MEDS: Montelukast 10 MG Tablet PO (20:54)
[2021-05-21 05:53] VITALS: BP 152/76; PULSE 90; RESP 20; TEMP 36; O2SAT 98
[2021-05-21] MEDS: Losartan Potassium 25 MG Tablet 12.5 MG PO (05:56)
[2021-05-21] MEDS: Benzonatate 100 MG Capsule PO ×3 (05:56→20:19)
[2021-05-21] MEDS: Loratadine 10 MG Tablet PO (05:56)
[2021-05-21] MEDS: Carvedilol 3.125 MG TABLET PO ×2 (05:56→17:21)
[2021-05-21] MEDS: Polyethylene Glycol 3350 17 GM PACKET PO (05:56)
[2021-05-21] MEDS: Furosemide 40 MG Tablet PO (05:57)
[2021-05-21] MEDS: Senna/Docusate Sodium 1 Tablet 2 TABLET PO ×2 (05:57→17:21)
[2021-05-21] MEDS: Pantoprazole Sodium 20 MG Tablet PO ×2 (05:57→17:21)
[2021-05-21] MEDS: Ergocalciferol 1.25 MG (50, 000 UNIT) Capsule PO (05:58)
[2021-05-21] MEDS: Enoxaparin 30 MG/0.3 ML Syringe SC (05:58)
--- NOTE | 2021-05-21 06:50 | NURSING ---
Phone call placed to pulmonary services x 2 this am to administer routine Duoneb prior to shower w/ OT.
[2021-05-21] MEDS: Ipratropium/Albuterol Sulfate 3 ML AMPUL.NEB INHALATION ×3 (07:05→19:04)
[2021-05-21 07:11] VITALS: PULSE 96; RESP 18; O2SAT 95
[2021-05-21] MEDS: Aspirin 81 MG TAB.CHEW PO (08:01)
[2021-05-21] MEDS: predniSONE 10 MG Tablet PO (08:01)
[2021-05-21 10:00] VITALS: PULSE 84; RESP 18; O2SAT 95
[2021-05-21] MEDS: Acetaminophen 500 MG Tablet 1000 MG PO ×2 (10:08→18:38)
[2021-05-21] MEDS: oxyCODONE 5 MG Tablet PO ×2 (10:08→18:38)
[2021-05-21 10:50] VITALS: PULSE 80; RESP 20; O2SAT 96
[2021-05-21] MEDS: traMADol 50 MG Tablet PO ×2 (12:09→20:25)
--- NOTE | 2021-05-21 12:49 | CASEMGMT ---
Social Work See attached for completed assessment details. Met with patient in room. Introduced self and social studies teacher role. Patient agreeable to speak with social studies teacher. Patient plans to return to independent living at [facility] after TCU stay. Patient has support from patient daughters, Pretty and Ashly. MOLST form completed, patient wishes to be a DNRCC-A, No Intubation. Will continue to follow. Radha BOSWELL, ROHITS
--- NOTE | 2021-05-21 14:07 | NURSING ---
Dr. Ledezma aware of consult
--- NOTE | 2021-05-21 16:15 | PCM.PN.RX ---
Progress Note - Pharmacy Subjective: TCU Admission Objective: Allergies alendronate sodium [From Fosamax] Allergy (Severe, Verified 05/17/21 07:49) Other generalized discomfort reflux choking / aspiration budesonide Allergy (Severe, Verified 05/17/21 07:49) Other asthma attack fluticasone [From Advair Diskus] Allergy (Severe, Verified 05/17/21 07:49) Other CAN'T BREATHE Penicillins [PCN] Allergy (Severe, Verified 05/17/21 07:49) Shortness of breath salmeterol [From Advair Diskus] Allergy (Severe, Verified 05/17/21 07:49) Other CAN'T BREATHE tiotropium [From Spiriva with HandiHaler] Allergy (Severe, Verified 05/17/21 07:49) Other CANT BREATHE umeclidinium [From Anoro Ellipta] Allergy (Severe, Verified 05/17/21 07:49) Other THROAT SWELLING vilanterol [From Anoro Ellipta] Allergy (Severe, Verified 05/17/21 07:49) Other THROAT SWELLING doxycycline Allergy (Verified 05/17/21 07:49) Shortness of breath carvedilol [From Coreg] Adverse Reaction (Severe, Verified 05/17/21 07:49) SOB dexamethasone Adverse Reaction (Verified 05/17/21 07:49) Other Current Medications Generic Name Dose Route Start Last Admin Trade Name Freq PRN Reason Stop Dose Admin Acetaminophen 1,000 mg 05/17/21 17:13 05/21/21 10:08 Acetaminophen 500 Mg Tablet PO 1,000 mg Q6H PRN PRN Administration Pain Score 1-3 Albuterol Sulfate 2.5 mg 05/20/21 11:25 Albuterol 2.5 Mg/3 Ml Vial.Neb. INHALATION Q2H PRN PRN SOB &/OR WHEEZING Albuterol/Ipratropium 3 ml 05/18/21 12:30 05/21/21 10:50 Ipratropium/Albuterol Sulfate 3 Ml Ampul.Neb INHALATION 3 ml Q4H.RT TAMARA Administration Aspirin 81 mg 05/18/21 08:00 05/21/21 08:01 Aspirin 81 Mg Tab.Chew PO 81 mg DAILY@0800 TAMARA Administration Benzonatate 100 mg 05/17/21 14:00 05/21/21 13:04 Benzonatate 100 Mg Capsule PO 100 mg TID TAMARA Administration Bisacodyl 10 mg 05/17/21 17:15 Bisacodyl 5 Mg Tablet PO DAILY PRN PRN Constipation Carvedilol 3.125 mg 05/17/21 18:00 05/21/21 05:56 Carvedilol 3.125 Mg Tablet PO 3.125 mg BID TAMARA Administration Enoxaparin Sodium 30 mg 05/18/21 06:00 05/21/21 05:58 Enoxaparin 30 Mg/0.3 Ml Syringe SC 30 mg DAILY@0600 TAMARA Administration Ergocalciferol 1.25 mg 05/21/21 06:00 05/21/21 05:58 Ergocalciferol 1.25 Mg (50, 000 Unit) Capsule PO 1.25 mg Q7D TAMARA Administration Furosemide 40 mg 05/18/21 06:00 05/21/21 05:57 Furosemide 40 Mg Tablet PO 40 mg DAILY TAMARA Administration Loratadine 10 mg 05/18/21 06:00 05/21/21 05:56 Loratadine 10 Mg Tablet PO 10 mg DAILY TAMARA Administration Losartan Potassium 12.5 mg 05/18/21 06:00 05/21/21 05:56 Losartan Potassium 25 Mg Tablet PO 12.5 mg DAILY TAMARA Administration Montelukast Sodium 10 mg 05/17/21 22:00 05/20/21 20:54 Montelukast 10 Mg Tablet PO 10 mg QHS TAMARA Administration Oxycodone HCl 5 mg 05/17/21 17:14 05/21/21 10:08 Oxycodone 5 Mg Tablet PO 5 mg Q4H PRN PRN Administration Pain (Scale Score 6-10) Pantoprazole Sodium 20 mg 05/17/21 18:00 05/21/21 05:57 Pantoprazole Sodium 20 Mg Tablet PO 20 mg BID TAMARA Administration Polyethylene Glycol 17 gm 05/18/21 06:00 05/21/21 05:56 Polyethylene Glycol 3350 17 Gm Packet PO 17 gm DAILY TAMARA Administration Prednisone 10 mg 05/18/21 08:00 05/21/21 08:01 Prednisone 10 Mg Tablet PO 10 mg BREAKFAST TAMARA Administration Senna/Docusate Sodium 2 tablet 05/17/21 18:00 05/21/21 05:57 Senna/Docusate Sodium 1 Tablet PO 2 tablet BID TAMARA Administration Tramadol HCl 50 mg 05/17/21 17:13 05/21/21 12:09 Tramadol 50 Mg Tablet PO 50 mg Q6H PRN PRN Administration Pain Score 4-5 Tuberculin PPD 0.1 ml 05/25/21 10:00 Tuberculin,Purif.Prot.Deriv. 50 Tu/Ml Vial ID 05/25/21 10:01 X1 ONE Problem List (Last Reviewed 05/17/21 @ 16:[address] Jono Ayoub MD) Hypertension (Chronic) Chronic systolic congestive heart failure (Chronic) Gastroesophageal reflux disease (Acute) Allergic rhinitis (Acute) Vitamin D deficiency (Acute) Asthma (Acute) Debility (Acute) Compression fracture of T2 vertebra (Acute) Vital Signs Temp Pulse Resp BP Pulse Ox 96.8 F L 80 20 H 152/76 H 96 05/21/21 05:53 05/21/21 10:50 05/21/21 10:50 05/21/21 05:53 05/21/21 10:50 Oxygen Flow Rate (L/min) 2 Oxygen Delivery Method Nasal Cannula Weight: 92.306 kg Body Mass Index (BMI) 36.0 Sodium 140 mmol/L (136-145) 05/18/21 07:40 Potassium 4.7 mmol/L (3.5-5.1) 05/18/21 07:40 Chloride 102 mmol/L (98-107) 05/18/21 07:40 Carbon Dioxide 34.0 mmol/L (21.0-32.0) H 05/18/21 07:40 Anion Gap 4 (5-15) L 05/18/21 07:40 BUN 19 mg/dL (7-18) H 05/18/21 07:40 Creatinine 0.68 mg/dL (0.55-1.02) 05/18/21 07:40 Est GFR (MDRD) Af Amer 106 mL/min (>60) 05/18/21 07:40 Est GFR (MDRD) Non-Af 87 mL/min (>60) 05/18/21 07:40 BUN/Creatinine Ratio 27.8 RATIO (10-20) H 05/18/21 07:40 Glucose 106 mg/dL (74-106) 05/18/21 07:40 Assessment/Plan: 1. Pain: acetaminophen 1000mg PO Q6H PRN pain 1-3/10, tramadol 50mg PO Q6H PRN pain 4-5/10 and oxycodone 5mg PO Q4H PRN pain 6-10/10. Please continue to monitor for increased pain, PRN usage, constipation and respiratory depression. *2. DVT prophylaxis: enoxaparin 30mg SC daily. Please consider changing dose to 40mg based on CrCl >30mL/min. Thanks. Please continue to monitor for S/S of bleeding, platelets (last 311,000), hemoglobin (last 12.6g/dL), and renal function. 3. CV prophylaxis: aspirin 81mg PO daily. Please continue to monitor for S/S of bleeding and hemoglobin. 4. CHF: carvedilol 3.125mg PO BID, losartan 12.5mg PO daily and furosemide 40mg PO daily. Please continue to monitor BP (last 152/46), HR (last 80), potassium (last 4.7mmol/L), sodium (last 140mmol/L) and renal function. 5. Asthma: Duoneb 3mL inhalation 4x/day, albuterol nebulized solution 2.5mg inhalation Q2H PRN SOB/wheezing, montelukast 10mg PO QHS and prednisone 10mg PO breakfast. Please continue to monitor for PRN usage, upset stomach and WBC. 6. Chronic cough: benzonatate 100mg PO TID. Please continue to monitor for cough. 7. Allergic rhinitis: loratadine 10mg PO daily. Please continue to monitor for S/S of allergies. 8. GERD: pantoprazole 20mg PO BID. Please continue to monitor for S/S of GERD and diarrhea. *9. Vitamin D deficiency: ergocalciferol 1.25mg PO once weekly. Patient does not have a vitamin D level in chart. Please consider ordering a vitamin D level if clinically appropriate. Thanks. Psychotropic Medications: None Unnecessary Medications: None Bowel Regimen: Miralax 17gm PO daily, senna/docusate 2T PO BID and bisacodyl 10mg PO daily PRN constipation. Please continue to monitor for S/S of constipation and PRN usage. Date of Note:: 05/21/21
[2021-05-21 18:55] VITALS: PULSE 87; RESP 18
--- NOTE | 2021-05-21 19:01 | NURSING ---
Dr. Ledezma in for consult tonchristina N.O. Hold Lovenox friday morning for possible KERRI T1-T2, lidoderm patch 12 hours on 12 hours off.
[2021-05-21] MEDS: Montelukast 10 MG Tablet PO (20:19)
[2021-05-22] VITALS (7 sets, daily range): BP systolic 135–164; BP diastolic 66–81; PULSE 88–96; RESP 16–18; TEMP 36.3; O2SAT 96
[2021-05-22] MEDS: oxyCODONE 5 MG Tablet PO ×4 (02:34→21:12)
[2021-05-22] MEDS: Acetaminophen 500 MG Tablet 1000 MG PO ×2 (02:34→10:25)
[2021-05-22] MEDS: Benzonatate 100 MG Capsule PO ×3 (06:31→21:11)
[2021-05-22] MEDS: Senna/Docusate Sodium 1 Tablet 2 TABLET PO (06:31)
[2021-05-22] MEDS: Loratadine 10 MG Tablet PO (06:31)
[2021-05-22] MEDS: Losartan Potassium 25 MG Tablet 12.5 MG PO (06:31)
[2021-05-22] MEDS: Pantoprazole Sodium 20 MG Tablet PO ×2 (06:32→17:25)
[2021-05-22] MEDS: Carvedilol 3.125 MG TABLET PO ×2 (06:32→17:25)
[2021-05-22] MEDS: Furosemide 40 MG Tablet PO (06:32)
[2021-05-22] MEDS: Enoxaparin 30 MG/0.3 ML Syringe SC (06:32)
[2021-05-22] MEDS: Polyethylene Glycol 3350 17 GM PACKET PO (06:33)
[2021-05-22] MEDS: Ipratropium/Albuterol Sulfate 3 ML AMPUL.NEB INHALATION ×3 (07:00→19:55)
[2021-05-22] MEDS: traMADol 50 MG Tablet PO (08:08)
[2021-05-22] MEDS: Aspirin 81 MG TAB.CHEW PO (08:08)
[2021-05-22] MEDS: predniSONE 10 MG Tablet PO (08:08)
[2021-05-22] MEDS: Montelukast 10 MG Tablet PO (21:11)
[2021-05-23] MEDS: oxyCODONE 5 MG Tablet PO ×3 (02:52→20:51)
[2021-05-23] MEDS: Losartan Potassium 25 MG Tablet 12.5 MG PO (05:17)
[2021-05-23] MEDS: Loratadine 10 MG Tablet PO (05:17)
[2021-05-23] MEDS: Furosemide 40 MG Tablet PO (05:17)
[2021-05-23] MEDS: Benzonatate 100 MG Capsule PO ×3 (05:17→20:53)
[2021-05-23] MEDS: Pantoprazole Sodium 20 MG Tablet PO ×2 (05:17→17:24)
[2021-05-23] MEDS: Carvedilol 3.125 MG TABLET PO ×2 (05:17→17:24)
[2021-05-23 05:21] VITALS: BP 146/68; PULSE 93
[2021-05-23] MEDS: Lidocaine 5% Patch 1 PATCH TOPICAL (07:41)
[2021-05-23] MEDS: Aspirin 81 MG TAB.CHEW PO (07:41)
[2021-05-23] MEDS: predniSONE 10 MG Tablet PO (07:41)
[2021-05-23 08:00] VITALS: PULSE 94; RESP 16
[2021-05-23] MEDS: Ipratropium/Albuterol Sulfate 3 ML AMPUL.NEB INHALATION ×3 (08:00→19:20)
--- NOTE | 2021-05-23 08:09 | NURSING ---
This nurse talked with Dr. Ledezma and N.O. 0.25% Marcaine and 40mg kenalog for trigger points in thoracic spine to be performed today .
[2021-05-23] MEDS: Bupivacaine 0.25% 30 ML Vial OPERA.SITE (10:35)
[2021-05-23] MEDS: Triamcinolone Acetonide 40 MG/ML Vial INTRAARTIC (10:35)
--- NOTE | 2021-05-23 11:14 | CASEMGMT ---
Social Work Plan of Care meeting held with pt and pt dgt Ashly present. Pt is receiving PT/OT and progressing with care. Pain in back is current limiting factor to progession with therapy and pt plans to meet with Dr. Ledezma today. Pt lives alone at [facility]. Pt is adamant that she does not want to be in TCU long and plans to return home alone. Dgt indicates some concern with pt returning home alone. Pt does have a medical alert and at one time had services through [facility] but dgt states they discontinued these services. SW provided list of Skilled Home Health agencies including quality and resource use data. SW also provided list of private duty home health agencies. No discharge date set at this time. Pt will continue with therapy and treatment plan and SW will follow for discharge planning. EVA Barton
[2021-05-23 13:30] VITALS: PULSE 86; RESP 18; O2SAT 94
--- NOTE | 2021-05-23 13:49 | CPS ---
Spoke with RN about patient getting a PRN Inhaler to use in between scheduled breathing Tx's.
[2021-05-23] MEDS: Acetaminophen 500 MG Tablet 1000 MG PO (15:24)
[2021-05-23 16:00] VITALS: BP 122/73; PULSE 95; RESP 18; TEMP 36.1; O2SAT 96
--- NOTE | 2021-05-23 16:27 | NURSING ---
Addendum entered by Hilary Aguirre 05/23/21 18:16: N.O. sputum gram stain and culture, stop PRN albuterol nebulizer, start albuterol inhaler Q4H prn, CXR, zpack and cefdinir. Original Note: Pt coughing up moderate amount of dark yellow and blood tinged sputum, pt states she has not been feeling herself lately, Dr. Ayoub updated
--- NOTE | 2021-05-23 17:00 | RAD_ITS ---
STUDY: X-RAY CHEST REASON FOR EXAM: Female, 81 years old. Cough TECHNIQUE: Single AP portable view of the chest. COMPARISON: NOVEMBER 18, 2020 FINDINGS: Reidentification of fibrotic scarring of the right lower lobe and nodular pleural calcification or calcified granuloma. No new area of consolidation or infiltrate seen in either lung. No visualized pleural effusion. Normal size heart. Normal mediastinum and soto. Normal visualized pulmonary arteries. There is atherosclerotic tortuosity of the aortic arch and descending thoracic aorta. There are diffuse degenerative changes of the visualized thoracic spine. Normal visualized ribs, clavicles, and shoulders. Chronic L1 vertebral body compression deformities reidentified. There is no demonstrated abnormality of the visualized soft tissue structures of the upper abdomen. RAD/Chest PA and Lateral IMPRESSION: Degenerative changes, as described above. No demonstrated acute cardiopulmonary process. Electronically Signed: Leoncio Latif MD at 23:20 EST , Service support ,
[2021-05-23] MEDS: Senna/Docusate Sodium 1 Tablet 2 TABLET PO (17:24)
[2021-05-23] MEDS: Azithromycin 250 MG Tablet 500 MG PO (17:48)
[2021-05-23] MEDS: Cefdinir 300 MG Capsule PO (17:49)
[2021-05-23] MEDS: traMADol 50 MG Tablet PO (18:55)
[2021-05-23 19:20] VITALS: PULSE 95; RESP 18
[2021-05-23] MEDS: Montelukast 10 MG Tablet PO (20:54)
[2021-05-23 20:56] VITALS: PULSE 97; RESP 19; O2SAT 97
--- NOTE | 2021-05-23 21:10 | NURSING ---
Patient abdomen distended and tender with palpation. Patient not having a lot of urine output. Bladder scanned at 444mL. Will leave message for Dr. Ayoub. RN aware.
--- NOTE | 2021-05-24 00:06 | NURSING ---
Patient with distention and tenderness in abdomen. Bladder scan showed 440ml post-void residual. Last BM 05/21/21. Call placed to Dr. Ayoub regarding condition. New orders received for administration of Magnesium Citrate 300mL, straight catheter to empty bladder. Urine collected for UA, C&S. Will continue to monitor.
[2021-05-24 01:00] LABS: Mucous, Urine 0 SEEN /hpf (<or=2+)
[2021-05-24 01:06] LABS: Color, Urine Yellow (Yellow); Glucose, Dipstick Normal (Normal); Ketone-Dipstick 5 mg/dl (Negative); Leukocyte Esterase-Dipstick 500 /ul (Negative); Nitrite-Dipstick Positive (Negative); Occult Blood-Urine 50 /ul (Negative); Protein-Dipstick 30 mg/dl (Negative); Specific Gravity, Urine 1.025 (1.002-1.030); Urine Bilirubin Dipstick Negative (Negative); Urine Clarity Sl. Cloudy (Clear); Urine Urobilinogen 1 mg/dl (Normal)
[2021-05-24 01:12] LABS: Red Blood Cells-Urine 0-5 SEEN /hpf (0-5); White Blood Cells 50-100 SEEN /hpf (0-5)
[2021-05-24 01:13] LABS: Bacteria 2+ /hpf (None Seen); Squamous Epithelial Cells - UA 0-5 SEEN /hpf (5-10)
[2021-05-24] MEDS: Furosemide 40 MG Tablet PO (05:37)
[2021-05-24] MEDS: Benzonatate 100 MG Capsule PO ×3 (05:37→20:22)
[2021-05-24] MEDS: Carvedilol 3.125 MG TABLET PO ×2 (05:37→17:14)
[2021-05-24] MEDS: Loratadine 10 MG Tablet PO (05:37)
[2021-05-24] MEDS: Cefdinir 300 MG Capsule PO ×2 (05:37→17:13)
[2021-05-24] MEDS: Lidocaine 5% Patch 1 PATCH TOPICAL (05:37)
[2021-05-24] MEDS: Enoxaparin 30 MG/0.3 ML Syringe SC (05:37)
[2021-05-24] MEDS: Losartan Potassium 25 MG Tablet 12.5 MG PO (05:37)
[2021-05-24] MEDS: Pantoprazole Sodium 20 MG Tablet PO ×2 (05:37→17:13)
[2021-05-24] MEDS: Magnesium Citrate 300 ML PO (05:38)
[2021-05-24] MEDS: oxyCODONE 5 MG Tablet PO ×2 (05:40→20:15)
[2021-05-24 05:46] VITALS: BP 147/85; PULSE 89; O2SAT 96
--- NOTE | 2021-05-24 05:52 | NURSING ---
Patient has not been able to cough up any sputum yet. Will let next shift nurse know and attempt to collect culture.
[2021-05-24 06:07] VITALS: PULSE 89; RESP 18; O2SAT 96
[2021-05-24 06:42] VITALS: PULSE 95; RESP 17; O2SAT 95
[2021-05-24] MEDS: Ipratropium/Albuterol Sulfate 3 ML AMPUL.NEB INHALATION ×3 (06:42→14:25)
[2021-05-24] MEDS: Aspirin 81 MG TAB.CHEW PO (07:57)
[2021-05-24] MEDS: predniSONE 10 MG Tablet PO (07:58)
[2021-05-24] MEDS: Azithromycin 250 MG Tablet PO (10:34)
[2021-05-24 10:40] VITALS: PULSE 85; RESP 17
[2021-05-24] MEDS: Albuterol Sulfate 8 gm Inhaler (60 puffs) 2 PUFF INHALATION ×2 (13:02→20:17)
[2021-05-24 14:25] VITALS: PULSE 100; RESP 19
[2021-05-24 14:32] VITALS: BP 117/82; PULSE 90; RESP 18; TEMP 36.4; O2SAT 96
[2021-05-24] MEDS: Senna/Docusate Sodium 1 Tablet 2 TABLET PO (17:14)
[2021-05-24] MEDS: Montelukast 10 MG Tablet PO (20:22)
[2021-05-25] MEDS: Senna/Docusate Sodium 1 Tablet 2 TABLET PO ×2 (05:41→17:38)
[2021-05-25] MEDS: Polyethylene Glycol 3350 17 GM PACKET PO (05:41)
[2021-05-25] MEDS: Losartan Potassium 25 MG Tablet 12.5 MG PO (05:41)
[2021-05-25] MEDS: Pantoprazole Sodium 20 MG Tablet PO ×2 (05:43→17:38)
[2021-05-25] MEDS: Cefdinir 300 MG Capsule PO ×2 (05:43→17:38)
[2021-05-25] MEDS: Loratadine 10 MG Tablet PO (05:43)
[2021-05-25] MEDS: Albuterol Sulfate 8 gm Inhaler (60 puffs) 2 PUFF INHALATION ×2 (05:44→17:43)
[2021-05-25] MEDS: Enoxaparin 30 MG/0.3 ML Syringe SC (05:44)
[2021-05-25] MEDS: Lidocaine 5% Patch 1 PATCH TOPICAL (05:45)
[2021-05-25] MEDS: Carvedilol 3.125 MG TABLET PO ×2 (05:46→17:38)
[2021-05-25] MEDS: Benzonatate 100 MG Capsule PO ×3 (05:46→20:42)
[2021-05-25] MEDS: Furosemide 40 MG Tablet PO (05:46)
[2021-05-25] MEDS: oxyCODONE 5 MG Tablet PO ×3 (05:50→17:41)
[2021-05-25 07:20] VITALS: PULSE 80; RESP 20; O2SAT 96
[2021-05-25] MEDS: Ipratropium/Albuterol Sulfate 3 ML AMPUL.NEB INHALATION ×3 (07:20→19:10)
[2021-05-25 08:13] LABS: Absolute Lymphocyte Count 2.07 X10^3/uL (0.83-4.51); Absolute Neutrophil Count 5.3 X10^3/uL (2.0-7.7); Basophil# 0.03 X10^3/uL; Basophil% 0.4 % (0-1); Eosinophil# 0.01 X10^3/uL; Eosinophils% 0.1 % (0-5); Hematocrit 39.8 % (37-47); Hemoglobin 12.8 g/dL (12.0-15.0); Lymphocyte # 2.07 X10^3/ul (0.83-4.51); Lymphocyte % 25.2 % (19-41); Mean Corp Hgb Conc 32.2 g/dL (32-36); Mean Corpuscular Hgb 30.4 pg (27.0-32.0); Mean Corpuscular Volume 94.5 fL (81-99); Monocyte# 0.73 X10^3/uL; Monocyte% 8.9 % (0-10); NRBC Flagged by Analyzer 0 % (0-5); Neutrophil # 5.34 X10^3/uL (2.7-7.7); Platelet Count 267 K/mm3 (150-450); RBC Distribution Width SD 55.5 fl (35.1-43.9); Red Blood Count 4.21 M/mm3 (4.2-5.4); White Blood Count 8.2 K/mm3 (4.4-11.0)
[2021-05-25 08:43] LABS: Anion Gap 5 (5-15); BUN 22 mg/dL (7-18); BUN/Creat Ratio 30.3 RATIO (10-20); Calcium,Total 8.9 mg/dL (8.5-10.1); Chloride 98 mmol/L (98-107); Creatinine, Serum 0.73 mg/dL (0.55-1.02); EST Glomerular Filtration Rate 82 mL/min (>60); Est Glom Filt Rate - Afr Amer 99 mL/min (>60); Estimated Creatinine Clearance 35.88 ml/min; Glucose 142 mg/dL (74-106); Potassium 4.2 mmol/L (3.5-5.1); Sodium Level 139 mmol/L (136-145)
[2021-05-25] MEDS: Aspirin 81 MG TAB.CHEW PO (08:44)
[2021-05-25] MEDS: traMADol 50 MG Tablet PO (08:44)
[2021-05-25] MEDS: predniSONE 10 MG Tablet PO (08:44)
[2021-05-25 11:10] VITALS: PULSE 68; RESP 20
[2021-05-25] MEDS: Tuberculin,Purif.prot.deriv. 50 TU/ML Vial 0.1 ML ID (12:17)
[2021-05-25] MEDS: Azithromycin 250 MG Tablet PO (12:17)
[2021-05-25 15:09] VITALS: BP 124/68; PULSE 81; RESP 18; TEMP 36.3; O2SAT 93
[2021-05-25 19:10] VITALS: PULSE 84; RESP 16
[2021-05-25] MEDS: Montelukast 10 MG Tablet PO (20:42)
[2021-05-25 21:03] VITALS: PULSE 82; RESP 16; O2SAT 95
--- NOTE | 2021-05-26 02:04 | NURSING ---
Sputum culture unable to be obtained at this time due to patient report of no more drainage, patient states I'm feeling better now.
[2021-05-26 05:15] VITALS: BP 154/85; PULSE 80
[2021-05-26] MEDS: Lidocaine 5% Patch 1 PATCH TOPICAL (05:21)
[2021-05-26] MEDS: oxyCODONE 5 MG Tablet PO ×3 (05:21→17:32)
[2021-05-26] MEDS: Losartan Potassium 25 MG Tablet 12.5 MG PO (05:22)
[2021-05-26] MEDS: Furosemide 40 MG Tablet PO (05:22)
[2021-05-26] MEDS: Enoxaparin 30 MG/0.3 ML Syringe SC (05:22)
[2021-05-26] MEDS: Cefdinir 300 MG Capsule PO ×2 (05:22→17:27)
[2021-05-26] MEDS: Benzonatate 100 MG Capsule PO ×3 (05:22→22:12)
[2021-05-26] MEDS: Polyethylene Glycol 3350 17 GM PACKET PO (05:22)
[2021-05-26] MEDS: Senna/Docusate Sodium 1 Tablet 2 TABLET PO ×2 (05:23→17:28)
[2021-05-26] MEDS: Carvedilol 3.125 MG TABLET PO ×2 (05:23→17:27)
[2021-05-26] MEDS: Loratadine 10 MG Tablet PO (05:23)
[2021-05-26] MEDS: Pantoprazole Sodium 20 MG Tablet PO ×2 (05:23→17:27)
[2021-05-26] MEDS: Albuterol Sulfate 8 gm Inhaler (60 puffs) 2 PUFF INHALATION ×2 (05:46→09:49)
[2021-05-26 06:00] VITALS: PULSE 77; RESP 17; O2SAT 95
[2021-05-26] MEDS: Ipratropium/Albuterol Sulfate 3 ML AMPUL.NEB INHALATION ×3 (06:00→18:30)
[2021-05-26 07:24] VITALS: O2SAT 97
[2021-05-26] MEDS: predniSONE 10 MG Tablet PO (08:53)
[2021-05-26] MEDS: Aspirin 81 MG TAB.CHEW PO (08:54)
[2021-05-26] MEDS: Azithromycin 250 MG Tablet PO (08:55)
[2021-05-26] MEDS: Acetaminophen 500 MG Tablet 1000 MG PO (12:53)
[2021-05-26 13:50] VITALS: PULSE 105; RESP 20; O2SAT 95
[2021-05-26 14:42] VITALS: BP 164/94; PULSE 108; RESP 24; TEMP 37.2; O2SAT 94
--- NOTE | 2021-05-26 16:41 | NURSING ---
pt daughter, Ashly, notified of 2 positive covid staff members and one pt.
[2021-05-26 18:30] VITALS: PULSE 95; RESP 18
[2021-05-26] MEDS: Montelukast 10 MG Tablet PO (22:13)
--- NOTE | 2021-05-26 23:54 | NURSING ---
Phone call placed to pulmonary services and spoke w/ Becky, requesting a treatment.
[2021-05-27] VITALS (8 sets, daily range): BP systolic 97–169; BP diastolic 52–83; PULSE 72–94; RESP 16–24; TEMP 35.9; O2SAT 94–97
--- NOTE | 2021-05-27 00:02 | NURSING ---
Respiratory therapy in to administer aerosol treatment.
[2021-05-27] MEDS: Losartan Potassium 25 MG Tablet 12.5 MG PO (06:07)
[2021-05-27] MEDS: Furosemide 40 MG Tablet PO (06:07)
[2021-05-27] MEDS: Benzonatate 100 MG Capsule PO ×3 (06:07→21:04)
[2021-05-27] MEDS: Loratadine 10 MG Tablet PO (06:07)
[2021-05-27] MEDS: Cefdinir 300 MG Capsule PO ×2 (06:07→17:11)
[2021-05-27] MEDS: Senna/Docusate Sodium 1 Tablet 2 TABLET PO ×2 (06:07→17:11)
[2021-05-27] MEDS: Pantoprazole Sodium 20 MG Tablet PO ×2 (06:07→17:11)
[2021-05-27] MEDS: Enoxaparin 30 MG/0.3 ML Syringe SC (06:08)
[2021-05-27] MEDS: Carvedilol 3.125 MG TABLET PO ×2 (06:08→17:11)
[2021-05-27] MEDS: oxyCODONE 5 MG Tablet PO ×3 (06:08→21:04)
[2021-05-27] MEDS: Lidocaine 5% Patch 1 PATCH TOPICAL (06:12)
[2021-05-27] MEDS: Ipratropium/Albuterol Sulfate 3 ML AMPUL.NEB INHALATION ×4 (06:27→19:51)
[2021-05-27] MEDS: Aspirin 81 MG TAB.CHEW PO (08:17)
[2021-05-27] MEDS: predniSONE 10 MG Tablet PO (08:17)
[2021-05-27] MEDS: Azithromycin 250 MG Tablet PO (10:53)
[2021-05-27] MEDS: Acetaminophen 500 MG Tablet 1000 MG PO (10:56)
[2021-05-27] MEDS: Montelukast 10 MG Tablet PO (21:04)
[2021-05-28] VITALS (7 sets, daily range): BP systolic 140; BP diastolic 74–78; PULSE 84–105; RESP 16–18; TEMP 36.3–36.6; O2SAT 94–99
[2021-05-28] MEDS: oxyCODONE 5 MG Tablet PO ×3 (01:04→09:45)
--- NOTE | 2021-05-28 01:14 | PCA ---
Patient changed pants but wanted to sleep in the shirt she was wearing stating that it was warmer than wearing a hospital gown and that she was running low on clean clothes. Per patient family is going to bring her new cloths tomorrow
--- NOTE | 2021-05-28 02:58 | NURSING ---
Sputum Culture discontinued. Patient is also requesting to see Dr. Ayoub. Patient wants to see if Dr. Ayoub will be patient's PCP. Patient also stated, I also want to know what he thinks, If he thinks I am dying and I should start those measures. Patient then states, I don't think I am going to make it back home. I am ready for that, but I need to hear it from a doctor! This Nurse talked with patient and patient seems to be at ease with her decision.
[2021-05-28] MEDS: Albuterol Sulfate 8 gm Inhaler (60 puffs) 2 PUFF INHALATION ×2 (05:43→16:06)
[2021-05-28] MEDS: Cefdinir 300 MG Capsule PO ×2 (05:44→17:35)
[2021-05-28] MEDS: Enoxaparin 30 MG/0.3 ML Syringe SC (05:44)
[2021-05-28] MEDS: Lidocaine 5% Patch 1 PATCH TOPICAL (05:44)
[2021-05-28] MEDS: Carvedilol 3.125 MG TABLET PO ×2 (05:44→17:35)
[2021-05-28] MEDS: Loratadine 10 MG Tablet PO (05:44)
[2021-05-28] MEDS: Pantoprazole Sodium 20 MG Tablet PO ×2 (05:44→17:35)
[2021-05-28] MEDS: Benzonatate 100 MG Capsule PO ×3 (05:44→21:11)
[2021-05-28] MEDS: Senna/Docusate Sodium 1 Tablet 2 TABLET PO (05:44)
[2021-05-28] MEDS: Furosemide 40 MG Tablet PO (05:44)
[2021-05-28] MEDS: Losartan Potassium 25 MG Tablet 12.5 MG PO (05:44)
[2021-05-28] MEDS: Ergocalciferol 1.25 MG (50, 000 UNIT) Capsule PO (05:48)
[2021-05-28] MEDS: Ipratropium/Albuterol Sulfate 3 ML AMPUL.NEB INHALATION ×4 (06:48→21:15)
[2021-05-28] MEDS: predniSONE 10 MG Tablet PO (08:35)
[2021-05-28] MEDS: Aspirin 81 MG TAB.CHEW PO (08:35)
[2021-05-28] MEDS: Azithromycin 250 MG Tablet PO (09:46)
[2021-05-28] MEDS: Montelukast 10 MG Tablet PO (21:11)
[2021-05-28] MEDS: traMADol 50 MG Tablet PO (21:13)
[2021-05-29] MEDS: Lidocaine 5% Patch 1 PATCH TOPICAL (04:25)
[2021-05-29] MEDS: Albuterol Sulfate 8 gm Inhaler (60 puffs) 2 PUFF INHALATION ×2 (04:25→18:23)
[2021-05-29] MEDS: Cefdinir 300 MG Capsule PO ×2 (04:26→17:31)
[2021-05-29] MEDS: Enoxaparin 30 MG/0.3 ML Syringe SC (04:26)
[2021-05-29] MEDS: Furosemide 40 MG Tablet PO (04:27)
[2021-05-29] MEDS: Losartan Potassium 25 MG Tablet 12.5 MG PO (04:27)
[2021-05-29] MEDS: Senna/Docusate Sodium 1 Tablet 2 TABLET PO (04:27)
[2021-05-29] MEDS: Loratadine 10 MG Tablet PO (04:27)
[2021-05-29] MEDS: Benzonatate 100 MG Capsule PO ×3 (04:27→22:45)
[2021-05-29] MEDS: Carvedilol 3.125 MG TABLET PO ×2 (04:27→17:31)
[2021-05-29] MEDS: Pantoprazole Sodium 20 MG Tablet PO ×2 (04:29→17:31)
[2021-05-29] MEDS: oxyCODONE 5 MG Tablet PO ×3 (04:43→18:24)
[2021-05-29 07:05] VITALS: PULSE 92; RESP 18; O2SAT 97
[2021-05-29] MEDS: Ipratropium/Albuterol Sulfate 3 ML AMPUL.NEB INHALATION ×4 (07:05→19:48)
[2021-05-29] MEDS: Aspirin 81 MG TAB.CHEW PO (08:20)
[2021-05-29] MEDS: predniSONE 10 MG Tablet PO (08:20)
[2021-05-29 11:45] VITALS: PULSE 89; RESP 18
[2021-05-29 14:45] VITALS: BP 121/52; PULSE 102; RESP 18; TEMP 36.1; O2SAT 98
[2021-05-29 15:56] VITALS: PULSE 88; RESP 20; O2SAT 98
--- NOTE | 2021-05-29 16:05 | CASEMGMT ---
Social Work SW met with pt to discuss discharge plan as pt is requesting to return home and IDT is agreeable. Discharge date set for 05/31/21. Pt lives at home alone in an independent living apartment at [facility]. Pt dgts are available to assist as needed. Pt is agreeable to recommendations of home health PT/OT/DIRECTOR OF PUBLIC [employer]KS and list of providers given including quality and resource use data. Pt with no preference. With pt permission phone call to dgt Ashly and updated on discharge plan. Ashly agreeable to discharge and requesting home health angency with high star rating. Referral to [facility] (5 star) for home PT/OT/[employer]. SW will await determination. Pt has all needed DME. Pt dgt to bring in [employer] tomorrow for pt to practice with prior to d/c. Discharge Date: 05/31/20 Discharge Disposition: Home alone. Home Health PT/OT/DIRECTOR OF PUBLIC WORKS EVA Barton
--- NOTE | 2021-05-29 18:24 | NURSING ---
Patient c/o SOB when ambulating from bathroom to bed. Requested inhaler. Albuterol 2 puffs inhalation administered as ordered. Néstor continue to monitor.
--- NOTE | 2021-05-29 19:21 | DS.PCM_ITS ---
Providers Date of Admission: 05/17/21 Primary Care Physician: Dr. Ashley Stephens MD Consultations 05/17/21 16:10 Consult: Pain Management Routine Consulting Provider: Savita Ledezma Reason for Consult: T2 compression fx EMERGENT Consult: No MD Notified: Yes Date Notified: 05/17/21 Time Notified: 16:11 Method of Notification: Verbal Method of Consult:: In-Person Reason For Visit: COMPRESS FX T2 Diagnosis Discharge Diagnosis (1) Debility: Status: Acute Code(s): R53.81 - Other malaise (2) Compression fracture of T2 vertebra: Status: Inactive Code(s): S22.020A - Wedge compression fracture of second thoracic vertebra, initial encou nter for closed fracture (3) Asthma: Status: Acute Code(s): J45.909 - Unspecified asthma, uncomplicated (4) Vitamin D deficiency: Status: Acute Code(s): E55.9 - Vitamin D deficiency, unspecified (5) Allergic rhinitis: Status: Acute Code(s): J30.9 - Allergic rhinitis, unspecified (6) Gastroesophageal reflux disease: Status: Acute Code(s): K21.9 - Gastro-esophageal reflux disease without esophagitis (7) Chronic systolic congestive heart failure: Status: Chronic Code(s): I50.22 - Chronic systolic (congestive) heart failure (8) Hypertension: Status: Chronic Code(s): I10 - Essential (primary) hypertension Medications at Discharge Home Medications albuterol sulfate 1 - 2 puff INHALATION Q6H PRN PRN 09/20/14 ergocalciferol (vitamin D2) 50,000 unit PO Q7D 10/03/16 aspirin 81 mg PO DAILY@0800 04/04/18 fexofenadine 180 mg PO DAILY 12/02/18 ipratropium 20 mcg-albuterol 100 mcg/actuation mist for inhalation 1 puff INHALATION 4X/DAY PRN #4 g 03/20/20 benzonatate 100 mg capsule 100 mg PO TID cap 11/16/20 furosemide 20 mg tablet 40 mg PO DAILY #180 tab 11/28/20 montelukast 10 mg tablet 10 mg PO QHS #90 tab 05/02/21 carvedilol [Coreg] 3.125 mg PO BID 05/17/21 losartan 12.5 mg PO DAILY 05/17/21 prednisone 10 mg PO QDAY 05/17/21 lidocaine 1 patch TOPICAL DAILY 30 Days #30 ea 05/29/21 oxycodone 5 mg PO Q4H PRN PRN 7 Days #42 tab 05/29/21 pantoprazole 20 mg PO BID 30 Days #60 tab 05/29/21 tramadol 50 mg PO Q6H PRN PRN 7 Days #28 tab 05/29/21 Hospital Course Operations None Procedures - (Right chest wall trigger point injection. ) Summary of Care Provided Minutes Spent on Discharge: 35 Hospital Course: 81 year old female with below past medical history of intractable thoracic back pain secondary to acute T2 compression fracture, admitted to TCU with debility, here for rehabilitation, strengthening, prior to discharge home alone. 05/17/2021 Dr. Ledezma performed right chest wall trigger point injection. [place] [facility] [place] PT/OT/LABORER TIN CAN. Physical Exam Const alert and oriented x3 General Appearance: cooperative HEENT normocephalic Eyes PERRL and EOMs intact bilaterally Neck supple, no JVD and no carotid bruits Resp normal respiratory effort, normal air movement and clear to auscultation bilaterally Cardio regular rate and regular rhythm GI normal to inspection, nondistended, normoactive bowel sounds, non-tender and non-distended Extremity normal capillary refill General Extremity: Negative for edema Skin no rashes or lesions noted General Skin Exam: no breakdown Psych affect normal Appearance: appropriate Weight / BMI Weight Weight: 88.813 kg Body Mass Index (BMI) 36.0 ABG / Lab / Microbiology Data Result Diagrams: 05/25/21 07:54 05/25/21 07:54 Microbiology: Microbiology 05/24/21 00:04 Urine Catheter - Catheter Urine Culture - Final Presumptive E. coli D/C Instructions Discharge Diet: No restrictions Discharge Activity: Return to Normal Activity, May Shower and Use Walker Weight Bearing Status: Weight bearing as tolerated Call your doctor if you observe: Fever of 101 or Higher, Inability to urinate, Inability to have a bowel movement, Shortness of breath, Dizziness, Fainting spells, Swelling in the ankles, Chest pain and Uncontrolled pain Additional Instructions: [place] [facility] [place] Health Care PT/OT/LABORER TIN CAN. Please Follow Up With: Jono Ayoub Chi, MD When: 1 week. Meaningful Use Info Meaningful Use Diagnoses (Choose all that apply): None applicable Discharge Plan Admission Admit Date/Time: 05/17/21 12:14 Primary Reason for Your Visit: Debility. Attending Provider: Jono Ayoub Chi Primary Care Provider: Ashley Stephens Consulting Providers: Savita Ledezma Instructions Additional Instructions / Restrictions: [place] [facility] [place], Home Health Care PT/OT/LABORER TIN CAN. Discharge Orders/Prescriptions Prescriptions: New tramadol 50 mg Tablet 50 mg PO Q6H PRN PRN (Reason: Pain Score 4-5) 7 Days Qty: 28 RF: 0 pantoprazole 20 mg Tablet,Delayed Release (Dr/Ec) 20 mg PO BID 30 Days Qty: 60 RF: 0 lidocaine 5 % Adhesive Patch,Medicated 1 patch topical DAILY 30 Days Qty: 30 RF: 0 oxycodone 5 mg Tablet 5 mg PO Q4H PRN PRN (Reason: Pain (Scale Score 6-10)) 7 Days Qty: 42 RF: 0 Continued benzonatate 100 mg capsule 100 mg PO TID RF: 0 albuterol sulfate 1 INHALER inhaler 1 - 2 puff INHALATION Q6H PRN PRN (Reason: Wheezing) RF: 0 fexofenadine 180 MG tablet 180 mg PO DAILY RF: 0 ergocalciferol (vitamin D2) 50,000 UNIT capsule 50,000 unit PO Q7D RF: 0 aspirin 81 MG tablet,chewable 81 mg PO DAILY@0800 RF: 0 prednisone 10 mg tablet 10 mg PO QDAY RF: 0 carvedilol [Coreg] 3.125 mg tablet 3.125 mg PO BID RF: 0 losartan 25 mg tablet 12.5 mg PO DAILY RF: 0 ipratropium-albuterol 20-100 mcg/actuation mist 1 puff INHALATION 4X/DAY PRN (Reason: J44.9 COPD) Qty: 4 RF: 0 furosemide 20 mg tablet 40 mg PO DAILY Qty: 180 RF: 3 montelukast 10 mg tablet 10 mg PO QHS Qty: 90 RF: 3 Discontinued pantoprazole 20 mg tablet,delayed release (DR/EC) 20 mg PO DAILY RF: 0 oxycodone-acetaminophen 5-325 mg tablet 5 - 325 tab PO Q6H PRN PRN (Reason: Pain (Scale Score 6-10)) RF: 0 budesonide 1 mg/2 mL suspension for nebulization 0.5 mg INHALATION BID RF: 0 Referrals / Follow Up: Jono Ayoub Chi, MD [COURTESY STAFF PHYSICIAN] - Within 1 Week Disposition Disposition (needs filled in before D/C Order can be placed): Home Health Service
[2021-05-29 19:49] VITALS: PULSE 91; RESP 18; O2SAT 99
[2021-05-29] MEDS: Montelukast 10 MG Tablet PO (22:45)
[2021-05-30] MEDS: Albuterol Sulfate 8 gm Inhaler (60 puffs) 2 PUFF INHALATION ×2 (02:30→11:34)
[2021-05-30] MEDS: Loratadine 10 MG Tablet PO (05:35)
[2021-05-30] MEDS: Pantoprazole Sodium 20 MG Tablet PO ×2 (05:35→18:03)
[2021-05-30] MEDS: Furosemide 40 MG Tablet PO (05:35)
[2021-05-30] MEDS: Cefdinir 300 MG Capsule PO ×2 (05:35→18:03)
[2021-05-30] MEDS: Enoxaparin 30 MG/0.3 ML Syringe SC (05:35)
[2021-05-30] MEDS: Losartan Potassium 25 MG Tablet 12.5 MG PO (05:35)
[2021-05-30] MEDS: Carvedilol 3.125 MG TABLET PO ×2 (05:35→18:02)
[2021-05-30] MEDS: Benzonatate 100 MG Capsule PO ×3 (05:35→20:16)
[2021-05-30] MEDS: Lidocaine 5% Patch 1 PATCH TOPICAL (05:36)
[2021-05-30] MEDS: oxyCODONE 5 MG Tablet PO ×3 (05:40→20:19)
[2021-05-30 07:00] VITALS: PULSE 98; RESP 18; O2SAT 99
[2021-05-30] MEDS: Ipratropium/Albuterol Sulfate 3 ML AMPUL.NEB INHALATION ×4 (07:00→19:55)
--- NOTE | 2021-05-30 07:28 | CPS ---
PT AMBULATED BACK FROM BATHROOM JUST PRIOR TO NEBULIZER TREATMENT, INCREASED WOB
[2021-05-30] MEDS: Aspirin 81 MG TAB.CHEW PO (08:22)
[2021-05-30] MEDS: predniSONE 10 MG Tablet PO (08:22)
[2021-05-30] MEDS: Acetaminophen 500 MG Tablet 1000 MG PO ×2 (09:17→20:19)
[2021-05-30] MEDS: traMADol 50 MG Tablet PO (09:17)
--- NOTE | 2021-05-30 09:34 | CASEMGMT ---
Social Work Return call from [facility] and they are able to accept pt and will call pt to set up first visit. EVA Barton
[2021-05-30 11:03] VITALS: PULSE 88; RESP 18
--- NOTE | 2021-05-30 14:04 | NURSING ---
Resident and daughter, Ashly, notified of 3 staff members testing positive for COVID.
[2021-05-30 14:31] VITALS: BP 138/73; PULSE 106; RESP 20; TEMP 36; O2SAT 97
[2021-05-30 14:45] VITALS: PULSE 85; RESP 18
[2021-05-30 19:55] VITALS: PULSE 92; RESP 20
[2021-05-30] MEDS: Montelukast 10 MG Tablet PO (20:16)
[2021-05-31] MEDS: Albuterol Sulfate 8 gm Inhaler (60 puffs) 2 PUFF INHALATION ×3 (00:47→08:36)
[2021-05-31] MEDS: Benzonatate 100 MG Capsule PO (04:44)
[2021-05-31] MEDS: Pantoprazole Sodium 20 MG Tablet PO (04:45)
[2021-05-31] MEDS: oxyCODONE 5 MG Tablet PO (04:45)
[2021-05-31] MEDS: Acetaminophen 500 MG Tablet 1000 MG PO (04:45)
[2021-05-31] MEDS: Losartan Potassium 25 MG Tablet 12.5 MG PO (04:46)
[2021-05-31] MEDS: Furosemide 40 MG Tablet PO (04:46)
[2021-05-31] MEDS: Enoxaparin 30 MG/0.3 ML Syringe SC (04:47)
[2021-05-31] MEDS: Carvedilol 3.125 MG TABLET PO (04:47)
[2021-05-31] MEDS: Loratadine 10 MG Tablet PO (04:47)
[2021-05-31] MEDS: Lidocaine 5% Patch 1 PATCH TOPICAL (04:48)
[2021-05-31 04:51] VITALS: BP 166/73; PULSE 88
[2021-05-31 06:25] VITALS: PULSE 92; RESP 18; O2SAT 98
[2021-05-31] MEDS: Ipratropium/Albuterol Sulfate 3 ML AMPUL.NEB INHALATION (06:25)
[2021-05-31] MEDS: Aspirin 81 MG TAB.CHEW PO (08:32)
[2021-05-31] MEDS: predniSONE 10 MG Tablet PO (08:33)
[2021-05-31 09:37] VITALS: BP 118/75; PULSE 94; RESP 20; TEMP 36.2; O2SAT 98
[2021-05-31 09:39] VITALS: PULSE 94; RESP 20
== END 2021-05-31 10:00 | disposition home health service (06) | DRG 560 ==
PROVIDERS: Admitting Provider Family Medicine Geriatric Medicine; PCP Internal Medicine; Visit Provider Family Medicine Geriatric Medicine
DX: M48.54XD Collapsed vertebra, not elsewhere classified, thoracic region, subsequent encounter for fracture with routine healing (principal); I50.22 Chronic systolic (congestive) heart failure; I11.0 Hypertensive heart disease with heart failure; E78.5 Hyperlipidemia, unspecified; I73.9 Peripheral vascular disease, unspecified; J44.9 Chronic obstructive pulmonary disease, unspecified; K21.9 Gastro-esophageal reflux disease without esophagitis; E55.9 Vitamin D deficiency, unspecified; Z79.899 Other long term (current) drug therapy; Z85.72 Personal history of non-Hodgkin lymphomas; Z79.82 Long term (current) use of aspirin; Z79.52 Long term (current) use of systemic steroids; Z87.891 Personal history of nicotine dependence
CPT/HCPCS: 36415; 71046; 80048; 81001; 85025; 87086; 87088; 87186; 87426; 87635; 94640; 97110; 97116; 97162; 97165; 97530; 97535; U0003; U0005

== ENCOUNTER 2021-06-11 15:59 | Outpatient (CLI) | payer MEDICARE, OTHER, SELFPAY ==
[2017-07-15 14:36] VITALS: BMI 31.1
[2021-06-11 16:43] LABS: Absolute Lymphocyte Count 2.66 X10^3/uL (0.83-4.51); Absolute Neutrophil Count 4.8 X10^3/uL (2.0-7.7); Basophil# 0.02 X10^3/uL; Basophil% 0.2 % (0-1); Eosinophil# 0.01 X10^3/uL; Eosinophils% 0.1 % (0-5); Hematocrit 40.8 % (37-47); Hemoglobin 12.8 g/dL (12.0-15.0); Lymphocyte # 2.66 X10^3/ul (0.83-4.51); Lymphocyte % 31.7 % (19-41); Mean Corp Hgb Conc 31.4 g/dL (32-36); Mean Corpuscular Hgb 29.8 pg (27.0-32.0); Mean Corpuscular Volume 95.1 fL (81-99); Mean Platelet Vol. 11.2 fl (6.2-12.0); Monocyte# 0.84 X10^3/uL; NRBC Flagged by Analyzer 0 % (0-5); Neutrophil % 57.4 % (47-70); Platelet Count 260 K/mm3 (150-450); RBC Distribution Width CV 15.9 % (11.6-14.6); RBC Distribution Width SD 55.5 fl (35.1-43.9); Red Blood Count 4.29 M/mm3 (4.2-5.4); White Blood Count 8.4 K/mm3 (4.4-11.0)
[2021-06-11 17:02] LABS: ALB/GLOB Ratio 1.2 RATIO (0.9-2.4); AST(SGOT) 10 U/L (15-37); Alanine Aminotransfer ALT/SGPT 28 U/L (13-56); Albumin, Serum 3.7 g/dL (3.2-5.0); Alkaline Phosphatase 67 U/L (45-117); Anion Gap 5 (5-15); BUN 17 mg/dL (7-18); Chloride 101 mmol/L (98-107); Creatinine, Serum 0.71 mg/dL (0.55-1.02); EST Glomerular Filtration Rate 84 mL/min (>60); Est Glom Filt Rate - Afr Amer 102 mL/min (>60); Globulin 3.2 g/dL (2.2-4.2); Glucose 95 mg/dL (74-106); Potassium 4.7 mmol/L (3.5-5.1); Protein, Total 6.9 g/dL (6.4-8.2); Sodium Level 139 mmol/L (136-145); Thyroid Stim Hormone (TSH) 0.54 uIU/mL (0.358-3.74)
[2021-06-11 17:51] LABS: Vitamin D,25 Hydroxy 83.7 ng/mL
== END 2021-06-11 23:59 | disposition short-term general hospital (02) ==
LOC: POLAB3 16:00
PROVIDERS: PCP Family Medicine Geriatric Medicine; Visit Provider Family Medicine Geriatric Medicine
DX: E55.9 Vitamin D deficiency, unspecified (principal); R53.83 Other fatigue
CPT/HCPCS: 36415; 80053; 82306; 84443; 85025

== ENCOUNTER 2021-06-21 13:44 | Outpatient (CLI) | payer MEDICARE, OTHER, SELFPAY ==
[2017-07-15 14:36] VITALS: BMI 31.1
--- NOTE | 2021-06-21 13:50 | BD_ITS ---
STUDY: DUAL ENERGY X-RAY ABSORPTIOMETRY / DXA REASON FOR EXAM: Female, 81 years old. [id number]. The patient is postmenopausal. TECHNIQUE: Bone Mineral Density (BMD) measurements of lumbar spine and bilateral hips were obtained. COMPARISON: None. FINDINGS: Lumbar Spine (L1-L4): g/cm2 (0.781) / T-score (-2.9) / Z-score (0.0) Findings are suggestive of osteoporosis with a high fracture risk. Left Femur Total: g/cm2 (0.811) / T-score (-1.1) / Z-score (1.1) Left Femoral Neck: g/cm2 (0.587) / T-score (-2.4) / Z-score (0.0) Right Femur Total: g/cm2 (0.801) / T-score (-1.2) / Z-score (1.0) Right Femoral Neck: g/cm2 (0.692) / T-score (-1.4) / Z-score (1.0) BD/Dexa Bone Density Study IMPRESSION: The patient is considered osteoporotic as outlined below according to World Darrell Organization (WHO) criteria with a high fracture risk. Reference Information: The T-score is the number of standard deviations above or below the standard which is normal for young adults at their peak bone mineral density. The World Health Organization (WHO) interprets the T-scores as follows: Above -1 Normal bone density Between -1 and -2.5 Osteopenia Equal to / or below -2.5 Osteoporosis As a practical clinical guideline, osteopenia may be graded as follows: Mild -1 through -1.5 Moderate -1.6 through -2.0 Severe -2.1 through -2.4 The Z-score is the number of standard deviations above or below age-matched controls. A Z-score of less than -1.5 would be considered abnormal. References: 1. NIH Osteoporosis and Related Bone Diseases www osteo.org 2. International Society for Clinical Densitometry www iscd.org 3. National Osteoporosis Foundation www nof.org Electronically Signed: Naresh Varghese MD at 14:23 EST ,
== END 2021-06-21 23:59 | disposition short-term general hospital (02) ==
LOC: OPBD 13:44
PROVIDERS: PCP Family Medicine Geriatric Medicine; Referring Provider Family Medicine Geriatric Medicine; Visit Provider Family Medicine Geriatric Medicine
DX: Z78.0 Asymptomatic menopausal state (principal)
CPT/HCPCS: 77080

== ENCOUNTER 2021-07-05 12:26 | Outpatient (CLI) | payer MEDICARE, OTHER, SELFPAY ==
[2017-07-15 14:36] VITALS: BMI 31.1
--- NOTE | 2021-07-05 12:28 | CT_ITS ---
STUDY: CT CHEST WITH CONTRAST REASON FOR EXAM: Female, 81 years old. MONITOR LUNG CANCER RADIATION DOSAGE (If Supplied By Facility): CTDIvol = ( 11.40 ) mGy, DLP = ( 470.17 ) mGycm TECHNIQUE: Transaxial imaging was performed following intravenous administration of IV 100mL Isovue-370. Individualized dose optimization techniques were used for this CT. COMPARISON: Comparison is made with prior study dated 05/17/2021. FINDINGS: Mild thickening of the left major fissure. The patient is status post right thoracotomy with deformity of the overlying ribs. Mild increased markings are seen in the overlying soft tissues suggestive of postoperative changes. Mild residual scarring in the posterior aspect of the right lower lobe with focal nodular density. The nodule presently measures 1.1 cm x 1.1 cm. This is essentially unchanged. The previously seen focal area of groundglass appearance in the peripheral lateral aspect of the right lower lobe as seen on axial image #74 has almost completely cleared. There are calcifications of the coronary arteries. Normal mediastinum. Normal hilar regions. Normal enhanced pulmonary arteries. There is atherosclerotic calcification of the aortic arch with tortuosity and elongation of the aortic arch and descending thoracic aorta. There are multi-level degenerative changes of the thoracic spine. Loss of height of a mid and lower dorsal vertebrae approximately 50%. There is also evidence of a almost complete collapse of the T2 vertebrae. There is a small hiatal hernia. CT/Chest WITH Contrast IMPRESSION: Postoperative changes in the right lung as described. Stable compression fractures of the T2, T8 and T12 thoracic vertebrae. Electronically Signed: Naresh Varghese MD at 18:09 EST ,
== END 2021-07-05 23:59 | disposition home or self-care (01) ==
LOC: CT 12:27
PROVIDERS: PCP Family Medicine Geriatric Medicine; Referring Provider Internal Medicine Medical Oncology; Visit Provider Internal Medicine Medical Oncology
DX: C34.91 Malignant neoplasm of unspecified part of right bronchus or lung (principal)
CPT/HCPCS: 71260; Q9967

== ENCOUNTER 2021-07-12 15:00 | Outpatient (CLI) | payer MEDICARE, OTHER, SELFPAY ==
[2017-07-15 14:36] VITALS: BMI 31.1
[2021-07-12 15:51] LABS: Anion Gap 4 (5-15); BUN 17 mg/dL (7-18); BUN/Creat Ratio 15.6 RATIO (10-20); Calcium,Total 9.3 mg/dL (8.5-10.1); Chloride 100 mmol/L (98-107); Creatinine, Serum 1.09 mg/dL (0.55-1.02); EST Glomerular Filtration Rate 51 mL/min (>60); Est Glom Filt Rate - Afr Amer 62 mL/min (>60); Glucose 99 mg/dL (74-106); Sodium Level 137 mmol/L (136-145)
== END 2021-07-12 23:59 | disposition home or self-care (01) ==
LOC: POLAB3 15:02
PROVIDERS: PCP Family Medicine Geriatric Medicine; Visit Provider Family Medicine Geriatric Medicine
DX: I50.22 Chronic systolic (congestive) heart failure (principal)
CPT/HCPCS: 36415; 80048

== ENCOUNTER 2021-07-31 11:59 | Outpatient (CLI) | payer MEDICARE, OTHER, SELFPAY ==
[2017-07-15 14:36] VITALS: BMI 31.1
[2021-07-31 12:41] LABS: Anion Gap 5 (5-15); BUN 14 mg/dL (7-18); BUN/Creat Ratio 21.3 RATIO (10-20); Calcium,Total 9.6 mg/dL (8.5-10.1); Chloride 98 mmol/L (98-107); Creatinine, Serum 0.66 mg/dL (0.55-1.02); EST Glomerular Filtration Rate 92 mL/min (>60); Est Glom Filt Rate - Afr Amer 111 mL/min (>60); Glucose 119 mg/dL (74-106); Potassium 4.4 mmol/L (3.5-5.1); Sodium Level 137 mmol/L (136-145)
== END 2021-07-31 23:59 | disposition home or self-care (01) ==
LOC: POLAB3 12:00
PROVIDERS: PCP Family Medicine Geriatric Medicine; Visit Provider Family Medicine Geriatric Medicine
DX: I50.22 Chronic systolic (congestive) heart failure (principal)
CPT/HCPCS: 36415; 80048

== ENCOUNTER 2021-08-14 16:21 | Outpatient (CLI) | payer MEDICARE, OTHER, SELFPAY ==
[2017-07-15 14:36] VITALS: BMI 31.1
[2021-08-14 17:30] LABS: Anion Gap 4 (5-15); BUN 18 mg/dL (7-18); BUN/Creat Ratio 22.8 RATIO (10-20); Calcium,Total 10.2 mg/dL (8.5-10.1); Chloride 99 mmol/L (98-107); Creatinine, Serum 0.79 mg/dL (0.55-1.02); EST Glomerular Filtration Rate 74 mL/min (>60); Est Glom Filt Rate - Afr Amer 90 mL/min (>60); Glucose 85 mg/dL (74-106); Potassium 4.2 mmol/L (3.5-5.1); Sodium Level 137 mmol/L (136-145)
== END 2021-08-14 23:59 | disposition home or self-care (01) ==
LOC: POLAB3 16:25
PROVIDERS: PCP Family Medicine Geriatric Medicine; Visit Provider Family Medicine Geriatric Medicine
DX: I50.22 Chronic systolic (congestive) heart failure (principal)
CPT/HCPCS: 36415; 80048

== ENCOUNTER 2021-08-20 10:34 | Outpatient (CLI) | payer MEDICARE, OTHER, SELFPAY ==
[2017-07-15 14:36] VITALS: BMI 31.1
--- NOTE | 2021-08-20 10:55 | RAD_ITS ---
STUDY: X-RAY - THORACIC SPINE REASON FOR EXAM: Female, 81 years old. OSTEOPEROSIS, pain. TECHNIQUE: 3 view(s) of the thoracic spine were obtained. COMPARISON: 07/05/2021 CT chest. FINDINGS: Chronic T4, T8, and T12 vertebral body compression fractures are similar to previous. Underlying bony demineralization and degenerative changes not significant change. No apparent acute fracture. Alignment unchanged. No acute soft tissue abnormality. Calcific atherosclerosis again demonstrated. RAD/Thoracic Spine 3 Views IMPRESSION: No significant change. Chronic T4, T8, and T12 vertebral body compression fractures are similar to previous. Electronically Signed: Tee Murray MD at 6:31 EDT Reading Location ID and State: [facility] / [place] Tel , Service support ,
== END 2021-08-20 23:59 | disposition home or self-care (01) ==
PROVIDERS: PCP Family Medicine Geriatric Medicine; Referring Provider Anesthesiology Pain Medicine; Visit Provider Anesthesiology Pain Medicine
DX: M80.08XA Age-related osteoporosis with current pathological fracture, vertebra(e), initial encounter for fracture (principal)
CPT/HCPCS: 72072

== ENCOUNTER → 2021-12-11 | Outpatient (CLI) | payer MEDICARE, OTHER, SELFPAY ==
[2017-07-15 14:36] VITALS: BMI 31.1
[2021-12-11 17:17] LABS: Absolute Lymphocyte Count 1.86 X10^3/uL (0.83-4.51); Basophil# 0.02 X10^3/uL; Basophil% 0.2 % (0-1); Hematocrit 38.8 % (37-47); Hemoglobin 12.2 g/dL (12.0-15.0); Lymphocyte # 1.86 X10^3/ul (0.83-4.51); Lymphocyte % 21.5 % (19-41); Mean Corp Hgb Conc 31.4 g/dL (32-36); Mean Corpuscular Volume 98.5 fL (81-99); Mean Platelet Vol. 11.5 fl (6.2-12.0); Monocyte# 0.75 X10^3/uL; Monocyte% 8.7 % (0-10); NRBC Flagged by Analyzer 0 % (0-5); Neutrophil # 5.97 X10^3/uL (2.7-7.7); Platelet Count 262 K/mm3 (150-450); RBC Distribution Width CV 15.3 % (11.6-14.6); RBC Distribution Width SD 55.2 fl (35.1-43.9); Red Blood Count 3.94 M/mm3 (4.2-5.4); White Blood Count 8.7 K/mm3 (4.4-11.0)
[2021-12-11 17:39] LABS: AST(SGOT) 13 U/L (15-37); Alanine Aminotransfer ALT/SGPT 21 U/L (13-56); Albumin, Serum 3.4 g/dL (3.2-5.0); Alkaline Phosphatase 45 U/L (45-117); Anion Gap 5 (5-15); BUN 19 mg/dL (7-18); BUN/Creat Ratio 25.5 RATIO (10-20); Calcium,Total 9.1 mg/dL (8.5-10.1); Chloride 99 mmol/L (98-107); Creatinine, Serum 0.74 mg/dL (0.55-1.02); EST Glomerular Filtration Rate 79 mL/min (>60); Est Glom Filt Rate - Afr Amer 96 mL/min (>60); Globulin 3.4 g/dL (2.2-4.2); Glucose 143 mg/dL (74-106); Potassium 4.1 mmol/L (3.5-5.1); Protein, Total 6.8 g/dL (6.4-8.2); Sodium Level 138 mmol/L (136-145); Thyroid Stim Hormone (TSH) 0.78 uIU/mL (0.358-3.74)
[2021-12-11 18:17] LABS: Vitamin D,25 Hydroxy 52.3 ng/mL
== END | disposition home or self-care (01) ==
LOC: POLAB3 14:56
PROVIDERS: PCP Family Medicine Geriatric Medicine; Visit Provider Family Medicine Geriatric Medicine
DX: R53.83 Other fatigue (principal); E55.9 Vitamin D deficiency, unspecified
CPT/HCPCS: 36415; 80053; 82306; 84443; 85025

== ENCOUNTER → 2022-02-11 | Outpatient (CLI) | payer MEDICARE, OTHER, SELFPAY ==
[2017-07-15 14:36] VITALS: BMI 31.1
--- NOTE | 2022-02-11 15:51 | CT_ITS ---
STUDY: PULMONARY AND CHEST CT ANGIOGRAPHY OF 1612 HOURS ON 02/11/2022 REASON FOR EXAM: 81-year-old female with shortness of breath. RADIATION DOSAGE (If Supplied By Facility): CTDIvol = ( 10.50 ) mGy, DLP = ( 497.14 ) mGycm TECHNIQUE: The examination was performed with the intravenous administration of 100 mL of Isovue-370.. Post-processing of the angiographic images was performed, with multiplanar reformation and 3D reconstruction. Individualized dose optimization techniques were used for this CT. COMPARISON: None. FINDINGS: Borderline cardiomegaly. Prominent pericardial fat pad. No mediastinal or hilar lymphadenopathy. Presence of a 4 cm dense alveolar infiltrate versus mass in the right lower lobe. Minimal atelectatic changes in the lingula. No other infiltrates, atelectasis, effusion, or pulmonary mass lesions. No evidence of pulmonary thromboembolism. Moderate calcific atherosclerotic changes of the thoracic aorta without aneurysm or dissection. CT/CTA Chest W/WO Contrast IMPRESSION: 1. No evidence of pulmonary thromboembolism. 2. Moderate calcific atherosclerotic changes of the thoracic aorta without aneurysm or dissection. 3. Borderline cardiomegaly with a prominent pericardial fat pad. 4. Poor technique, there is a 4 cm in diameter dense alveolar infiltrate versus mass in the right lower lobe. 5. Mild atelectatic changes in the lingula. Electronically Signed: Sharad Valencia MD at 16:56 EDT ,
[2022-02-11 16:26] LABS: CREATININE FINGERSTICK < 0.9 mg/dL (0.55-1.02); EGFR FINGERSTICK > 60.0000 mL/min (>60)
== END | disposition home or self-care (01) ==
PROVIDERS: PCP Family Medicine Geriatric Medicine; Referring Provider Family Medicine Geriatric Medicine; Visit Provider Family Medicine Geriatric Medicine
DX: R06.02 Shortness of breath (principal); G93.40 Encephalopathy, unspecified; N39.0 Urinary tract infection, site not specified
CPT/HCPCS: 36415; 71275; 80048; 83880; 85025; 87086; 87088; 87186; Q9967

== ENCOUNTER → 2022-02-11 | Outpatient (CLI) | payer MEDICARE, OTHER, SELFPAY ==
[2017-07-15 14:36] VITALS: BMI 31.1
[2022-02-11 15:53] LABS: Absolute Lymphocyte Count 2.21 X10^3/uL (0.83-4.51); Absolute Neutrophil Count 5.7 X10^3/uL (2.0-7.7); Basophil# 0.03 X10^3/uL; Basophil% 0.4 % (0-1); Eosinophil# 0.01 X10^3/uL; Eosinophils% 0.1 % (0-5); Hematocrit 40.6 % (37-47); Hemoglobin 12.5 g/dL (12.0-15.0); Lymphocyte # 2.21 X10^3/ul (0.83-4.51); Lymphocyte % 25.8 % (19-41); Mean Corp Hgb Conc 30.8 g/dL (32-36); Mean Corpuscular Hgb 29.3 pg (27.0-32.0); Mean Corpuscular Volume 95.1 fL (81-99); Mean Platelet Vol. 10.7 fl (6.2-12.0); Monocyte# 0.52 X10^3/uL; Monocyte% 6.1 % (0-10); NRBC Flagged by Analyzer 0 % (0-5); Neutrophil # 5.72 X10^3/uL (2.7-7.7); Neutrophil % 66.8 % (47-70); Platelet Count 324 K/mm3 (150-450); RBC Distribution Width CV 15.7 % (11.6-14.6); RBC Distribution Width SD 54.4 fl (35.1-43.9); Red Blood Count 4.27 M/mm3 (4.2-5.4); White Blood Count 8.6 K/mm3 (4.4-11.0)
[2022-02-11 16:24] LABS: Anion Gap 6 (5-15); BUN 25 mg/dL (7-18); BUN/Creat Ratio 30.3 RATIO (10-20); Chloride 102 mmol/L (98-107); Creatinine, Serum 0.82 mg/dL (0.55-1.02); EST Glomerular Filtration Rate 70 mL/min (>60); Est Glom Filt Rate - Afr Amer 85 mL/min (>60); Glucose 133 mg/dL (74-106); Potassium 4.9 mmol/L (3.5-5.1); Sodium Level 141 mmol/L (136-145)
== END | disposition home or self-care (01) ==
LOC: POLAB3 15:36
PROVIDERS: PCP Family Medicine Geriatric Medicine; Visit Provider Family Medicine Geriatric Medicine
DX: G93.40 Encephalopathy, unspecified (principal); N39.0 Urinary tract infection, site not specified; R06.02 Shortness of breath
CPT/HCPCS: 36415; 80048; 83880; 85025; 87086

== ENCOUNTER → 2022-03-11 | Outpatient (CLI) | payer MEDICARE, OTHER, SELFPAY ==
[2017-07-15 14:36] VITALS: BMI 31.1
[2022-03-11 17:13] LABS: Absolute Lymphocyte Count 1.83 X10^3/uL (0.83-4.51); Absolute Neutrophil Count 5.5 X10^3/uL (2.0-7.7); Basophil# 0.04 X10^3/uL; Basophil% 0.5 % (0-1); Hematocrit 41.2 % (37-47); Hemoglobin 12.9 g/dL (12.0-15.0); Lymphocyte # 1.83 X10^3/ul (0.83-4.51); Lymphocyte % 22.4 % (19-41); Mean Corp Hgb Conc 31.3 g/dL (32-36); Mean Corpuscular Hgb 29.8 pg (27.0-32.0); Mean Corpuscular Volume 95.2 fL (81-99); Mean Platelet Vol. 11.1 fl (6.2-12.0); Monocyte# 0.62 X10^3/uL; Monocyte% 7.6 % (0-10); NRBC Flagged by Analyzer 0 % (0-5); Neutrophil # 5.51 X10^3/uL (2.7-7.7); Neutrophil % 67.4 % (47-70); Platelet Count 311 K/mm3 (150-450); RBC Distribution Width CV 16.8 % (11.6-14.6); RBC Distribution Width SD 58.6 fl (35.1-43.9); Red Blood Count 4.33 M/mm3 (4.2-5.4); White Blood Count 8.2 K/mm3 (4.4-11.0)
[2022-03-11 17:48] LABS: ALB/GLOB Ratio 0.9 RATIO (0.9-2.4); AST(SGOT) 14 U/L (15-37); Alanine Aminotransfer ALT/SGPT 23 U/L (13-56); Albumin, Serum 3.4 g/dL (3.2-5.0); Alkaline Phosphatase 43 U/L (45-117); Anion Gap 8 (5-15); BUN 26 mg/dL (7-18); BUN/Creat Ratio 32.9 RATIO (10-20); Calcium,Total 9.7 mg/dL (8.5-10.1); Chloride 99 mmol/L (98-107); Creatinine, Serum 0.79 mg/dL (0.55-1.02); EST Glomerular Filtration Rate 74 mL/min (>60); Est Glom Filt Rate - Afr Amer 89 mL/min (>60); Globulin 3.6 g/dL (2.2-4.2); Glucose 106 mg/dL (74-106); Potassium 4.3 mmol/L (3.5-5.1); Sodium Level 139 mmol/L (136-145); Thyroid Stim Hormone (TSH) 0.79 uIU/mL (0.358-3.74)
== END | disposition home or self-care (01) ==
LOC: POLAB3 14:25
PROVIDERS: PCP Family Medicine Geriatric Medicine; Visit Provider Family Medicine Geriatric Medicine
DX: R53.83 Other fatigue (principal); E55.9 Vitamin D deficiency, unspecified; N39.0 Urinary tract infection, site not specified
CPT/HCPCS: 36415; 80053; 82306; 84443; 85025; 87086; 87088